=== PATIENT | male | born 1980 | race African-American/Black ===

== ENCOUNTER 2023-04-17 20:53 | Inpatient (IN) ==
[2023-04-17 22:04] LABS: Appearance Urine Clear (Clear); Bacteria Urine Automated Negative (Negative); Bilirubin Urine Negative (Negative); Blood Urine 1+ (Negative); Color Urine Yellow; Glucose Urine UA 3+ (Negative); Ketones Urine Negative (Negative); Leukocyte Esterase Urine Negative (Negative); Nitrite Urine Negative (Negative); Protein Urine 4+ (Negative); RBC Urine Automated 0-4 /hpf (0-4); Specific Gravity Urine 1.019 (1.000-1.030); Urobilinogen Urine Negative (Negative); pH Urine 6.5 (4.5-7.5)
[2023-04-17 22:35] LABS: Alanine Aminotransferase 10 U/L (7-52); Albumin Globulin Ratio 0.8 (0.9-2); Albumin Level 2.7 gm/dl (3.4-5.0); Alkaline Phosphatase 65 U/L (34-104); BUN Creatinine Ratio 10.8 (10-20); Bilirubin,Total 0.4 mg/dl (0.2-1.0); Blood Urea Nitrogen 23 mg/dl (6-23); Calcium 8.2 mg/dl (8.6-10.3); Carbon Dioxide 31 mmol/L (21-32); Chloride 107 mmol/L (98-107); Creatinine Clr Calc Pharmacy 59.5 ml/min; Est GFR (African American) 43.2 ml/min; Est GFR (Non-African American) 37.3 ml/min; Globulin 3.2 gm/dl (2.5-4.0); Glucose 151 mg/dl (70-99(Fasting)); Lipase 73 U/L (11-82); Total Protein 5.9 gm/dl (6.0-8.3)
[2023-04-17 22:51] LABS: Basophils % (auto) 1.1 %; Eosinophils # (auto) 0.16 K/uL (0.00-0.50); Eosinophils % (auto) 1.7 %; Hematocrit (blood only) 48.4 % (42.0-52.0); Hemoglobin 14.7 g/dl (14.0-18.0); Immature Granulocytes # (auto) 0.04 K/uL (0.01-0.20); Immature Granulocytes % (auto) 0.4 %; Lymphocytes # (auto) 2.44 K/uL (1.20-3.40); Mean Corpuscular Hemoglobin 27.5 pg (25.0-34.0); Mean Corpuscular Hgb Conc 30.4 g/dL (32.0-36.0); Mean Corpuscular Volume 90.5 fL (80.0-100.0); Mean Platelet Volume 11.5 fL (9.4-12.4); Monocytes # (auto) 0.72 K/uL (0.11-0.59); Monocytes % (auto) 7.7 %; Neutrophils # (auto) 5.91 K/uL (1.40-6.50); Neutrophils % (auto) 63.1 %; Nucleated RBC # (auto) 0.04 K/uL (0.00-0.12); Nucleated RBC % (auto) 0.4 %; Platelet Count 240 K/uL (130-400); RDW Coefficient of Variation 18.4 % (11.5-14.5); RDW Standard Deviation 58.1 fL (36.4-46.3); Red Blood Count 5.35 M/uL (4.70-6.10); White Blood Count 9.37 K/ul (4.8-10.8)
[2023-04-18 00:20] LABS: Potassium 3.5 mmol/L (3.5-5.1)
[2023-04-18 04:01] LABS: Troponin I High Sensitivity 35.2 pg/ml (0-20)
[2023-04-18 04:15] LABS: D Dimer 550 ug/L FEU (0-500)
--- NOTE | 2023-04-18 06:45 | CT Scan Report ---
Exam(s): CT CHEST Without Contrast EXAM: CT Chest Without Intravenous Contrast CLINICAL HISTORY: Reason for exam: eval for pneumonia. TECHNIQUE: Axial computed tomography images of the chest without intravenous contrast. Automated exposure control was utilized for the study. A dose lowering technique was utilized adhering to the principles of ALARA. COMPARISON: No relevant prior studies available. FINDINGS: Lungs: Mild scattered atelectasis. Minimal groundglass opacities in the right lung. 3 mm left upper lobe nodule. Pleural space: Unremarkable. No pneumothorax. No significant effusion. Heart: Query mild cardiomegaly. No significant pericardial effusion. No significant coronary artery calcifications. Bones/joints: Unremarkable. No acute fracture. No dislocation. Soft tissues: Unremarkable. Vasculature: Unremarkable. No thoracic aortic aneurysm. Lymph nodes: Unremarkable. No enlarged lymph nodes. IMPRESSION: 1. Mild scattered atelectasis. Minimal groundglass opacities in the right lung. May reflect infectious/inflammatory process and/or atelectasis. 2. 3 mm left upper lobe nodule. 3. Query mild cardiomegaly. Electronically signed by: Go Gerard M.D. 04/18/23 06:45 AM
[2023-04-18] MEDS ORDERED: FUROSEMIDE 40 MG/4 ML VIAL IV ONE (07:38)
[2023-04-18] MEDS ORDERED: ALBUT/IPRATROP 3MG/0.5MG NEB 3 ML VIAL NEB STA (07:49)
[2023-04-18] MEDS ORDERED: methylPREDNISolone 125 MG/2 ML VIAL IV STA (07:49)
--- NOTE | 2023-04-18 08:06 | XRay Report ---
XR chest 1V portable CLINICAL HISTORY: hypoxia TECHNIQUE: Single frontal radiograph of the chest was obtained. Comparison: None available at the time of this dictation. FINDINGS: No lines and tubes are seen. Cardiomegaly is noted. The lungs are clear. No evidence of pleural effus ion or pneumothorax. IMPRESSION: No acute chest disease. Cardiomegaly is noted. ACT 112: Negative or not required by law. Electronically signed by: Hugo Higuera M.D. 04/18/2023 8:04 AM
[2023-04-18] MEDS ORDERED: PHARMACY GLYCEMIC MGMT CONSULT PRN (10:14)
--- NOTE | 2023-04-18 10:31 | History & Physical Report ---
Date of Service April 18, 2023 Assessment & Plan (1) Acute and chronic respiratory failure: Plan: -Was requiring 8L oxymask on admission. States that he was told he needs oxygen at home before, but cannot afford it. Does wear cpap when he has all the parts. Denies feeling short of breath. -Likely secondary to volume overload - Received 40mg IV lasix in ED -04/18 CXR: cardionmegaly -04/18 CT: mild atelectasis -Biofire negative -Troponin 35.2--> 27.3 -Echo: mild LVH, EF 55-60% -Bilateral LE Dopplers--> No DVT -ABG: pH 7.32, pCO2: 66 -Wean O2 as able, goal 90-92% -Incentive Spirometer -Bipap HS and naps (2) Congestive heart failure: Plan: -Does not follow with cardiology or know his dry weight. Up about 15# since February. -States he has been taking his lasix at home (3) Scrotal edema: Plan: -Likely related to volume overload status -Continue IV lasix 40mg daily (4) Chronic renal disease, stage 3, moderately decreased glomerular filtration rate (GFR) between 30-59 mL/min/1.73 square meter: Plan: -4+ protienuria on admission -24 hr urine protein ordered -Creatinine 2.13 which seems to be baseline (5) Hypertension: Plan: -Continue amlodipine, metoprolol, and losartan - Will need to monitor creatinine - may need to hold ARB (6) Poorly controlled type 2 diabetes mellitus: Plan: -Hold Trulicity and Jardiance - HgbA1c: 10.1 -Pharmacy Glycemic consult for poor control. (7) Dyslipidemia: Plan: -Continue atorvastatin and fenofibrate (8) Cigar smoker: Plan: -1ppd -declined nicotine replacement Plan Diet: HH/DMT2, fluid restriction 1800ml VTE proh: heparin SQ Q12 Dispo: Admit to PCU/tele History of Present Illness Chief Complaint: Scrotal Swelling Primary Care Provider: Efren Young PA-C Mr. Manzo is a 42 male with a PMH of Type 2 Diabetes, CKD3, CHF, HTN, and Dyslipidemia. Patient complaining of worsening scrotal swelling over the last 4 days. No pain, redness or fevers. States that his noticed it was getting worse and told him to come to the ER. States that he has also noticed that his legs have been more swollen over the last month. Reports cough, chills, decreased appetite and decreased urine output in the last few days. Feels like he is only urinating about twice per day. Denies sick contacts or recent travels. Follows with [facility], but has not seen them since December. Does not have a scrap cutter. Has been taking medications at home but unsure of which ones, states he takes 7 pills. Smokes 1 pack per day. Does not drink. Lives at home with . His three children live with his [id number] during the school year, so he has been getting less food stamps because of this. Discussed code status and patient desires to be a full code. Allergies Allergy/AdvReac Type Severity Reaction Status Date / Time No Known Allergies Allergy Verified 04/18/23 11:48 Home Medications Medication Instructions Recorded Confirmed Type albuterol sulfate 90 mcg/actuation 2 puff inhalation Q6H PRN 01/03/23 04/18/23 History aerosol inhaler Shortness Of Breath Or Wheezing empagliflozin 25 mg tablet 25 mg PO DAILY 01/03/23 04/18/23 History (Jardiance) fenofibrate 160 mg tablet 160 mg PO QAM 01/03/23 04/18/23 History insulin lispro 100 unit/mL 15 unit subcut BID 01/03/23 04/18/23 History subcutaneous pen (Humalog KwikPen (U-100) Insulin) blood sugar diagnostic (StarNet InteractiveTouch #300 ea 01/05/23 04/18/23 Rx Verio test strips) insulin glargine 100 unit/mL (3 28 unit subcut DAILY 01/05/23 04/18/23 History mL) subcutaneous pen (Lantus Solostar U-100 Insulin) lancets 30 gauge (OneTouch Delica #300 ea 01/05/23 04/18/23 Rx Plus Lancet) metoprolol succinate 100 mg 100 mg PO QAM 01/05/23 04/18/23 History capsule sprinkle, ext. release 24 hr flash glucose sensor (FreeStyle #6 ea 02/28/23 04/18/23 Rx Tootie 2 Sensor kit) atorvastatin 80 mg tablet 80 mg PO DAILY #30 tabs 03/05/23 04/18/23 Rx calcitriol 0.25 mcg capsule 0.25 mcg PO DAILY #30 caps 03/05/23 04/18/23 Rx losartan 100 mg tablet 100 mg PO DAILY #30 tabs 03/05/23 04/18/23 Rx dulaglutide 0.75 mg/0.5 mL 0.75 mg subcut WK 04/18/23 04/18/23 History subcutaneous pen injector (Trulicity) amlodipine 5 mg tablet (Norvasc) 10 mg (2 x 5 mg) PO QAM 30 days 04/23/23 Rx #60 tabs bumetanide 1 mg tablet 2 mg (2 x 1 mg) PO QAM 30 days #60 04/23/23 Rx tabs metoprolol succinate 50 mg 50 mg PO HS #30 tabs 04/23/23 Rx tablet,extended release 24 hr prazosin 1 mg capsule 1 mg PO BID 30 days #60 caps 04/23/23 Rx Past Med/Surg History Medical History (Updated 04/24/23 @ 17:16 by Andres Bethea MD) Diabetic nephropathy associated with type 2 diabetes mellitus Hypertension Obesity Dyslipidemia Poorly controlled type 2 diabetes mellitus Nephrotic syndrome Stage 3b chronic kidney disease Family History Mother Diabetes Heart disease Dyslipidemia Social History Smoking Status: Current every day smoker Tobacco Type: Cigarettes Cigarettes Per Day: 1 pack; Second Hand Exposure: No; Do You Dip or Chew Tobacco: No; Hx Alcohol Use: No Hx Substance Use: Yes Prescribed Medications: Marijuana Last Used Substance: Hours (ago) Last Used Substance Other:: 04/17/23 Preferred Language: Sinhala Communication Ability: Effective Machine Stamper Required: No Beliefs That Will Affect Care: None marital status: Current Living Situation: Spouse current occupational status: employed How many Children do You have: 5 Feels Safe at Home: Yes Assistive Devices: CPAP Review of Systems Review of Systems: All systems reviewed & are unremarkable except as noted in Subjective Physical Exam Physical Exam: General: WN/WD, NAD, VS as above Resp: normal respiratory effort, no acessory muscle use, able to speak in full sentence. Decreased lung sounds bilateral bases. CV: RRR, no murmur Abd: normal bowel sounds, non tender, no hepatosplenomegaly. Lower abdomen is firm Extremities: Moves all extremities, bilateral leg edema, nonpitting. no erythema : Moderate scrotal swelling, no signs of infection or eryethema Neuro: A&O x3, Skin: intact, no lesions noted Results & Data Results & Data Vital Signs (Past 12 Hours) Vital Signs Pulse Pulse Resp BP BP Pulse Ox O2 Del Method 04/18/23 09:01 90 19 97 04/18/23 09:01 201/141 H 04/18/23 09:00 89 16 96 04/18/23 08:53 91 H 04/18/23 08:51 88 6 L 100 04/18/23 08:47 83 20 227/157 H 97 Oxymask 04/18/23 08:40 80 25 H 44 L Oxymask 04/18/23 06:35 90 12 168/110 H 98 Nasal Cannula 04/18/23 05:00 90 14 205/135 H 98 Nasal Cannula 04/18/23 02:01 75 L Room Air, Nasal Cannula 04/18/23 01:55 96 H 14 189/114 H 75 L Room Air 04/18/23 01:50 82 14 189/114 H 99 Nasal Cannula 04/18/23 00:33 99 H 18 192/113 H 93 Room Air O2 Flow Rate 04/18/23 08:47 8 04/18/23 08:40 5 04/18/23 06:35 4 04/18/23 05:00 4 04/18/23 02:01 0 04/18/23 01:55 04/18/23 01:50 4 04/18/23 00:33 Laboratory Results Laboratory Results - last 24 hr 04/17/23 04/17/23 04/17/23 21:15 21:22 22:50 WBC 9.37 RBC 5.35 Hgb 14.7 Hct 48.4 MCV 90.5 MCH 27.5 MCHC 30.4 L RDW Std Deviation 58.1 H RDW Coeff of Domi 18.4 H Plt Count 240 MPV 11.5 Immature Gran % (Auto) 0.4 Neut % (Auto) 63.1 Lymph % (Auto) 26.0 [place] % (Auto) 7.7 Eos % (Auto) 1.7 Baso % (Auto) 1.1 Neut # (Auto) 5.91 Lymph # (Auto) 2.44 [place] # (Auto) 0.72 H Eos # (Auto) 0.16 Baso # (Auto) 0.10 Immature Gran # (Auto) 0.04 Absolute Nucleated RBC 0.04 Nucleated RBC % (auto) 0.4 D-Dimer Sodium TNP Cancelled Potassium TNP Cancelled Chloride 107 Carbon Dioxide 31 Anion Gap TNP BUN 23 Creatinine 2.13 H Est Cr Clr Drug Dosing 59.5 Est GFR ( Amer) 43.2 Est GFR (Non-Af Amer) 37.3 BUN/Creatinine Ratio 10.8 Glucose 151 H Calcium 8.2 L Total Bilirubin 0.4 AST TNP Cancelled ALT 10 Alkaline Phosphatase 65 Troponin I High Sens B-Natriuretic Peptide 155 H Total Protein 5.9 L Albumin 2.7 L Globulin 3.2 Albumin/Globulin Ratio 0.8 L Lipase 73 Urine Color Yellow Urine Appearance Clear Urine pH 6.5 Ur Specific [place] 1.019 Urine Protein 4+ H Urine Glucose (UA) 3+ H Urine Ketones Negative Urine Blood 1+ H Urine Nitrite Negative Urine Bilirubin Negative Urine Urobilinogen Negative Ur Leukocyte Esterase Negative Urine WBC (Auto) 1-5 Urine RBC (Auto) 0-4 U Hyaline Cast (Auto) 1-5 U Epithel Cells (Auto) 5-10 H Urine Bacteria (Auto) Negative 04/17/23 04/18/23 23:51 Unknown WBC D-Dimer 550 H* Sodium 143 Potassium 3.5 ALT Alkaline Phosphatase Troponin I High Sens 35.2 H B-Natriuretic Peptide Diagnostic Findings Chest X-Ray 04/18/23 03:21 XR chest 1V portable CLINICAL HISTORY: hypoxia TECHNIQUE: Single frontal radiograph of the chest was obtained. Comparison: None available at the time of this dictation. FINDINGS: No lines and tubes are seen. Cardiomegaly is noted. The lungs are clear. No evidence of pleural effusion or pneumothorax. IMPRESSION: No acute chest disease. Cardiomegaly is noted. ACT 112: Negative or not required by law. Electronically signed by: Hugo Higuera M.D. 04/18/2023 8:[address] 04/18/23 03:53 Exam(s): CT CHEST Without Contrast EXAM: CT Chest Without Intravenous Contrast CLINICAL HISTORY: Reason for exam: eval for pneumonia. TECHNIQUE: Axial computed tomography images of the chest without intravenous contrast. Automated exposure control was utilized for the study. A dose lowering technique was utilized adhering to the principles of ALARA. COMPARISON: No relevant prior studies available. FINDINGS: Lungs: Mild scattered atelectasis. Minimal groundglass opacities in the right lung. 3 mm left upper lobe nodule. Pleural space: Unremarkable. No pneumothorax. No significant effusion. Heart: Query mild cardiomegaly. No significant pericardial effusion. No significant coronary artery calcifications. Bones/joints: Unremarkable. No acute fracture. No dislocation. Soft tissues: Unremarkable. Vasculature: Unremarkable. No thoracic aortic aneurysm. Lymph nodes: Unremarkable. No enlarged lymph nodes. IMPRESSION: 1. Mild scattered atelectasis. Minimal groundglass opacities in the right lung. May reflect infectious/inflammatory process and/or atelectasis. 2. 3 mm left upper lobe nodule. 3. Query mild cardiomegaly. Electronically signed by: Go Gerard M.D. 04/18/23 06:45 AM Code Status & VTE Plan VTE Prophylaxis Plan VTE Prophylaxis will be ordered: Yes Supervising Physician Co-Signing Physician Notes Attending Attestation & Admission Note: Pt seen/examined, chart reviewed, care plan d/w [facility]. I agree with the roa components of her documentation. 42yo male with CKD, obesity, poorly controlled HTN, and T2DM presents with worsening scrotal edema, LE edema, and hypoxia. Upon ER presentation he was hypoxic to the 70s. Despite the hypoxia he was not dyspneic. He was a rather poor historian during my assessment. PMH/PSH/allergies/meds/sochx/famhx/ros - reviewed vitals - hypoxic, BP markedly elevated with systolics as high as 220-230 range, afebrile gen - obese, NAD neck - no obvious JVD heart - RRR, s1 s2, no murmur lungs - decreased BS bases, mild rales bases, no wheeze abd - soft NT ND BS+ ext - 2-3+ edema b/l, pulses 2+ b/l labs reviewed imaging reviewed A/P: 1. acute hypoxic respiratory failure 2nd to #2 - uncertain if volume overload is CHF related vs CKD related vs other 2. volume overload 3. severe proteinuria (4+ protein on u/a) / concern for nephrotic syndrome 4. CKD stage 3a 5. uncontrolled T2DM 6. malignant HTN 7. MINAL 8. morbid obesity * diurese with lasix IV * consider 24-hour urine for protein * echocardiogram * b/l LE dopplers - r/o DVT * needs improved BP control - adjust BP meds * keep O2 sats 90-92% * consider nephro and/or pulmonary consultations Andres Bethea MD PG Care Time/CCT Total # of Minutes Spent Total Time Spent with Patient: Total time spent is greater than 50% in coordination of care (as documented) at patient's floor/unit and/or counseling patient: Coding Level of Care Code 43232 INT INP/OBS CARE 3/75MIN Diagnoses Acute and chronic respiratory failure J96.20 Congestive heart failure I50.9 Scrotal edema N50.89 Chronic renal disease, stage 3, moderately decreased glomerular filtration rate (GFR) between 30-59 mL/min/1.73 square meter N18.30 Hypertension I10 Poorly controlled type 2 diabetes mellitus E11.65 Dyslipidemia E78.5 Cigar smoker F17.290
[2023-04-18 11:16] LABS: Base Excess ABG 5.6 mEq/L (-9-1.8); HCO3 ABG 34 mmol/L (19-24); Oxygen Saturation ABG 96.6 % (90-95); PCO2 ABG 66 mmHg (35-46); PO2 ABG 85 mmHg (80-95); pH ABG 7.32 (7.35-7.45)
[2023-04-18 11:18] LABS: Allen Test Pos (Pos)
[2023-04-18 11:22] LABS: Estimated Average Glucose 243 mg/dl; Hemoglobin A1C 10.1 % (4.5-5.6)
[2023-04-18 11:35] LABS: Magnesium 1.7 mg/dl (1.7-2.4)
[2023-04-18 11:42] LABS: Troponin I High Sensitivity 27.3 pg/ml (0-20)
[2023-04-18] MEDS ORDERED: ACETAMINOPHEN 325 MG TAB PO PRN (11:42)
[2023-04-18] MEDS ORDERED: ALBUTEROL HFA 8 GM INHALER INH PRN (11:42)
[2023-04-18] MEDS ORDERED: POLYETHYLENE (MIRALAX) 17 GM PACK PO PRN (11:42)
[2023-04-18] MEDS ORDERED: NON-FORMULARY MEDICATION (Insulin Glargine [Lantus Solostar U-100 Insulin] 100 unit/mL (3 SQ SCH (11:42)
[2023-04-18] MEDS ORDERED: amLODIPine BESYLATE 5 MG TAB PO ONE (11:50)
[2023-04-18 11:52] LABS: Thyroid Stimulating Hormone 2.649 uIu/ml (0.300-4.500)
[2023-04-18] MEDS ORDERED: LOSARTAN POTASSIUM 50 MG TAB PO SCH (12:00)
[2023-04-18] MEDS ORDERED: GLUCAGON FOR INJ 1 MG VIAL IM PRN (12:00)
[2023-04-18] MEDS ORDERED: METOPROLOL SUCC 50MG EXT REL TAB PO SCH (12:00)
[2023-04-18] MEDS ORDERED: CARBOHYDRATES FOR HYPOGLYCEMIA PO PRN (12:00)
[2023-04-18] MEDS ORDERED: DEXTROSE 50% 50 ML SYRINGE IV PRN (12:00)
[2023-04-18] MEDS ORDERED: GLUCOSE 40% GEL 15 GM TUBE PO PRN (12:00)
[2023-04-18] MEDS ORDERED: GLUCOSE 10 TAB/TUBE PO PRN (12:00)
--- NOTE | 2023-04-18 12:28 | Ultrasound Report ---
ULTRASOUND BILATERAL LOWER EXTREMITY VENOUS CLINICAL HISTORY: Lower extremity edema. COMPARISON STUDY: No priors. TECHNIQUE: Real-time, grayscale, and color Doppler sonography of the deep veins of the right and left lower extremity was performed from the inguinal crease to the calf. Compression and augmentation wer e utilized. FINDINGS: There is no sonographic evidence of deep venous thrombosis identified in the right or left lower extremity. The common femoral, superficial femoral, and popliteal veins are patent and normally compressible bilaterally. The greater saphenous vein and the profunda femoris vein at the junction w ith the common femoral vein are clear in both legs. The visualized calf veins are patent bilaterally. Soft tissue edema is present in both legs. Prominent inguinal lymph nodes are likely reactive. IMPRESSION: There is no sonographic evidence of deep venous thrombosis identified in the right or lef t lower extremity. ACT 112: Negative or not required by law. Electronically signed by: Lizandro Santacruz M.D. 04/18/2023 12:27 PM
[2023-04-18] MEDS: amLODIPine BESYLATE 5 MG TAB PO SCH (12:31)
[2023-04-18] MEDS: ATORVASTATIN 40 MG TAB PO SCH (12:32)
[2023-04-18] MEDS: METOPROLOL SUCC 50MG EXT REL TAB PO SCH ×2 (12:32→22:02)
[2023-04-18] MEDS: LOSARTAN POTASSIUM 50 MG TAB PO SCH (12:32)
[2023-04-18] MEDS: FENOFIBRATE NANOCRYSTALLIZED 145 MG TABLET PO SCH (12:32)
[2023-04-18] MEDS: CALCITRIOL 0.25 MCG CAPSULE PO SCH (12:32)
[2023-04-18 12:58] LABS: Adenovirus PCR Not Detected (NotDetected); Bordetella parapertussis PCR Not Detected (NotDetected); Bordetella pertussis PCR Not Detected (NotDetected); Chlamydia pneumoniae PCR Not Detected (NotDetected); Coronavirus 229E PCR Not Detected (NotDetected); Coronavirus CoV-2 (COVID19)PCR Not Detected (NotDetected); Coronavirus HKU1 PCR Not Detected (NotDetected); Coronavirus NL63 PCR Not Detected (NotDetected); Coronavirus OC43PCR Not Detected (NotDetected); Human Metapneumovirus PCR Not Detected (NotDetected); Influenza A PCR Not Detected (NotDetected); Influenza B PCR Not Detected (NotDetected); Mycoplasma pneumoniae PCR Not Detected (NotDetected); Parainfluenza Virus 1 PCR Not Detected (NotDetected); Parainfluenza Virus 2 PCR Not Detected (NotDetected); Parainfluenza Virus 3 PCR Not Detected (NotDetected); Parainfluenza Virus 4 PCR Not Detected (NotDetected); Respiratory Syncytial VirusPCR Not Detected (NotDetected); Rhinovirus/Enterovirus PCR Not Detected (NotDetected)
--- NOTE | 2023-04-18 13:28 | Pharmacy Report ---
Pharmacy Glycemic Short Note 2 - Date of Service April 18, 2023 - Glycemic Short BSG Results (Last 24 hours): 04/17/23 04/18/23 21:22 12:03 Glucose 151 H POC Glucose 87 OUTPATIENT ANTIDIABETIC REGIMEN: * dulaglutide 0.75mg SQ weekly * empagliflozin 25mg PO daily * Lantus 28 units SQ daily * Novolog 15 units SQ BID HbA1C: 10.1% ASSESSMENT: * Pt is a 42 year old male with a history of DM2 and CKD admitted with acute on chronic respiratory failure. Pharmacy consulted to assist with inpatient glycemic management. * BSGs 151, 87mg/dL since admission. Received methylprednisolone 125mg IV X 1 this AM- no ongoing steroids. Diet ordered. * Initiate basal/bolus insulin. Will hold Lantus for now given 1st POC today is 87mg/dL. HS scale based upon BSG ordered for tonight (scaled based upon home dose). Novolog moderate stress scale ACHS. PLAN FOR INPATIENT GLYCEMIC CONTROL: * Hold outpatient oral diabetes medications * Basal insulin * Lantus 5/10/15 units SQ HS depending on BSG- reassess basal in AM * Bolus insulin * NovoLog per scale ACHS or Q6hrs while NPO * Goal Range: Low 110 mg/dL - High 140 mg/dL * Correction Factor: 25 mg/dL/unit * Nutritional / Prandial insulin per carb ratio of 1 unit per 8 grams CHO consumed
[2023-04-18] MEDS: INSULIN ASPART PER UNIT CHARGE SC SCH ×3 (13:36→20:51)
[2023-04-18] MEDS ORDERED: METOPROLOL TARTRATE 1 MG/ML VIAL IV STA (14:34)
--- NOTE | 2023-04-18 14:39 | XCELERA ---
[id number]
--- NOTE | 2023-04-18 15:47 | Electrocardiogram Report ---
Test Reason : Blood Pressure : / mmHG Vent. Rate : 101 BPM Atrial Rate : 101 BPM P-R Int : 178 ms QRS Dur : 090 ms QT Int : 368 ms P-R-T Axes : 044 -29 078 degrees QTc Int : 477 ms Sinus tachycardia Possible Inferior infarct , age undetermined Anterolateral infarct , age undetermined Abnormal ECG No previous ECGs available Confirmed by Randall Fermin ([id number]) on 04/18/2023 3:47:04 PM Referred By: REFERRED SELF Confirmed By:Randall Fermin
--- NOTE | 2023-04-18 18:28 | Emergency Department Note ---
Impression & Plan Hypoxia, Genital edema, male, Acute exacerbation of chronic obstructive pulmonary disease, Elevated troponin Admit to the [facility] ED Provider Note NAME: YAZMIN RAMOS AGE: 42 SEX: Male INFORMANT: Patient ED PROVIDER(S): Janell North DO CHIEF COMPLAINT: Swelling to the genitals PLAN: Disposition: Admit to the [facility] MEDICAL DECISION MAKING: This is a 42-year-old obese male patient who presents to the emergency department with swelling to his genitals. Upon triage evaluation by the nursing staff, they noted his oxygen saturation was in the 60s. He was immediately placed on supplemental O2 to maintain O2 saturations above 90. He does describe occasional shortness of breath. Patient was moderately hypertensive. Laboratory studies showed no leukocytosis and a stable H&H. Creatinine was 2.13 which is baseline for the patient. Patient did have an elevated troponin at 35.2. Urinalysis revealed 1+ blood 4+ protein and 3+ glucose. D-dimer was elevated at 550. Because of the elevated creatinine, I was not comfortable doing a CTA of the chest. We did obtain a noncontrasted CT scan of the chest to rule out significant fluid overload or pneumonia. Patient is retaining significant fluid in his legs, genitals and lower abdomen. He was given a dose of IV Lasix. On physical exam, the patient does have significant inspiratory next-door wheezing and has a history of COPD as he describes it. He was given a DuoNeb treatment and IV Solu-Medrol which did seem to help with his breathing. Patient does have an elevated troponin with no obvious ischemic changes on his EKG. I discussed the case with the [facility] and they will evaluate for further inpatient care. There is still some possible concern for PE as the patient has significant edema to the lower extremities and profound hypoxia at times. He will require additional workup for this. Care/management discussed with: marketing project manager and the [facility]. Triage Nursing notes: Reviewed and agree with them. Vital Signs: reviewed and remarkable for profound hypoxia and hypertension Chronic Medical/Social Conditions affecting care: Morbid obesity, tobacco abuse, COPD Differential Diagnosis: CHF, COPD exacerbation, PE, pneumonia Diagnostics, independently interpreted by me: ECG: Sinus tachycardia at [address] segment elevation or obvious signs of ischemia. There was no significant ectopy. Cardiac Monitoring: Sinus tachycardia at a rate of 104. Imaging studies: Portable chest x-ray: Significant cardiomegaly difficult to interpret any other pulmonary pathology. CT scan of the chest: See radiology report HPI: 42 year old Male arrives for evaluation of swelling to the genitals. Patient explains that he has been retaining fluid in his legs and testicle for the past couple of days. His and [id number] urged him to come to the emergency department for evaluation.. PAST MEDICAL HISTORY: COPD, CHF, type 2 diabetes, end-stage renal disease, depression, obesity, dyslipidemia SOCIAL HISTORY: Patient lives with his and [id number] and children, he does smoke HOME MEDICATIONS: See list ALLERGIES: None VITALS: See Below PHYSICAL EXAMINATION: HEENT: Head - normocephalic and atraumatic. Pupils are equal, round, and reactive to light. Extraocular eye muscles are intact, and sclera are anicteric. Nose - moist nasal mucosa without discharge. Mouth - moist buccal mucosa. Oropharynx is nonerythematous and there is no tonsillar exudate or edema noted. Neck: Supple; no JVD, nuchal rigidity, cervical lymphadenopathy, or auscultated bruits. Heart: Regular rate and rhythm. There is a normal S1 and S2 with no murmurs, clicks, or gallops appreciated. Lungs: Diffuse inspiratory and expiratory wheezing Abdomen: Soft, completely nontender, nondistended, with good bowel sounds. There are no palpable pulsatile masses or hepatosplenomegaly. There is no guarding, rigidity, or rebound noted. Genitalia: The patient does have moderate edema noted to the scrotum Extremities: Pitting edema noted up to the mid thigh Skin: warm and dry with good turgor and no rashes. ED treatment: Supplemental oxygen, vehicle monitor technician, IV Lasix, DuoNeb treatment, IV Lasix. ED course: The patient was evaluated in room B3 B. Patient was immediately placed on supplemental oxygen to maintain O2 saturations greater than 90%. A complete history and physical was performed. An IV lock was initiated and labs were drawn as above. An order was placed for continuous cardiac monitoring. The patient was in a sinus tachycardia at a rate of 104. A twelve-lead EKG was obtained as described above. A portable chest x-ray was obtained. This was difficult to interpret due to the patient's heart size. He went for CT scan of the chest. A DuoNeb was administered because of the significant wheezing the patient was having. He was given a dose of IV Solu-Medrol. Patient's respiratory status seems to decline somewhat and he was switched from nasal cannula to an oxi- mask. O2 saturations are stable. I discussed the case with the [facility] hospitalist and they will evaluate for further inpatient care. CRITICAL CARE: I have personally spent greater than 50 minutes of critical care time in the direct management of this patient. This includes bedside care, interpretation of diagnostic studies, and testing, discussion with consultants, patient, and family members, and other required patient management activities. This 50 minutes is in excess of all separately billable procedures. Past Med/Surg History Family History Mother Diabetes Heart disease Dyslipidemia Social History Smoking Status: Current every day smoker Tobacco Type: Cigarettes Cigarettes Per Day: 1 pack; Second Hand Exposure: No; Do You Dip or Chew Tobacco: No; Tobacco Cessation Education Requested by Patient: No Hx Alcohol Use: No Hx Substance Use: Yes Prescribed Medications: Marijuana Last Used Substance: Hours (ago) Last Used Substance Other:: 04/17/23 Preferred Language: Filipino Communication Ability: Effective Supervisor [employer] Required: No Beliefs That Will Affect Care: None marital status: Current Living Situation: Spouse current occupational status: employed How many Children do You have: 5 Other Information That Helps Us Care for You: No Feels Safe at Home: Yes Safety Concerns: Feels Safe At This Time Assistive Devices: CPAP and Glasses Allergies Allergies Allergy/AdvReac Type Severity Reaction Status Date / Time No Known Allergies Allergy Verified 04/18/23 11:48 Home Meds Home Medications Medication Instructions Recorded Confirmed amlodipine 5 mg tablet 5 mg PO QAM 04/28/21 04/18/23 furosemide 40 mg tablet 40 mg PO DAILY 04/28/21 04/18/23 albuterol sulfate 90 mcg/actuation 2 puff inhalation Q6H PRN 01/03/23 04/18/23 aerosol inhaler Shortness Of Breath Or Wheezing empagliflozin 25 mg tablet 25 mg PO DAILY 01/03/23 04/18/23 (Jardiance) fenofibrate 160 mg tablet 160 mg PO QAM 01/03/23 04/18/23 insulin lispro 100 unit/mL 15 unit subcut BID 01/03/23 04/18/23 subcutaneous pen (Humalog KwikPen (U-100) Insulin) insulin glargine 100 unit/mL (3 28 unit subcut DAILY 01/05/23 04/18/23 mL) subcutaneous pen (Lantus Solostar U-100 Insulin) metoprolol succinate 100 mg 100 mg PO QAM 01/05/23 04/18/23 capsule sprinkle, ext. release 24 hr dulaglutide 0.75 mg/0.5 mL 0.75 mg subcut WK 04/18/23 04/18/23 subcutaneous pen injector (Trulicity) Previous Rx's Medication Instructions Recorded blood sugar diagnostic (RenrenmoneyTouch #300 ea 01/05/23 Verio test strips) lancets 30 gauge (OneTouch Delica #300 ea 01/05/23 Plus Lancet) flash glucose sensor (SegmentStyle #6 ea 02/28/23 Tootie 2 Sensor kit) atorvastatin 80 mg tablet 80 mg PO DAILY #30 tabs 03/05/23 calcitriol 0.25 mcg capsule 0.25 mcg PO DAILY #30 caps 03/05/23 losartan 100 mg tablet 100 mg PO DAILY #30 tabs 03/05/23 Results & Data (ED) Vital Signs Vital Signs - 24 hr 04/17/23 21:03 04/18/23 00:33 04/18/23 01:50 Temperature 36.5 C Temperature Source Temporal Artery Scan Pulse Rate 103 H Pulse Rate [Finger] 99 H 82 Pulse Rate from SpO2 Sensor Respiratory Rate 18 18 14 Respiratory Effort / Characteristics Non-Labored Spontaneous Non-Labored Spontaneous Respiratory Depth Normal Normal Normal Blood Pressure 211/119 H Blood Pressure [Right Arm] 192/113 H 189/114 H Blood Pressure Mean 149 Blood Pressure Mean [Right Arm] 139 139 Pulse Oximetry 92 93 99 Oxygen Delivery Method Room Air Room Air Nasal Cannula Oxygen Flow Rate 4 Sepsis Recent Fever Within 48 Hours No Sepsis New/Unexplained Change in Mental Status No Sepsis Action Taken by Nursing No Action Required Oxygen Flow Rate - Titration Pulse Oximetry Post Tiitration 04/18/23 01:55 04/18/23 02:01 04/18/23 05:00 Temperature Temperature Source Pulse Rate Pulse Rate [Finger] 96 H 90 Pulse Rate from SpO2 Sensor Respiratory Rate 14 14 Respiratory Effort / Characteristics Non-Labored Spontaneous Non-Labored Spontaneous Respiratory Depth Normal Normal Blood Pressure Blood Pressure [Right Arm] 189/114 H 205/135 H Blood Pressure Mean Blood Pressure Mean [Right Arm] 139 158 Pulse Oximetry 75 L 75 L 98 Oxygen Delivery Method Room Air Room Air Nasal Cannula Nasal Cannula Oxygen Flow Rate 0 4 Sepsis Recent Fever Within 48 Hours Sepsis New/Unexplained Change in Mental Status Sepsis Action Taken by Nursing Oxygen Flow Rate - Titration 4 Pulse Oximetry Post Tiitration 94 04/18/23 06:35 04/18/23 08:40 04/18/23 08:47 Temperature Temperature Source Pulse Rate Pulse Rate [Finger] 90 80 83 Pulse Rate from SpO2 Sensor Respiratory Rate 12 25 H 20 Respiratory Effort / Characteristics Non-Labored Spontaneous Respiratory Depth Normal Blood Pressure Blood Pressure [Right Arm] 168/110 H 227/157 H Blood Pressure Mean Blood Pressure Mean [Right Arm] 129 180 Pulse Oximetry 98 44 L 97 Oxygen Delivery Method Nasal Cannula Oxymask Oxymask Oxygen Flow Rate 4 5 8 Sepsis Recent Fever Within 48 Hours Sepsis New/Unexplained Change in Mental Status Sepsis Action Taken by Nursing Oxygen Flow Rate - Titration Pulse Oximetry Post Tiitration 04/18/23 08:51 04/18/23 08:53 04/18/23 09:00 Temperature Temperature Source Pulse Rate 88 91 H 89 Pulse Rate [Finger] Pulse Rate from SpO2 Sensor 87 89 Respiratory Rate 6 L 16 Respiratory Effort / Characteristics Respiratory Depth Blood Pressure Blood Pressure [Right Arm] Blood Pressure Mean Blood Pressure Mean [Right Arm] Pulse Oximetry 100 96 Oxygen Delivery Method Oxygen Flow Rate Sepsis Recent Fever Within 48 Hours Sepsis New/Unexplained Change in Mental Status Sepsis Action Taken by Nursing Oxygen Flow Rate - Titration Pulse Oximetry Post Tiitration 04/18/23 09:01 04/18/23 09:01 04/18/23 09:10 Temperature Temperature Source Pulse Rate 90 90 Pulse Rate [Finger] Pulse Rate from SpO2 Sensor 91 H 90 Respiratory Rate 19 17 Respiratory Effort / Characteristics Respiratory Depth Blood Pressure 201/141 H Blood Pressure [Right Arm] Blood Pressure Mean 153 Blood Pressure Mean [Right Arm] Pulse Oximetry 97 100 Oxygen Delivery Method Oxygen Flow Rate Sepsis Recent Fever Within 48 Hours Sepsis New/Unexplained Change in Mental Status Sepsis Action Taken by Nursing Oxygen Flow Rate - Titration Pulse Oximetry Post Tiitration 04/18/23 09:20 04/18/23 09:34 04/18/23 09:40 Temperature Temperature Source Pulse Rate 91 H 108 H 89 Pulse Rate [Finger] Pulse Rate from SpO2 Sensor 91 H 89 Respiratory Rate 7 L 18 8 L Respiratory Effort / Characteristics Respiratory Depth Blood Pressure Blood Pressure [Right Arm] Blood Pressure Mean Blood Pressure Mean [Right Arm] Pulse Oximetry 100 100 Oxygen Delivery Method Oxygen Flow Rate Sepsis Recent Fever Within 48 Hours Sepsis New/Unexplained Change in Mental Status Sepsis Action Taken by Nursing Oxygen Flow Rate - Titration Pulse Oximetry Post Tiitration 04/18/23 09:50 04/18/23 10:00 04/18/23 10:02 Temperature Temperature Source Pulse Rate 95 H 88 85 Pulse Rate [Finger] Pulse Rate from SpO2 Sensor 95 H 88 88 Respiratory Rate 21 21 18 Respiratory Effort / Characteristics Respiratory Depth Blood Pressure Blood Pressure [Right Arm] Blood Pressure Mean Blood Pressure Mean [Right Arm] Pulse Oximetry 98 96 97 Oxygen Delivery Method Oxygen Flow Rate Sepsis Recent Fever Within 48 Hours Sepsis New/Unexplained Change in Mental Status Sepsis Action Taken by Nursing Oxygen Flow Rate - Titration Pulse Oximetry Post Tiitration 04/18/23 10:02 04/18/23 10:10 Temperature Temperature Source Pulse Rate 87 Pulse Rate [Finger] Pulse Rate from SpO2 Sensor 88 Respiratory Rate 16 Respiratory Effort / Characteristics Respiratory Depth Blood Pressure 208/127 H Blood Pressure [Right Arm] Blood Pressure Mean 149 Blood Pressure Mean [Right Arm] Pulse Oximetry 98 Oxygen Delivery Method Oxygen Flow Rate Sepsis Recent Fever Within 48 Hours Sepsis New/Unexplained Change in Mental Status Sepsis Action Taken by Nursing Oxygen Flow Rate - Titration Pulse Oximetry Post Tiitration Laboratory Data 04/17/23 21:22 04/17/23 23:51 Lab Results 04/17/23 04/17/23 04/17/23 Range/Units 21:15 21:22 22:50 WBC 9.37 (4.8-10.8) K/ul RBC 5.35 (4.70-6.10) M/uL Hgb 14.7 (14.0-18.0) g/dl Hct 48.4 (42.0-52.0) % MCV 90.5 (80.0-100.0) fL MCH 27.5 (25.0-34.0) pg MCHC 30.4 L (32.0-36.0) g/dL RDW Std Deviation 58.1 H (36.4-46.3) fL RDW Coeff of Domi 18.4 H (11.5-14.5) % Plt Count 240 (130-400) K/uL MPV 11.5 (9.4-12.4) fL Immature Gran % (Auto) 0.4 % Neut % (Auto) 63.1 % Lymph % (Auto) 26.0 % Moca % (Auto) 7.7 % Eos % (Auto) 1.7 % Baso % (Auto) 1.1 % Neut # (Auto) 5.91 (1.40-6.50) K/uL Lymph # (Auto) 2.44 (1.20-3.40) K/uL Moca # (Auto) 0.72 H (0.11-0.59) K/uL Eos # (Auto) 0.16 (0.00-0.50) K/uL Baso # (Auto) 0.10 (0.00-0.20) K/uL Immature Gran # (Auto) 0.04 (0.01-0.20) K/uL Absolute Nucleated RBC 0.04 (0.00-0.12) K/uL Nucleated RBC % (auto) 0.4 % Sodium TNP Cancelled Potassium TNP Cancelled Chloride 107 (98-107) mmol/L Carbon Dioxide 31 (21-32) mmol/L Anion Gap TNP BUN 23 (6-23) mg/dl Creatinine 2.13 H (0.6-1.4) mg/dl Est Cr Clr Drug Dosing 59.5 ml/min Est GFR ( Amer) 43.2 ml/min Est GFR (Non-Af Amer) 37.3 ml/min BUN/Creatinine Ratio 10.8 (10-20) Glucose 151 H (70-99(Fasting)) mg/dl Calcium 8.2 L (8.6-10.3) mg/dl Total Bilirubin 0.4 (0.2-1.0) mg/dl AST TNP Cancelled ALT 10 (7-52) U/L Alkaline Phosphatase 65 (34-104) U/L Troponin I High Sens (0-20) pg/ml B-Natriuretic Peptide 155 H (0-100) pg/ml Total Protein 5.9 L (6.0-8.3) gm/dl Albumin 2.7 L (3.4-5.0) gm/dl Globulin 3.2 (2.5-4.0) gm/dl Albumin/Globulin Ratio 0.8 L (0.9-2) Lipase 73 (11-82) U/L Urine Color Yellow Urine Appearance Clear (Clear) Urine pH 6.5 (4.5-7.5) Ur Specific [place] 1.019 (1.000-1.030) Urine Protein 4+ H (Negative) Urine Glucose (UA) 3+ H (Negative) Urine Ketones Negative (Negative) Urine Blood 1+ H (Negative) Urine Nitrite Negative (Negative) Urine Bilirubin Negative (Negative) Urine Urobilinogen Negative (Negative) Ur Leukocyte Esterase Negative (Negative) Urine WBC (Auto) 1-5 (0-5) /hpf Urine RBC (Auto) 0-4 (0-4) /hpf U Hyaline Cast (Auto) 1-5 (0-5) /lpf U Epithel Cells (Auto) 5-10 H (0-5) /lpf Urine Bacteria (Auto) Negative (Negative) 04/17/23 Range/Units 23:51 WBC (4.8-10.8) K/ul RBC (4.70-6.10) M/uL Hgb (14.0-18.0) g/dl Hct (42.0-52.0) % MCV (80.0-100.0) fL MCH (25.0-34.0) pg MCHC (32.0-36.0) g/dL RDW Std Deviation (36.4-46.3) fL RDW Coeff of Domi (11.5-14.5) % Plt Count (130-400) K/uL MPV (9.4-12.4) fL Immature Gran % (Auto) % Neut % (Auto) % Lymph % (Auto) % Moca % (Auto) % Eos % (Auto) % Baso % (Auto) % Neut # (Auto) (1.40-6.50) K/uL Lymph # (Auto) (1.20-3.40) K/uL Moca # (Auto) (0.11-0.59) K/uL Eos # (Auto) (0.00-0.50) K/uL Baso # (Auto) (0.00-0.20) K/uL Immature Gran # (Auto) (0.01-0.20) K/uL Absolute Nucleated RBC (0.00-0.12) K/uL Nucleated RBC % (auto) % Sodium 143 Potassium 3.5 Chloride (98-107) mmol/L Carbon Dioxide (21-32) mmol/L Anion Gap BUN (6-23) mg/dl Creatinine (0.6-1.4) mg/dl Est Cr Clr Drug Dosing ml/min Est GFR ( Amer) ml/min Est GFR (Non-Af Amer) ml/min BUN/Creatinine Ratio (10-20) Glucose (70-99(Fasting)) mg/dl Calcium (8.6-10.3) mg/dl Total Bilirubin (0.2-1.0) mg/dl AST 12 L ALT (7-52) U/L Alkaline Phosphatase (34-104) U/L Troponin I High Sens 35.2 H (0-20) pg/ml B-Natriuretic Peptide (0-100) pg/ml Total Protein (6.0-8.3) gm/dl Albumin (3.4-5.0) gm/dl Globulin (2.5-4.0) gm/dl Albumin/Globulin Ratio (0.9-2) Lipase (11-82) U/L Urine Color Urine Appearance (Clear) Urine pH (4.5-7.5) Ur Specific [place] (1.000-1.030) Urine Protein (Negative) Urine Glucose (UA) (Negative) Urine Ketones (Negative) Urine Blood (Negative) Urine Nitrite (Negative) Urine Bilirubin (Negative) Urine Urobilinogen (Negative) Ur Leukocyte Esterase (Negative) Urine WBC (Auto) (0-5) /hpf Urine RBC (Auto) (0-4) /hpf U Hyaline Cast (Auto) (0-5) /lpf U Epithel Cells (Auto) (0-5) /lpf Urine Bacteria (Auto) (Negative) Administered Medications Amlodipine Besylate (Amlodipine Besylate 5 Mg Tab) 5 mg PO QAM [facility] Stop: 05/18/23 11:41 Last Admin: 04/18/23 12:31 Dose: 5 mg Documented By: MALIA Atorvastatin Calcium (Atorvastatin 40 Mg Tab) 80 mg PO DAILY [facility] Stop: 05/18/23 11:41 Last Admin: 04/18/23 12:32 Dose: 80 mg Documented By: MALIA Calcitriol (Calcitriol 0.25 Mcg Capsule) 0.25 mcg PO DAILY [facility] Stop: 05/18/23 11:41 Last Admin: 04/18/23 12:32 Dose: 0.25 mcg Documented By: MALIA Fenofibrate (Fenofibrate Nanocrystallized 145 Mg Tablet) 145 mg PO [facility] Stop: 05/18/23 11:41 Last Admin: 04/18/23 12:32 Dose: 145 mg Documented By: MALIA Insulin Aspart (Insulin Aspart Per Unit Charge) 0 units SC [facility] Stop: 05/18/23 11:29 Last Admin: 04/18/23 16:42 Dose: Not Given Documented By: BERNARDA Co-signed By: ROSSV Admin: 04/18/23 13:36 Dose: Not Given Documented By: MALIA Losartan Potassium (Losartan Potassium 50 Mg Tab) 100 mg PO DAILY [facility] Stop: 05/18/23 11:41 Last Admin: 04/18/23 12:32 Dose: 100 mg Documented By: MALIA Metoprolol Succinate (Metoprolol Succ 50mg Ext Rel Tab) 100 mg PO [facility] Stop: 05/18/23 11:41 Last Admin: 04/18/23 12:32 Dose: 100 mg Documented By: MALIA Discontinued Medications Albuterol (Albut/Ipratrop 3mg/0.5mg Neb 3 Ml Vial) 3 ml NEB NOW STA; Protocol Stop: 04/18/23 07:50 Last Admin: 04/18/23 07:55 Dose: 3 ml Documented By: MALIA Furosemide (Furosemide 40 Mg/4 Ml Vial) 40 mg IV ONE ONE Stop: 04/18/23 07:39 Last Admin: 04/18/23 07:55 Dose: 40 mg Documented By: MALIA Methylprednisolone (Methylprednisolone 125 Mg/2 Ml Vial) 125 mg IV NOW STA Stop: 04/18/23 07:50 Last Admin: 04/18/23 07:55 Dose: 125 mg Documented By: MALIA Metoprolol Tartrate (Metoprolol Tartrate 1 Mg/Ml Vial) 5 mg IV NOW STA Stop: 04/18/23 14:35 Last Admin: 04/18/23 15:18 Dose: 5 mg Documented By: BERNARDA Imaging Data Radiologist's Impression: Chest X-Ray 04/18/23 03:21 XR chest 1V portable CLINICAL HISTORY: hypoxia TECHNIQUE: Single frontal radiograph of the chest was obtained. Comparison: None available at the time of this dictation. FINDINGS: No lines and tubes are seen. Cardiomegaly is noted. The lungs are clear. No evidence of pleural effusion or pneumothorax. IMPRESSION: No acute chest disease. Cardiomegaly is noted. ACT 112: Negative or not required by law. Electronically signed by: Hugo Higuera M.D. 04/18/2023 8:[address] 04/18/23 03:53 Exam(s): CT CHEST Without Contrast EXAM: CT Chest Without Intravenous Contrast CLINICAL HISTORY: Reason for exam: eval for pneumonia. TECHNIQUE: Axial computed tomography images of the chest without intravenous contrast. Automated exposure control was utilized for the study. A dose lowering technique was utilized adhering to the principles of ALARA. COMPARISON: No relevant prior studies available. FINDINGS: Lungs: Mild scattered atelectasis. Minimal groundglass opacities in the right lung. 3 mm left upper lobe nodule. Pleural space: Unremarkable. No pneumothorax. No significant effusion. Heart: Query mild cardiomegaly. No significant pericardial effusion. No significant coronary artery calcifications. Bones/joints: Unremarkable. No acute fracture. No dislocation. Soft tissues: Unremarkable. Vasculature: Unremarkable. No thoracic aortic aneurysm. Lymph nodes: Unremarkable. No enlarged lymph nodes. IMPRESSION: 1. Mild scattered atelectasis. Minimal groundglass opacities in the right lung. May reflect infectious/inflammatory process and/or atelectasis. 2. 3 mm left upper lobe nodule. 3. Query mild cardiomegaly. Electronically signed by: Go Gerard M.D. 04/18/23 06:45 AM Discharge Plan Visit Data Chief Complaint: Testicular Pain Stated Complaint: SWOLLEN TESTICLE ED Provider: Janell North Discharge Problem: Hypoxia, Genital edema, male, Acute exacerbation of chronic obstructive pulmonary disease, Elevated troponin Patient Disposition: Admitted As Inpatient Discharge Instructions Interventions: ED Discharge Assessment Last Done: 04/18/23 11:41
[2023-04-18] MEDS: LANTUS PER UNIT CHARGE SC SCH (20:50)
[2023-04-18] MEDS: HEPARIN SOD 5,000 UNIT/0.5 ML VIAL SQ SCH (22:02)
[2023-04-19] MEDS: INSULIN ASPART PER UNIT CHARGE SC SCH ×6 (00:51→20:58)
[2023-04-19 04:49] LABS: Base Excess VBG 3.3 mEq/L; HCO3 VBG 34 mmol/L; Oxygen Saturation VBG 65.4 %; PCO2 VBG 80 mmHg (38-50); PO2 VBG 41 mmHg; pH VBG 7.23 (7.36-7.41)
[2023-04-19 04:57] LABS: Hematocrit (blood only) 45.8 % (42.0-52.0); Hemoglobin 13.2 g/dl (14.0-18.0); Mean Corpuscular Hemoglobin 26.3 pg (25.0-34.0); Mean Corpuscular Hgb Conc 28.8 g/dL (32.0-36.0); Mean Corpuscular Volume 91.2 fL (80.0-100.0); Mean Platelet Volume 10.3 fL (9.4-12.4); Nucleated RBC # (auto) 0.02 K/uL (0.00-0.12); Nucleated RBC % (auto) 0.2 %; Platelet Count 361 K/uL (130-400); RDW Coefficient of Variation 17.2 % (11.5-14.5); RDW Standard Deviation 57.2 fL (36.4-46.3); Red Blood Count 5.02 M/uL (4.70-6.10); White Blood Count 9.79 K/ul (4.8-10.8)
[2023-04-19 05:10] LABS: Albumin Level 2.6 gm/dl (3.4-5.0); Bilirubin,Total 0.3 mg/dl (0.2-1.0); Calcium 7.9 mg/dl (8.6-10.3); Creatinine Clr Calc Pharmacy 53.2 ml/min; Est GFR (African American) 37.8 ml/min; Est GFR (Non-African American) 32.6 ml/min; Globulin 2.7 gm/dl (2.5-4.0); Total Protein 5.3 gm/dl (6.0-8.3)
[2023-04-19] MEDS ORDERED: FUROSEMIDE 40 MG/4 ML VIAL IV SCH (09:00)
[2023-04-19] MEDS: METOPROLOL SUCC 50MG EXT REL TAB PO SCH ×2 (09:41→20:55)
[2023-04-19] MEDS: LOSARTAN POTASSIUM 50 MG TAB PO SCH (09:42)
[2023-04-19] MEDS: CALCITRIOL 0.25 MCG CAPSULE PO SCH (09:42)
[2023-04-19] MEDS: FENOFIBRATE NANOCRYSTALLIZED 145 MG TABLET PO SCH (09:42)
[2023-04-19] MEDS: amLODIPine BESYLATE 5 MG TAB PO SCH (09:42)
[2023-04-19] MEDS: ATORVASTATIN 40 MG TAB PO SCH (09:42)
[2023-04-19] MEDS: HEPARIN SOD 5,000 UNIT/0.5 ML VIAL SQ SCH ×2 (11:44→20:53)
--- NOTE | 2023-04-19 15:21 | Pharmacy Report ---
Pharmacy Glycemic Short Note 2 - Date of Service April 19, 2023 - Glycemic Short BSG Results (Last 24 hours): 04/18/23 04/19/23 04/19/23 16:24 00:32 04:38 Glucose POC Glucose 140 H 237 H 127 H 04/19/23 04/19/23 04/19/23 04:44 09:18 11:29 Glucose 154 H POC Glucose 125 H 118 H OUTPATIENT ANTIDIABETIC REGIMEN: * dulaglutide 0.75mg SQ weekly * empagliflozin 25mg PO daily * Lantus 28 units SQ daily * Novolog 15 units SQ BID HbA1C: 10.1% ASSESSMENT: 04/19 * Patient received total of 17 units of insulin yesterday, of which 10 units were basal insulin * Had received a one time dose of steroids, no further steroids ordered - plan to scale back on basal insulin scale slightly for avinash's dose 04/18 * Pt is a 42 year old male with a history of DM2 and CKD admitted with acute on chronic respiratory failure. Pharmacy consulted to assist with inpatient glycemic management. * BSGs 151, 87mg/dL since admission. Received methylprednisolone 125mg IV X 1 this AM- no ongoing steroids. Diet ordered. * Initiate basal/bolus insulin. Will hold Lantus for now given 1st POC today is 87mg/dL. HS scale based upon BSG ordered for avinash (scaled based upon home dose). Novolog moderate stress scale ACHS. PLAN FOR INPATIENT GLYCEMIC CONTROL: * Hold outpatient oral diabetes medications * Basal insulin * Lantus 5/8 units SQ HS depending on BSG- reassess basal in AM * Bolus insulin * NovoLog per scale ACHS or Q6hrs while NPO * Goal Range: Low 110 mg/dL - High 140 mg/dL * Correction Factor: 25 mg/dL/unit * Nutritional / Prandial insulin per carb ratio of 1 unit per 8 grams CHO consumed
[2023-04-19] MEDS ORDERED: BUMETANIDE 1 MG TAB PO ONE (17:24)
--- NOTE | 2023-04-19 17:32 | Hospitalist Progress Note ---
Date of Service April 19, 2023 Assessment & Plan (1) Acute and chronic respiratory failure: Plan: -Was requiring 8L oxymask on admission. States that he was told he needs oxygen at home before, but cannot afford it. Does wear cpap when he has all the parts. Denies feeling short of breath. -Likely secondary to volume overload - Received 40mg IV lasix in ED -04/18 CXR: cardionmegaly -04/18 CT: mild atelectasis -Biofire negative -Echo: mild LVH, EF 55-60% -Bilateral LE Dopplers--> No DVT -Wean O2 as able, goal 90-92% -04/19: VBG pH: 7.23, CO2: 80 --> Bipap for 4-6 hours this afternoon and recheck VBG -Incentive Spirometer -Bipap HS and naps (2) Congestive heart failure: Plan: -Does not follow with cardiology or know his dry weight. Up about 15# since February. -States he has been taking his lasix at home -Had been getting IV lasix 40mg -Ordered 1mg Bumex (3) Scrotal edema: Plan: -Likely related to volume overload status -Diuretic as above (4) Chronic renal disease, stage 3, moderately decreased glomerular filtration rate (GFR) between 30-59 mL/min/1.73 square meter: Plan: -4+ protienuria on admission -24 hr urine protein pending -Creatinine 2.13 which seems to be baseline (5) Hypertension: Plan: -Continue amlodipine, metoprolol, and losartan - Will need to monitor creatinine - may need to hold ARB (6) Poorly controlled type 2 diabetes mellitus: Plan: -Hold Trulicity and Jardiance - HgbA1c: 10.1 -Pharmacy Glycemic consult for poor control. (7) Dyslipidemia: Plan: -Continue atorvastatin and fenofibrate (8) Cigar smoker: Plan: -1ppd -declined nicotine replacement Plan Diet: HH/DMT2, fluid restriction 1800ml VTE proh: heparin SQ Q12 Dispo: cotntinued hospital stay Admission and Anticipated Discharge Date Admission Date: April 18, 2023 Supervising Physician Co-Signing Physician Notes Attending Attestation: Chart reviewed, care plan d/w [employer] [facility]. I agree with the roa components of her documentation. Cont diuresis for volume overload. 24-hour urine ordered to quantify total protein in light of 4+ protein on u/a. Nephrotic syndrome may be the cause of his volume overload. BP control. DM control. Andres Bethea MD Subjective Patient seen sitting at the side of bed, eating breakfast. Frustrated with the need for oxygen as he does not feel short of breath, and feels like "our machines are wrong". again complains about not be able to smoke a cigarette, declined nicotine replacement therapy once again. States that he has been trying to quit cigarettes and maybe this will be the time that he does it. Reports good appetite. been does not feel like his urine output has increased with IV Lasix. Denies chest pain or shortness of breath Tele: NSR 70s Review of Systems Review of Systems: All systems reviewed & are unremarkable except as noted in Subjective Physical Exam Physical Exam: General: WN/WD, NAD, VS as above Resp: normal respiratory effort, no accessory muscle use, able to speak in full sentence. Decreased lung sounds bilateral bases. CV: RRR, no murmur Abd: normal bowel sounds, non tender, no hepatosplenomegaly. Lower abdomen is firm Extremities: Moves all extremities, bilateral leg edema, nonpitting, slightly improved. no erythema : Moderate scrotal swelling, no signs of infection or erythema Neuro: A&O x3, Skin: intact, no lesions noted Results & Data Results & Data Vital Signs (Past 12 Hours) Vital Signs Pulse Pulse Resp BP BP Pulse Ox O2 Del Method 04/19/23 17:00 64 24 97 04/19/23 16:00 73 19 93 04/19/23 15:23 68 04/19/23 15:07 84 L CPAP 04/19/23 15:00 72 20 89 L 04/19/23 14:21 69 17 97 04/19/23 14:00 73 20 96 04/19/23 13:00 65 18 93 04/19/23 11:31 78 13 121/70 97 04/19/23 11:00 70 17 73 L 04/19/23 08:01 73 21 169/93 H 97 Nasal Cannula 04/19/23 07:11 71 17 93 04/19/23 06:44 69 04/19/23 06:03 Oxymask, CPAP 04/19/23 06:00 73 22 142/86 H 91 CPAP O2 Flow Rate 04/19/23 17:00 04/19/23 16:00 04/19/23 15:23 04/19/23 15:07 2 04/19/23 15:00 04/19/23 14:21 3 04/19/23 14:00 04/19/23 13:00 04/19/23 11:31 04/19/23 11:00 04/19/23 08:01 6 04/19/23 07:11 04/19/23 06:44 04/19/23 06:03 04/19/23 06:00 6 Laboratory Results CBC, VBG, chemistry reviewed PG Care Time/CCT Total # of Minutes Spent Total Time Spent with Patient: Total time spent is greater than 50% in coordination of care (as documented) at patient's floor/unit and/or counseling patient: Coding Level of Care Code 46224 SUB INP/OBS CARE 3/50MIN Diagnoses Acute and chronic respiratory failure J96.20 Congestive heart failure I50.9 Scrotal edema N50.89 Chronic renal disease, stage 3, moderately decreased glomerular filtration rate (GFR) between 30-59 mL/min/1.73 square meter N18.30 Hypertension I10 Poorly controlled type 2 diabetes mellitus E11.65 Dyslipidemia E78.5 Cigar smoker F17.290
[2023-04-19 18:43] LABS: Base Excess VBG 6.1 mEq/L; HCO3 VBG 35 mmol/L; Oxygen Saturation VBG 62.4 %; PCO2 VBG 71 mmHg (38-50); PO2 VBG 37 mmHg
[2023-04-19] MEDS: LANTUS PER UNIT CHARGE SC SCH (20:54)
[2023-04-20 06:06] LABS: Base Excess VBG 4.4 mEq/L; HCO3 VBG 33 mmol/L; PCO2 VBG 65 mmHg (38-50); PO2 VBG 55 mmHg; pH VBG 7.31 (7.36-7.41)
[2023-04-20 06:07] LABS: Hematocrit (blood only) 42.6 % (42.0-52.0); Hemoglobin 12.6 g/dl (14.0-18.0); Mean Corpuscular Hemoglobin 26.6 pg (25.0-34.0); Mean Corpuscular Hgb Conc 29.6 g/dL (32.0-36.0); Mean Corpuscular Volume 90.1 fL (80.0-100.0); Mean Platelet Volume 10.3 fL (9.4-12.4); Platelet Count 368 K/uL (130-400); RDW Coefficient of Variation 17.2 % (11.5-14.5); RDW Standard Deviation 56.3 fL (36.4-46.3); Red Blood Count 4.73 M/uL (4.70-6.10); White Blood Count 6.71 K/ul (4.8-10.8)
[2023-04-20 06:23] LABS: Albumin Level 2.4 gm/dl (3.4-5.0); BUN Creatinine Ratio 20.3 (10-20); Bilirubin,Total 0.2 mg/dl (0.2-1.0); Calcium 7.6 mg/dl (8.6-10.3); Creatinine Clr Calc Pharmacy 57.1 ml/min; Est GFR (African American) 41.1 ml/min; Est GFR (Non-African American) 35.5 ml/min; Globulin 2.4 gm/dl (2.5-4.0); Potassium 3.8 mmol/L (3.5-5.1); Total Protein 4.8 gm/dl (6.0-8.3)
--- NOTE | 2023-04-20 09:50 | Pharmacy Report ---
Pharmacy Glycemic Short Note 2 - Date of Service April 20, 2023 - Glycemic Short BSG Results (Last 24 hours): 04/19/23 04/19/23 04/19/23 11:29 17:56 20:42 Glucose POC Glucose 118 H 89 102 H 04/20/23 04/20/23 05:46 09:33 Glucose 98 POC Glucose 71 OUTPATIENT ANTIDIABETIC REGIMEN: * dulaglutide 0.75mg SQ weekly * empagliflozin 25mg PO daily * Lantus 28 units SQ daily * Novolog 15 units SQ BID HbA1C: 10.1% (04/18/23) ASSESSMENT: 04/20 * BSGs tightly controlled yesterday w/ 10 units of insulin (5 units of basal and 5 units of prandial/correctional bolus) * Fasting BSG of 71 mg/dL this morning * Will loosen Novolog parameters and decrease basal scale this evening 04/19 * Patient received total of 17 units of insulin yesterday, of which 10 units were basal insulin * Had received a one time dose of steroids, no further steroids ordered - plan to scale back on basal insulin scale slightly for tonight's dose 04/18 * Pt is a 42 year old male with a history of DM2 and CKD admitted with acute on chronic respiratory failure. Pharmacy consulted to assist with inpatient glycemic management. * BSGs 151, 87mg/dL since admission. Received methylprednisolone 125mg IV X 1 this AM- no ongoing steroids. Diet ordered. * Initiate basal/bolus insulin. Will hold Lantus for now given 1st POC today is 87mg/dL. HS scale based upon BSG ordered for tonight (scaled based upon home dose). Novolog moderate stress scale ACHS. PLAN FOR INPATIENT GLYCEMIC CONTROL: * Hold outpatient oral diabetes medications * Basal insulin * Lantus 0/5 units SQ HS depending on BSG (see EHR for details) * Bolus insulin * NovoLog per scale ACHS or Q6hrs while NPO * Goal Range: Low 110 mg/dL - High 140 mg/dL * Correction Factor: 30 mg/dL/unit * Nutritional / Prandial insulin per carb ratio of 1 unit per 10 grams CHO consumed
[2023-04-20] MEDS: amLODIPine BESYLATE 5 MG TAB PO SCH (09:59)
[2023-04-20] MEDS: FENOFIBRATE NANOCRYSTALLIZED 145 MG TABLET PO SCH (10:00)
[2023-04-20] MEDS: METOPROLOL SUCC 50MG EXT REL TAB PO SCH ×2 (10:00→20:06)
[2023-04-20] MEDS: CALCITRIOL 0.25 MCG CAPSULE PO SCH (10:00)
[2023-04-20] MEDS: ATORVASTATIN 40 MG TAB PO SCH (10:01)
[2023-04-20] MEDS: LOSARTAN POTASSIUM 50 MG TAB PO SCH (10:01)
[2023-04-20] MEDS: HEPARIN SOD 5,000 UNIT/0.5 ML VIAL SQ SCH ×2 (10:04→20:04)
[2023-04-20] MEDS: INSULIN ASPART PER UNIT CHARGE SC SCH ×4 (10:23→20:04)
[2023-04-20] MEDS ORDERED: BUMETANIDE 1 MG TAB PO ONE (12:04)
--- NOTE | 2023-04-20 14:54 | Hospitalist Progress Note ---
Date of Service April 20, 2023 Assessment & Plan (1) Acute and chronic respiratory failure: Plan: -Was requiring 8L oxymask on admission. States that he was told he needs oxygen at home before, but cannot afford it. Does wear cpap when he has all the parts. Denies feeling short of breath. -Likely secondary to volume overload - Received 40mg IV lasix in ED -04/18 CXR: cardionmegaly -04/18 CT: mild atelectasis -Biofire negative -Echo: mild LVH, EF 55-60% -Bilateral LE Dopplers--> No DVT -Wean O2 as able, goal 90-92% -04/20: pH 7.31, CO2: 65 -Incentive Spirometer -Bipap HS and naps (2) Congestive heart failure: Plan: -Reports has not seen cardiology in awhile, but appointment next month with ?Dr. Arias. Does not know his dry weight. Up about 15# since February. -States he has been taking his lasix at home -Bumex increased to 2mg (3) Scrotal edema: Plan: -Likely related to volume overload status, improved. -Diuretic as above (4) Chronic renal disease, stage 3, moderately decreased glomerular filtration rate (GFR) between 30-59 mL/min/1.73 square meter: Plan: -4+ protienuria on admission -24 hr urine protein pending --> was collected in the ED, but never made it to lab. Recollection started afternoon of 04/20 -Creatinine 2.13 which seems to be baseline -Nephrology consult, appreciate recs (5) Hypertension: Plan: -Continue amlodipine, metoprolol, and losartan - Will need to monitor creatinine - may need to hold ARB (6) Poorly controlled type 2 diabetes mellitus: Plan: -Hold Trulicity and Jardiance. Home insulin 20 units lantus, Humalog CF of 30. - HgbA1c: 10.1 -Pharmacy Glycemic consult for poor control. -Decreased insulin requirements while inpatient, but suspect patient is eating significantly less than he does at home (7) Dyslipidemia: Plan: -Continue atorvastatin and fenofibrate (8) Cigar smoker: Plan: -1ppd -declined nicotine replacement Plan Diet: HH/DMT2, fluid restriction 1800ml VTE proh: heparin SQ Q12 Dispo: continued hospital stay Admission and Anticipated Discharge Date Admission Date: April 18, 2023 Supervising Physician Co-Signing Physician Notes Attending Attestation: Chart reviewed, care plan d/w [employer] [facility]. I agree with the roa components of her documentation. Cont diuresis for volume overload. 24-hour urine pending. Andres Bethea MD Subjective Patient seen lying in bed. Reports that he does not feel like legs or scrotum or swollen at all, but also does not feel like her has been urinating more than normal. Main concern now that he is hungry. Denies pain anywhere. Seen by nephrology today and reports being told "if dont control my sugars, ill be on dialysis". I asked Deonte if they talked about his blood pressure and he says "I stopped listening after she told me things I didnt want to hear" Denies CP or SOB - patient is very reluctant to wear O2 and feels like our machienes are wrong. Review of Systems Review of Systems: All systems reviewed & are unremarkable except as noted in Subjective Physical Exam Physical Exam: General: WN/WD, NAD, VS as above Resp: normal respiratory effort, no accessory muscle use, able to speak in full sentence. Decreased lung sounds bilateral bases. CV: RRR, no murmur Abd: normal bowel sounds, non tender, no hepatosplenomegaly. Extremities: Moves all extremities, bilateral leg edema, nonpitting, improved. no erythema. Right foot with large callus under big toe - no erythema or signs of infection. : minimal scrotal swelling- patient state feels baseline, no signs of infection or erythema Neuro: A&O x3, Skin: intact, no lesions noted Results & Data Results & Data Vital Signs (Past 12 Hours) Vital Signs Temp Pulse Pulse Resp BP BP Pulse Ox 04/20/23 13:15 37.1 C 71 18 163/90 H 92 04/20/23 10:00 75 20 179/110 H 96 04/20/23 06:58 75 04/20/23 06:29 77 189/114 H 90 04/20/23 06:00 75 18 189/114 H 96 04/20/23 04:24 73 14 163/89 H 95 04/20/23 04:19 92 H 20 97 O2 Del Method O2 Flow Rate 04/20/23 13:15 Room Air 04/20/23 10:00 04/20/23 06:58 04/20/23 06:29 CPAP 04/20/23 06:00 CPAP 04/20/23 04:24 CPAP 04/20/23 04:19 5 PG Care Time/CCT Total # of Minutes Spent Total Time Spent with Patient: Total time spent is greater than 50% in coordination of care (as documented) at patient's floor/unit and/or counseling patient: Coding Level of Care Code 86982 SUB INP/OBS CARE 3/50MIN Diagnoses Acute and chronic respiratory failure J96.20 Congestive heart failure I50.9 Scrotal edema N50.89 Chronic renal disease, stage 3, moderately decreased glomerular filtration rate (GFR) between 30-59 mL/min/1.73 square meter N18.30 Hypertension I10 Poorly controlled type 2 diabetes mellitus E11.65 Dyslipidemia E78.5 Cigar smoker F17.290
--- NOTE | 2023-04-20 17:43 | Nephrology Consultation ---
Date of Consultation April 20, 2023 Assessment & Plan (1) Stage 3b chronic kidney disease: (2) Nephrotic syndrome: (3) Hypertension: (4) Poorly controlled type 2 diabetes mellitus: Plan 42-year-old gentleman history of poorly controlled hypertension, diabetes, morbid obesity and smoking and known to have stage IIIB CKD baseline creatinine around 2.2-2.5 at least since 2020. Admitted with volume overload and progressive scrotal edema for few days. Noted to have nephrotic syndrome with more than 5 g of proteinuria, hypoalbuminemia and lower extremity edema. Currently on Bumex 1 mg daily with improvement in volume status. Has been on losartan, Jardiance. Although membranous nephropathy, primary FSGS, paraproteinemia or other glomerular disease remains in differential, nephrotic syndrome could be because of diabetic nephropathy or secondary FSGS with poorly controlled hypertension as well as smoking. Renal function has been relatively stable for more than a year. Has been on losartan and Jardiance. -- We can consider checking PLA2R antibody and paraproteinemia workup as well as other serology. Since he was seen by nephrology group before, he may have had those done as an outpatient although patient could not provide much information. -- Main focus should be on blood pressure and diabetes control, avoid NSAIDs -- Resume Jardiance -- Continue on Bumex, losartan -- Has multiple risk factor for progressive worsening of renal function with poorly controlled hypertension, diabetes, smoking, obesity. Thank you for allowing me to participate in your patient's care. It was a pleasure to see Deonte. History of Present Illness Reason for Consultation: Stage 3B/4 CKD, nephrotic syndrome Attending Physician: Andres Bethea MD History of Present Illness Mr. Deonte Manzo is a 42 male with a PMH of stage 3B CKD, Type 2 Diabetes, HTN, and Dyslipidemia admitted to hospital with worsening scrotal swelling. Nephrology consult was requested for management of nephrotic syndrome. Electronic medical records are reviewed in detail in patient's visit. Suman presented with progressive scrotal swelling over 4 days prior to admission. He was treated with IV Bumex with improvement in swelling. Chest x-ray showed no significant pulmonary congestion but noted to have cardiomegaly. 2D echo showed EF 50 to 55%, moderate concentric LVH. BNP was 140, troponin was mildly elevated but serial troponin was normal. Labs showed creatinine of 2.2 which is close to his baseline. Urinalysis showed 4+ proteinuria, no hematuria, spot urine showed more than 5 g of proteinuria, 24-hour urine protein currently pending. Albumin was 2.5. Has been on Lasix 40 mg daily at home currently on Bumex 1 mg daily.. Blood pressure was running high which seems to have improved. Does not work. Smokes 1 pack per day. Does not drink. Lives at home with . Records review showed his creatinine has been around 2.2-2.5 since 2020. He was previously following with [facility] but he was not sure when he saw them last time. history of hypertension generally seems to be poorly controlled, on amlodipine 5 mg daily, losartan 100 mg, metoprolol 100 mg daily. Type 2 diabetes, poorly controlled, A1c generally around 9-11, has been on insulin, Jardiance, Trulicity. Was lying in bed, seems comfortable on room air. Denied any shortness of breath, chest pain. Reports improvement in scrotal swelling. Allergies Allergy/AdvReac Type Severity Reaction Status Date / Time No Known Allergies Allergy Verified 04/18/23 11:48 Home Medications Medication Instructions Recorded Confirmed Type amlodipine 5 mg tablet 5 mg PO QAM 04/28/21 04/18/23 History furosemide 40 mg tablet 40 mg PO DAILY 04/28/21 04/18/23 History albuterol sulfate 90 mcg/actuation 2 puff inhalation Q6H PRN 01/03/23 04/18/23 History aerosol inhaler Shortness Of Breath Or Wheezing empagliflozin 25 mg tablet 25 mg PO DAILY 01/03/23 04/18/23 History (Jardiance) fenofibrate 160 mg tablet 160 mg PO QAM 01/03/23 04/18/23 History insulin lispro 100 unit/mL 15 unit subcut BID 01/03/23 04/18/23 History subcutaneous pen (Humalog KwikPen (U-100) Insulin) blood sugar diagnostic (Piximuch #300 ea 01/05/23 04/18/23 Rx Verio test strips) insulin glargine 100 unit/mL (3 28 unit subcut DAILY 01/05/23 04/18/23 History mL) subcutaneous pen (Lantus Solostar U-100 Insulin) lancets 30 gauge ([employer]oon MedicalTouch Marcello #300 ea 01/05/23 04/18/23 Rx Plus Lancet) metoprolol succinate 100 mg 100 mg PO QAM 01/05/23 04/18/23 History capsule sprinkle, ext. release 24 hr flash glucose sensor (FreeStyle #6 ea 02/28/23 04/18/23 Rx Tootie 2 Sensor kit) atorvastatin 80 mg tablet 80 mg PO DAILY #30 tabs 03/05/23 04/18/23 Rx calcitriol 0.25 mcg capsule 0.25 mcg PO DAILY #30 caps 03/05/23 04/18/23 Rx losartan 100 mg tablet 100 mg PO DAILY #30 tabs 03/05/23 04/18/23 Rx dulaglutide 0.75 mg/0.5 mL 0.75 mg subcut WK 04/18/23 04/18/23 History subcutaneous pen injector (Trulicity) Patient History Medical History (Updated 04/20/23 @ 17:49 by Maria Teresa Andres MD) Nephrotic syndrome Stage 3b chronic kidney disease Family History Mother Diabetes Heart disease Dyslipidemia Social History Smoking Status: Current every day smoker Tobacco Type: Cigarettes Cigarettes Per Day: 1 pack; Second Hand Exposure: No; Do You Dip or Chew Tobacco: No; Hx Alcohol Use: No Hx Substance Use: Yes Prescribed Medications: Marijuana Last Used Substance: Hours (ago) Last Used Substance Other:: 04/17/23 Preferred Language: Indonesian Communication Ability: Effective Department Clerk Required: No Beliefs That Will Affect Care: None marital status: Current Living Situation: Spouse current occupational status: employed How many Children do You have: 5 Feels Safe at Home: Yes Assistive Devices: CPAP Review of Systems Review of Systems: All systems reviewed & are unremarkable except as noted in HPI & below Physical Exam Constitutional: WD/WN, vitals as above + morbidly obese; no acute distress Eyes: + anicteric sclerae Neck: normal visual inspection Respiratory: no respiratory distress Auscultation: lungs clear to auscultation bilaterally Cardiovascular: Rate/Rhythm: regular rate and regular rhythm Heart Sounds: normal S1 and normal S2 Extremities: + edema (trace b/l LE edema) Gastrointestinal (Abdomen): Inspection/Auscultation: abdomen normal to inspection Percussion/Palpation: abdomen soft; abdomen nontender Musculoskeletal: Extremities: extremities normal to inspection Skin: no rashes, warm and dry Neurologic: no focal motor deficits and not confused Psychiatric: Orientation: alert and oriented x 3 Affect: euthymic affect Results & Data Vital Signs (Past 12 Hours) Vital Signs Temp Pulse Pulse Resp BP BP Pulse Ox 04/20/23 15:57 36.9 C 70 18 134/81 92 04/20/23 13:15 37.1 C 71 18 163/90 H 92 04/20/23 10:00 75 20 179/110 H 96 04/20/23 06:58 75 04/20/23 06:29 77 189/114 H 90 04/20/23 06:00 75 18 189/114 H 96 O2 Del Method 04/20/23 15:57 Room Air 04/20/23 13:15 Room Air 04/20/23 10:00 04/20/23 06:58 04/20/23 06:29 CPAP 04/20/23 06:00 CPAP PG Care Time/CCT Total # of Minutes Spent Total Time Spent with Patient: Total time spent is greater than 50% in coordination of care (as documented) at patient's floor/unit and/or counseling patient: Coding Level of Care Code 90051 INT INP/OBS CARE 3/75MIN Diagnoses Stage 3b chronic kidney disease N18.32 Nephrotic syndrome N04.9 Hypertension I10 Poorly controlled type 2 diabetes mellitus E11.65
[2023-04-20] MEDS ORDERED: EMPAGLIFLOZIN 25 MG TAB PO SCH (18:15)
[2023-04-20] MEDS: LANTUS PER UNIT CHARGE SC SCH (20:04)
[2023-04-21] MEDS ORDERED: hydrALAZINE HCL 20 MG/ML VIAL IV ONE (00:46)
[2023-04-21 08:50] LABS: Base Excess VBG 9.1 mEq/L; HCO3 VBG 37 mmol/L; Oxygen Saturation VBG < 60.0 %; PCO2 VBG 62 mmHg (38-50); PO2 VBG 26 mmHg; pH VBG 7.38 (7.36-7.41)
[2023-04-21 08:54] LABS: Hematocrit (blood only) 44.6 % (42.0-52.0); Hemoglobin 13.4 g/dl (14.0-18.0); Mean Corpuscular Hemoglobin 26.9 pg (25.0-34.0); Mean Corpuscular Volume 89.4 fL (80.0-100.0); Mean Platelet Volume 10.6 fL (9.4-12.4); Platelet Count 375 K/uL (130-400); RDW Coefficient of Variation 17.3 % (11.5-14.5); RDW Standard Deviation 56.4 fL (36.4-46.3); Red Blood Count 4.99 M/uL (4.70-6.10)
[2023-04-21] MEDS ORDERED: BUMETANIDE 1 MG TAB PO SCH (09:00)
[2023-04-21 09:13] LABS: Albumin Level 2.7 gm/dl (3.4-5.0); BUN Creatinine Ratio 19.4 (10-20); Bilirubin,Total 0.5 mg/dl (0.2-1.0); Calcium 8.1 mg/dl (8.6-10.3); Creatinine Clr Calc Pharmacy 60.7 ml/min; Est GFR (African American) 43.7 ml/min; Est GFR (Non-African American) 37.7 ml/min; Globulin 2.7 gm/dl (2.5-4.0); Potassium 4.3 mmol/L (3.5-5.1); Total Protein 5.4 gm/dl (6.0-8.3)
[2023-04-21] MEDS: CALCITRIOL 0.25 MCG CAPSULE PO SCH (09:19)
[2023-04-21] MEDS: ATORVASTATIN 40 MG TAB PO SCH (09:19)
[2023-04-21] MEDS: amLODIPine BESYLATE 5 MG TAB PO SCH (09:19)
[2023-04-21] MEDS: HEPARIN SOD 5,000 UNIT/0.5 ML VIAL SQ SCH ×2 (09:20→20:25)
[2023-04-21] MEDS: LOSARTAN POTASSIUM 50 MG TAB PO SCH (09:20)
[2023-04-21] MEDS: FENOFIBRATE NANOCRYSTALLIZED 145 MG TABLET PO SCH (09:20)
[2023-04-21] MEDS: METOPROLOL SUCC 50MG EXT REL TAB PO SCH ×2 (09:21→20:22)
[2023-04-21] MEDS: INSULIN ASPART PER UNIT CHARGE SC SCH ×4 (09:25→20:25)
[2023-04-21] MEDS ORDERED: amLODIPine BESYLATE 5 MG TAB PO ONE (09:44)
--- NOTE | 2023-04-21 13:37 | Nephrology Progress Note ---
Date of Service April 21, 2023 Assessment & Plan (1) Stage 3b chronic kidney disease: Plan: CKD IIIb A3. Nephrotic range proteinuria. Clinical history suggestive of DKD or nodular GS. DDx includes membranous or FSGS. Creatinine stable overnight. Maintained on losartan and empagliflozin. Presenting with nephrotic syndrome. Bumex increased to 1 mg BID. Medications appropriate for kidney function. 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 Potential future indications have been discussed. Calcitriol 0.25 mcg daily. (2) Nephrotic syndrome: Plan: 24 hour urine protein pending. PLA2r pending. Paraprotein screening serologic evaluation pending. (3) Hypertension: Plan: Continue metoprolol as Rx. Amlodipine increased to 10 mg daily. Losartan 100 mg daily. Bumex to encourage negative urine output. Renal artery duplex pending. (4) Poorly controlled type 2 diabetes mellitus: Admission and Anticipated Discharge Date Admission Date: April 18, 2023 Subjective No acute events overnight. Edema persists. Denies dyspnea. No headaches or visual changes. Review of Systems Review of Systems: All systems reviewed & are unremarkable except as noted in HPI & below Physical Exam Constitutional: WD/WN, vitals as above + morbidly obese; no acute distress Eyes: + anicteric sclerae Neck: normal visual inspection Respiratory: no respiratory distress Auscultation: lungs clear to auscultation bilaterally Cardiovascular: Rate/Rhythm: regular rate and regular rhythm Heart Sounds: normal S1 and normal S2 Extremities: + edema (trace b/l LE edema) Gastrointestinal (Abdomen): Inspection/Auscultation: abdomen normal to inspection Percussion/Palpation: abdomen soft; abdomen nontender Musculoskeletal: Extremities: extremities normal to inspection Skin: no rashes, warm and dry Neurologic: no focal motor deficits and not confused Psychiatric: Orientation: alert and oriented x 3 Affect: euthymic affect Results & Data Vital Signs (Past 12 Hours) Vital Signs Temp Pulse Resp BP Pulse Ox O2 Del Method 04/21/23 11:48 36.9 C 85 18 187/102 H 90 Room Air 04/21/23 08:00 36.7 C 81 18 186/109 H 93 Room Air 04/21/23 02:23 36.8 C 82 16 183/112 H 92 Room Air Laboratory Results Laboratory Results - last 24 hr 04/20/23 04/20/23 04/21/23 16:25 19:52 07:25 WBC RBC Hgb Hct MCV MCH MCHC RDW Std Deviation RDW Coeff of Domi Plt Count MPV VBG pH VBG pCO2 VBG pO2 VBG HCO3 VBG O2 Saturation VBG Base Excess Sodium Potassium Chloride Carbon Dioxide Anion Gap BUN Creatinine Est Cr Clr Drug Dosing Est GFR ( Amer) Est GFR (Non-Af Amer) BUN/Creatinine Ratio Glucose POC Glucose 97 128 H 116 H Calcium Total Bilirubin AST ALT Alkaline Phosphatase Total Protein Albumin Globulin Albumin/Globulin Ratio Urine Total Volume Ur Total Protein 24 Hr Urine Total Protein 04/21/23 04/21/23 04/21/23 08:27 11:36 13:00 WBC 6.40 RBC 4.99 Hgb 13.4 L Hct 44.6 MCV 89.4 MCH 26.9 MCHC 30.0 L RDW Std Deviation 56.4 H RDW Coeff of Domi 17.3 H Plt Count 375 MPV 10.6 VBG pH 7.38 VBG pCO2 62 H VBG pO2 26 VBG HCO3 37 VBG O2 Saturation < 60.0 VBG Base Excess 9.1 Sodium 140 Potassium 4.3 Chloride 102 Carbon Dioxide 34 H Anion Gap 4 BUN 41 H Creatinine 2.11 H Est Cr Clr Drug Dosing 60.7 Est GFR ( Amer) 43.7 Est GFR (Non-Af Amer) 37.7 BUN/Creatinine Ratio 19.4 Glucose 171 H POC Glucose 168 H Calcium 8.1 L Total Bilirubin 0.5 AST 17 ALT 14 Alkaline Phosphatase 59 Total Protein 5.4 L Albumin 2.7 L Globulin 2.7 Albumin/Globulin Ratio 1.0 Urine Total Volume Pending Ur Total Protein 24 Hr Pending Urine Total Protein Pending PG Care Time/CCT Total # of Minutes Spent Total Time Spent with Patient: Total time spent is greater than 50% in coordination of care (as documented) at patient's floor/unit and/or counseling patient: Coding Level of Care Code 43051 SUB INP/OBS CARE 3/50MIN Diagnoses Stage 3b chronic kidney disease N18.32 Nephrotic syndrome N04.9 Hypertension I10 Poorly controlled type 2 diabetes mellitus E11.65
[2023-04-21 14:03] LABS: Urine Total Protein 366.3 mg/dl
--- NOTE | 2023-04-21 14:18 | Hospitalist Progress Note ---
Date of Service April 21, 2023 Assessment & Plan (1) Acute and chronic respiratory failure: Plan: -Was requiring 8L oxymask on admission. States that he was told he needs oxygen at home before, but cannot afford it. Does wear cpap when he has all the parts. Denies feeling short of breath. -Likely secondary to volume overload -04/18 CXR: cardionmegaly -04/18 CT: mild atelectasis -Biofire negative -Echo: mild LVH, EF 55-60% -Bilateral LE Dopplers--> No DVT Now on Room Air -Incentive Spirometer -Bipap HS and naps (2) Congestive heart failure: Plan: -Reports has not seen cardiology in [place], but appointment next month with ?Dr. Arias. Does not know his dry weight. Up about 15# since February. -States he has been taking his lasix at home -Bumex 1mg BID (3) Scrotal edema: Plan: -Likely related to volume overload status, improved. -Diuretic as above (4) Chronic renal disease, stage 3, moderately decreased glomerular filtration rate (GFR) between 30-59 mL/min/1.73 square meter: Plan: -4+ protienuria on admission -24 hr urine protein: 10.9g -consistent with nephrotic syndrome -Creatinine seems to be baseline -Renal artery ultrasound ordered -Nephrology consult, appreciate recs -Continue losartan, restart Jardiance -PLA2r and Paraprotein screening serologic evaluation pending. (5) Hypertension: Plan: -Continue metoprolol and losartan -Amlodipine increased to 10mg, if does not help would consider adding prazosin (6) Poorly controlled type 2 diabetes mellitus: Plan: [facility] Home insulin 20 units lantus, Humalog CF of 30. - HgbA1c: 10.1 -Jardiance restarted per Nephrology. -Pharmacy Glycemic consult for poor control. -Decreased insulin requirements while inpatient, but suspect patient is eating significantly less than he does at home (7) Dyslipidemia: Plan: -Continue atorvastatin and fenofibrate (8) Cigar smoker: Plan: -1ppd -declined nicotine replacement Plan Diet: HH/DMT2, fluid restriction 1800ml VTE proh: heparin SQ Q12 Dispo: continued hospital stay Admission and Anticipated Discharge Date Admission Date: April 18, 2023 Supervising Physician Co-Signing Physician Notes Attending Attestation: Chart reviewed, care plan d/w [employer]. I agree with the roa components of her documentation. Andres Bethea MD Subjective Patient sitting at the side of the bed. Reports no pain or shortness of breath. When discussing his care states that he has never been able to get his blood pressure under control. Explained role of renal artery ultrasound. Also notes episode of large diarrhea earlier, but does not think he has had a BM since arrival to hospital. Tele - NSR 70-80s Review of Systems Review of Systems: All systems reviewed & are unremarkable except as noted in Subjective Physical Exam Physical Exam: General: WN/WD, NAD, VS as above Resp: normal respiratory effort, CTA CV: RRR, no murmur Abd: normal bowel sounds, non tender, no hepatosplenomegaly. Extremities: Moves all extremities, tracebilateral leg edema, nonpitting, improved. no erythema. Right foot with large callus under big toe - no erythema or signs of infection. Neuro: A&O x3, Results & Data Results & Data Vital Signs (Past 12 Hours) Vital Signs Temp Pulse Resp BP Pulse Ox O2 Del Method 04/21/23 11:48 36.9 C 85 18 187/102 H 90 Room Air 04/21/23 08:00 36.7 C 81 18 186/109 H 93 Room Air 04/21/23 02:23 36.8 C 82 16 183/112 H 92 Room Air Laboratory Results CBC, chemsitry, VBG and 24 hour urine reviewed PG Care Time/CCT Total # of Minutes Spent Total Time Spent with Patient: Total time spent is greater than 50% in coordination of care (as documented) at patient's floor/unit and/or counseling patient: Coding Level of Care Code 03269 SUB INP/OBS CARE 3/50MIN Diagnoses Acute and chronic respiratory failure J96.20 Congestive heart failure I50.9 Scrotal edema N50.89 Chronic renal disease, stage 3, moderately decreased glomerular filtration rate (GFR) between 30-59 mL/min/1.73 square meter N18.30 Hypertension I10 Poorly controlled type 2 diabetes mellitus E11.65 Dyslipidemia E78.5 Cigar smoker F17.290
[2023-04-21] MEDS: EMPAGLIFLOZIN 25 MG TAB PO SCH (15:51)
[2023-04-21] MEDS: BUMETANIDE 1 MG TAB PO SCH (16:58)
[2023-04-21] MEDS: LANTUS PER UNIT CHARGE SC SCH (20:25)
--- NOTE | 2023-04-21 22:29 | Ultrasound Report ---
Exam(s): US RENAL EXAM: US Retroperitoneal Limited, Renal CLINICAL HISTORY: Reason for exam: uncontrolled HTN, nephrotic syndrome. TECHNIQUE: Real-time limited ultrasound of the retroperitoneum with image documentation. COMPARISON: None. FINDINGS: Limitations: Exam is limited due to body habitus and gas artifact in the bowel. Aorta: Peak systolic velocity throughout the aorta is 56 cm/s. Right kidney: The right kidney measures 12.2 cm. The vascular structures are suboptimally visualized. No stones. No hydronephrosis. Left kidney: The left kidney measures 12.2 cm. The vascular structures are suboptimally visualized. Suboptimal visualization of the left kidney due to gas artifact and body habitus. No stones. No hydronephrosis. Other findings: Diffuse fatty liver. IMPRESSION: 1. Very limited exam with no hydronephrosis seen. 2. Very limited visualization of the vascular structures. Electronically signed by: Kia Clark MD 04/21/23 22:28 PM
[2023-04-22] MEDS: INSULIN ASPART PER UNIT CHARGE SC SCH ×4 (07:59→20:45)
[2023-04-22] MEDS: FENOFIBRATE NANOCRYSTALLIZED 145 MG TABLET PO SCH (08:00)
[2023-04-22] MEDS: EMPAGLIFLOZIN 25 MG TAB PO SCH (08:00)
[2023-04-22] MEDS: LOSARTAN POTASSIUM 50 MG TAB PO SCH (08:00)
[2023-04-22] MEDS: ATORVASTATIN 40 MG TAB PO SCH (08:00)
[2023-04-22] MEDS: amLODIPine BESYLATE 5 MG TAB PO SCH (08:00)
[2023-04-22] MEDS: BUMETANIDE 1 MG TAB PO SCH ×2 (08:00→17:14)
[2023-04-22] MEDS: CALCITRIOL 0.25 MCG CAPSULE PO SCH (08:00)
[2023-04-22] MEDS: METOPROLOL SUCC 50MG EXT REL TAB PO SCH ×2 (08:01→20:47)
[2023-04-22 08:22] LABS: Hematocrit (blood only) 43.7 % (42.0-52.0); Hemoglobin 13.2 g/dl (14.0-18.0); Mean Corpuscular Hemoglobin 26.8 pg (25.0-34.0); Mean Corpuscular Hgb Conc 30.2 g/dL (32.0-36.0); Mean Corpuscular Volume 88.8 fL (80.0-100.0); Mean Platelet Volume 10.8 fL (9.4-12.4); Platelet Count 378 K/uL (130-400); RDW Coefficient of Variation 17.1 % (11.5-14.5); RDW Standard Deviation 54.9 fL (36.4-46.3); Red Blood Count 4.92 M/uL (4.70-6.10); White Blood Count 5.65 K/ul (4.8-10.8)
[2023-04-22 08:44] LABS: BUN Creatinine Ratio 18.3 (10-20); Creatinine Clr Calc Pharmacy 63.4 ml/min; Est GFR (African American) 46.1 ml/min; Est GFR (Non-African American) 39.8 ml/min; Magnesium 1.8 mg/dl (1.7-2.4)
[2023-04-22] MEDS: HEPARIN SOD 5,000 UNIT/0.5 ML VIAL SQ SCH ×2 (09:38→20:46)
[2023-04-22] MEDS: PRAZOSIN HCL 1 MG CAP PO SCH ×2 (10:37→20:47)
--- NOTE | 2023-04-22 13:28 | Nephrology Progress Note ---
Date of Service April 22, 2023 Assessment & Plan (1) Stage 3b chronic kidney disease: Plan: CKD IIIb A3. Nephrotic range proteinuria. Clinical history suggestive of DKD or nodular GS. DDx includes membranous or FSGS. Creatinine stable. Maintained on losartan and empagliflozin. Presenting with nephrotic syndrome. BP improving. Volume status improving with Bumex. Medications appropriate for kidney function. Calcitriol 0.25 mcg daily. Close outpatient nephrology follow up strongly advised. 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 I have requested follow up with [place]. [place] [facility] [place] in the next couple of weeks. (2) Nephrotic syndrome: Plan: 11 grams on 24 hour collection. PLA2r pending. Paraprotein screening serologic evaluation pending. Close outpatient follow up will be required post discharge. No emergent indication for renal biopsy but Deonte was advised that this may be reasonable consideration in the future. (3) Hypertension: Plan: Continue metoprolol as Rx. Amlodipine 10 mg daily. Losartan 100 mg daily. Prazosin 1 mg BID added yesterday. Bumex 1 mg BID to encourage urine output. BP reasonably improving. Discharge home with close outpatient follow up would be reasonable from a nephrology perspective. Renal artery duplex non-diagnostic due to habitus. Thankfully, BP improving and kidney function stable. (4) Poorly controlled type 2 diabetes mellitus: Plan: High risk for progressive DKD. Continue SGLT2i and ARB. Close outpatient follow up encouraged. Admission and Anticipated Discharge Date Admission Date: April 18, 2023 Subjective No acute events overnight. No complaints this AM. Ambulating in hallway and off salas. Activity tolerance is good. Deonte would like to return home today. BP improving. Denies symptoms of accelerated blood pressure. Edema improving. UOP not accurately documented. Review of Systems Review of Systems: All systems reviewed & are unremarkable except as noted in HPI & below Physical Exam Constitutional: WD/WN, vitals as above + morbidly obese; no acute distress Eyes: + anicteric sclerae Neck: normal visual inspection Respiratory: no respiratory distress Auscultation: lungs clear to auscultation bilaterally Cardiovascular: Rate/Rhythm: regular rate and regular rhythm Heart Sounds: normal S1 and normal S2 Extremities: + edema (trace b/l LE edema) Gastrointestinal (Abdomen): Inspection/Auscultation: abdomen normal to inspection Percussion/Palpation: abdomen soft; abdomen nontender Musculoskeletal: Extremities: extremities normal to inspection Skin: no rashes, warm and dry Neurologic: no focal motor deficits and not confused Psychiatric: Orientation: alert and oriented x 3 Affect: euthymic affect Results & Data Vital Signs (Past 12 Hours) Vital Signs Temp Pulse Pulse Resp BP Pulse Ox O2 Del Method 04/22/23 12:15 36.9 C 79 18 153/84 H 92 Room Air 04/22/23 08:00 Room Air 04/22/23 08:00 76 04/22/23 07:44 37 C 78 18 178/82 H 90 Room Air 04/22/23 03:23 36.5 C 75 16 177/99 H 95 CPAP 04/22/23 02:38 74 23 96 O2 Flow Rate 04/22/23 12:15 04/22/23 08:00 04/22/23 08:00 04/22/23 07:44 04/22/23 03:23 4 04/22/23 02:38 4 Laboratory Results Laboratory Results - last 24 hr 04/21/23 04/21/23 04/21/23 13:00 16:39 20:10 WBC RBC Hgb Hct MCV MCH MCHC RDW Std Deviation RDW Coeff of Domi Plt Count MPV Sodium Potassium Chloride Carbon Dioxide Anion Gap BUN Creatinine Est Cr Clr Drug Dosing Est GFR ( Amer) Est GFR (Non-Af Amer) BUN/Creatinine Ratio Glucose POC Glucose 119 H 101 H Calcium Magnesium Total Protein (PEP) Albumin (PEP) Yjmla-8-Myxwgbfit Hqncf-5-Xypnpjztx Ytai-7-Vnjzmooq Keax-0-Khbigluj Gamma Globulins Monoclonal Peak 3 Ser Monoclonl Protein Ser Monoclonal Prot 2 PEP Interpretation Urine Total Volume 3000 Ur Total Protein 24 Hr 29077.0 H Urine Total Protein 366.3 Phospholip A2 Rec IFA Phospholip A2 Rec USAMA 04/22/23 04/22/23 04/22/23 07:07 07:11 11:09 WBC 5.65 RBC 4.92 Hgb 13.2 L Hct 43.7 MCV 88.8 MCH 26.8 MCHC 30.2 L RDW Std Deviation 54.9 H RDW Coeff of Domi 17.1 H Plt Count 378 MPV 10.8 Sodium 142 Potassium 4.0 Chloride 104 Carbon Dioxide 34 H Anion Gap 4 BUN 37 H Creatinine 2.02 H Est Cr Clr Drug Dosing 63.4 Est GFR ( Amer) 46.1 Est GFR (Non-Af Amer) 39.8 BUN/Creatinine Ratio 18.3 Glucose 124 H POC Glucose 143 H 170 H Calcium 8.0 L Magnesium 1.8 Total Protein (PEP) Pending Albumin (PEP) Pending Btpva-1-Hjlxefpma Pending Xkjqu-7-Edlgpevfu Pending Qoig-0-Shksegkt Pending Sizq-8-Psvlezqq Pending Gamma Globulins Pending Monoclonal Peak 3 Pending Ser Monoclonl Protein Pending Ser Monoclonal Prot 2 Pending PEP Interpretation Pending Urine Total Volume Ur Total Protein 24 Hr Urine Total Protein Phospholip A2 Rec IFA Pending Phospholip A2 Rec USAMA Pending PG Care Time/CCT Total # of Minutes Spent Total Time Spent with Patient: Total time spent is greater than 50% in coordination of care (as documented) at patient's floor/unit and/or counseling patient: Coding Level of Care Code 36615 SUB INP/OBS CARE 3/50MIN Diagnoses Stage 3b chronic kidney disease N18.32 Nephrotic syndrome N04.9 Hypertension I10 Poorly controlled type 2 diabetes mellitus E11.65
--- NOTE | 2023-04-22 15:19 | Hospitalist Progress Note ---
Date of Service April 22, 2023 Assessment & Plan (1) Acute and chronic respiratory failure: Plan: -Was requiring 8L oxymask on admission. States that he was told he needs oxygen at home before, but cannot afford it. Does wear cpap when he has all the parts. Denies feeling short of breath. -Likely secondary to volume overload -04/18 CXR: cardionmegaly -04/18 CT: mild atelectasis -Biofire negative -Echo: mild LVH, EF 55-60% -Bilateral LE Dopplers--> No DVT Now on Room Air -Incentive Spirometer -Bipap HS and naps (2) Congestive heart failure: Plan: -Reports [facility] not [facility], but appointment next month with ?Dr. Arias. Does not know his dry weight. Up about 15# since February. -States he has been taking his lasix at home -Bumex 1mg BID (3) Scrotal edema: Plan: -Likely related to volume overload status, improved. -Diuretic as above (4) Chronic renal disease, stage 3, moderately decreased glomerular filtration rate (GFR) between 30-59 mL/min/1.73 square meter: Plan: -4+ protienuria on admission -24 hr urine protein: 10.9g -consistent with nephrotic syndrome -Creatinine seems to be baseline -Renal artery ultrasound - poor study due to body habitus, no vascular abnormalities seen -Nephrology consult, appreciate recs -Continue losartan, restart Jardiance -PLA2r and Paraprotein screening serologic evaluation pending. -Recommend close outpatient follow up with Dr. Andres in [place] (5) Hypertension: Plan: -Continue metoprolol and losartan -Amlodipine increased to 10mg, -Prazosin BID added this morning (6) Poorly controlled type 2 diabetes mellitus: Plan: -Hold Trulicity.. Home insulin 20 units lantus, Humalog CF of 30. - HgbA1c: 10.1 -Jardiance restarted per Nephrology. -Pharmacy Glycemic consult for poor control. -Decreased insulin requirements while inpatient, but suspect patient is eating significantly less than he does at home (7) Dyslipidemia: Plan: -Continue atorvastatin and fenofibrate (8) Cigar smoker: Plan: -1ppd -declined nicotine replacement (9) Nephrotic syndrome: Plan Diet: HH/DMT2, fluid restriction 1800ml VTE proh: heparin SQ Q12 Dispo: continued hospital stay, hopeful for discharge tomorrow pending blood pressures Admission and Anticipated Discharge Date Admission Date: April 18, 2023 Supervising Physician Co-Signing Physician Notes Attending Attestation: Chart reviewed, care plan d/w [employer]. I agree with the roa components of her documentation with the following addition - 24-hour urine showed 11 grams of protein! c/w nephrotic syndrome. Likely diabetic nephropathy +/- hypertensive kidney disease in light of poorly controlled HTN/DM. Cont BP med adjustments. Andres Bethea MD Subjective Patient seen lying in bed, continues to feel the same. Does report to me that he has had multiple episodes of diarrhea. Feels like his swelling has continued to improve. Only concern that he has is when he can have a cigarette, again declined nicotine replacement therapy. denies chest pain or shortness of breath. Review of Systems Review of Systems: All systems reviewed & are unremarkable except as noted in Subjective Physical Exam Physical Exam: General: WN/WD, NAD, VS as above Resp: normal respiratory effort, CTA CV: RRR, no murmur Abd: normal bowel sounds, non tender, no hepatosplenomegaly. Extremities: Moves all extremities, tracebilateral leg edema, nonpitting, improved. no erythema. Neuro: A&O x3, Results & Data Results & Data Vital Signs (Past 12 Hours) Vital Signs Temp Pulse Pulse Resp BP Pulse Ox O2 Del Method 04/22/23 12:15 36.9 C 79 18 153/84 H 92 Room Air 04/22/23 08:00 Room Air 04/22/23 08:00 76 04/22/23 07:44 37 C 78 18 178/82 H 90 Room Air 04/22/23 03:23 36.5 C 75 16 177/99 H 95 CPAP O2 Flow Rate 04/22/23 12:15 04/22/23 08:00 04/22/23 08:00 04/22/23 07:44 04/22/23 03:23 4 Laboratory Results CBC, chemistry, mag reviewed. Diagnostic Findings Renal Artery Duplex 04/21/23 11:25 Exam(s): US RENAL EXAM: US Retroperitoneal Limited, Renal CLINICAL HISTORY: Reason for exam: uncontrolled HTN, nephrotic syndrome. TECHNIQUE: Real-time limited ultrasound of the retroperitoneum with image documentation. COMPARISON: None. FINDINGS: Limitations: Exam is limited due to body habitus and gas artifact in the bowel. Aorta: Peak systolic velocity throughout the aorta is 56 cm/s. Right kidney: The right kidney measures 12.2 cm. The vascular structures are suboptimally visualized. No stones. No hydronephrosis. Left kidney: The left kidney measures 12.2 cm. The vascular structures are suboptimally visualized. Suboptimal visualization of the left kidney due to gas artifact and body habitus. No stones. No hydronephrosis. Other findings: Diffuse fatty liver. IMPRESSION: 1. Very limited exam with no hydronephrosis seen. 2. Very limited visualization of the vascular structures. Electronically signed by: Kia Clark MD 04/21/23 22:28 PM PG Care Time/CCT Total # of Minutes Spent Total Time Spent with Patient: Total time spent is greater than 50% in coordination of care (as documented) at patient's floor/unit and/or counseling patient: Coding Level of Care Code 88112 SUB INP/OBS CARE 2/35MIN Diagnoses Acute and chronic respiratory failure J96.20 Congestive heart failure I50.9 Scrotal edema N50.89 Chronic renal disease, stage 3, moderately decreased glomerular filtration rate (GFR) between 30-59 mL/min/1.73 square meter N18.30 Hypertension I10 Poorly controlled type 2 diabetes mellitus E11.65 Dyslipidemia E78.5 Cigar smoker F17.290 Nephrotic syndrome N04.9
[2023-04-22] MEDS: LANTUS PER UNIT CHARGE SC SCH (20:45)
[2023-04-23 07:56] LABS: Hematocrit (blood only) 42.3 % (42.0-52.0); Hemoglobin 12.6 g/dl (14.0-18.0); Mean Corpuscular Hemoglobin 26.5 pg (25.0-34.0); Mean Corpuscular Hgb Conc 29.8 g/dL (32.0-36.0); Mean Corpuscular Volume 89.1 fL (80.0-100.0); Mean Platelet Volume 10.1 fL (9.4-12.4); Platelet Count 338 K/uL (130-400); RDW Standard Deviation 55.3 fL (36.4-46.3); Red Blood Count 4.75 M/uL (4.70-6.10)
[2023-04-23 07:59] LABS: BUN Creatinine Ratio 16.7 (10-20); Creatinine Clr Calc Pharmacy 54.8 ml/min; Est GFR (African American) 38.6 ml/min; Est GFR (Non-African American) 33.3 ml/min; Magnesium 1.8 mg/dl (1.7-2.4); Potassium 3.9 mmol/L (3.5-5.1)
[2023-04-23] MEDS: LOSARTAN POTASSIUM 50 MG TAB PO SCH (08:52)
[2023-04-23] MEDS: BUMETANIDE 1 MG TAB PO SCH (08:52)
[2023-04-23] MEDS: amLODIPine BESYLATE 5 MG TAB PO SCH (08:52)
[2023-04-23] MEDS: ATORVASTATIN 40 MG TAB PO SCH (08:52)
[2023-04-23] MEDS: PRAZOSIN HCL 1 MG CAP PO SCH (08:52)
[2023-04-23] MEDS: METOPROLOL SUCC 50MG EXT REL TAB PO SCH (08:52)
[2023-04-23] MEDS: INSULIN ASPART PER UNIT CHARGE SC SCH ×2 (08:53→12:27)
[2023-04-23] MEDS: FENOFIBRATE NANOCRYSTALLIZED 145 MG TABLET PO SCH (08:53)
[2023-04-23] MEDS: EMPAGLIFLOZIN 25 MG TAB PO SCH (08:53)
[2023-04-23] MEDS: CALCITRIOL 0.25 MCG CAPSULE PO SCH (08:53)
[2023-04-23] MEDS ORDERED: LANTUS PER UNIT CHARGE SC ONE (09:00)
[2023-04-23] MEDS: HEPARIN SOD 5,000 UNIT/0.5 ML VIAL SQ SCH (09:44)
--- NOTE | 2023-04-23 10:33 | Nephrology Progress Note ---
Date of Service April 23, 2023 Assessment & Plan (1) Stage 3b chronic kidney disease: Plan: CKD IIIb A3. Nephrotic range proteinuria. Clinical history suggestive of DKD or nodular GS. DDx includes membranous or FSGS. Creatinine stable. Maintained on losartan and empagliflozin. Presenting with nephrotic syndrome. Volume status improving with Bumex. BP remains elevated but with notable improvement. Medications appropriate for kidney function. Calcitriol 0.25 mcg daily. Close outpatient nephrology follow up strongly advised. 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 I have requested follow up with Dr. Andres in the [facility] nephrology clinic in [place] in the next couple of weeks. (2) Nephrotic syndrome: Plan: 11 grams on 24 hour collection. PLA2r pending. Paraprotein screening serologic evaluation pending. Close outpatient follow up will be required post discharge. No emergent indication for renal biopsy but Deonte was advised that this may be reasonable consideration in the future. (3) Hypertension: Plan: Continue metoprolol succinate as Rx (100 mg QAM and 50 mg QHS). Amlodipine 10 mg daily. Losartan 100 mg daily. Prazosin 1 mg BID. Bumex 1 mg BID to encourage urine output. Anticipate BP will continue to improve with diuresis. BP reasonably improving. Discharge home with close outpatient follow up would be reasonable from a nephrology perspective. Renal artery duplex non-diagnostic due to habitus. Thankfully, BP improving and kidney function stable. (4) Poorly controlled type 2 diabetes mellitus: Plan: High risk for progressive DKD. Continue SGLT2i and ARB. Close outpatient follow up encouraged. Admission and Anticipated Discharge Date Admission Date: April 18, 2023 Subjective No acute events overnight. Deonte is starting to become very restless. He would really like a cigarette and reports some anxiety with being in the hospital. He continues walking the halls. Edema is improving. He denies any lightheadedness, dizziness, syncope, or presyncope. Review of Systems Review of Systems: All systems reviewed & are unremarkable except as noted in HPI & below Physical Exam Constitutional: WD/WN, vitals as above + morbidly obese; no acute distress Eyes: + anicteric sclerae Neck: normal visual inspection Respiratory: no respiratory distress Auscultation: lungs clear to auscultation bilaterally Cardiovascular: Rate/Rhythm: regular rate and regular rhythm Heart Sounds: normal S1 and normal S2 Extremities: + edema (trace b/l LE edema) Gastrointestinal (Abdomen): Inspection/Auscultation: abdomen normal to inspection Percussion/Palpation: abdomen soft; abdomen nontender Musculoskeletal: Extremities: extremities normal to inspection Skin: no rashes, warm and dry Neurologic: no focal motor deficits and not confused Psychiatric: Orientation: alert and oriented x 3 Affect: euthymic affect Results & Data Vital Signs (Past 12 Hours) Vital Signs Temp Pulse Pulse Resp BP BP Pulse Ox 04/23/23 08:00 04/23/23 07:38 66 04/23/23 07:15 36.6 C 69 19 166/99 H 91 04/23/23 02:52 36.7 C 69 20 169/81 H 96 04/23/23 02:38 75 18 94 04/22/23 23:21 85 27 H 93 04/22/23 23:08 82 04/22/23 22:49 37.2 C 85 20 163/89 H 94 O2 Del Method O2 Flow Rate 04/23/23 08:00 Room Air 04/23/23 07:38 04/23/23 07:15 Room Air 04/23/23 02:52 CPAP 04/23/23 02:38 3 04/22/23 23:21 3 04/22/23 23:08 04/22/23 22:49 Room Air Laboratory Results Laboratory Results - last 24 hr 04/22/23 04/22/23 04/22/23 11:09 15:56 20:06 WBC RBC Hgb Hct MCV MCH MCHC RDW Std Deviation RDW Coeff of Domi Plt Count MPV Sodium Potassium Chloride Carbon Dioxide Anion Gap BUN Creatinine Est Cr Clr Drug Dosing Est GFR ( Amer) Est GFR (Non-Af Amer) BUN/Creatinine Ratio Glucose POC Glucose 170 H 166 H 208 H Calcium Magnesium 04/23/23 04/23/23 06:37 07:16 WBC 7.80 RBC 4.75 Hgb 12.6 L Hct 42.3 MCV 89.1 MCH 26.5 MCHC 29.8 L RDW Std Deviation 55.3 H RDW Coeff of Domi 17.0 H Plt Count 338 MPV 10.1 Sodium 141 Potassium 3.9 Chloride 103 Carbon Dioxide 34 H Anion Gap 4 BUN 39 H Creatinine 2.34 H D Est Cr Clr Drug Dosing 54.8 Est GFR ( Amer) 38.6 Est GFR (Non-Af Amer) 33.3 BUN/Creatinine Ratio 16.7 Glucose 172 H POC Glucose 176 H Calcium 8.0 L Magnesium 1.8 PG Care Time/CCT Total # of Minutes Spent Total Time Spent with Patient: Total time spent is greater than 50% in coordination of care (as documented) at patient's floor/unit and/or counseling patient: Coding Level of Care Code 37281 SUB INP/OBS CARE 3/50MIN Diagnoses Stage 3b chronic kidney disease N18.32 Nephrotic syndrome N04.9 Hypertension I10 Poorly controlled type 2 diabetes mellitus E11.65
--- NOTE | 2023-04-23 11:03 | Discharge Summary ---
Discharge Summary Date of Service April 23, 2023 Notes For Next Care Provider * I have asked Mr. Manzo to start weighing himself daily * Nephrology labs are pending * Consider pulmonology referral for sleep study and PFTs, likely benefit from Bipap at home * Medication changes as below Medication Changes From Visit * Amlodipine increased from 5 mg to 10 mg daily * Additional dose of metoprolol 50 mg at bedtime * Discontinued Lasix * Started budesonide 2 mg every morning (this will be her new water pill) * Started prazosin twice a day (this is a new blood pressure medication) Admission HPI Per Admitting Provider Mr. Manzo is a 42 male with a PMH of Type 2 Diabetes, CKD3, CHF, HTN, and Dyslipidemia. Patient complaining of worsening scrotal swelling over the last 4 days. No pain, redness or fevers. States that his noticed it was getting worse and told him to come to the ER. States that he has also noticed that his legs have been more swollen over the last month. Reports cough, chills, decreased appetite and decreased urine output in the last few days. Feels like he is only urinating about twice per day. Denies sick contacts or recent travel s. Follows with [facility], but has not seen them since December. Does not have a risk control product liability director. Has been taking medications at home but unsure of which ones, states he takes 7 pills. Smokes 1 pack per day. Does not drink. Lives at home with . His three children live with his [id number] during the school year, so he has been getting less food stamps because of this. Discussed code status and patient desires to be a full code. Principal Dx & Hospital Course #1 = Principal Diagnosis (1) Acute and chronic respiratory failure: Severe persistent asthma with exacerbation COPD exacerbation -Was requiring 8L oxymask on admission. States that he was told he needs oxygen at home before, but cannot afford it. Does wear cpap when he has all the parts. Denies feeling short of breath. -Likely secondary to volume overload, home diuretic increased -04/18 CXR: cardionmegaly -04/18 CT: mild atelectasis -Biofire negative -Echo: mild LVH, EF 55-60% -Bilateral LE Dopplers--> No DVT Now on Room Air--> 2 step with respiratory, no oxygen needs -Bipap HS and naps (2) Congestive heart failure: Acute on chronic HFpEF -Reports has not seen cardiology in [place], but appointment next month with ?Dr. Arias. Does not know his dry weight. Up about 15# since February. -States he has been taking his lasix at home -Will transition home on 2mg Bumex daily Asked to begin daily weights to be on report this to his risk control product liability director Improved at discharge (3) Scrotal edema: -Likely related to volume overload status, improved. -Diuretic as above (4) Chronic renal disease, stage 3, moderately decreased glomerular filtration rate (GFR) between 30-59 mL/min/1.73 square meter: -4+ protienuria on admission -24 hr urine protein: 10.9g -consistent with nephrotic syndrome -Creatinine seems to be baseline -Renal artery ultrasound - poor study due to body habitus, no vascular abnormalities seen -Nephrology consult, appreciate recs --> will follow-up with patient outpatient -Continue losartan, restarted Jardiance -PLA2r and Paraprotein screening serologic evaluation pending. -Recommend close outpatient follow up with Dr. Andres in [place] (5) Hypertension: -Continue metoprolol and losartan -Amlodipine increased to 10mg, Continue Prazosin BID Additional 50 mg of metoprolol at bedtime (6) Poorly controlled type 2 diabetes mellitus: Home insulin 20 units lantus, Humalog CF of 30. - HgbA1c: 10.1 -Decreased insulin requirements while inpatient, but suspect patient is eating significantly less than he does at home Restart home insulin regiment, continue Trulicity and Jardiance (7) Dyslipidemia: -Continue atorvastatin and fenofibrate (8) Cigar smoker: -1ppd -declined nicotine replacement -Recommend cessation (9) Nephrotic syndrome: 24-hour urine with 11 grams of protein close [facility] nephrology follow-up needed Plan Discharge to home with nephro and cardiology follow up Discharge Exam General: WN/WD, NAD, VS as above Resp: normal respiratory effort, CTA CV: RRR, no murmur Abd: normal bowel sounds, non tender, no hepatosplenomegaly. Extremities: Moves all extremities, tracebilateral leg edema, nonpitting, improved. no erythema. Neuro: A&O x3, Updated Medication List Medication Instructions Recorded Confirmed Type albuterol sulfate 90 mcg/actuation 2 puff inhalation Q6H PRN 01/03/23 04/18/23 History aerosol inhaler Shortness Of Breath Or Wheezing empagliflozin 25 mg tablet 25 mg PO DAILY 01/03/23 04/18/23 History (Jardiance) fenofibrate 160 mg tablet 160 mg PO QAM 01/03/23 04/18/23 History insulin lispro 100 unit/mL 15 unit subcut BID 01/03/23 04/18/23 History subcutaneous pen (Humalog KwikPen (U-100) Insulin) blood sugar diagnostic (Screenburnuch #300 ea 01/05/23 04/18/23 Rx Verio test strips) insulin glargine 100 unit/mL (3 28 unit subcut DAILY 01/05/23 04/18/23 History mL) subcutaneous pen (Lantus Solostar U-100 Insulin) lancets 30 gauge ([facility] #300 ea 01/05/23 04/18/23 Rx Plus Lancet) metoprolol succinate 100 mg 100 mg PO QAM 01/05/23 04/18/23 History capsule sprinkle, ext. release 24 hr flash glucose sensor (FreeStyle #6 ea 02/28/23 04/18/23 Rx Tootie 2 Sensor kit) atorvastatin 80 mg tablet 80 mg PO DAILY #30 tabs 03/05/23 04/18/23 Rx calcitriol 0.25 mcg capsule 0.25 mcg PO DAILY #30 caps 03/05/23 04/18/23 Rx losartan 100 mg tablet 100 mg PO DAILY #30 tabs 03/05/23 04/18/23 Rx dulaglutide 0.75 mg/0.5 mL 0.75 mg subcut WK 04/18/23 04/18/23 History subcutaneous pen injector (Trulicity) amlodipine 5 mg tablet (Norvasc) 10 mg (2 x 5 mg) PO QAM 30 days 04/23/23 Rx #60 tabs bumetanide 1 mg tablet 2 mg (2 x 1 mg) PO QAM 30 days #60 04/23/23 Rx tabs metoprolol succinate 50 mg 50 mg PO HS #30 tabs 04/23/23 Rx tablet,extended release 24 hr prazosin 1 mg capsule 1 mg PO BID 30 days #60 caps 04/23/23 Rx Hospital Stay Data Consultations 04/18/23 08:10 ED Decision to Admit Stat 04/20/23 09:23 Consult Nephrology Routine Diagnostic Imagining Performed 04/18/23 03:53 CT chest diagnostic wo con Stat 04/18/23 10:14 US venous doppler LE BI Urgent 04/21/23 11:25 US duplex renal artery Urgent Discharge Instructions Given to Patient (Per Discharging Provider) Mr. Manzo You are hospitalized due to volume overload, causing excessive leg and scrotal swelling and increased oxygen needs. You are also diagnosed with nephrotic syndrome, which is excessive protein, yellow in the urine which is likely from kidney damage due to your diabetes. You were treated with increased BiPAP time, increased blood pressure medications and aggressive diuretics. During your stay, we did a chest x-ray and chest CT scan that did show a small nodule in the upper lobe of your lung that can be follow up with your PCP. We also did ultrasounds of your legs and kidney arteries which were normal. We did an ultrasound of your heart as well that showed a normal ejection fraction with mild left ventricular hypertrophy. We have changed the following medications; * Amlodipine increased from 5 mg to 10 mg daily * Additional dose of metoprolol 50 mg at bedtime * Discontinued Lasix * Started budesonide 2 mg every morning (this will be her new water pill) * Started prazosin twice a day (this is a new blood pressure medication) To ensure this does not happen again there are things that you can do to improve your health including: * Stop smoking * Maintain good control of your diabetes, continue following up with the [facility]. Important to limit your carbohydrates * Decrease your salt intake, this is commonly found in processed foods including frozen dinners canned soups, deli meats and fast foods * Weigh yourself each morning with the same amount of clothes on, if you notice a weight gain of 3 to 5 pounds in a matter of 1 to 2 days please contact your risk control product liability director * Continue to wear your CPAP at night * Follow up with a bung driver to make sure your CPAP has the best settings for you We did lab work for your kidney function that has not yet resulted. You will be able to discuss this with the registered pharmacist (kidney doctor) at your follow-up appointment as you discussed with them you may need a kidney biopsy in the future. If you develop any new or worsening symptoms including extensive leg swelling, scrotal swelling or shortness of breath please contact your risk control product liability director or PCP or return to the ER. It was our pleasure taking care of you, Saira Hodges PA-C Total Time Total Time Spent Total Time Spent (In Minutes): 36 Supervising Physician Co-Signing Physician Notes Attending Attestation and Discharge Note: Pt seen/examined, chart reviewed, care plan d/w [facility] Hodges. I agree with the roa components of her discharge documentation with the following addition - 42yo male with poorly controlled HTN and DM, CKD stage 3, obesity, ?underlying lung disease, MINAL, and noncompliance who presented with scrotal edema and volume overload. He was hypoxic and hypercarbic at time of admission. Required diuresis the entire stay with improved volume status. Multiple dose adjustments and/or additional meds needed for BP control. Insulin regimen adjusted. Underwent 24-hour urine collection due to 4+ proteinuria seen on u/a. 11 grams of protein detected in this collection. Seen by [facility] nephrology - will need close f/u as he is at high risk of CKD progression - especially if HTN & DM remains poorly controlled. Tobacco cessation needed. Needs pulmonary f/u for PFTs, etc as no PFTs are available to diagnose any underlying lung disease. 2-step O2 test at discharge did not show any need for ambulatory O2. Discharge exam: gen - obese, NAD neck - no JVD heart - RRR, s1 s2, no obvious murmur lungs - CTA b/l, decreased BS bases abd - soft NT BS+ ext - <1+ edema b/l, pulses 2+ b/l Andres Bethea MD Coding Level of Care Code 91525 INP/OBS DISCH >30 MIN Diagnoses Acute and chronic respiratory failure J96.20 Congestive heart failure I50.9 Scrotal edema N50.89 Chronic renal disease, stage 3, moderately decreased glomerular filtration rate (GFR) between 30-59 mL/min/1.73 square meter N18.30 Hypertension I10 Poorly controlled type 2 diabetes mellitus E11.65 Dyslipidemia E78.5 Cigar smoker F17.290 Nephrotic syndrome N04.9
== END 2023-04-23 15:05 | disposition home or self-care (01) | DRG 291 ==
LOC: SUATTDRO → ED 20:53 → SUATTDRO 04-18 10:14 → EDINP 04-18 10:14 → 2S 04-20 11:41

== ENCOUNTER 2023-05-05 02:02 | Inpatient (IN) ==
[2023-05-05] MEDS ORDERED: ACETAMINOPHEN 1,000 MG/100 ML VIAL IV STA (02:12)
--- NOTE | 2023-05-05 02:12 | Emergency Department Note ---
Impression & Plan Influenza A, Hypoxia, Acute respiratory distress, Closed head injury, Elevated troponin, Acute on chronic renal insufficiency ED Provider Note Name: YAZMIN RAMOS Age: 42 Sex: Male Arrives Via: Ambulance Informant: Patient, EMS ED Provider: Devendra Trotter MD Chief Complaint: Difficulty breathing Impression: As per impressions above Medical Decision Makin-year-old gentleman with extensive past medical history and recent hospitalization for fluid overload. He has a history of diabetes hypertension, dyslipidemia, COPD, CHF, depression. Patient notes worsening illness over the last few days in the setting of his being sick as well. Patient notes increasing weakness and has fallen multiple times including this evening striking his head. His abrasion to the right forehead and lateral to right eye. EMS brings him in and he was hypoxic for them placed on oxygen. His O2 sats are in the 70s on room air even here. Diffusely junky lung sounds and rhinorrhea noted. He is placed on nasal cannula O2 and is breathing much more comfortably. CT of the head and cervical spine are negative. Chest x-ray shows viral congestive pattern without significant effusions appreciated. Laboratory workup remarkable for modest elevation in his creatinine from baseline, elevated troponin, and a positive influenza A testing. His EKG does not show any acute ischemia at this time. I suspect his troponin elevation is more secondary to hypoxia and demand rather than ACS. He is not having any chest pain or shortness of breath. He was given some Tylenol. Will hold off on any fluids at this time as he is not hypotensive and his lactic acid is within normal range. Is at high risk of respiratory failure from fluid overload as well. May need some gentle hydration given his kidney findings but will defer to hospitalist team. Given normal white count normal lactic acid and chest x-ray without clear infiltrate will hold off on empiric antibiotics and defer to hospitalist team as well. Patient is stable feeling much better on nasal cannula O2 and comfortable with plan for hospitalization. Triage/Nursing Notes reviewed by Me Differential:Reactive airway disease, pneumonia, pneumothorax, COPD, CHF, infections, cardiac ischemia, pulmonary embolism, musculoskeletal, gastrointestinal, as well as other pathologies. Vital Signs: reviewed and remarkable for febrile, hypoxic Interventions: tylenol iv, nc O2 Labs:ED labs Reviewed by me and remarkable for elevated creatinine, elevated troponin, positive influenza A. Modestly elevated BNP from baseline as well. Imagin view chest x-ray as per my interpretation bilateral congestion without overt congestive heart failure findings. Does have an enlarged heart. This is improved from previous chest x-ray. No lobar infiltrate nor effusion appreciated. CT of the head as per my informal interpretation no evidence of intracranial hemorrhage or mass effect. Confirmed by radiologist. CT of the cervical spine as per my informal interpretation no fracture or desiccation appreciated. Confirmed by radiologist. EKG:As per my interpretation. Indication weakness. Normal sinus rhythm at 95 bpm QTc of 447. There is no ectopy nor overt ischemia. When compared to EKG from April 17, 2023 morphology is relatively similar. Cardiac/Tele Monitoring: Cardiac Monitoring: An Order was placed for continuous cardiac monitoring. The monitor shows a rate of 80 with a normal sinus rhythm. Consults:Dr Deja SANCHEZ Hospitalist Plan: Disposition:Hospitalization. Condition: Fair History of Present Illness: 42-year-old male arrives for evaluation of difficulty breathing. Patient had several days of worsening cough, congestion, fatigue. States has been feeling lightheaded and he fell twice in the last 2 days. Both times he struck his head. This evening when he fell he actually believes he passed out when he struck his head. EMS had arrived and patient was noted to be confused and a bit altered. O2 sats were in the 60s. He is placed on nasal cannula O2 with some improvement. Brought to the ER for further evaluation. Patient with a history of diabetes and blood sugar prior to arrival was 190s. Patient notes mild frontal headache denies any neck pain. He notes primarily his issues have been shortness of breath and cough. is also currently sick. Patient was recently hospitalized for fluid overload and COPD. Patient does not believe he is gained any weight in the last few days Past Medical History: Diabetes, hypertension, dyslipidemia, COPD, CHF, depression Home Medications:See Below Allergies: No known drug allergy Vitals:Blood Pressure: 174/103, Pulse 97, RR 22, T 38.3C, O2 70% on RA Physical Exam: GENERAL: Patient is unwell, tired appearing and in mild distress. HEAD: Abrasion with hematoma right forehead FACE: 1 cm abrasion no longer bleeding right lateral eyebrow with underlying swelling. RESPIRATORY: Diffusely junky lung sounds with crackles moderate tachypnea CARDIOVASCULAR: Mild systolic murmur tachycardic GASTROINTESTINAL: Abdomen soft, non-tender, no peritonitis. BACK: No midline tenderness, no CVA tenderness EXTREMITIES: Normal motion all extremities, no cyanosis, no edema. NEUROLOGIC: Alert and oriented. No focal neurologic deficits appreciated SKIN: abrasions on abdomen/chest without bruising nor TTP. No rash, no jaundice, no diaphoresis. PSYCH: Appropriate GCS: 15 ED Course: Times/Reassessments: Patient breathing much more comfortably on nasal cannula O2. Agreeable to hospitalization Devendra Trotter MD Past Med/Surg History Medical History (Updated 05/05/23 @ 05:40 by Damion Armijo MD) Diabetic nephropathy associated with type 2 diabetes mellitus Hypertension Obesity Dyslipidemia Poorly controlled type 2 diabetes mellitus Nephrotic syndrome Stage 3b chronic kidney disease Family History Mother Diabetes Heart disease Dyslipidemia Social History Smoking Status: Current every day smoker Tobacco Type: Cigarettes Cigarettes Per Day: 1 pack; Second Hand Exposure: No; Do You Dip or Chew Tobacco: No; Hx Alcohol Use: No Hx Substance Use: Yes Prescribed Medications: Marijuana Last Used Substance: Hours (ago) Last Used Substance Other:: 04/17/23 Preferred Language: [place] Communication Ability: Effective Vessel Builder Required: No Beliefs That Will Affect Care: None marital status: Current Living Situation: Spouse current occupational status: employed How many Children do You have: 5 Feels Safe at Home: Yes Assistive Devices: CPAP Allergies Allergies Allergy/AdvReac Type Severity Reaction Status Date / Time No Known Allergies Allergy Verified 05/05/23 02:29 Home Meds Home Medications Medication Instructions Recorded Confirmed albuterol sulfate 90 mcg/actuation 2 puff inhalation Q6H PRN 01/03/23 05/05/23 aerosol inhaler Shortness Of Breath Or Wheezing fenofibrate 160 mg tablet 160 mg PO QAM 01/03/23 05/05/23 insulin lispro 100 unit/mL 15 unit subcut BID 01/03/23 05/05/23 subcutaneous pen (Humalog KwikPen (U-100) Insulin) insulin glargine 100 unit/mL (3 28 unit subcut DAILY 01/05/23 05/05/23 mL) subcutaneous pen (Lantus Solostar U-100 Insulin) metoprolol succinate 100 mg 100 mg PO QAM 01/05/23 05/05/23 capsule sprinkle, ext. release 24 hr dulaglutide 0.75 mg/0.5 mL 0.75 mg subcut WK 04/18/23 05/05/23 subcutaneous pen injector (Trulicity) empagliflozin 25 mg tablet 25 mg PO DAILY 05/05/23 05/05/23 (Jardiance) Previous Rx's Medication Instructions Recorded blood sugar diagnostic (GOQiiTouch #300 ea 01/05/23 Verio test strips) lancets 30 gauge (OneTouch Delica #300 ea 01/05/23 Plus Lancet) flash glucose sensor (Z[employer] About Us #6 ea 02/28/23 Tootie 2 Sensor kit) atorvastatin 80 mg tablet 80 mg PO DAILY #30 tabs 03/05/23 calcitriol 0.25 mcg capsule 0.25 mcg PO DAILY #30 caps 03/05/23 losartan 100 mg tablet 100 mg PO DAILY #30 tabs 03/05/23 bumetanide 1 mg tablet 2 mg (2 x 1 mg) PO QAM 30 days #60 04/23/23 tabs metoprolol succinate 50 mg 50 mg PO HS #30 tabs 04/23/23 tablet,extended release 24 hr prazosin 1 mg capsule 1 mg PO BID 30 days #60 caps 04/23/23 Results & Data (ED) Vital Signs Vital Signs - 24 hr 05/05/23 02:09 05/05/23 02:11 05/05/23 02:36 Temperature 38.3 C H Temperature Source Oral Pulse Rate 87 91 H Respiratory Rate 16 Respiratory Effort / Characteristics Non-Labored Spontaneous Respiratory Depth Normal Respiratory Pattern Regular Blood Pressure 174/103 H Blood Pressure Mean 126 Pulse Oximetry 100 99 Oxygen Delivery Method Nasal Cannula Nasal Cannula Oxygen Flow Rate 6 6 Sepsis Recent Fever Within 48 Hours Yes Sepsis New/Unexplained Change in Mental Status No Sepsis Action Taken by Nursing No Action Required 05/05/23 03:35 Temperature Temperature Source Pulse Rate 93 H Respiratory Rate 22 Respiratory Effort / Characteristics Respiratory Depth Respiratory Pattern Blood Pressure 125/81 Blood Pressure Mean 95 Pulse Oximetry 100 Oxygen Delivery Method Nasal Cannula Oxygen Flow Rate 6 Sepsis Recent Fever Within 48 Hours Sepsis New/Unexplained Change in Mental Status Sepsis Action Taken by Nursing Laboratory Data 05/05/23 04:53 05/05/23 02:31 Lab Results 05/05/23 05/05/2323 Range/Units 02:15 02:31 04:53 WBC 8.72 7.72 (4.8-10.8) K/ul RBC 4.71 4.36 L (4.70-6.10) M/uL Hgb 12.4 L 11.5 L (14.0-18.0) g/dl Hct 42.9 39.6 L (42.0-52.0) % MCV 91.1 90.8 (80.0-100.0) fL MCH 26.3 26.4 (25.0-34.0) pg MCHC 28.9 L 29.0 L (32.0-36.0) g/dL RDW Std Deviation 57.6 H 57.1 H (36.4-46.3) fL RDW Coeff of Domi 17.0 H 17.1 H (11.5-14.5) % Plt Count 346 311 (130-400) K/uL MPV 10.4 9.8 (9.4-12.4) fL Immature Gran % (Auto) 0.5 % Neut % (Auto) 83.4 % Lymph % (Auto) 6.1 % [place] % (Auto) 9.4 % Eos % (Auto) 0.0 % Baso % (Auto) 0.6 % Neut # (Auto) 7.28 H (1.40-6.50) K/uL Lymph # (Auto) 0.53 L (1.20-3.40) K/uL [place] # (Auto) 0.82 H (0.11-0.59) K/uL Eos # (Auto) 0.00 (0.00-0.50) K/uL Baso # (Auto) 0.05 (0.00-0.20) K/uL Immature Gran # (Auto) 0.04 (0.01-0.20) K/uL Hypochromasia Present Sodium 142 (136-145) mmol/L Potassium 4.8 (3.5-5.1) mmol/L Chloride 106 (98-107) mmol/L Carbon Dioxide 30 (21-32) mmol/L Anion Gap 6 (3-11) BUN 34 H (6-23) mg/dl Creatinine 3.19 H (0.6-1.4) mg/dl Est Cr Clr Drug Dosing 38.9 ml/min Est GFR ( Amer) 26.5 ml/min Est GFR (Non-Af Amer) 22.9 ml/min BUN/Creatinine Ratio 10.7 (10-20) Glucose 142 H (70-99(Fasting)) mg/dl Lactate 1.2 (0.4-2.0) mmol/L Calcium 8.1 L (8.6-10.3) mg/dl Magnesium 2.0 (1.7-2.4) mg/dl Total Bilirubin 0.3 (0.2-1.0) mg/dl Direct Bilirubin 0.1 (0-0.2) mg/dl AST 45 H (13-39) U/L ALT 24 (7-52) U/L Alkaline Phosphatase 46 (34-104) U/L Troponin I High Sens 59.1 H* (0-20) pg/ml B-Natriuretic Peptide 477 H (0-100) pg/ml Total Protein 6.4 (6.0-8.3) gm/dl Albumin 3.1 L (3.4-5.0) gm/dl Procalcitonin 1.18 H (0-0.5) ng/ml Adenovirus (PCR) Not Detected (NotDetected) B. pertussis DNA (PCR) Not Detected (NotDetected) B.parapertussis DNA PCR Not Detected (NotDetected) C. pneumoniae DNA (PCR) Not Detected (NotDetected) Coronavirus OC43 (PCR) Not Detected (NotDetected) Coronavirus HKU1 (PCR) Not Detected (NotDetected) Coronavirus 229E (PCR) Not Detected (NotDetected) SARS-CoV-2 (PCR) Not Detected (NotDetected) Coronavirus NL63 (PCR) Not Detected (NotDetected) Human Metapneumovir PCR Not Detected (NotDetected) Influenza A (H3) PCR DETECTED A* (NotDetected) Influenza Type B (PCR) Not Detected (NotDetected) M. pneumoniae (PCR) Not Detected (NotDetected) Parainfluenza 1 (PCR) Not Detected (NotDetected) Parainfluenza 2 (PCR) Not Detected (NotDetected) Parainfluenza 3 (PCR) Not Detected (NotDetected) Parainfluenza 4 (PCR) Not Detected (NotDetected) RSV (PCR) Not Detected (NotDetected) Entero/Rhino (PCR) Not Detected (NotDetected) Administered Medications Discontinued Medications Acetaminophen (Ofirmev) 1,000 mg in 100 mls @ 400 mls/hr IV NOW STA Stop: 05/05/23 02:26 Last Infusion: 05/05/23 05:16 Dose: Infused Documented By: Admin: 05/05/23 02:34 Dose: 400 mls/hr Documented By: GUANAKITO Oseltamivir Phosphate (Oseltamivir Phosphate 75 Mg Cap) 75 mg PO NOW STA; Protocol Stop: 05/05/23 04:07 Last Admin: 05/05/23 05:08 Dose: 75 mg Documented By: GUANAKITO Imaging Data Radiologist's Impression: Cervical Spine CT 05/05/23 02:08 Exam(s): CT C SPINE EXAM: CT Cervical Spine Without Intravenous Contrast CLINICAL HISTORY: Reason for exam: Head trauma. TECHNIQUE: Axial computed tomography images of the cervical spine without intravenous contrast. Automated exposure control was utilized for the study. A dose lowering technique was utilized adhering to the principles of ALARA. COMPARISON: No relevant prior studies available. FINDINGS: The vertebral body heights are maintained. The craniocervical junction is intact. The atlanto-dens interval is maintained. The dens is intact. There is no spondylolisthesis. 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 Multilevel cervical spondylosis and degenerative disc disease. Straightening of the cervical lordosis. The unenhanced neck soft tissues are grossly unremarkable. The visualized lung apices are grossly clear. IMPRESSION: No acute fracture or subluxation of the cervical spine. Electronically signed by: Cruz Zuniga MD 05/05/23 03:[address] 05/05/23 02:08 Exam(s): CT HEAD Without Contrast EXAM: CT Head Without Intravenous Contrast CLINICAL HISTORY: Reason for exam: right head trauma. TECHNIQUE: Axial computed tomography images of the head/brain without intravenous contrast. CTDI is 36.9 mGy and DLP is 1233.47 mGy-cm. Automated exposure control was utilized for the study. A dose lowering technique was utilized adhering to the principles of ALARA. COMPARISON: No relevant prior studies available. FINDINGS: No acute intracranial hemorrhage. No midline shift or mass effect. The territorial william-white matter differentiation is maintained throughout. The ventricles and sulci are commensurate with age. The visualized orbits appear grossly unremarkable. The calvarium is intact. The visualized paranasal sinuses and mastoid air cells are grossly clear. IMPRESSION: No acute intracranial hemorrhage, midline shift, or mass effect. Electronically signed by: Cruz Zuniga MD 05/05/23 03:31 AM Discharge Plan Visit Data Chief Complaint: Illness Stated Complaint: ILLNESS, FALLS, LOW o2 SATS ED Provider: Devendra Trotter Discharge Problem: Influenza A, Hypoxia, Acute respiratory distress, Closed head injury, Elevated troponin, Acute on chronic renal insufficiency Patient Disposition: Admitted As Inpatient Discharge Instructions Interventions: ED Discharge Assessment Last Done: 05/05/23 05:26 Prescriptions Prescriptions: No Action losartan 100 mg tablet 100 mg PO DAILY Qty: 30 2RF atorvastatin 80 mg tablet 80 mg PO DAILY Qty: 30 2RF calcitriol 0.25 mcg capsule 0.25 mcg PO DAILY Qty: 30 2RF (DME) FreeStyle Tootie 2 Sensor Kit See Rx Instructions .Route Qty: 6 3RF Rx Instructions: change sensor every 14 days fenofibrate 160 mg tablet 160 mg PO QAM albuterol sulfate 90 mcg/actuation HFA aerosol inhaler 2 puff inhalation Q6H PRN (Reason: Shortness Of Breath Or Wheezing) insulin lispro [Humalog KwikPen Insulin] 100 unit/mL insulin pen 15 unit subcut BID metoprolol succinate 100 mg capsule,sprinkle,ER 24hr 100 mg PO QAM (DME) OneTouch Verio test strips Strip See Rx Instructions .Route Qty: 300 3RF Rx Instructions: test blood sugar 3 x daily (DME) lancets [OneTouch Delica Plus Lancet] 30 gauge misc See Rx Instructions .Route Qty: 300 3RF Rx Instructions: test blood sugar 3 x daily Trulicity 0.75 mg/0.5 mL pen injector 0.75 mg subcut WK Rx Instructions: fridays metoprolol succinate 50 mg Tablet Extended Release 24 Hr 50 mg PO HS Qty: 30 0RF prazosin 1 mg Capsule 1 mg PO BID 30 Days Qty: 60 0RF bumetanide 1 mg Tablet 2 mg PO QAM 30 Days Qty: 60 0RF Jardiance 25 mg tablet 25 mg PO DAILY Lantus Solostar U-100 Insulin 100 unit/mL (3 mL) insulin pen 28 unit SUBCUT DAILY Discharge Problem: Closed head injury Qualifiers: Encounter type: initial encounter Qualified Code(s): S09.90XA - Unspecified injury of head, initial encounter
[2023-05-05 03:02] LABS: Albumin Level 3.1 gm/dl (3.4-5.0); BUN Creatinine Ratio 10.7 (10-20); Bilirubin Direct 0.1 mg/dl (0-0.2); Bilirubin,Total 0.3 mg/dl (0.2-1.0); Calcium 8.1 mg/dl (8.6-10.3); Creatinine Clr Calc Pharmacy 38.9 ml/min; Est GFR (African American) 26.5 ml/min; Est GFR (Non-African American) 22.9 ml/min; Potassium 4.8 mmol/L (3.5-5.1); Total Protein 6.4 gm/dl (6.0-8.3)
[2023-05-05 03:11] LABS: Basophils # (auto) 0.05 K/uL (0.00-0.20); Basophils % (auto) 0.6 %; Hematocrit (blood only) 42.9 % (42.0-52.0); Hemoglobin 12.4 g/dl (14.0-18.0); Hypochromasia Present; Immature Granulocytes # (auto) 0.04 K/uL (0.01-0.20); Immature Granulocytes % (auto) 0.5 %; Lymphocytes # (auto) 0.53 K/uL (1.20-3.40); Lymphocytes % (auto) 6.1 %; Mean Corpuscular Hemoglobin 26.3 pg (25.0-34.0); Mean Corpuscular Hgb Conc 28.9 g/dL (32.0-36.0); Mean Corpuscular Volume 91.1 fL (80.0-100.0); Mean Platelet Volume 10.4 fL (9.4-12.4); Monocytes # (auto) 0.82 K/uL (0.11-0.59); Monocytes % (auto) 9.4 %; Neutrophils # (auto) 7.28 K/uL (1.40-6.50); Neutrophils % (auto) 83.4 %; Platelet Count 346 K/uL (130-400); RDW Standard Deviation 57.6 fL (36.4-46.3); Red Blood Count 4.71 M/uL (4.70-6.10); White Blood Count 8.72 K/ul (4.8-10.8)
[2023-05-05 03:16] LABS: Troponin I High Sensitivity 59.1 pg/ml (0-20)
[2023-05-05 03:16] LABS: Adenovirus PCR Not Detected (NotDetected); Bordetella parapertussis PCR Not Detected (NotDetected); Bordetella pertussis PCR Not Detected (NotDetected); Chlamydia pneumoniae PCR Not Detected (NotDetected); Coronavirus 229E PCR Not Detected (NotDetected); Coronavirus CoV-2 (COVID19)PCR Not Detected (NotDetected); Coronavirus HKU1 PCR Not Detected (NotDetected); Coronavirus NL63 PCR Not Detected (NotDetected); Coronavirus OC43PCR Not Detected (NotDetected); Human Metapneumovirus PCR Not Detected (NotDetected); Influenza B PCR Not Detected (NotDetected); Mycoplasma pneumoniae PCR Not Detected (NotDetected); Parainfluenza Virus 1 PCR Not Detected (NotDetected); Parainfluenza Virus 2 PCR Not Detected (NotDetected); Parainfluenza Virus 3 PCR Not Detected (NotDetected); Parainfluenza Virus 4 PCR Not Detected (NotDetected); Respiratory Syncytial VirusPCR Not Detected (NotDetected); Rhinovirus/Enterovirus PCR Not Detected (NotDetected)
--- NOTE | 2023-05-05 03:31 | CT Scan Report ---
Exam(s): CT HEAD Without Contrast EXAM: CT Head Without Intravenous Contrast CLINICAL HISTORY: Reason for exam: right head trauma. TECHNIQUE: Axial computed tomography images of the head/brain without intravenous contrast. CTDI is 36.9 mGy and DLP is 1233.47 mGy-cm. Automated exposure control was utilized for the study. A dose lowering technique was utilized adhering to the principles of ALARA. COMPARISON: No relevant prior studies available. FINDINGS: No acute intracranial hemorrhage. No midline shift or mass effect. The territorial william-white matter differentiation is maintained throughout. The ventricles and sulci are commensurate with age. The visualized orbits appear grossly unremarkable. The calvarium is intact. The visualized paranasal sinuses and mastoid air cells are grossly clear. IMPRESSION: No acute intracranial hemorrhage, midline shift, or mass effect. Electronically signed by: Cruz Zuniga MD 05/05/23 03:31 AM
--- NOTE | 2023-05-05 03:39 | CT Scan Report ---
Exam(s): CT C SPINE EXAM: CT Cervical Spine Without Intravenous Contrast CLINICAL HISTORY: Reason for exam: Head trauma. TECHNIQUE: Axial computed tomography images of the cervical spine without intravenous contrast. Automated exposure control was utilized for the study. A dose lowering technique was utilized adhering to the principles of ALARA. COMPARISON: No relevant prior studies available. FINDINGS: The vertebral body heights are maintained. The craniocervical junction is intact. The atlanto-dens interval is maintained. The dens is intact. There is no spondylolisthesis. 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 Multilevel cervical spondylosis and degenerative disc disease. Straightening of the cervical lordosis. The unenhanced neck soft tissues are grossly unremarkable. The visualized lung apices are grossly clear. IMPRESSION: No acute fracture or subluxation of the cervical spine. Electronically signed by: Cruz Zuniga MD 05/05/23 03:38 AM
[2023-05-05 04:05] LABS: Influenza A (H3) PCR DETECTED (NotDetected)
[2023-05-05] MEDS ORDERED: OSELTAMIVIR PHOSPHATE 75 MG CAP PO STA (04:06)
--- NOTE | 2023-05-05 05:02 | History & Physical Report ---
Date of Service May 05, 2023 Assessment & Plan (1) Influenza A: Plan: 42 M with PMH poorly controlled DM2, HTN, dyslipidemia presenting with weakness, cough, fatigue x 3 days. Now admitted for management of influenza A, acute hypoxic respiratory failure. Acute hypoxic respiratory failure/influenza A -S/p IV Tylenol on arrival, p.o. oseltamivir on admission. -Fever, HR >90, tachypnea (meets SIRS criteria). Likely pulmonary source, given positive influenza A PCR (meets sepsis criteria). -Lactate normal (1.2). * Admit to MedSurg telemetry * Isolation (airborne) precautions ordered * Oseltamivir 75 mg twice daily x 5 days * Empiric broad-spectrum antibiotics initiated: Cefepime 2 g every 8 hours, azithromycin 500 mg daily * Blood cultures pending * Symptomatic management as needed * Continue O2 supplementation via NC. Goal of >94%. * IV lactated Ringers @maintenance rate Elevated troponin -Does not appear to be cardiac in nature. Likely due to TRINH in the setting of chronic kidney disease (stage IIIb). * Repeat hs troponin pending Poorly controlled type 2 diabetes -HgbA1c = 10.1% 2 weeks ago. -On atorvastatin, Jardiance, Trulicity, and basal (Lantus 28 units daily) and bolus (lispro 15 units twice daily) insulin. -Suspect medication nonadherence based on review of previous hospital visit notes. * Continue adjusted home basal insulin regimen: Lantus 21 units daily, mealtime SSI per protocol * Holding home p.o. antihyperglycemic meds * Continue atorvastatin Dyslipidemia * Continue home atorvastatin, fenofibrate Hypertension * Continue losartan, metoprolol, prazosin * Holding bumetanide since patient likely hypovolemic due to hyperglycemia, sepsis CKD3B * Continue calcitriol Code: Full code Dispo: Med-Surg telemetry FEN/GI: LR @maintenance rate. Heart healthy/Carb consistent DVT Prophylaxis: Lovenox 40 mg q24h PT/OT: No Consults: None Case Management: No (2) Sepsis with acute hypoxic respiratory failure without septic shock: (3) Elevated troponin: (4) Poorly controlled type 2 diabetes mellitus: (5) Diabetic nephropathy associated with type 2 diabetes mellitus: (6) Hypertension: (7) Dyslipidemia: (8) Stage 3b chronic kidney disease: History of Present Illness Primary Care Provider: Efren Young PA-C Deonte is a 42-year-old man with a history of poorly controlled type 2 diabetes (Hgb A1c-10.1%), DM2-associated peripheral neuropathy, dyslipidemia, hypertension, and CKD3 who presented to the emergency room this morning for evaluation of difficulty breathing. He reported 2 to 3 days of fatigue, cough, chest congestion, and headache. He also reported lightheadedness, and multiple episodes of falling at home, during which he struck his head. Patient was brought to the hospital by EMS, who noted that he appeared confused and altered, per ED note. On arrival, patient was notably hypoxic to the 60s requiring up to 6 L of oxygen via NC. He was also febrile (38.3 C). Notable labs include: Cr-3.19, glucose- 142, high-sensitivity troponin-59.1, BNP-477, procalcitonin-1.18. Respiratory viral panel returned positive for influenza A. Rest of viral panel was negative. He received a dose of IV Tylenol. Hospitalist service was then consulted for admission. Allergies Allergy/AdvReac Type Severity Reaction Status Date / Time No Known Allergies Allergy Verified 05/05/23 02:29 Home Medications Medication Instructions Recorded Confirmed Type albuterol sulfate 90 mcg/actuation 2 puff inhalation Q6H PRN 01/03/23 05/05/23 History aerosol inhaler Shortness Of Breath Or Wheezing fenofibrate 160 mg tablet 160 mg PO QAM 01/03/23 05/05/23 History insulin lispro 100 unit/mL 15 unit subcut BID 01/03/23 05/05/23 History subcutaneous pen (Humalog KwikPen (U-100) Insulin) blood sugar diagnostic (OneTouch #300 ea 01/05/23 05/05/23 Rx Verio test strips) insulin glargine 100 unit/mL (3 28 unit subcut DAILY 01/05/23 05/05/23 History mL) subcutaneous pen (Lantus Solostar U-100 Insulin) lancets 30 gauge (OneTouch Delica #300 ea 01/05/23 05/05/23 Rx Plus Lancet) metoprolol succinate 100 mg 100 mg PO QAM 01/05/23 05/05/23 History capsule sprinkle, ext. release 24 hr flash glucose sensor (FreeStyle #6 ea 02/28/23 05/05/23 Rx Tootie 2 Sensor kit) atorvastatin 80 mg tablet 80 mg PO DAILY #30 tabs 03/05/23 05/05/23 Rx calcitriol 0.25 mcg capsule 0.25 mcg PO DAILY #30 caps 03/05/23 05/05/23 Rx losartan 100 mg tablet 100 mg PO DAILY #30 tabs 03/05/23 05/05/23 Rx dulaglutide 0.75 mg/0.5 mL 0.75 mg subcut WK 04/18/23 05/05/23 History subcutaneous pen injector (Trulicity) bumetanide 1 mg tablet 2 mg (2 x 1 mg) PO QAM 30 days #60 04/23/23 05/05/23 Rx tabs metoprolol succinate 50 mg 50 mg PO HS #30 tabs 04/23/23 05/05/23 Rx tablet,extended release 24 hr prazosin 1 mg capsule 1 mg PO BID 30 days #60 caps 04/23/23 05/05/23 Rx empagliflozin 25 mg tablet 25 mg PO DAILY 05/05/23 05/05/23 History (Jardiance) Past Med/Surg History Medical History (Updated 05/05/23 @ 05:40 by Damion Armijo MD) Diabetic nephropathy associated with type 2 diabetes mellitus Hypertension Obesity Dyslipidemia Poorly controlled type 2 diabetes mellitus Nephrotic syndrome Stage 3b chronic kidney disease Family History Mother Diabetes Heart disease Dyslipidemia Social History Smoking Status: Current every day smoker Tobacco Type: Cigarettes Cigarettes Per Day: 1 pack; Second Hand Exposure: No; Do You Dip or Chew Tobacco: No; Hx Alcohol Use: No Hx Substance Use: Yes Prescribed Medications: Marijuana Preferred Language: Tunisian Communication Ability: Effective Discovery Manager Required: No Beliefs That Will Affect Care: None marital status: Current Living Situation: Spouse current occupational status: employed How many Children do You have: 5 Feels Safe at Home: Yes Assistive Devices: CPAP and Glasses Review of Systems Review of Systems: All systems reviewed & are unremarkable except as noted in HPI & below Physical Exam Physical Exam: General: No acute distress. HEENT: PERRLA. Normal conjunctiva, anicteric sclera. Oropharynx normal. Respiratory: Slightly labored breathing. Unable to speak in complete sentences. Diffuse end-expiratory wheeze, bibasilar crackles, coarse breath sounds on auscultation. Cardiovascular: Tachycardic rate. Regular rhythm. No murmurs, gallops, or rubs. 1+ bilateral pedal edema. GI: Soft abdomen with normal bowel sounds heard on auscultation. Nontender x4 quadrants Neuro: Alert and oriented x3. Psych: Flat affect Results & Data Results & Data Vital Signs (Past 12 Hours) Vital Signs Temp Pulse Resp BP Pulse Ox O2 Del Method O2 Flow Rate 05/05/23 02:36 99 Nasal Cannula 6 05/05/23 02:11 38.3 C H 91 H 16 174/103 H 100 Nasal Cannula 6 05/05/23 02:09 87 Supervising Physician Co-Signing Physician Notes Attending addendum: I have physically seen this patient, have supervised the medical residents activities, and agree with the H&P unless as otherwise noted. Assessment and Plan: Influenza A/acute respiratory failure with hypoxia- Tamiflu 75 mg p.o. twice daily x 5 days Duonebs every 4 hours while awake and every 2 hours when necessary. Methylprednisolone 40 mg IV every 12 hours Cefepime 2 g IV every 12 hours, and azithromycin 500 mg IV daily Droplet precautions Nasal cannula oxygen, titrate to keep pulse ox 92-94% LR at 80 mL/h Elevated troponin- Troponin 59.1 with follow-up pending BNP 477 Likely secondary to supply demand mismatch The patient will be admitted to telemetry for serial cardiac enzymes, serial EKG's, cardiac rhythm monitoringf Diabetes mellitus- Hemoglobin A1c 10.1 about 2 weeks ago Hold Jardiance and Trulicity while in hospital Lantus insulin as noted Placed on Accu-Cheks with SSI Remaining orders and notations as noted Resident Activity Tracking Resident Involvement: Resident Care Provided Care Provided: Adult Hospital Medicine (2) Sepsis with acute hypoxic respiratory failure without septic shock Sepsis type: sepsis due to unspecified organism Qualified Code(s): A41.9 - Sepsis, unspecified organism; R65.20 - Severe sepsis without septic shock; J96.01 - Acute respiratory failure with hypoxia (6) Hypertension Hypertension type: unspecified Qualified Code(s): I10 - Essential (primary) hypertension
[2023-05-05] MEDS ORDERED: LACTATED RINGER'S 1,000 ML IV SCH (05:15)
[2023-05-05 05:26] LABS: Hematocrit (blood only) 39.6 % (42.0-52.0); Hemoglobin 11.5 g/dl (14.0-18.0); Mean Corpuscular Hemoglobin 26.4 pg (25.0-34.0); Mean Corpuscular Volume 90.8 fL (80.0-100.0); Mean Platelet Volume 9.8 fL (9.4-12.4); Platelet Count 311 K/uL (130-400); RDW Coefficient of Variation 17.1 % (11.5-14.5); RDW Standard Deviation 57.1 fL (36.4-46.3); Red Blood Count 4.36 M/uL (4.70-6.10); White Blood Count 7.72 K/ul (4.8-10.8)
[2023-05-05 05:44] LABS: BUN Creatinine Ratio 11.1 (10-20); Calcium 7.7 mg/dl (8.6-10.3); Creatinine Clr Calc Pharmacy 38.4 ml/min; Est GFR (African American) 26.1 ml/min; Est GFR (Non-African American) 22.6 ml/min; Potassium 4.7 mmol/L (3.5-5.1)
[2023-05-05 05:55] LABS: Troponin I High Sensitivity 58.3 pg/ml (0-20)
[2023-05-05] MEDS: ALBUMIN 25% 25 GM/100 ML VIAL IV SCH ×2 (06:28→08:41)
[2023-05-05] MEDS ORDERED: ENOXAPARIN INJ 40 MG/0.4 ML SYR SQ ONE (06:34)
[2023-05-05] MEDS ORDERED: guaiFENesin SUGAR FREE 100 MG/5 ML UDC PO PRN (06:43)
[2023-05-05] MEDS ORDERED: ALBUTEROL HFA 8 GM INHALER INH PRN (06:43)
[2023-05-05] MEDS ORDERED: BENZONATATE 100 MG CAPSULE PO PRN (06:43)
--- NOTE | 2023-05-05 07:15 | XRay Report ---
XR chest 1V portable CLINICAL HISTORY: Sepsis. COMPARISON STUDY: Chest radiograph and chest CT April 18, 2023. FINDINGS: There is no pneumothorax or pleural effusion. Cardiomegaly is unchanged. There is also pulm onary vascular congestion, similar to prior CT. There is no consolidation to suggest pneumonia. IMPRESSION: Stable cardiomegaly with pulmonary vascular congestion. ACT 112: Negative or not required by law. Electronically signed by: Louis Donaldson M.D. 05/05/2023 7:14 AM
--- NOTE | 2023-05-05 08:43 | Hospitalist Progress Note ---
Date of Service May 05, 2023 Assessment & Plan (1) Influenza A: Plan: 42 M with PMH poorly controlled DM2, HTN, dyslipidemia presenting with weakness, cough, fatigue x 3 days. Now admitted for management of influenza A, acute hypoxic respiratory failure. Acute hypoxic respiratory failure/influenza A -Fever, HR >90, tachypnea (met SIRS criteria at time of admission). Likely pulmonary source, given positive influenza A PCR (meets sepsis criteria). -Lactate normal (1.2). * Isolation (airborne) precautions ordered * Oseltamivir 30 mg twice daily x 5 days * Discontinue empiric antibiotics, clinical picture more consistent with viral etiology * Blood cultures pending * Symptomatic management as needed * Continue O2 supplementation via NC. Goal of >94%. * IV lactated Ringers @maintenance rate Elevated troponin -Does not appear to be cardiac in nature. Likely due to TRINH in the setting of chronic kidney disease (stage IIIb). * Repeat hs troponin 63 Poorly controlled type 2 diabetes -HgbA1c = 10.1% 2 weeks ago. -On atorvastatin, Jardiance, Trulicity, and basal (Lantus 28 units daily) and bolus (lispro 15 units twice daily) insulin. -Suspect medication nonadherence based on review of previous hospital visit notes. * Continue adjusted home basal insulin regimen: Lantus 21 units daily, mealtime SSI per protocol * Hold home p.o. antihyperglycemic meds * Continue atorvastatin Dyslipidemia * Continue home atorvastatin, hold fenofibrate Hypertension * Continue losartan, metoprolol, prazosin * Holding bumetanide since patient likely hypovolemic due to hyperglycemia, sepsis CKD3B * Continue calcitriol Code: Full code Dispo: Med-Surg telemetry FEN/GI: LR @maintenance rate. Heart healthy/Carb consistent DVT Prophylaxis: Lovenox 40 mg q24h (2) Sepsis with acute hypoxic respiratory failure without septic shock: (3) Elevated troponin: (4) Poorly controlled type 2 diabetes mellitus: (5) Diabetic nephropathy associated with type 2 diabetes mellitus: (6) Hypertension: (7) Dyslipidemia: (8) Stage 3b chronic kidney disease: Admission and Anticipated Discharge Date Admission Date: May 05, 2023 Supervising Physician Co-Signing Physician Notes I personally examined the patient and verified all roa points of history and exam, discussed case, and agree with decision making with Dr Sherman maybe feels a little better than this morning, definitely not worse. vitals noted fatigued but nad lungs quiet but surprisingly clear, CXR wtihout infiltrate influenza/viral pneumonia/hypoxia from flu/viral pneumonia - no clear evidence of bacterial - no need for cefepime. zithromax for pulmonary anti-inflammatory effect, tamiflu, supportive care, time lovenox for DVT proph otherwise as above Subjective 42-year-old man with a history of poorly controlled type 2 diabetes (Hgb A1c-10.1%), DM2-associated peripheral neuropathy, dyslipidemia, hypertension, and CKD3 who presented to the emergency room this morning for evaluation of difficulty breathing. Patient evaluated at bedside this morning, appears fatigued but with pleasant demeanor. Patient states that he has had cough, congestion fatigue for past 2-3 days but what led him to seek care was a syncopal episode, denies prodromal sx. Notes that he is no longer SOB with supplemental O2. Also denies CP, fever/chills, myalgias. Review of Systems Review of Systems: as per HPI. Physical Exam Physical Exam: General: Alert and oriented. In mild distress but resting comfortably Cardiac: Regular rate and rhythm, no murmurs appreciated Respiratory: Lungs with diffuse rhonchi on auscultation, mildly labored respirations with frequent coughing spells Results & Data Results & Data Vital Signs (Past 12 Hours) Vital Signs Temp Pulse Resp BP Pulse Ox O2 Del Method O2 Flow Rate 05/05/23 06:58 83 05/05/23 06:21 86 05/05/23 05:07 16 125/81 95 05/05/23 03:35 93 H 22 125/81 100 Nasal Cannula 6 05/05/23 02:36 99 Nasal Cannula 6 05/05/23 02:11 38.3 C H 91 H 16 174/103 H 100 Nasal Cannula 6 05/05/23 02:09 87 Resident Activity Tracking Resident Involvement: Resident Care Provided Care Provided: Adult Hospital Medicine (2) Sepsis with acute hypoxic respiratory failure without septic shock Sepsis type: sepsis due to unspecified organism Qualified Code(s): A41.9 - Sepsis, unspecified organism; R65.20 - Severe sepsis without septic shock; J96.01 - Acute respiratory failure with hypoxia (6) Hypertension Hypertension type: unspecified Qualified Code(s): I10 - Essential (primary) hypertension
[2023-05-05] MEDS ORDERED: AZITHROMYCIN 500 MG in DEXTROSE 5% 250 ML IV ONE (09:00)
[2023-05-05] MEDS ORDERED: CEFEPIME 2,000 MG in SYRINGE 0 ML IV SCH (09:00)
[2023-05-05] MEDS ORDERED: ATORVASTATIN 40 MG TAB PO SCH (09:00)
[2023-05-05] MEDS ORDERED: FENOFIBRATE NANOCRYSTALLIZED 145 MG TABLET PO SCH (09:00)
[2023-05-05] MEDS: LANTUS PER UNIT CHARGE SC SCH (09:42)
[2023-05-05] MEDS: CALCITRIOL 0.25 MCG CAPSULE PO SCH (09:42)
[2023-05-05] MEDS: ENOXAPARIN INJ 40 MG/0.4 ML SYR SQ SCH (09:42)
[2023-05-05] MEDS: METOPROLOL SUCC 50MG EXT REL TAB PO SCH ×2 (09:43→20:25)
[2023-05-05] MEDS: LOSARTAN POTASSIUM 50 MG TAB PO SCH (09:43)
[2023-05-05] MEDS: PRAZOSIN HCL 1 MG CAP PO SCH ×2 (09:44→20:26)
[2023-05-05] MEDS: OSELTAMIVIR PHOSPHATE SUSP 30 MG/5 ML UDP PO SCH ×2 (09:44→20:48)
[2023-05-05] MEDS ORDERED: GLUCOSE 10 TAB/TUBE PO PRN (16:00)
[2023-05-05] MEDS ORDERED: GLUCAGON FOR INJ 1 MG VIAL IM PRN (16:00)
[2023-05-05] MEDS ORDERED: DEXTROSE 50% 50 ML SYRINGE IV PRN (16:00)
[2023-05-05] MEDS ORDERED: CARBOHYDRATES FOR HYPOGLYCEMIA PO PRN ×2 (16:00→16:44)
[2023-05-05] MEDS ORDERED: GLUCOSE 40% GEL 15 GM TUBE PO PRN (16:00)
[2023-05-05] MEDS: LACTATED RINGER'S 1,000 ML IV SCH (16:43)
--- NOTE | 2023-05-05 18:06 | Billing Data ---
Date of Service May 05, 2023 Coding Level of Care Code 40502 SUB INP/OBS CARE
[2023-05-05] MEDS: INSULIN ASPART PER UNIT CHARGE SC SCH (20:30)
[2023-05-06] MEDS: LACTATED RINGER'S 1,000 ML IV SCH (03:19)
--- NOTE | 2023-05-06 05:24 | Billing Data ---
Date of Service May 06, 2023 Coding Level of Care Code 72065 INT INP/OBS CARE
--- NOTE | 2023-05-06 07:24 | Hospitalist Progress Note ---
Date of Service May 06, 2023 Assessment & Plan (1) Influenza A: Plan: 42 M with PMH poorly controlled DM2, HTN, dyslipidemia presenting with weakness, cough, fatigue x 3 days. Now admitted for management of influenza A, acute hypoxic respiratory failure. Acute hypoxic respiratory failure/influenza A -Fever, HR >90, tachypnea (met SIRS criteria at time of admission). Likely pulmonary source, given positive influenza A PCR (met sepsis criteria at time of admission). * Oseltamivir 30 mg twice daily x 5 days, currently day 2 of 5 * Blood cultures negative at 24 hours * Symptomatic management as needed * Patient weaned off of supplemental oxygen, tolerating room air at this time TRINH: - Fluids discontinued overnight due to concern of potential volume overload. - Clinical presentation not suggestive of fluid overload - AM creatinine still elevated at 3.13, will resume IV LR, recheck AM labs - Hold losartan, bumetanide Elevated troponin -Does not appear to be cardiac in nature. Likely due to TRINH in the setting of chronic kidney disease (stage IIIb). * Repeat hs troponin 63 Poorly controlled type 2 diabetes -HgbA1c = 10.1% 2 weeks ago. -On atorvastatin, Jardiance, Trulicity, and basal (Lantus 28 units daily) and bolus (lispro 15 units twice daily) insulin. -Suspect medication nonadherence based on review of previous hospital visit notes. * Continue adjusted home basal insulin regimen: Lantus 21 units daily, mealtime SSI per protocol * Hold home p.o. antihyperglycemic meds * Continue atorvastatin Dyslipidemia * Continue home atorvastatin, hold fenofibrate Hypertension * Continue metoprolol, prazosin * Hold losartan due to TRINH * Holding bumetanide since patient likely hypovolemic due to hyperglycemia, sepsis CKD3B * Continue calcitriol Code: Full code Dispo: Med-Surg telemetry FEN/GI: LR @125mL/hr x 1 bag. Heart healthy/Carb consistent DVT Prophylaxis: Lovenox 40 mg q24h (2) Sepsis with acute hypoxic respiratory failure without septic shock: (3) Elevated troponin: (4) Poorly controlled type 2 diabetes mellitus: (5) Diabetic nephropathy associated with type 2 diabetes mellitus: (6) Hypertension: (7) Dyslipidemia: (8) Stage 3b chronic kidney disease: Admission and Anticipated Discharge Date Admission Date: May 05, 2023 Supervising Physician Co-Signing Physician Notes Attending addendum: I have physically seen this patient, have supervised the medical residents activities, and agree with the progress note by Dr. Sherman unless as otherwise noted. Assessment and Plan: Influenza A/acute respiratory failure with hypoxia- Tamiflu 75 mg p.o. twice daily x 5 days will stop corticosteroids given increase mortality in Influenza. Droplet precautions Elevated troponin- Troponin 59.1 with follow-up pending BNP 477 Likely secondary to supply demand mismatch Diabetes mellitus- Hemoglobin A1c 10.1 about 2 weeks ago Hold Jardiance and Trulicity while in hospital Lantus insulin as noted Placed on Accu-Cheks with SSI Remaining orders and notations as noted Subjective 42-year-old man with a history of poorly controlled type 2 diabetes (Hgb A1c- 10.1%), DM2-associated peripheral neuropathy, dyslipidemia, hypertension, and CKD3 who presented to the emergency room this morning for evaluation of difficulty breathing. Patient evaluated at bedside this morning, comfortably seated in bed eating breakfast. Patient denies SOB, notes that he feels persistent chest congestion but cough has largely subsided. Also denies orthopnea, fever/chills, myalgias. Review of Systems Review of Systems: as per HPI. Physical Exam Physical Exam: General: Alert and oriented. Resting comfortably, in NAD Cardiac: Regular rate and rhythm, no murmurs appreciated Respiratory: Lungs with diffuse rhonchi on auscultation Results & Data Results & Data Vital Signs (Past 12 Hours) Vital Signs Temp Pulse Pulse Resp BP Pulse Ox O2 Del Method 05/06/23 02:34 36.8 C 82 18 97 CPAP 05/06/23 02:34 82 05/05/23 23:31 73 23 94 05/05/23 22:44 Nasal Cannula 05/05/23 22:44 36.9 C 77 16 121/74 95 Nasal Cannula O2 Flow Rate 05/06/23 02:34 2 05/06/23 02:34 05/05/23 23:31 3 05/05/23 22:44 6 05/05/23 22:44 6 (2) Sepsis with acute hypoxic respiratory failure without septic shock Sepsis type: sepsis due to unspecified organism Qualified Code(s): A41.9 - Sepsis, unspecified organism; R65.20 - Severe sepsis without septic shock; J96.01 - Acute respiratory failure with hypoxia (6) Hypertension Hypertension type: unspecified Qualified Code(s): I10 - Essential (primary) hypertension
[2023-05-06] MEDS: METOPROLOL SUCC 50MG EXT REL TAB PO SCH ×2 (09:26→21:48)
[2023-05-06] MEDS: LOSARTAN POTASSIUM 50 MG TAB PO SCH (09:26)
[2023-05-06] MEDS: CALCITRIOL 0.25 MCG CAPSULE PO SCH (09:26)
[2023-05-06] MEDS: PRAZOSIN HCL 1 MG CAP PO SCH ×2 (09:26→21:47)
[2023-05-06] MEDS: LANTUS PER UNIT CHARGE SC SCH (09:27)
[2023-05-06] MEDS: INSULIN ASPART PER UNIT CHARGE SC SCH ×4 (09:27→20:50)
[2023-05-06] MEDS: OSELTAMIVIR PHOSPHATE SUSP 30 MG/5 ML UDP PO SCH ×2 (09:34→21:48)
[2023-05-06] MEDS: AZITHROMYCIN 250 MG in DEXTROSE 5% 250 ML IV SCH (09:34)
--- NOTE | 2023-05-06 09:36 | Electrocardiogram Report ---
Test Reason : Blood Pressure : / mmHG Vent. Rate : 095 BPM Atrial Rate : 095 BPM P-R Int : 180 ms QRS Dur : 092 ms QT Int : 356 ms P-R-T Axes : 046 -26 089 degrees QTc Int : 447 ms Poor data quality, interpretation may be adversely affected Normal sinus rhythm Septal infarct (cited on or before 17-APR-2023) Abnormal ECG When compared with ECG of 17-APR-2023 21:28, Borderline criteria for Inferior infarct are no longer Present Questionable change in initial forces of Anterolateral leads Confirmed by Kehinde Wyatt ([id number]) on 05/06/2023 9:35:30 AM Referred By: Efren Young Confirmed By:Kehinde Wyatt
[2023-05-06 09:52] LABS: Hematocrit (blood only) 37.7 % (42.0-52.0); Hemoglobin 10.9 g/dl (14.0-18.0); Mean Corpuscular Hemoglobin 26.5 pg (25.0-34.0); Mean Corpuscular Hgb Conc 28.9 g/dL (32.0-36.0); Mean Corpuscular Volume 91.7 fL (80.0-100.0); Mean Platelet Volume 10.6 fL (9.4-12.4); Platelet Count 293 K/uL (130-400); RDW Coefficient of Variation 16.7 % (11.5-14.5); RDW Standard Deviation 56.1 fL (36.4-46.3); Red Blood Count 4.11 M/uL (4.70-6.10); White Blood Count 5.13 K/ul (4.8-10.8)
[2023-05-06] MEDS: ENOXAPARIN INJ 40 MG/0.4 ML SYR SQ SCH (10:03)
[2023-05-06 10:09] LABS: BUN Creatinine Ratio 14.1 (10-20); Calcium 7.8 mg/dl (8.6-10.3); Creatinine Clr Calc Pharmacy 39.6 ml/min; Est GFR (African American) 27.2 ml/min; Est GFR (Non-African American) 23.4 ml/min; Potassium 4.4 mmol/L (3.5-5.1)
[2023-05-06] MEDS ORDERED: LACTATED RINGER'S 1,000 ML IV SCH (13:45)
[2023-05-06] MEDS ORDERED: PROCHLORPERAZINE 5 MG in SYRINGE 4 ML IV PRN (20:51)
--- NOTE | 2023-05-07 06:48 | Hospitalist Progress Note ---
Date of Service May 07, 2023 Assessment & Plan (1) Influenza A: (2) Sepsis with acute hypoxic respiratory failure without septic shock: (3) Elevated troponin: (4) Poorly controlled type 2 diabetes mellitus: (5) Diabetic nephropathy associated with type 2 diabetes mellitus: (6) Hypertension: (7) Dyslipidemia: (8) Stage 3b chronic kidney disease: Plan Pt is a 42-year-old man with a history of poorly controlled type 2 diabetes (Hgb A1c 10.1%), DM2-associated peripheral neuropathy, dyslipidemia, hypertension, and CKD Stage 3 who presented to the hospital on 05/05/23 for acute respiratory failure and influenza A infection. With worsening kidney function, will get further labs and nephro consulted. In terms of the influ A infection, improving and maintaining >90% on RA. Awaiting nephrology at this time. Acute hypoxic respiratory failure/influenza A - on admission had fever, HR >90, tachypnea, so met SIRS criteria, likely pulmonary source, given positive influenza A PCR (met sepsis criteria at time of admission) - symptomatically improving, >90% on room air - blood cultures negative at 48 hours - continue oseltamivir 30 mg BID for 5 days total, on day 3 today TRINH, worsening, - Cr baseline appears to be around 2.0-2.2, has been 3 or more during this admission - Fluids initially discontinued due to concern of potential volume overload, but with clinical presentation not convincing of volume overload and Cr rising will continue fluids today - Hold losartan, bumetanide - Cr 3.13 yest -> 3.53 today - ordered bladder scan, urine sodium and cr, and nephrology consult as pt previously had nephrotic syndrome Elevated troponin -Does not appear to be cardiac in nature, likely due to TRINH in the setting of chronic kidney disease (stage IIIb). * Repeat hs troponin 58 -> 63 - last echo 04/18/23 EF 55-60% without wall abnormalities Poorly controlled type 2 diabetes -HgbA1c = 10.1% 2 weeks ago. -On atorvastatin, Jardiance, Trulicity, and basal (Lantus 28 units daily) and bolus (lispro 15 units twice daily) insulin. -Suspect medication nonadherence based on review of previous hospital visit notes. * Continue adjusted home basal insulin regimen: Lantus 21 units daily, mealtime SSI per protocol * Hold home p.o. antihyperglycemic meds * Continue atorvastatin Dyslipidemia * Continue home atorvastatin, hold fenofibrate Hypertension * Continue metoprolol, prazosin * Hold losartan due to TRINH * Holding bumetanide since patient likely hypovolemic due to hyperglycemia, sepsis CKD Stage 3b * Continue calcitriol DVT Prophylaxis: Lovenox 40 mg q24h IVF: none No riana. Admission and Anticipated Discharge Date Admission Date: May 05, 2023 Supervising Physician Co-Signing Physician Notes Attending Physician Supervision Note: I independently interviewed and examined the patient and verified the roa history and physical, reviewed labs and image studies and agree with findings and care plan noted above. feels his breathing and leg swelling are better. wondering when he will get discharged. vitals noted, laying on his stomach. +JVD, upper airway sounds +, lungs with ?li mited air entry. TRINH CKD 3b with nephrotic syndrome Worsening creatinine- consulted nephro today. Per nephro - TRINH could be hemodynamically mediated with poor p.o. intake, diuretics, Jardiance as well as nephrotic syndrome with high-grade proteinuria and hypoalbuminemia. --Monitor BMP off of IV fluid. --Continue losartan for now. --Considering abnormal SPEP during last hospitalization - checking repeat SPEP, UPEP and check free light chain ratio Chronic HFpEF - Echo 04/18/2023 Suspect fluid overload but with worsening creatinine - will follow renal input. Bumex on hold. +4L; no output recorded. On losartan Influenza A/acute respiratory failure with hypoxia- Hypoxia resolved. Tamiflu 75 mg p.o. twice daily x 5 days d/c azithromycin Elevated troponin- Likely secondary to supply demand mismatch DM A1c 10.1 about 2 weeks ago Hold Jardiance and Trulicity while in hospital Lantus insulin 21u and SSI Chronic h/o smoking On albuterol MDI in home meds. MINAL Per primary care note. HTN concentric LVH on echo losartan, metoprolol, prazosin Remaining orders and notations as noted Subjective Pt is a 42-year-old man with a history of poorly controlled type 2 diabetes (Hgb A1c-10.1%), DM2-associated peripheral neuropathy, dyslipidemia, hypertension, and CKD Stage 3 who presented to the hospital on 05/05/23 for acute respiratory failure and influenza A infection. Today, pt states that he is feeling fine. He still notes some cold symptoms but states that overall he is feeling much much better than when he came in. No chest pain or SOB today. Tolerating meals without issue. No acute concerns or complaints at this time. He states he is nervous to go home since all his family is sick with the flu and he is a bit afraid of getting sick again. Review of Systems Review of Systems: As per HPI. Physical Exam Physical Exam: General:Alert and oriented, no acute distress, HEENT: Normocephalic, moist oral mucosa, Cardio: Regular rate and rhythm, Resp:Lungs clear to auscultation b/l, no wheezes or rhonchi, Ext: Trace edema b/l lower extremities Skin: Warm, pink, dry, Results & Data Results & Data Vital Signs (Past 12 Hours) Vital Signs Temp Pulse Pulse Resp BP BP Pulse Ox 05/07/23 03:53 36.6 C 69 18 153/88 H 90 05/07/23 03:06 31 H 05/07/23 00:33 36.9 C 71 20 157/85 H 92 05/06/23 22:16 67 28 H 97 05/06/23 21:19 65 05/06/23 20:30 05/06/23 20:12 36.5 C 66 20 145/93 H 96 O2 Del Method O2 Flow Rate 05/07/23 03:53 Room Air 05/07/23 03:06 2 05/07/23 00:33 CPAP 05/06/23 22:16 2 05/06/23 21:19 05/06/23 20:30 Nasal Cannula 2 05/06/23 20:12 Nasal Cannula 2 Resident Activity Tracking Resident Involvement: Resident Care Provided Care Provided: Adult Hospital Medicine (2) Sepsis with acute hypoxic respiratory failure without septic shock Sepsis type: sepsis due to unspecified organism Qualified Code(s): A41.9 - Sepsis, unspecified organism; R65.20 - Severe sepsis without septic shock; J96.01 - Acute respiratory failure with hypoxia (6) Hypertension Hypertension type: unspecified Qualified Code(s): I10 - Essential (primary) hypertension
[2023-05-07 07:56] LABS: BUN Creatinine Ratio 13.7 (10-20); Calcium 7.7 mg/dl (8.6-10.3); Creatinine Clr Calc Pharmacy 36.2 ml/min; Est GFR (African American) 23.6 ml/min; Est GFR (Non-African American) 20.4 ml/min; Potassium 4.5 mmol/L (3.5-5.1)
[2023-05-07 08:47] LABS: Hematocrit (blood only) 38.1 % (42.0-52.0); Hemoglobin 11.2 g/dl (14.0-18.0); Mean Corpuscular Hemoglobin 26.4 pg (25.0-34.0); Mean Corpuscular Hgb Conc 29.4 g/dL (32.0-36.0); Mean Corpuscular Volume 89.9 fL (80.0-100.0); Mean Platelet Volume 10.4 fL (9.4-12.4); Platelet Count 305 K/uL (130-400); RDW Coefficient of Variation 16.8 % (11.5-14.5); RDW Standard Deviation 55.5 fL (36.4-46.3); Red Blood Count 4.24 M/uL (4.70-6.10); White Blood Count 4.51 K/ul (4.8-10.8)
[2023-05-07] MEDS: AZITHROMYCIN 250 MG in DEXTROSE 5% 250 ML IV SCH (09:36)
[2023-05-07] MEDS: OSELTAMIVIR PHOSPHATE SUSP 30 MG/5 ML UDP PO SCH ×2 (09:36→21:50)
[2023-05-07] MEDS: PRAZOSIN HCL 1 MG CAP PO SCH ×2 (09:36→21:51)
[2023-05-07] MEDS: LOSARTAN POTASSIUM 50 MG TAB PO SCH (09:37)
[2023-05-07] MEDS: CALCITRIOL 0.25 MCG CAPSULE PO SCH (09:37)
[2023-05-07] MEDS: METOPROLOL SUCC 50MG EXT REL TAB PO SCH ×2 (09:37→21:51)
[2023-05-07] MEDS: ENOXAPARIN INJ 40 MG/0.4 ML SYR SQ SCH (09:38)
[2023-05-07] MEDS: LANTUS PER UNIT CHARGE SC SCH (09:48)
[2023-05-07] MEDS: INSULIN ASPART PER UNIT CHARGE SC SCH ×4 (09:48→21:43)
--- NOTE | 2023-05-07 12:28 | Nephrology Consultation ---
Date of Consultation May 07, 2023 Assessment & Plan (1) Acute kidney injury: (2) Nephrotic syndrome: (3) Stage 3b chronic kidney disease: (4) Influenza A: (5) Hypertension: (6) Dyslipidemia: Plan 42-year-old gentleman history of poorly controlled hypertension, diabetes, morbid obesity and smoking and known to have stage IIIB CKD b/l cr 2.2-2.5 at least since 2020. Admitted with hypoxic respiratory failure, poor p.o. intake, confusion, AMS and found to have influenza A. Has nephrotic syndrome with more than 11 g of proteinuria, hypoalbuminemia and chronic lower extremity edema. Nephrotic syndrome most likely secondary to diabetic nephropathy or secondary FS GS with history of poorly controlled hypertension and diabetes. PLA2R was negative. 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 TRINH could be hemodynamically mediated with poor p.o. intake, diuretics, Jardiance as well as nephrotic syndrome with high-grade proteinuria and hypoalbuminemia. --Monitor renal function and electrolyte off of IV fluid. --Continue on losartan for now. --Considering abnormal SPEP during last hospitalization, we will repeat SPEP, UPEP and check free light chain ratio -- Has multiple risk factor for progressive worsening of renal function with poorly controlled hypertension, diabetes, smoking, obesity. Thank you for allowing me to participate in your patient's care. It was a pleasure to see Deonte. History of Present Illness Reason for Consultation: TRINH Attending Physician: Shannan Alonso MD History of Present Illness Mr. Deonte Manzo is a 42 male with a PMH of stage 3B CKD, Type 2 Diabetes, HTN, and Dyslipidemia admitted to hospital with respiratory distress. Nephrology consult was requested for management of TRINH and nephrotic syndrome. Electronic medical records were reviewed in detail in patient's visit. Suman presented to ER with with 3 days h/o cough, SOB, confusion and AMS. In ER he was febrile and hypoxic on room air, found to be positive for influenza A. He reported decreased p.o. intake for 2 days prior to arrival. Denied NSAID use. Was taking Bumex and Jardiance. He was started on oseltamivir and LR. Chest x- ray showed some pulmonary congestion and cardiomegaly. Labs showed creatinine 3.2 which slightly worsened to 3.5 over last 2 days. Hemoglobin was 11.2, albumin 2.7. He was continued on losartan 100 mg daily. Blood pressure was initially elevated which improved. Has stage IIIb CKD, b/l cr has been around 2.2-2.5 since 2020 most likely secondary to diabetic nephropathy with nephrotic syndrome and more than 11 g of proteinuria. During last admission for volume overload from 04/17/2023 to 04/23/2023 renal function is staying relatively stable. Volume status improved on Bumex during last admission. He had 7 g of proteinuria on 24-hour urine, PLA2R was negative. SPEP showed IgG monoclonal band. He was previously following with [facility] but he was not sure when he saw them last time. Does not work. Smokes 1 pack per day. Does not drink. Has history of hypertension and diabetes both seems to be poorly controlled in general, was on amlodipine 5 mg daily, losartan 100 mg, metoprolol 100 mg daily. Type 2 diabetes, poorly controlled, A1c generally around 9-11, has been on insulin, Jardiance, Trulicity. 2D echo showed EF 50 to 55%, moderate concentric LVH. Was sitting in bed, seems comfortable. Denied any shortness of breath, chest pain. LE edema reported to be better. Allergies Allergy/AdvReac Type Severity Reaction Status Date / Time No Known Allergies Allergy Verified 05/05/23 02:29 Home Medications Medication Instructions Recorded Confirmed Type albuterol sulfate 90 mcg/actuation 2 puff inhalation Q6H PRN 01/03/23 05/05/23 History aerosol inhaler Shortness Of Breath Or Wheezing fenofibrate 160 mg tablet 160 mg PO QAM 01/03/23 05/05/23 History insulin lispro 100 unit/mL 15 unit subcut BID 01/03/23 05/05/23 History subcutaneous pen (Humalog KwikPen (U-100) Insulin) blood sugar diagnostic (AlorumTouch #300 ea 01/05/23 05/05/23 Rx Verio test strips) insulin glargine 100 unit/mL (3 28 unit subcut DAILY 01/05/23 05/05/23 History mL) subcutaneous pen (Lantus Solostar U-100 Insulin) lancets 30 gauge ([employer] Delwes #300 ea 01/05/23 05/05/23 Rx Plus Lancet) metoprolol succinate 100 mg 100 mg PO QAM 01/05/23 05/05/23 History capsule sprinkle, ext. release 24 hr flash glucose sensor (FreeStyle #6 ea 02/28/23 05/05/23 Rx Tootie 2 Sensor kit) atorvastatin 80 mg tablet 80 mg PO DAILY #30 tabs 03/05/23 05/05/23 Rx calcitriol 0.25 mcg capsule 0.25 mcg PO DAILY #30 caps 03/05/23 05/05/23 Rx losartan 100 mg tablet 100 mg PO DAILY #30 tabs 03/05/23 05/05/23 Rx dulaglutide 0.75 mg/0.5 mL 0.75 mg subcut WK 04/18/23 05/05/23 History subcutaneous pen injector (Trulicity) bumetanide 1 mg tablet 2 mg (2 x 1 mg) PO QAM 30 days #60 04/23/23 05/05/23 Rx tabs metoprolol succinate 50 mg 50 mg PO HS #30 tabs 04/23/23 05/05/23 Rx tablet,extended release 24 hr prazosin 1 mg capsule 1 mg PO BID 30 days #60 caps 04/23/23 05/05/23 Rx empagliflozin 25 mg tablet 25 mg PO DAILY 05/05/23 05/05/23 History (Jardiance) Patient History Medical History (Updated 05/07/23 @ 12:29 by Maria Teresa Andres MD) Acute kidney injury Diabetic nephropathy associated with type 2 diabetes mellitus Hypertension Obesity Dyslipidemia Poorly controlled type 2 diabetes mellitus Nephrotic syndrome Stage 3b chronic kidney disease Family History Mother Diabetes Heart disease Dyslipidemia Social History Smoking Status: Current every day smoker Tobacco Type: Cigarettes Cigarettes Per Day: 1 pack; Second Hand Exposure: No; Do You Dip or Chew Tobacco: No; Hx Alcohol Use: No Hx Substance Use: Yes Prescribed Medications: Marijuana Preferred Language: Arabic Communication Ability: Effective Records Management Associate Required: No Beliefs That Will Affect Care: None marital status: Current Living Situation: Spouse current occupational status: employed How many Children do You have: 5 Feels Safe at Home: Yes Assistive Devices: CPAP and Glasses Review of Systems Review of Systems: All systems reviewed & are unremarkable except as noted in HPI & below Physical Exam Constitutional: WD/WN, vitals as above + morbidly obese; no acute distress Eyes: + anicteric sclerae Neck: normal visual inspection Respiratory: no respiratory distress Auscultation: lungs clear to auscultation bilaterally Cardiovascular: Rate/Rhythm: regular rate and regular rhythm Heart Sounds: normal S1 and normal S2 Extremities: + edema (trace b/l LE edema) Gastrointestinal (Abdomen): Inspection/Auscultation: abdomen normal to inspection Percussion/Palpation: abdomen soft; abdomen nontender Musculoskeletal: Extremities: extremities normal to inspection Skin: no rashes, warm and dry Neurologic: no focal motor deficits and not confused Psychiatric: Orientation: alert and oriented x 3 Affect: euthymic affect Results & Data Vital Signs (Past 12 Hours) Vital Signs Temp Pulse Pulse Resp BP BP Pulse Ox 05/07/23 11:44 36.9 C 74 16 132/84 94 05/07/23 08:00 05/07/23 07:56 37.1 C 72 16 161/84 H 91 05/07/23 07:40 70 05/07/23 03:53 36.6 C 69 18 153/88 H 90 05/07/23 03:06 31 H 05/07/23 00:33 36.9 C 71 20 157/85 H 92 O2 Del Method O2 Flow Rate 05/07/23 11:44 Room Air 05/07/23 08:00 Room Air 05/07/23 07:56 Room Air 05/07/23 07:40 05/07/23 03:53 Room Air 05/07/23 03:06 2 05/07/23 00:33 CPAP PG Care Time/CCT Total # of Minutes Spent Total Time Spent with Patient: Total time spent is greater than 50% in coordination of care (as documented) at patient's floor/unit and/or counseling patient: Coding Level of Care Code 93876 IN/OBS CONSULT LVL 5,80M Diagnoses Acute kidney injury N17.9 Nephrotic syndrome N04.9 Stage 3b chronic kidney disease N18.32 Influenza A J10.1 Hypertension, unspecified type I10 Hypertension type: unspecified Dyslipidemia E78.5 (5) Hypertension Hypertension type: unspecified Qualified Code(s): I10 - Essential (primary) hypertension
--- NOTE | 2023-05-07 12:36 | Billing Data ---
Date of Service May 06, 2023 Coding Level of Care Code 57017 SUB INP/OBS CARE
[2023-05-07] MEDS ORDERED: ALBUT/IPRATROP 3MG/0.5MG NEB 3 ML VIAL NEB PRN (22:15)
[2023-05-07 22:17] LABS: Appearance Urine Cloudy (Clear); Bilirubin Urine Negative (Negative); Blood Urine 1+ (Negative); Color Urine Yellow; Epithelial Cell Urine Auto >30 /lpf (0-5); Glucose Urine UA 2+ (Negative); Ketones Urine Trace (Negative); Leukocyte Esterase Urine Negative (Negative); Nitrite Urine Negative (Negative); Protein Urine 4+ (Negative); RBC Urine Automated 0-4 /hpf (0-4); Specific Gravity Urine 1.024 (1.000-1.030); Urobilinogen Urine Negative (Negative); pH Urine 5.5 (4.5-7.5)
[2023-05-07 22:26] LABS: Amorphous Sediment Urine Present (None Prsent); Bacteria Urine Automated 1+ (Negative)
[2023-05-07 22:34] LABS: Creatinine Urine Random 155.5 mg/dl
[2023-05-07] MEDS: ALBUTEROL 0.083% NEBU SOLN 3 ML VIAL NEB PRN (23:01)
--- NOTE | 2023-05-08 06:53 | Hospitalist Progress Note ---
Date of Service May 08, 2023 Assessment & Plan (1) Influenza A: (2) Sepsis with acute hypoxic respiratory failure without septic shock: (3) Elevated troponin: (4) Poorly controlled type 2 diabetes mellitus: (5) Diabetic nephropathy associated with type 2 diabetes mellitus: (6) Hypertension: (7) Dyslipidemia: (8) Stage 3b chronic kidney disease: Plan Pt is a 42-year-old man with a history of poorly controlled type 2 diabetes (Hgb A1c 10.1%), DM2-associated peripheral neuropathy, dyslipidemia, hypertension, and CKD Stage 3 who presented to the hospital on 05/05/23 for acute respiratory failure and influenza A infection. Acute hypoxic respiratory failure/influenza A - on admission had fever, HR >90, tachypnea, so met SIRS criteria, likely pulmonary source, given positive influenza A PCR (met sepsis criteria at time of admission) - symptomatically improving, >90% on room air - blood cultures negative at 48 hours - continue oseltamivir 30 mg BID for 5 days total, on day 4 today TRINH, - Cr baseline appears to be around 2.0-2.2, has been 3 or more during this admission - Fluids initially discontinued due to concern of potential volume overload, but with clinical presentation not convincing of volume overload and Cr rising will continue fluids today - Hold bumetanide - Cr 3.13 -> 3.53 -> 3.46 - FeNa <1% prerenal, has recent hx of nephrotic syndrome, suspect prerenal TRINH due to poor oral fluid intake initially when presenting for illness. - nephrology consulted; monitor kidney function off of IVF, continue home losartan Elevated troponin -Does not appear to be cardiac in nature, likely due to TRINH in the setting of chronic kidney disease (stage IIIb). * Repeat hs troponin 58 -> 63 - last echo 04/18/23 EF 55-60% without wall abnormalities Poorly controlled type 2 diabetes -HgbA1c = 10.1% 2 weeks ago. -On atorvastatin, Jardiance, Trulicity, and basal (Lantus 28 units daily) and bolus (lispro 15 units twice daily) insulin. -Suspect medication nonadherence based on review of previous hospital visit notes. * Continue adjusted home basal insulin regimen: Lantus 21 units daily, mealtime SSI per protocol * Hold home p.o. antihyperglycemic meds * Continue atorvastatin Dyslipidemia * Continue home atorvastatin, hold fenofibrate Hypertension * Continue metoprolol, prazosin * continue home losartan * Holding bumetanide since patient likely hypovolemic due to hyperglycemia, sepsis CKD Stage 3b * Continue calcitriol DVT Prophylaxis: Lovenox 40 mg q24h IVF: none No mayers. Admission and Anticipated Discharge Date Admission Date: May 05, 2023 Supervising Physician Co-Signing Physician Notes Attending Physician Supervision Note: I independently interviewed and examined the patient and verified the roa history and physical, reviewed labs and image studies and agree with findings and care plan noted above. breathing better with sitting but worse with laying down on his back. vitals noted, sitting in the chair. lungs with ?limited air entry. TRINH CKD 3b with nephrotic syndrome Creatinine stable. Per nephro - TRINH could be hemodynamically mediated with poor p.o. intake, diuretics, Jardiance as well as nephrotic syndrome with high-grade proteinuria and hypoalbuminemia. --Monitor BMP off of IV fluid. --Continue losartan for now. --Considering abnormal SPEP during last hospitalization - checking repeat SPEP, UPEP and check free light chain ratio Chronic HFpEF - Echo 04/18/2023 Discussed with nephro - will resume Bumex today On losartan Influenza A/acute respiratory failure with hypoxia- Hypoxia resolved. Tamiflu 75 mg p.o. twice daily x 5 days d/c azithromycin Elevated troponin- Likely secondary to supply demand mismatch DM A1c 10.1 about 2 weeks ago Hold Trulicity while in hospital. To discuss with nephro before resuming Jardiance. Lantus insulin 21u and SSI Chronic h/o smoking On albuterol MDI in home meds. MINAL Per primary care note. HTN concentric LVH on echo losartan, metoprolol, prazosin Enoxaparin Remaining orders and notations as noted Subjective Pt is a 42-year-old man with a history of poorly controlled type 2 diabetes (Hgb A1c-10.1%), DM2-associated peripheral neuropathy, dyslipidemia, hypertension, and CKD Stage 3 who presented to the hospital on 05/05/23 for acute respiratory failure and influenza A infection. Today, pt is sitting up comfortable in bed. He states his cold symptoms like congestion and cough have gotten much better, although not entirely resolved yet. He otherwise states he feels fine and has no questions or complaints at this point in time. Tolerating diet well still. Review of Systems Review of Systems: As per HPI. Physical Exam Physical Exam: General:Alert and oriented, no acute distress, HEENT: Normocephalic, moist oral mucosa, Cardio: Regular rate and rhythm, Resp:Lungs clear to auscultation b/l, no wheezes or rhonchi, Ext: Minor edema b/l lower extremities Skin: Warm, pink, dry, Results & Data Results & Data Vital Signs (Past 12 Hours) Vital Signs Temp Pulse Pulse Resp BP BP Pulse Ox 05/08/23 03:01 71 26 H 90 05/07/23 23:27 37 C 71 18 159/83 H 90 05/07/23 23:24 68 05/07/23 23:10 66 24 99 05/07/23 23:01 75 19 89 L 05/07/23 22:54 05/07/23 19:43 37 C 75 18 144/74 H 91 O2 Del Method O2 Flow Rate 05/08/23 03:01 3 05/07/23 23:27 Room Air 05/07/23 23:24 05/07/23 23:10 3 05/07/23 23:01 Room Air 05/07/23 22:54 Room Air, CPAP 05/07/23 19:43 Room Air Resident Activity Tracking Resident Involvement: Resident Care Provided Care Provided: Adult Hospital Medicine (2) Sepsis with acute hypoxic respiratory failure without septic shock Sepsis type: sepsis due to unspecified organism Qualified Code(s): A41.9 - Sepsis, unspecified organism; R65.20 - Severe sepsis without septic shock; J96.01 - Acute respiratory failure with hypoxia (6) Hypertension Hypertension type: unspecified Qualified Code(s): I10 - Essential (primary) hypertension
[2023-05-08 07:17] LABS: Hematocrit (blood only) 39.3 % (42.0-52.0); Mean Corpuscular Hemoglobin 26.3 pg (25.0-34.0); Mean Corpuscular Hgb Conc 30.5 g/dL (32.0-36.0); Mean Corpuscular Volume 86.2 fL (80.0-100.0); Mean Platelet Volume 11.2 fL (9.4-12.4); Platelet Count 335 K/uL (130-400); RDW Coefficient of Variation 16.4 % (11.5-14.5); RDW Standard Deviation 51.4 fL (36.4-46.3); Red Blood Count 4.56 M/uL (4.70-6.10); White Blood Count 4.54 K/ul (4.8-10.8)
[2023-05-08 07:34] LABS: BUN Creatinine Ratio 16.5 (10-20); Calcium 7.6 mg/dl (8.6-10.3); Creatinine Clr Calc Pharmacy 36.7 ml/min; Est GFR (African American) 24.1 ml/min; Est GFR (Non-African American) 20.8 ml/min; Phosphorus 3.9 mg/dl (2.5-4.9); Potassium 4.3 mmol/L (3.5-5.1)
[2023-05-08 07:53] LABS: Ferritin 96.6 ng/ml (8-388)
[2023-05-08] MEDS: METOPROLOL SUCC 50MG EXT REL TAB PO SCH ×2 (08:23→20:53)
[2023-05-08] MEDS: CALCITRIOL 0.25 MCG CAPSULE PO SCH (08:23)
[2023-05-08] MEDS: LOSARTAN POTASSIUM 50 MG TAB PO SCH ×2 (08:23→22:03)
[2023-05-08] MEDS: PRAZOSIN HCL 1 MG CAP PO SCH ×2 (08:23→20:52)
[2023-05-08] MEDS: ENOXAPARIN INJ 40 MG/0.4 ML SYR SQ SCH ×2 (08:24→08:26)
[2023-05-08] MEDS: INSULIN ASPART PER UNIT CHARGE SC SCH ×4 (08:59→20:49)
[2023-05-08] MEDS: LANTUS PER UNIT CHARGE SC SCH (08:59)
[2023-05-08] MEDS: OSELTAMIVIR PHOSPHATE SUSP 30 MG/5 ML UDP PO SCH ×2 (09:00→20:52)
--- NOTE | 2023-05-08 10:51 | Nephrology Progress Note ---
Date of Service May 08, 2023 Assessment & Plan (1) Acute kidney injury: (2) Nephrotic syndrome: (3) Stage 3b chronic kidney disease: (4) Influenza A: (5) Hypertension: (6) Dyslipidemia: Plan 42-year-old gentleman history of poorly controlled hypertension, diabetes, mor bid obesity and smoking and known to have stage IIIB CKD b/l cr 2.2-2.5 at least since 2020. Admitted with hypoxic respiratory failure, poor p.o. intake, confusion, AMS and found to have influenza A. Has nephrotic syndrome with more than 11 g of proteinuria, hypoalbuminemia and chronic lower extremity edema. Nephrotic syndrome most likely secondary to diabetic nephropathy or secondary FSGS with history of poorly controlled hypertension and diabetes. PLA2R was negative. 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 TRINH could be hemodynamically mediated with poor p.o. intake, diuretics, Jardiance as well as nephrotic syndrome with high-grade proteinuria and hypoalbuminemia.BP running high. -- Resume Bumex 1 mg daily, check renal function and electrolyte in a.m. --Continue on losartan for now. --SPEP, UPEP and check free light chain ratio pending. -- Has multiple risk factor for progressive worsening of renal function with poorly controlled hypertension, diabetes, smoking, obesity. Admission and Anticipated Discharge Date Admission Date: May 05, 2023 Kwame Will was seen and evaluated this morning. He reports overall feeling better. Denies shortness of breath. Blood pressure has been running high. Reports voiding normally. Renal function staying relatively stable without further improvement. Review of Systems Review of Systems: Detailed review of system was done and pertinent positives and negatives are mentioned above. Physical Exam Constitutional: WD/WN, vitals as above no acute distress Eyes: + anicteric sclerae Neck: normal visual inspection Respiratory: no respiratory distress Auscultation: lungs clear to auscultation bilaterally Cardiovascular: Rate/Rhythm: regular rate and regular rhythm Heart Sounds: normal S1 and normal S2 Extremities: + edema (trace b/l LE edema) Skin: no rashes, warm and dry Neurologic: no focal motor deficits Psychiatric: Orientation: alert and oriented x 3 Affect: euthymic affect Results & Data Vital Signs (Past 12 Hours) Vital Signs Temp Pulse Pulse Resp BP BP Pulse Ox 05/08/23 08:00 05/08/23 07:40 78 05/08/23 07:37 36.8 C 69 18 161/95 H 95 05/08/23 03:01 71 26 H 90 05/07/23 23:27 37 C 71 18 159/83 H 90 05/07/23 23:24 68 05/07/23 23:10 66 24 99 05/07/23 23:01 75 19 89 L 05/07/23 22:54 O2 Del Method O2 Flow Rate 05/08/23 08:00 Room Air, CPAP 05/08/23 07:40 05/08/23 07:37 Room Air 05/08/23 03:01 3 05/07/23 23:27 Room Air 05/07/23 23:24 05/07/23 23:10 3 05/07/23 23:01 Room Air 05/07/23 22:54 Room Air, CPAP PG Care Time/CCT Total # of Minutes Spent Total Time Spent with Patient: Total time spent is greater than 50% in coordination of care (as documented) at patient's floor/unit and/or counseling patient: Coding Level of Care Code 37333 SUB INP/OBS CARE 2MIN Diagnoses Acute kidney injury N17.9 Nephrotic syndrome N04.9 Stage 3b chronic kidney disease N18.32 Influenza A J10.1 Hypertension, unspecified type I10 Hypertension type: unspecified Dyslipidemia E78.5 (5) Hypertension Hypertension type: unspecified Qualified Code(s): I10 - Essential (primary) hypertension
[2023-05-08] MEDS: ALBUTEROL 0.083% NEBU SOLN 3 ML VIAL NEB PRN (22:12)
[2023-05-09] MEDS ORDERED: OSELTAMIVIR PHOSPHATE SUSP 30 MG/5 ML UDP PO SCH
--- NOTE | 2023-05-09 06:55 | Hospitalist Progress Note ---
Date of Service May 09, 2023 Assessment & Plan (1) Influenza A: (2) Sepsis with acute hypoxic respiratory failure without septic shock: (3) Elevated troponin: (4) Poorly controlled type 2 diabetes mellitus: (5) Diabetic nephropathy associated with type 2 diabetes mellitus: (6) Hypertension: (7) Dyslipidemia: (8) Stage 3b chronic kidney disease: Plan Pt is a 42-year-old man with a history of poorly controlled type 2 diabetes (Hgb A1c 10.1%), DM2-associated peripheral neuropathy, dyslipidemia, hypertension, and CKD Stage 3 who presented to the hospital on 05/05/23 for acute respiratory failure and influenza A infection. Acute hypoxic respiratory failure/influenza A - on admission had fever, HR >90, tachypnea, so met SIRS criteria, likely pulmonary source, given positive influenza A PCR (met sepsis criteria at time of admission) - symptomatically improving, >90% on room air - blood cultures negative at 48 hours - continue oseltamivir 30 mg BID for 5 days total, on day 4 today TRINH, - Cr baseline appears to be around 2.0-2.2, has been 3 or more during this admission - Fluids initially discontinued due to concern of potential volume overload, but with clinical presentation not convincing of volume overload and Cr rising will continue fluids today - Hold bumetanide - Cr 3.13 -> 3.53 -> 3.46 - FeNa <1% prerenal, has recent hx of nephrotic syndrome, suspect prerenal TRINH due to poor oral fluid intake initially when presenting for illness. - nephrology consulted; monitor kidney function off of IVF, continue home losartan Elevated troponin -Does not appear to be cardiac in nature, likely due to TRINH in the setting of chronic kidney disease (stage IIIb). * Repeat hs troponin 58 -> 63 - last echo 04/18/23 EF 55-60% without wall abnormalities Poorly controlled type 2 diabetes -HgbA1c = 10.1% 2 weeks ago. -On atorvastatin, Jardiance, Trulicity, and basal (Lantus 28 units daily) and bolus (lispro 15 units twice daily) insulin. -Suspect medication nonadherence based on review of previous hospital visit notes. * Continue adjusted home basal insulin regimen: Lantus 21 units daily, mealtime SSI per protocol * Hold home p.o. antihyperglycemic meds * Continue atorvastatin Dyslipidemia * Continue home atorvastatin, hold fenofibrate Hypertension * Continue metoprolol, prazosin * continue home losartan * Holding bumetanide since patient likely hypovolemic due to hyperglycemia, sepsis CKD Stage 3b * Continue calcitriol DVT Prophylaxis: Lovenox 40 mg q24h IVF: none No mayers. Admission and Anticipated Discharge Date Admission Date: May 05, 2023 Subjective Pt is a 42-year-old man with a history of poorly controlled type 2 diabetes (Hgb A1c-10.1%), DM2-associated peripheral neuropathy, dyslipidemia, hypertension, and CKD Stage 3 who presented to the hospital on 05/05/23 for acute respiratory failure and influenza A infection. Today, Review of Systems Review of Systems: As per HPI. Physical Exam Physical Exam: General:Alert and oriented, no acute distress, HEENT: Normocephalic, moist oral mucosa, Cardio: Regular rate and rhythm, Resp:Lungs clear to auscultation b/l, no wheezes or rhonchi, Ext: Minor edema b/l lower extremities Skin: Warm, pink, dry, Results & Data Results & Data Vital Signs (Past 12 Hours) Vital Signs Temp Pulse Pulse Resp BP Pulse Ox O2 Del Method 05/09/23 02:10 20 97 05/09/23 01:13 72 05/09/23 00:36 Room Air, CPAP 05/09/23 00:18 72 16 167/101 H 93 Room Air 05/08/23 22:23 65 25 H 99 05/08/23 22:12 73 18 91 Room Air 05/08/23 20:02 36.5 C 73 22 173/102 H 92 Room Air O2 Flow Rate 05/09/23 02:10 3 05/09/23 01:13 05/09/23 00:36 05/09/23 00:18 05/08/23 22:23 3 05/08/23 22:12 05/08/23 20:02 (2) Sepsis with acute hypoxic respiratory failure without septic shock Sepsis type: sepsis due to unspecified organism Qualified Code(s): A41.9 - Sepsis, unspecified organism; R65.20 - Severe sepsis without septic shock; J96.01 - Acute respiratory failure with hypoxia (6) Hypertension Hypertension type: unspecified Qualified Code(s): I10 - Essential (primary) hypertension
[2023-05-09 07:45] LABS: Hematocrit (blood only) 36.4 % (42.0-52.0); Hemoglobin 11.4 g/dl (14.0-18.0); Mean Corpuscular Hemoglobin 26.7 pg (25.0-34.0); Mean Corpuscular Hgb Conc 31.3 g/dL (32.0-36.0); Mean Corpuscular Volume 85.2 fL (80.0-100.0); Mean Platelet Volume 11.2 fL (9.4-12.4); Nucleated RBC # (auto) 0.02 K/uL (0.00-0.12); Nucleated RBC % (auto) 0.4 %; Platelet Count 332 K/uL (130-400); RDW Coefficient of Variation 16.2 % (11.5-14.5); RDW Standard Deviation 50.2 fL (36.4-46.3); Red Blood Count 4.27 M/uL (4.70-6.10); White Blood Count 5.28 K/ul (4.8-10.8)
[2023-05-09 07:59] LABS: Albumin Level 2.7 gm/dl (3.4-5.0); BUN Creatinine Ratio 18.6 (10-20); Calcium 7.2 mg/dl (8.6-10.3); Creatinine Clr Calc Pharmacy 41.1 ml/min; Est GFR (African American) 27.8 ml/min; Phosphorus 3.6 mg/dl (2.5-4.9); Potassium 4.5 mmol/L (3.5-5.1)
[2023-05-09] MEDS ORDERED: LANTUS PER UNIT CHARGE SC SCH (09:00)
[2023-05-09] MEDS ORDERED: BUMETANIDE 1 MG TAB PO SCH (09:00)
[2023-05-09] MEDS: METOPROLOL SUCC 50MG EXT REL TAB PO SCH (09:27)
[2023-05-09] MEDS: INSULIN ASPART PER UNIT CHARGE SC SCH ×2 (09:27→13:01)
[2023-05-09] MEDS: PRAZOSIN HCL 1 MG CAP PO SCH (09:27)
[2023-05-09] MEDS: ENOXAPARIN INJ 40 MG/0.4 ML SYR SQ SCH (09:28)
[2023-05-09] MEDS: CALCITRIOL 0.25 MCG CAPSULE PO SCH (09:28)
[2023-05-09] MEDS: OSELTAMIVIR PHOSPHATE SUSP 30 MG/5 ML UDP PO SCH (10:08)
[2023-05-09] MEDS: LOSARTAN POTASSIUM 50 MG TAB PO SCH (10:08)
--- NOTE | 2023-05-09 10:19 | Nephrology Progress Note ---
Date of Service May 09, 2023 Assessment & Plan (1) Acute kidney injury: (2) Nephrotic syndrome: (3) Stage 3b chronic kidney disease: (4) Influenza A: (5) Hypertension: (6) Dyslipidemia: Plan 42-year-old gentleman with history of poorly controlled hypertension, diabetes, morbid obesity and smoking and known to have stage IIIB CKD b/l cr 2.2-2.5 at least since 2020. Admitted with hypoxic respiratory failure, poor p.o. intake, confusion, AMS and found to have influenza A. Has nephrotic syndrome with more than 11 g of proteinuria, hypoalbuminemia and chronic lower extremity edema. Nephrotic syndrome most likely secondary to diabetic nephropathy or secondary FS GS with history of poorly controlled hypertension and diabetes. PLA2R was negative. 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 TRINH could be hemodynamically mediated with poor p.o. intake, diuretics, Jardiance as well as nephrotic syndrome with high-grade proteinuria and hypoalbuminemia. BP running high. --start on Amlodipine 5 mg daily --continue Bumex 1 mg daily, check renal function and electrolyte in a.m. --Continue on losartan for now. -- Has multiple risk factor for progressive worsening of renal function with poorly controlled hypertension, diabetes, smoking, obesity. Admission and Anticipated Discharge Date Admission Date: May 05, 2023 Kwame Will was seen and evaluated this morning. He reports overall feeling well, no shortness of breath. Blood pressure has been running high. Reports voiding normally. Renal function started to improve. Net negative. Review of Systems Review of Systems: Detailed review of system was done and pertinent positives and negatives are mentioned above. Physical Exam Constitutional: WD/WN, vitals as above no acute distress Eyes: + anicteric sclerae Neck: normal visual inspection Respiratory: no respiratory distress Auscultation: lungs clear to auscultation bilaterally Cardiovascular: Rate/Rhythm: regular rate and regular rhythm Heart Sounds: normal S1 and normal S2 Extremities: + edema (trace b/l LE edema) Skin: no rashes, warm and dry Neurologic: no focal motor deficits Psychiatric: Orientation: alert and oriented x 3 Affect: euthymic affect Results & Data Vital Signs (Past 12 Hours) Vital Signs Temp Pulse Pulse Resp BP Pulse Ox O2 Del Method 05/09/23 09:04 36.7 C 70 16 181/104 H 94 Room Air 05/09/23 07:24 66 05/09/23 02:10 20 97 05/09/23 01:13 72 05/09/23 00:36 Room Air, CPAP 05/09/23 00:18 72 16 167/101 H 93 Room Air 05/08/23 22:23 65 25 H 99 O2 Flow Rate 05/09/23 09:04 05/09/23 07:24 05/09/23 02:10 3 05/09/23 01:13 05/09/23 00:36 05/09/23 00:18 05/08/23 22:23 3 PG Care Time/CCT Total # of Minutes Spent Total Time Spent with Patient: Total time spent is greater than 50% in coordination of care (as documented) at patient's floor/unit and/or counseling patient: Coding Level of Care Code 08566 SUB INP/OBS CARE 2/35MIN Diagnoses Acute kidney injury N17.9 Nephrotic syndrome N04.9 Stage 3b chronic kidney disease N18.32 Influenza A J10.1 Hypertension, unspecified type I10 Hypertension type: unspecified Dyslipidemia E78.5 (5) Hypertension Hypertension type: unspecified Qualified Code(s): I10 - Essential (primary) hypertension
[2023-05-09] MEDS ORDERED: amLODIPine BESYLATE 5 MG TAB PO SCH (10:30)
[2023-05-09 12:28] LABS: Free Kappa 162.1 mg/L (3.3-19.4); Free Kappa/Lambda Ratio 2.08 (0.26-1.65); Free Lambda 78.1 mg/L (5.7-26.3)
--- NOTE | 2023-05-09 13:00 | Discharge Summary ---
Date of Service May 09, 2023 Admission HPI Per Admitting Provider Deonte is a 42-year-old man with a history of poorly controlled type 2 diabetes (Hgb A1c-10.1%), DM2-associated peripheral neuropathy, dyslipidemia, hypertension, and CKD3 who presented to the emergency room this morning for evaluation of difficulty breathing. He reported 2 to 3 days of fatigue, cough, chest congestion, and headache. He also reported lightheadedness, and multiple episodes of falling at home, during which he struck his head. Patient was brought to the hospital by EMS, who noted that he appeared confused and altered, per ED note. On arrival, patient was notably hypoxic to the 60s requiring up to 6 L of oxygen via NC. He was also febrile (38.3 C). Notable labs include: Cr-3.19, glucose- 142, high-sensitivity troponin-59.1, BNP-477, procalcitonin-1.18. Respiratory viral panel returned positive for influenza A. Rest of viral panel was negative. He received a dose of IV Tylenol. Hospitalist service was then consulted for admission. Admission Exam Per Admitting Provider General: No acute distress. HEENT: PERRLA. Normal conjunctiva, anicteric sclera. Oropharynx normal. Respiratory: Slightly labored breathing. Unable to speak in complete sentences. Diffuse end-expiratory wheeze, bibasilar crackles, coarse breath sounds on auscultation. Cardiovascular: Tachycardic rate. Regular rhythm. No murmurs, gallops, or rubs. 1+ bilateral pedal edema. GI: Soft abdomen with normal bowel sounds heard on auscultation. Nontender x4 quadrants Neuro: Alert and oriented x3. Psych: Flat affect Principal Diagnosis Acute respiratory distress with influenza A, TRINH on CKD Stage 3 Discharge Exam General:Alert and oriented, no acute distress, HEENT: Normocephalic, moist oral mucosa, Cardio: Regular rate and rhythm, Resp:Lungs clear to auscultation b/l, no wheezes or rhonchi, Ext: Minor edema b/l lower extremities Skin: Warm, pink, dry, Discharge Data Allergies Allergy/AdvReac Type Severity Reaction Status Date / Time No Known Allergies Allergy Verified 05/05/23 02:29 Consultations 05/05/23 04:04 ED Decision to Admit Stat 05/07/23 09:55 Consult Nephrology Routine Ordered Studies 05/05/23 02:08 CT cervical spine wo con Stat CT head/brain wo con Stat Hospital Course (1) Influenza A: (2) Sepsis with acute hypoxic respiratory failure without septic shock: (3) Elevated troponin: (4) Poorly controlled type 2 diabetes mellitus: (5) Diabetic nephropathy associated with type 2 diabetes mellitus: (6) Hypertension: (7) Dyslipidemia: (8) Stage 3b chronic kidney disease: Plan Pt is a 42-year-old man with a history of poorly controlled type 2 diabetes (Hgb A1c 10.1%), DM2-associated peripheral neuropathy, dyslipidemia, hypertension, and CKD Stage 3 who presented to the hospital on 05/05/23 for acute respiratory failure and influenza A infection. From a respiratory standpoint, improved. Cold symptoms lingering but much better according to pt and sat around 95% on room air. Pt informed influenza as a virus may have lingering symptoms but should continue to get better. Last dose of tamiflu to be done today for full 5 day treatment, will send home with script for last dose for him to take tonight. Kidney function did improve today 3.46 -> 3.07. Touched base with nephrology and no further plans for further workup or treatments at this time and he is stable for discharge. Restarted on home bumex yesterday. Started on amlodipine 5mg daily per nephro recommendations. Acute hypoxic respiratory failure/influenza A - on admission had fever, HR >90, tachypnea, so met SIRS criteria, likely pulmonary source, given positive influenza A PCR (met sepsis criteria at time of admission) - symptomatically improving, >90% on room air - blood cultures negative at 48 hours - continue oseltamivir 30 mg BID for 5 days total, finishing today with last dose tonight TRINH, - Cr baseline appears to be around 2.0-2.2, has been 3 or more during this admission - Fluids initially discontinued due to concern of potential volume overload, but with clinical presentation not convincing of volume overload and Cr rising will continue fluids today - Hold bumetanide - Cr 3.13 -> 3.53 -> 3.46 - FeNa <1% prerenal, has recent hx of nephrotic syndrome, suspect prerenal TRINH due to poor oral fluid intake initially when presenting for illness. - nephrology consulted; monitor kidney function off of IVF, continue home losartan Elevated troponin -Does not appear to be cardiac in nature, likely due to TRINH in the setting of chronic kidney disease (stage IIIb). * Repeat hs troponin 58 -> 63 - last echo 04/18/23 EF 55-60% without wall abnormalities Poorly controlled type 2 diabetes -HgbA1c = 10.1% 2 weeks ago. -On atorvastatin, Jardiance, Trulicity, and basal (Lantus 28 units daily) and bolus (lispro 15 units twice daily) insulin. -Suspect medication nonadherence based on review of previous hospital visit notes. * Continue adjusted home basal insulin regimen: Lantus 21 units daily, mealtime SSI per protocol * Hold home p.o. antihyperglycemic meds * Continue atorvastatin Dyslipidemia * Continue home atorvastatin, hold fenofibrate Hypertension * Continue metoprolol, prazosin * continue home losartan * Holding bumetanide since patient likely hypovolemic due to hyperglycemia, sepsis CKD Stage 3b * Continue calcitriol DVT Prophylaxis: Lovenox 40 mg q24h IVF: none No mayers. Total Time Total Time Spent Total Time Spent (In Minutes): 20 minutes Discharge Plan Discharge Items Patient Disposition: Home - Self-Care Reason For Visit: INFLUENZA A Discharge Diagnosis: Acute respiratory distress with influenza A, TRINH on CKD Stage 3 Activity: Resume your previous activity Non-emergency contact: Primary Care Provider Call non-emergency contact if: you have any medication questions and your symptoms worsen Follow-up/Referrals: Maria Teresa Andres MD [Physician] - Efren Young PA-C [Primary Care Provider] - Diet: Carb Consistent or DM2 Addtl Attending Provider Instructions: You were admitted for respiratory distress secondary to influenza A infection. You were also found to have an acute kidney injury during your stay here. You were treated with tamiflu and fluids. Your symptoms have improved, and we feel it is safe for you to return home. On discharge, you may notice some of your flu symptoms remain, such as cough, congestion, or fatigue. Flu symptoms can take a few weeks to completely resolve, but should get better each day. If you develop fever again or your symptoms worsen, please contact your PCP to be evaluated again. On discharge, please follow up with your primary care provider and nephrology within 1 week. Medications: Your medication list has been reviewed and reconciled upon discharge to ensure accuracy and continuity of care. An updated list of all your medications is included with your hospital discharge paperwork. Please review this list closely, and make note of any changes. Please take your last dose of Tamiflu tonight at 8 pm. After this, you may continue to use over the counter cough and cold medicines as needed for symptom relief. Take your medications as instructed; do not skip a dose of your medicines. Make sure all of your doctors know every medicine you are taking (including kpgy-tdy-rwlzsdk medicines, vitamins, and supplements). Tell your primary care provider if you cannot afford your medications. Activity: You can do normal everyday activities as your body allows. Take rest breaks if you feel tired. Do not overexert. Stop activity if you have pain, shortness of breath or feel dizzy. Follow-up appointments: Make an appointment with your primary care physician within one week of discharge. A copy of this summary will be sent to them. Every time you see your primary care physician, or any other doctor, bring your medication list, and a list of questions. CONTACT YOUR PRIMARY CARE PROVIDER if you experience any of the following: Shortness of breath or difficulty breathing Swelling of your feet, ankles, hands or abdomen Feeling tired with normal activity or experiencing dizziness or fainting Difficulty following your treatment plan, or difficulty taking medications CALL 911 OR GO TO THE EMERGENCY DEPARTMENT if you experience any of the following: Severe abdominal pain or nausea/vomiting Severe chest pain, or chest pain that radiates (moves) to your jaw or arm Sudden, severe shortness of breath or difficulty breathing Thank you for allowing us to participate in your care. Pending Studies at Discharge: No Stand-Alone Forms: [facility] Medications and DC Order Prescriptions: New amlodipine 5 mg tablet 5 mg PO DAILY Qty: 30 1RF Continued losartan 100 mg tablet 100 mg PO DAILY Qty: 30 2RF atorvastatin 80 mg tablet 80 mg PO DAILY Qty: 30 2RF calcitriol 0.25 mcg capsule 0.25 mcg PO DAILY Qty: 30 2RF (DME) FreeStyle Tootie 2 Sensor Kit See Rx Instructions .Route Qty: 6 3RF Rx Instructions: change sensor every 14 days fenofibrate 160 mg tablet 160 mg PO QAM albuterol sulfate 90 mcg/actuation HFA aerosol inhaler 2 puff inhalation Q6H PRN (Reason: Shortness Of Breath Or Wheezing) insulin lispro [Humalog KwikPen Insulin] 100 unit/mL insulin pen 15 unit subcut BID metoprolol succinate 100 mg capsule,sprinkle,ER 24hr 100 mg PO QAM (DME) OneTouch Verio test strips Strip See Rx Instructions .Route Qty: 300 3RF Rx Instructions: test blood sugar 3 x daily (DME) lancets [OneTouch Delica Plus Lancet] 30 gauge misc See Rx Instructions .Route Qty: 300 3RF Rx Instructions: test blood sugar 3 x daily Trulicity 0.75 mg/0.5 mL pen injector 0.75 mg subcut WK Rx Instructions: fridays metoprolol succinate 50 mg Tablet Extended Release 24 Hr 50 mg PO HS Qty: 30 0RF prazosin 1 mg Capsule 1 mg PO BID 30 Days Qty: 60 0RF bumetanide 1 mg Tablet 2 mg PO QAM 30 Days Qty: 60 0RF Jardiance 25 mg tablet 25 mg PO DAILY Lantus Solostar U-100 Insulin 100 unit/mL (3 mL) insulin pen 28 unit SUBCUT DAILY Discharge Orders: Discharge Order (Routine); Ordered 05/09/23 Ordered By: Marie Rutherford Admission Data Admit Date/Time: 05/05/23 04:07 Attending Provider: Pepe Blackwell Admit Provider: Damion Armijo Primary Care Provider: Efren Young. Other Providers: Renzo Short; Ruddy Hernandez; Maria Teresa Andres Other Interventions: Discharge Summary Assessment (RN) Last Done: 05/09/23 15:40 Supervising Physician Co-Signing Physician Notes I also saw the patient confirmed roa portions of the clinical history and physical examination. I agree with the impression and plan as noted in the resident discharge summary as above. Patient is without complaints; generally improving from influenza A infection. Nephrology consultation appreciated; recommendations added; will need outpatient nephrology follow-up and lab work to monitor renal function and serum electrolytes. Resident Activity Tracking Resident Involvement: Resident Care Provided Care Provided: Adult Hospital Medicine
[2023-05-09 15:41] VITALS: BP 172/91
[2023-05-09 15:48] VITALS: PULSE 79; RESP 16; TEMP 98.1
[2023-05-09 16:00] VITALS: O2SAT 90
[2023-05-10 08:56] LABS: Creatinine Ur 163 mg/dL (20-320); Protein, Urine Random 1959 mg/dL (5-25); Ur Protein/Creat Ratio mg/g 12018 mg/g creat (25-148); Urine Abnormal Protein Band 1 DNR mg/dL (NONE DETECTED); Urine Abnormal Protein Band 2 DNR mg/dL (NONE DETECTED); Urine Abnormal Protein Band 3 DNR mg/dL (NONE DETECTED); Urine Protein/Creatinine Ratio 12.018 (0.025-0.148)
[2023-05-10 09:16] LABS: Albumin 2.7 g/dL (3.8-4.8); Alpha 1 Globulin 0.4 g/dL (0.2-0.3); Alpha 2 Globulin 1.3 g/dL (0.5-0.9); Beta-1-Globulin 0.3 g/dL (0.4-0.6); Beta-2-Globulin 0.4 g/dL (0.2-0.5); Gamma Globulin 0.6 g/dL (0.8-1.7); Monoclonal Protein Band 1 DNR g/dL (NONE DETECTED); Monoclonal Protein Band 2 DNR g/dL (NONE DETECTED); Monoclonal Protein Band 3 DNR g/dL (NONE DETECTED); Total Protein 5.6 g/dL (6.1-8.1)
== END 2023-05-09 16:39 | disposition home or self-care (01) | DRG 871 ==
LOC: ED 02:02 → SUATTDRO 04:07 → EDINP 04:07 → 2N 05:26
DX: F17.210 Nicotine dependence, cigarettes, uncomplicated; Z68.41 Body mass index [BMI] 40.0-44.9, adult; I13.0 Hypertensive heart and chronic kidney disease with heart failure and stage 1 through stage 4 chronic kidney disease, or unspecified chronic kidney disease; Z79.4 Long term (current) use of insulin; E78.5 Hyperlipidemia, unspecified; A41.89 Other specified sepsis; J96.01 Acute respiratory failure with hypoxia; R79.89 Other specified abnormal findings of blood chemistry; J44.9 Chronic obstructive pulmonary disease, unspecified; J10.1 Influenza due to other identified influenza virus with other respiratory manifestations; I50.32 Chronic diastolic (congestive) heart failure; N17.9 Acute kidney failure, unspecified; N18.32 Chronic kidney disease, stage 3b; S09.90XA Unspecified injury of head, initial encounter; Z79.85 Long-term (current) use of injectable non-insulin antidiabetic drugs; E11.42 Type 2 diabetes mellitus with diabetic polyneuropathy; E66.9 Obesity, unspecified; E11.22 Type 2 diabetes mellitus with diabetic chronic kidney disease

== ENCOUNTER 2023-12-20 16:48 | Inpatient (IN) ==
--- NOTE | 2023-12-20 17:17 | Emergency Department Note ---
Impression & Plan Dyspnea, Hypoxia, Edema, Nephrotic syndrome, Noncompliance ED Provider Note ED Provider Note NAME: YAZMIN RAMOS AGE:43 SEX: Male : 1980 ARRIVES VIA: Private vehicle INFORMANT: Patient ED PROVIDER(s): Krystal Wharton DO CHIEF COMPLAINT: Shortness of breath, retaining fluid HPI: This is a 43-year-old male presents emergency room due to concern for worsening shortness of breath, increasing fluid retention, and chest pain. Patient brought in with family member at bedside. Patient states that he feels symptoms ultimately began 4 to 6 weeks ago when he and his family first moved. He states he got "off track" with his medications and knows he missed several doses of several meds including his Bumex. Patient states he does have a history of kidney problems and sees Dr. Shultz. He states typically he takes Bumex 3-4 times a day. He states he also has a history of congestive heart failure. Patient states in the move he was unable to find his Accu-Chek device additionally and ran out of his Dexcom's. He is otherwise not been checking his blood sugar recently. He states he has been more tired and sleeping more often. He also notes that he began having chest pressure today. Patient noted to be hypoxic in triage by nursing staff upon entering the room, 87%. PAST MEDICAL HISTORY:See Below PAST SURGICAL HISTORY:See Below FAMILY HISTORY:See Below SOCIAL HISTORY:See Below HOME MEDICATIONS:See Below ALLERGIES:See Below VITALS:See Below PHYSICAL EXAMINATION: GENERAL: alert, unwell appearing, well nourished, no distress, non-toxic EYE EXAM: normal conjunctiva, PERRL and EOM's grossly intact OROPHARYNX: no exudate, no erythema, lips, buccal mucosa, and tongue normal and mucous membranes are moist NECK: supple, no nuchal rigidity, no adenopathy, non-tender LUNGS: Decreased bilaterally to auscultation. Normal chest wall mechanics, no w/r, bibasilar rales HEART: no murmurs, S1 normal and S2 normal ABDOMEN: abdomen distended, non-tender, normo-active bowel sounds, no masses, no rebound or guarding. BACK: Back is symmetrical on inspection and there is no deformity, no midline tenderness, no CVA tenderness. SKIN: no rashes, petechiae, orbruising UPPER EXTREMITIES: upper extremities are grossly normal. FROM, nml pulses b/l. LOWER EXTREMITIES: Acute on chronic bilateral 3+ pitting edema. FROM, nml pulses b/l. NEURO EXAM: Normal sensorium, cranial nerves II-XII grossly intact, normal speech, no facial droop,nogross weakness of arms, no gross weakness of legs. Gross sensation intact. No ataxia. Vital Signs: reviewed and remarkable Differential Diagnosis: pneumonia, bronchitis, COPD/Asthma exacerbation, pneumothorax, pulmonary embolism, congestive heart failure, acute coronary syndrome, as well as others were considered MEDICAL DECISION MAKING: This is a 43-year-old male presents emergency department due to concern for worsening shortness of breath particular with exertion, fluid retention, and chest pain. Patient with history of similar episodes previously. He was afebrile with significant hypertension noted as well as hypoxia particular with any movement or prolonged conversation. Patient does not wear oxygen at home. Labs drawn and sent, IV established, EKG and chest x-ray performed at bedside interpreted by me and patient monitored on telemetry. I did review patient's prior echo and prior hospitalization in April 2023. Patient denied any recent illness and does admit to noncompliance with his medications for the last 4 to 6 weeks while he has been moving into a new residence. After significant bedside discussion, patient given a dose of IV Lasix additionally. With any prolonged conversation or ambulation he continues to be immediately hypoxic. He appears comfortable at rest while on oxygen via nasal cannula. Blood pressure did slowly begin to improve on its own and continued to improve after being given IV Lasix. Due to oxygen requirements and concern for need for cautious diuresis and the patient with a history of chronic kidney disease from nephrotic syndrome significant hypertension, case was discussed with the hospitalist team for additional evaluation and management. Consultation(s): 2044: Discussed with Keegan Friedman PA-C with [place] hospitalist. ER Treatment Provided: See below Diagnostics Interpreted By Me: -ECG: Normal sinus at 90, normal axis, normal intervals, no acute ST/T wave changes -Cardiac Monitoring: An order was placed for continuous cardiac monitoring. The monitor shows a rate of 90 with normal sinus rhythm. -Laboratory studies: As stated above and show below. -Imaging studies: X-ray Chest: A single view study of the chest was reviewed and was negative for focal infiltrate, effusion, pulmonary edema, or wide mediastinum. Cardiomegaly noted. Triage Nursing Note Reviewed Prior/Outside Records Reviewed -prior echo reviewed Past Med/Surg History Problem List (Updated 12/20/23 @ 23:59 by Krystal Wharton DO) Noncompliance (Acute) Tobacco abuse Edema (Acute) Hypoxia (Acute) Dyspnea (Acute) Uncontrolled type 2 diabetes mellitus with hyperglycemia, with long-term current use of insulin Callus under metatarsal head Loss of protective sensation of skin of foot Diabetic peripheral neuropathy associated with type 2 diabetes mellitus Background diabetic retinopathy associated with type 2 diabetes mellitus Diabetes type 2, controlled Hypothyroidism Diabetic nephropathy associated with type 2 diabetes mellitus Obesity Dyslipidemia Hypertension Nephrotic syndrome (Acute) Stage 3b chronic kidney disease Albuminuria Depression Medical History Influenza A Family History Mother Diabetes Heart disease Dyslipidemia Social History Smoking Status: Current every day smoker Tobacco Type: Cigarettes Cigarettes Per Day: 1 pack; Second Hand Exposure: Yes; Do You Dip or Chew Tobacco: No; Tobacco Cessation Education Requested by Patient: No Hx Alcohol Use: Yes Alcohol type: hard liquor Alcohol Intake Frequency: Monthly or Less Hx Substance Use: Yes Prescribed Medications: Marijuana Last Used Substance: Unknown Substance Use Type Other:: medical prescribed Preferred Language: Telugu Communication Ability: Effective Professor Of Theatre Required: No Beliefs That Will Affect Care: None marital status: Current Living Situation: Spouse current occupational status: employed How many Children do You have: 5 Feels Safe at Home: Yes Safety Concerns: Feels Safe At This Time Assistive Devices: CPAP, Glasses and Oxygen - Continuous Allergies Allergies Allergy/AdvReac Type Severity Reaction Status Date / Time No Known Allergies Allergy Verified 08/02/23 08:34 Home Meds Home Medications Medication Instructions Recorded Confirmed albuterol sulfate 90 mcg/actuation 2 puff inhalation Q6H PRN 01/03/23 12/20/23 aerosol inhaler Shortness Of Breath Or Wheezing insulin lispro 100 unit/mL 30 unit subcut DAILY 06/15/23 12/20/23 subcutaneous pen (Humalog KwikPen (U-100) Insulin) amlodipine 10 mg tablet 10 mg PO QAM 12/20/23 12/20/23 fenofibrate 160 mg tablet 160 mg PO QAM 12/20/23 12/20/23 fluticasone propionate 115 2 puff inhalation BID 12/20/23 12/20/23 mcg-salmeterol 21 mcg/actuation HFA inhaler metoprolol succinate 100 mg 100 mg PO QAM 12/20/23 12/20/23 tablet,extended release 24 hr metoprolol succinate 50 mg 50 mg PO HS 12/20/23 12/20/23 tablet,extended release 24 hr Previous Rx's Medication Instructions Recorded empagliflozin 25 mg tablet 25 mg PO DAILY #30 tabs 05/17/23 (Jardiance) prazosin 1 mg capsule 1 mg PO BID 30 days #60 caps 06/05/23 dulaglutide 0.75 mg/0.5 mL 0.75 mg (0.5 mL) subcut Q7D #2 mL 06/18/23 subcutaneous pen injector ([employer]) blood-glucose meter (Accu-Chek #1 ea 07/13/23 Guide Glucose Meter) flash glucose sensor (FreeStyle #6 ea 07/13/23 Tootie 2 Sensor kit) insulin glargine 100 unit/mL (3 25 unit (0.25 mL) subcut DAILY #15 07/13/23 mL) subcutaneous pen (Lantus mL Solostar U-100 Insulin) lancets (Accu-Chek Softclix #100 ea 07/13/23 Lancets) bumetanide 2 mg tablet 2 mg PO BID 30 days #60 tabs 10/17/23 calcitriol 0.25 mcg capsule 0.25 mcg PO DAILY #30 caps 10/17/23 atorvastatin 80 mg tablet 40 mg (1/2 x 80 mg) PO BID #30 tabs 10/18/23 levothyroxine 150 mcg tablet 150 mcg PO .COMPLEX #30 tabs 10/18/23 blood sugar diagnostic (Accu-Chek #100 ea 11/01/23 Guide test strips) Results & Data (ED) Vital Signs Vital Signs - 24 hr 12/20/23 16:52 12/20/23 17:25 12/20/23 17:29 Temperature 36.7 C Temperature Source Temporal Artery Scan Pulse Rate 91 H 90 Pulse Rate [Apical] Pulse Rate from SpO2 Sensor Pulse Rhythm Regular Pulse Rhythm [Apical] Pulse Strength Normal Respiratory Rate 20 Respiratory Effort / Characteristics Non-Labored Spontaneous Respiratory Depth Normal Respiratory Pattern Regular Blood Pressure 220/134 H 191/121 H Blood Pressure [Right Arm] Blood Pressure Mean 162 141 Blood Pressure Mean [Right Arm] Blood Pressure Position Sitting Pulse Oximetry 92 Oxygen Delivery Method Room Air Oxygen Flow Rate Sepsis Recent Fever Within 48 Hours No Sepsis New/Unexplained Change in Mental Status No Sepsis Action Taken by Nursing No Action Required 12/20/23 17:30 12/20/23 18:03 12/20/23 18:26 Temperature Temperature Source Pulse Rate 87 89 Pulse Rate [Apical] Pulse Rate from SpO2 Sensor 87 89 Pulse Rhythm Pulse Rhythm [Apical] Pulse Strength Respiratory Rate 18 16 Respiratory Effort / Characteristics Respiratory Depth Respiratory Pattern Blood Pressure Blood Pressure [Right Arm] 185/128 H Blood Pressure Mean Blood Pressure Mean [Right Arm] 147 Blood Pressure Position Pulse Oximetry 95 97 Oxygen Delivery Method Oxygen Flow Rate 2 2 Sepsis Recent Fever Within 48 Hours Sepsis New/Unexplained Change in Mental Status Sepsis Action Taken by Nursing 12/20/23 19:25 12/20/23 19:30 12/20/23 20:00 Temperature Temperature Source Pulse Rate Pulse Rate [Apical] 88 88 Pulse Rate from SpO2 Sensor Pulse Rhythm Pulse Rhythm [Apical] Pulse Strength Respiratory Rate 20 18 Respiratory Effort / Characteristics Non-Labored Spontaneous Non-Labored Spontaneous Respiratory Depth Normal Normal Respiratory Pattern Regular Regular Blood Pressure Blood Pressure [Right Arm] 203/134 H 178/116 H Blood Pressure Mean Blood Pressure Mean [Right Arm] 157 136 Blood Pressure Position Pulse Oximetry 87 L 95 95 Oxygen Delivery Method Room Air Nasal Cannula Nasal Cannula Oxygen Flow Rate 2 2 Sepsis Recent Fever Within 48 Hours Sepsis New/Unexplained Change in Mental Status Sepsis Action Taken by Nursing 12/20/23 20:34 Temperature Temperature Source Pulse Rate Pulse Rate [Apical] 91 H Pulse Rate from SpO2 Sensor Pulse Rhythm Pulse Rhythm [Apical] Regular Pulse Strength Respiratory Rate 22 Respiratory Effort / Characteristics Non-Labored Spontaneous Respiratory Depth Normal Respiratory Pattern Regular Blood Pressure Blood Pressure [Right Arm] 190/121 H Blood Pressure Mean Blood Pressure Mean [Right Arm] 144 Blood Pressure Position Pulse Oximetry 95 Oxygen Delivery Method Nasal Cannula Oxygen Flow Rate 3 Sepsis Recent Fever Within 48 Hours Sepsis New/Unexplained Change in Mental Status Sepsis Action Taken by Nursing Laboratory Data 12/20/23 17:25 12/20/23 17:25 Lab Results 12/20/23 12/20/23 12/20/23 Range/Units 17:25 20:15 20:45 WBC 9.15 (4.8-10.8) K/ul RBC 5.25 (4.70-6.10) M/uL Hgb 13.6 L (14.0-18.0) g/dl Hct 47.4 (42.0-52.0) % MCV 90.3 (80.0-100.0) fL MCH 25.9 (25.0-34.0) pg MCHC 28.7 L (32.0-36.0) g/dL RDW Std Deviation 63.8 H (36.4-46.3) fL RDW Coeff of Domi 20.0 H (11.5-14.5) % Plt Count 369 (130-400) K/uL MPV 10.2 (9.4-12.4) fL Immature Gran % (Auto) 0.4 % Neut % (Auto) 67.3 % Lymph % (Auto) 20.8 % Hand % (Auto) 7.9 % Eos % (Auto) 2.7 % Baso % (Auto) 0.9 % Neut # (Auto) 6.16 (1.40-6.50) K/uL Lymph # (Auto) 1.90 (1.20-3.40) K/uL Hand # (Auto) 0.72 H (0.11-0.59) K/uL Eos # (Auto) 0.25 (0.00-0.50) K/uL Baso # (Auto) 0.08 (0.00-0.20) K/uL Immature Gran # (Auto) 0.04 (0.01-0.20) K/uL Absolute Nucleated RBC 0.04 (0.00-0.12) K/uL Nucleated RBC % (auto) 0.4 % PT 10.8 (9.0-12.0) Seconds INR 1.0 (0.9-1.1) Sodium 144 (136-145) mmol/L Potassium 4.1 (3.5-5.1) mmol/L Chloride 106 (98-107) mmol/L Carbon Dioxide 32 (21-32) mmol/L Anion Gap 6 (3-11) BUN 28 H (6-23) mg/dl Creatinine 3.02 H (0.6-1.4) mg/dl Est Cr Clr Drug Dosing 42.0 ml/min Est GFR ( Amer) 28.2 ml/min Est GFR (Non-Af Amer) 24.3 ml/min BUN/Creatinine Ratio 9.3 L (10-20) Glucose 102 H (70-99(Fasting)) mg/dl POC Glucose 74 (70-99) mg/dl Calcium 8.0 L (8.6-10.3) mg/dl Phosphorus 4.1 (2.5-4.9) mg/dl Magnesium 2.1 (1.7-2.4) mg/dl Total Bilirubin 0.4 (0.2-1.0) mg/dl AST 17 (13-39) U/L ALT 14 (7-52) U/L Alkaline Phosphatase 43 (34-104) U/L Troponin I High Sens 19.0 (0-20) pg/ml B-Natriuretic Peptide 562 H (0-100) pg/ml Total Protein 7.1 (6.0-8.3) gm/dl Albumin 3.6 (3.4-5.0) gm/dl Globulin 3.5 (2.5-4.0) gm/dl Albumin/Globulin Ratio 1.0 (0.9-2) TSH 1.984 (0.300-4.500) uIu/ml Urine Color Yellow Urine Appearance Clear (Clear) Urine pH 6.0 (4.5-7.5) Ur Specific [place] 1.018 (1.000-1.030) Urine Protein 4+ H (Negative) Urine Glucose (UA) 3+ H (Negative) Urine Ketones Negative (Negative) Urine Blood 1+ H (Negative) Urine Nitrite Negative (Negative) Urine Bilirubin Negative (Negative) Urine Urobilinogen Negative (Negative) Ur Leukocyte Esterase Negative (Negative) Urine WBC (Auto) 0-5 (0-5) /hpf Urine RBC (Auto) 0-2 (0-2) /hpf U Hyaline Cast (Auto) 3-5 H (0-2) /lpf U Epithel Cells (Auto) 0-2 (0-2) /hpf Urine Bacteria (Auto) None Seen (None Seen) Ur Random Creatinine 65.9 mg/dl U Random Total Protein 816.1 H (0-11.9) mg/dl Protein/Creatinin Ratio 12.4 H (0-0.2) Administered Medications Atorvastatin Calcium (Atorvastatin 40 Mg Tab) 40 mg PO BID JOHN Stop: 01/19/24 22:44 Last Admin: 12/21/23 00:19 Dose: 40 mg Documented By: URMILA Fluticasone/Vilanterol (Fluticasone/Vilanterol 200/25mcg 14 Puffs/Inhaler) 1 puffs INH HS JOHN Stop: 01/19/24 23:14 Last Admin: 12/21/23 00:19 Dose: 1 puffs Documented By: URMILA Heparin Sodium (Porcine) (Heparin Sod 5,000 Unit/0.5 Ml Vial) 5,000 units SQ Q8H JOHN Stop: 01/20/24 00:00 Last Admin: 12/21/23 00:19 Dose: 5,000 units Documented By: RUMILA Insulin Glargine (Lantus Per Unit Charge) 8 units SQ BID JOHN Stop: 01/19/24 21:44 Last Admin: 12/20/23 23:06 Dose: Not Given Documented By: URMILA Prazosin HCl (Prazosin Hcl 1 Mg Cap) 1 mg PO BID JOHN Stop: 01/19/24 22:44 Last Admin: 12/20/23 23:45 Dose: 1 mg Documented By: URMILA Discontinued Medications Amlodipine Besylate (Amlodipine Besylate 5 Mg Tab) 10 mg PO NOW ONE Stop: 12/20/23 21:08 Last Admin: 12/20/23 23:45 Dose: 10 mg Documented By: URMILA Furosemide (Furosemide 40 Mg/4 Ml Vial) 40 mg IV ONE ONE Stop: 12/20/23 18:22 Last Admin: 12/20/23 18:34 Dose: 40 mg Documented By: KELLY Bumetanide 2 mg/ Syringe 8 mls @ 4 mls/min IV NOW STA Stop: 12/20/23 21:09 Last Admin: 12/20/23 22:10 Dose: 4 mls/min Documented By: UJNO Insulin Glargine (Lantus Per Unit Charge) 12 units SQ BID JOHN Stop: 01/19/24 21:14 Last Admin: 12/20/23 22:24 Dose: Not Given Documented By: JUNO Metoprolol Succinate (Metoprolol Succ 50mg Ext Rel Tab) 50 mg PO NOW STA Stop: 12/20/23 21:08 Last Admin: 12/20/23 22:25 Dose: 50 mg Documented By: KLS Imaging Data Radiologist's Impression: Chest X-Ray 12/20/23 17:18 XR chest 1V portable CLINICAL HISTORY: Shortness of breath. Chest pain. COMPARISON STUDY: Chest CT April 18, 2023. Chest radiograph May 05, 2023. FINDINGS: Lung volumes are normal. Lungs are clear. There is no pneumothorax or pleural effusion. Cardiomegaly is unchanged. Mediastinal contours are stable. There is no evidence for pulmonary edema. IMPRESSION: No acute cardiopulmonary findings. No change in appearance of the chest. Stable cardiomegaly. ACT 112: Negative or not required by law. Electronically signed by: Louis Donaldson M.D. 12/20/2023 5:53 PM Discharge Plan Visit Data Chief Complaint: Swelling/Edema to Extremity Stated Complaint: CHEST RETAINING FLUID, SORE ON RT FOOT ED Provider: Krystal Wharton Discharge Problem: Dyspnea, Hypoxia, Edema, Nephrotic syndrome, Noncompliance Patient Disposition: Admitted As Inpatient Discharge Instructions Interventions: ED Discharge Assessment Last Done: 12/20/23 22:46
--- NOTE | 2023-12-20 17:54 | XRay Report ---
XR chest 1V portable CLINICAL HISTORY: Shortness of breath. Chest pain. COMPARISON STUDY: Chest CT April 18, 2023. Chest radiograph May 05, 2023. FINDINGS: Lung volumes are normal. Lungs are clear. There is no pneumothorax or pleural effusion. Car diomegaly is unchanged. Mediastinal contours are stable. There is no evidence for pulmonary edema. IMPRESSION: No acute cardiopulmonary findings. No change in appearance of the chest. Stable cardiome kayla. ACT 112: Negative or not required by law. Electronically signed by: Louis Donaldson M.D. 12/20/2023 5:53 PM
[2023-12-20 18:07] LABS: Hematocrit (blood only) 47.4 % (42.0-52.0); Hemoglobin 13.6 g/dl (14.0-18.0); Mean Corpuscular Hemoglobin 25.9 pg (25.0-34.0); Mean Corpuscular Hgb Conc 28.7 g/dL (32.0-36.0); Mean Corpuscular Volume 90.3 fL (80.0-100.0); Mean Platelet Volume 10.2 fL (9.4-12.4); Nucleated RBC # (auto) 0.04 K/uL (0.00-0.12); Nucleated RBC % (auto) 0.4 %; Platelet Count 369 K/uL (130-400); RDW Standard Deviation 63.8 fL (36.4-46.3); Red Blood Count 5.25 M/uL (4.70-6.10); White Blood Count 9.15 K/ul (4.8-10.8)
[2023-12-20 18:09] LABS: Albumin Level 3.6 gm/dl (3.4-5.0); BUN Creatinine Ratio 9.3 (10-20); Basophils # (auto) 0.08 K/uL (0.00-0.20); Basophils % (auto) 0.9 %; Bilirubin,Total 0.4 mg/dl (0.2-1.0); Eosinophils # (auto) 0.25 K/uL (0.00-0.50); Eosinophils % (auto) 2.7 %; Est GFR (African American) 28.2 ml/min; Est GFR (Non-African American) 24.3 ml/min; Globulin 3.5 gm/dl (2.5-4.0); Immature Granulocytes # (auto) 0.04 K/uL (0.01-0.20); Immature Granulocytes % (auto) 0.4 %; Lymphocytes % (auto) 20.8 %; Magnesium 2.1 mg/dl (1.7-2.4); Monocytes # (auto) 0.72 K/uL (0.11-0.59); Monocytes % (auto) 7.9 %; Neutrophils # (auto) 6.16 K/uL (1.40-6.50); Neutrophils % (auto) 67.3 %; Phosphorus 4.1 mg/dl (2.5-4.9); Potassium 4.1 mmol/L (3.5-5.1); Total Protein 7.1 gm/dl (6.0-8.3)
[2023-12-20 18:14] LABS: Prothrombin Time 10.8 Seconds (9.0-12.0)
[2023-12-20 18:25] LABS: Thyroid Stimulating Hormone 1.984 uIu/ml (0.300-4.500)
[2023-12-20] MEDS: FUROSEMIDE 40 MG/4 ML VIAL IV ONE (18:34)
--- NOTE | 2023-12-20 20:42 | History & Physical Report ---
Date of Service December 20, 2023 Assessment & Plan (1) Edema: Plan: Admit to [facility] telemetry on pulse oximetry Currently stable on 3 L nasal cannula with blood pressure at 190/121 Patient is approximately 10 kg up from July of this year with significant peripheral edema Appears consistent with his known chronic kidney disease/nephrotic syndrome exacerbated with very poor medication and lifestyle compliance Noncompliance of medications including antihypertensives and insulin are also contributing to his ongoing renal dysfunction Stressed to the patient that if he continues with his noncompliance he will likely end up on dialysis Patient was given 40 mg IV Lasix in the ED, will continue with 2 mg IV twice daily Bumex as he is supposed to be on 2 mg p.o. twice daily outpatient Do not think heart failure is contributing to his current volume status as he is without JVD or signs of cardiac failure on chest x-ray Monitor intake/output every shift, daily weights SQ Lovenox for DVT prophylaxis Heart healthy/DM type II diet with 2 g sodium and 1800 mL fluid restriction AM CBC, CMP, mag, PT/INR (2) Hypoxia: Plan: Patient was noted to desaturate significantly into the low 80s after he ambulated from his bed to the Currently stable on 3 L nasal cannula at rest Patient has been a longtime smoker at least 1 pack a day, suspect he has some underlying component of COPD He likely has a component of obesity hypoventilation syndrome as well No sign of volume overload on chest x-ray, patient does have expiratory wheezing throughout With his significant dyspnea will obtain D-dimer and venous Doppler of the bilateral lower extremities for further evaluation of possible PE Also obtain full respiratory BioFire, if positive will treat as COPD exacerbation If D-dimer is elevated we will at the base possible empiric anticoagulation on results of venous Dopplers and could also consider VQ scan during this admission as IV contrast with his current kidney status would be high risk to sentiment to further renal failure Incentive spirometry, flutter therapy, 4 times daily ER DuoNebs As needed O2 to keep SpO2 between 89-92% (3) Nephrotic syndrome: Plan: Patient has a known history of both stage IIIb CKD and nephrotic syndrome Renal function continues to decline due to his medical and lifestyle noncompliance His previous baseline creatinine was noted to be between 2.2-2.5 mg/dL as of 06/28/2023 when he last saw nephrology Creatinine is currently 3.02 UA shows 4+ protein, will obtain protein to creatinine ratio Continue IV diuresis Nephrology has been consulted (4) Uncontrolled type 2 diabetes mellitus with hyperglycemia, with long-term current use of insulin: Plan: Monitor BSG ACHS, goal is [id number] Will start 8 units Lantus twice daily as glucose is currently 102 and want to avoid hypoglycemia for now CF 35 and CR 12 ACHS Adjust regimen as needed (5) Hypothyroidism: Plan: Continue levothyroxine (6) Tobacco abuse: Plan: Patient smokes at least 1 to 1.5 packs of cigarettes daily Stressed the importance of cessation to avoid ongoing complications including pulmonary, cardiovascular Patient denied need for nicotine patch during this admission at this time Plan Patient was discussed with Dr. Short at the time of the admission History of Present Illness Chief Complaint: Swelling, SOB, right foot callous Primary Care Provider: Efren Young PA-C Deonte is a 43-year-old man with a history of poorly controlled type 2 diabetes (Hgb A1c-10.1%), stage IIIb CKD and nephrotic syndrome, DM2-associated peripheral neuropathy, dyslipidemia, hypertension, and bipolar disorder who [facility] with complaints of progressive shortness of breath, dizziness, and callus on the right foot. On arrival to the ED is noted be significantly hypertensive at 220/134, hypoxic at 87% on room air, but otherwise stable. Labs are significant for creatinine of 3.02, BNP of 562. Chest x-ray was read as negative for acute findings and stable cardiomegaly. Prior to admission the patient was given 40 mg IV Lasix. Patient was lying in bed in no acute distress at time of exam. History is obtained from the patient and his who is currently on speaker phone but not physically in the room. The patient has been having progressive shortness of breath for at least the past week. His states that he cannot walk more than a few feet from the couch to the bathroom without getting significantly dyspneic. Patient denies recent fever or chills, chest pain, hemoptysis, productive cough, abdominal pain, nausea/vomiting, dysuria, hematuria, melena, diarrhea, and recent trauma. His explains that the patient has been very noncompliant with his medications recently. He often forgets to take them. 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 When asked, patient states that he has been smoking from 1 pack of cigarettes or more daily for "more than I should have". Patient confirms that he has not taken any of his medications today. His explains that he eats what he wants. His only other complaint at this time is right foot pain from a large bunion/possible wound on the inferior aspect of the proximal great right toe. I explained to the patient that if he continues to be this poorly compliant with his medications he will likely end up on dialysis and is incredibly high risk for both heart attack and stroke moving forward, he acknowledged this. He is a full code and was safe to make medical decisions for him if he cannot make himself. Please refer to Dr. Short's attestation for any changes to the treatment plan Allergies Allergy/AdvReac Type Severity Reaction Status Date / Time No Known Allergies Allergy Verified 08/02/23 08:34 Home Medications Medication Instructions Recorded Confirmed Type albuterol sulfate 90 mcg/actuation 2 puff inhalation Q6H PRN 01/03/23 12/20/23 History aerosol inhaler Shortness Of Breath Or Wheezing empagliflozin 25 mg tablet 25 mg PO DAILY #30 tabs 05/17/23 12/20/23 Rx (Jardiance) prazosin 1 mg capsule 1 mg PO BID 30 days #60 caps 06/05/23 12/20/23 Rx insulin lispro 100 unit/mL 30 unit subcut DAILY 06/15/23 12/20/23 History subcutaneous pen (Humalog KwikPen (U-100) Insulin) dulaglutide 0.75 mg/0.5 mL 0.75 mg (0.5 mL) subcut Q7D #2 mL 06/18/23 12/20/23 Rx subcutaneous pen injector (Trulicity) blood-glucose meter (Accu-Chek #1 ea 07/13/23 Rx Guide Glucose Meter) flash glucose sensor (FreeStyle #6 ea 07/13/23 Rx Tootie 2 Sensor kit) insulin glargine 100 unit/mL (3 25 unit (0.25 mL) subcut DAILY #15 07/13/23 12/20/23 Rx mL) subcutaneous pen (Lantus mL Solostar U-100 Insulin) lancets (Accu-Chek Softclix #100 ea 07/13/23 Rx Lancets) bumetanide 2 mg tablet 2 mg PO BID 30 days #60 tabs 10/17/23 12/20/23 Rx calcitriol 0.25 mcg capsule 0.25 mcg PO DAILY #30 caps 10/17/23 12/20/23 Rx atorvastatin 80 mg tablet 40 mg (1/2 x 80 mg) PO BID #30 tabs 10/18/23 12/20/23 Rx levothyroxine 150 mcg tablet 150 mcg PO .COMPLEX #30 tabs 10/18/23 12/20/23 Rx blood sugar diagnostic (Accu-Chek #100 ea 11/01/23 11/01/23 Rx Guide test strips) amlodipine 10 mg tablet 10 mg PO QAM 12/20/23 12/20/23 History fenofibrate 160 mg tablet 160 mg PO QAM 12/20/23 12/20/23 History fluticasone propionate 115 2 puff inhalation BID 12/20/23 12/20/23 History mcg-salmeterol 21 mcg/actuation HFA inhaler metoprolol succinate 100 mg 100 mg PO QAM 12/20/23 12/20/23 History tablet,extended release 24 hr metoprolol succinate 50 mg 50 mg PO HS 12/20/23 12/20/23 History tablet,extended release 24 hr Past Med/Surg History Problem List (Updated 12/20/23 @ 23:59 by Krystal Wharton DO) Noncompliance (Acute) Tobacco abuse Edema (Acute) Hypoxia (Acute) Dyspnea (Acute) Uncontrolled type 2 diabetes mellitus with hyperglycemia, with long-term current use of insulin Callus under metatarsal head Loss of protective sensation of skin of foot Diabetic peripheral neuropathy associated with type 2 diabetes mellitus Background diabetic retinopathy associated with type 2 diabetes mellitus Diabetes type 2, controlled Hypothyroidism Diabetic nephropathy associated with type 2 diabetes mellitus Obesity Dyslipidemia Hypertension Nephrotic syndrome (Acute) Stage 3b chronic kidney disease Albuminuria Depression Medical History Influenza A Family History Mother Diabetes Heart disease Dyslipidemia Social History Smoking Status: Current every day smoker Tobacco Type: Cigarettes Cigarettes Per Day: 1 pack; Second Hand Exposure: Yes; Do You Dip or Chew Tobacco: No; Tobacco Cessation Education Requested by Patient: No Hx Alcohol Use: Yes Alcohol type: hard liquor Alcohol Intake Frequency: Monthly or Less Hx Substance Use: Yes Prescribed Medications: Marijuana Last Used Substance: Unknown Substance Use Type Other:: medical prescribed Preferred Language: Telugu Communication Ability: Effective 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: No Beliefs That Will Affect Care: None marital status: Current Living Situation: Spouse current occupational status: employed How many Children do You have: 5 Feels Safe at Home: Yes Safety Concerns: Feels Safe At This Time Assistive Devices: CPAP, Glasses and Oxygen - Continuous Physical Exam Physical Exam: Physical Exam: General: In no acute distress, stated age, morbidly obese, chronically ill- appearing, very poor hygiene HEENT: Normocephalic, atraumatic, no scleral icterus, pupils around round, symmetrical, and reactive to light, moist mucus membranes, no JVD, trachea midline, no thyromegaly Chest/Pulm: No respiratory distress, symmetrical chest expansion, scattered expiratory wheezing Cardiac: RRR, no murmurs noted Abdomen: Negative for ascites and bruising, normoactive bowel sounds, soft, non-tender to palpation throughout Musculoskeletal: Symmetrical and without signs of acute trauma, upper and lower extremities with full ROM, no atrophy, spasticity, or flaccidity Extremities: Radial, dorsalis pedis, and posterior tibial pulses are intact and symmetrical, 3+ edema noted in the BL LE's Skin: Patient with a large callus/bunion on the proximal aspect of the dorsum of the right great toe. Does not appear infected at this time Neuro: Alert and oriented to person, place, month, year, and president, no focal defects, no tremors noted Psych: No acute distress, calm and cooperative during the exam Results & Data Results & Data Vital Signs (Past 12 Hours) Vital Signs Temp Pulse Pulse Resp BP BP Pulse Ox 12/20/23 20:34 91 H 22 190/121 H 95 12/20/23 20:00 88 18 178/116 H 95 12/20/23 19:30 88 20 203/134 H 95 12/20/23 19:25 87 L 12/20/23 18:26 185/128 H 12/20/23 18:03 89 16 97 12/20/23 17:30 87 18 95 12/20/23 17:29 90 12/20/23 17:25 191/121 H 12/20/23 16:52 36.7 C 91 H 20 220/134 H 92 O2 Del Method O2 Flow Rate 12/20/23 20:34 Nasal Cannula 3 12/20/23 20:00 Nasal Cannula 2 12/20/23 19:30 Nasal Cannula 2 12/20/23 19:25 Room Air 12/20/23 18:26 12/20/23 18:03 2 12/20/23 17:30 2 12/20/23 17:29 12/20/23 17:25 12/20/23 16:52 Room Air Laboratory Results Abnormal lab results 12/20/23 12/20/23 Range/Units 17:25 20:45 Hgb 13.6 L (14.0-18.0) g/dl MCHC 28.7 L (32.0-36.0) g/dL RDW Std Deviation 63.8 H (36.4-46.3) fL RDW Coeff of Domi 20.0 H (11.5-14.5) % Loving # (Auto) 0.72 H (0.11-0.59) K/uL BUN 28 H (6-23) mg/dl Creatinine 3.02 H (0.6-1.4) mg/dl BUN/Creatinine Ratio 9.3 L (10-20) Glucose 102 H (70-99(Fasting)) mg/dl Calcium 8.0 L (8.6-10.3) mg/dl B-Natriuretic Peptide 562 H (0-100) pg/ml Urine Protein 4+ H (Negative) Urine Glucose (UA) 3+ H (Negative) Urine Blood 1+ H (Negative) U Hyaline Cast (Auto) 3-5 H (0-2) /lpf Diagnostic Findings Chest X-Ray 12/20/23 17:18 XR chest 1V portable CLINICAL HISTORY: Shortness of breath. Chest pain. COMPARISON STUDY: Chest CT April 18, 2023. Chest radiograph May 05, 2023. FINDINGS: Lung volumes are normal. Lungs are clear. There is no pneumothorax or pleural effusion. Cardiomegaly is unchanged. Mediastinal contours are stable. There is no evidence for pulmonary edema. IMPRESSION: No acute cardiopulmonary findings. No change in appearance of the c hest. Stable cardiomegaly. ACT 112: Negative or not required by law. Electronically signed by: Louis Donaldson M.D. 12/20/2023 5:53 PM Code Status & VTE Plan Code Status Full code VTE Prophylaxis Plan VTE Prophylaxis will be ordered: Yes Supervising Physician Co-Signing Physician Notes Attending addendum: I have physically seen this patient, have supervised the ANTONIO's activities, and agree with the H&P unless as otherwise noted. Assessment and Plan: Peripheral edema/10 kg weight gain- The patient will be admitted to medical telemetry for serial cardiac enzymes, serial EKG's, cardiac rhythm monitoring and a 2-D echocardiogram with Dopplers. Patient noted to have noncompliance with treatment as a contributing factor Given furosemide 40 mg IV in ED Will change his baseline bumetanide 2 mg p.o. twice daily to 2 mg IV twice daily Follow serial CBC with differential, chemistry profile, mag and PT/INR COPD exacerbation/obesity hypoventilation syndrome- Continue compliance to hypoxia Nasal cannula oxygen, titrate to keep pulse ox 90-92% Nephrotic syndrome/stage IIIb CKD- Creatinine 3.02 admission, with base 2.88-3.46 Follow laboratory serially Consult to nephrology Diabetes mellitus- Glargine as noted Accu-Cheks with NovoLog SSI PG Care Time/CCT Total # of Minutes Spent Total Time Spent with Patient: Total time spent is greater than 50% in coordination of care (as documented) at patient's floor/unit and/or counseling patient: [place] [address] INT INP/OBS CARE 3/75MIN Patient Type Established Medical Decision Making High Complexity Diagnoses Edema R60.9 Hypoxia R09.02 Nephrotic syndrome N04.9 Uncontrolled type 2 diabetes mellitus with hyperglycemia, with long-term current use of insulin E11.65; Z79.4 Hypothyroidism E03.9 Tobacco abuse Z72.0
[2023-12-20] MEDS ORDERED: DEXTROSE 50% 50 ML SYRINGE IV PRN (21:03)
[2023-12-20] MEDS ORDERED: GLUCOSE 40% GEL 15 GM TUBE PO PRN (21:03)
[2023-12-20] MEDS ORDERED: GLUCOSE 10 TAB/TUBE PO PRN (21:03)
[2023-12-20] MEDS ORDERED: GLUCAGON FOR INJ 1 MG VIAL SQ PRN (21:03)
[2023-12-20 21:09] LABS: Appearance Urine Clear (Clear); Bacteria Urine Automated None Seen (None Seen); Bilirubin Urine Negative (Negative); Blood Urine 1+ (Negative); Color Urine Yellow; Epithelial Cell Urine Auto 0-2 /hpf (0-2); Glucose Urine UA 3+ (Negative); Ketones Urine Negative (Negative); Leukocyte Esterase Urine Negative (Negative); Nitrite Urine Negative (Negative); Protein Urine 4+ (Negative); RBC Urine Automated 0-2 /hpf (0-2); Specific Gravity Urine 1.018 (1.000-1.030); Urobilinogen Urine Negative (Negative); WBC Urine Automated 0-5 /hpf (0-5)
[2023-12-20] MEDS ORDERED: ALBUT/IPRATROP 3MG/0.5MG NEB 3 ML VIAL NEB PRN (21:10)
[2023-12-20] MEDS: BUMETANIDE 2 MG in SYRINGE 0 ML IV STA (22:10)
[2023-12-20] MEDS: LANTUS PER UNIT CHARGE SQ SCH ×2 (22:24→23:06)
[2023-12-20] MEDS: METOPROLOL SUCC 50MG EXT REL TAB PO STA (22:25)
[2023-12-20] MEDS ORDERED: ALBUTEROL HFA 8 GM INHALER INH PRN (22:45)
[2023-12-20 22:56] LABS: Creatinine Urine Random 65.9 mg/dl; Protein Creatinine Ratio Urine 12.4 (0-0.2); Total Protein Urine Random 816.1 mg/dl (0-11.9)
[2023-12-20] MEDS: amLODIPine BESYLATE 5 MG TAB PO ONE (23:45)
[2023-12-20] MEDS: PRAZOSIN HCL 1 MG CAP PO SCH (23:45)
[2023-12-21] MEDS: ATORVASTATIN 40 MG TAB PO SCH (00:19)
[2023-12-21] MEDS: FLUTICASONE/VILANTEROL 200/25MCG 14 PUFFS/INHALER INH SCH (00:19)
[2023-12-21] MEDS: HEPARIN SOD 5,000 UNIT/0.5 ML VIAL SQ SCH (00:19)
[2023-12-21 01:03] LABS: D Dimer 520 ug/L FEU (0-500)
--- NOTE | 2023-12-21 03:12 | Ultrasound Report ---
Exam(s): US VENOUS BILATERAL LOWER EXTREMITIES EXAM: US Duplex Bilateral Lower Extremities Veins CLINICAL HISTORY: Reason for exam: hypoxia. TECHNIQUE: Real-time duplex ultrasound scan of the bilateral lower extremity veins integrating B-mode two-dimensional vascular structure, Doppler spectral analysis, color flow Doppler imaging and compression. COMPARISON: No relevant prior studies available. FINDINGS: Right deep veins: Unremarkable. No DVT in the right common femoral, femoral, proximal deep femoral or popliteal veins. The veins demonstrate normal color flow, are normally compressible, with normal phasic flow and/or augmentation response. Right superficial veins: Unremarkable. No thrombus in the visualized right great saphenous vein. Left deep veins: Unremarkable. No DVT in the left common femoral, femoral, proximal deep femoral or popliteal veins. The veins demonstrate normal color flow, are normally compressible, with normal phasic flow and/or augmentation response. Left superficial veins: Unremarkable. No thrombus in the visualized left great saphenous vein. Soft tissues: No acute findings. No popliteal cyst. IMPRESSION: Normal bilateral lower extremity duplex venous ultrasound. Electronically signed by: Benny Joel MD 12/21/23 03:11 AM
[2023-12-21] MEDS: LEVOTHYROXINE SODIUM 150 MCG TABLET PO SCH (05:52)
[2023-12-21 06:57] LABS: Basophils # (auto) 0.08 K/uL (0.00-0.20); Eosinophils # (auto) 0.21 K/uL (0.00-0.50); Eosinophils % (auto) 2.8 %; Hematocrit (blood only) 43.8 % (42.0-52.0); Hemoglobin 12.5 g/dl (14.0-18.0); Immature Granulocytes # (auto) 0.03 K/uL (0.01-0.20); Immature Granulocytes % (auto) 0.4 %; Lymphocytes # (auto) 1.57 K/uL (1.20-3.40); Lymphocytes % (auto) 20.6 %; Mean Corpuscular Hemoglobin 26.3 pg (25.0-34.0); Mean Corpuscular Hgb Conc 28.5 g/dL (32.0-36.0); Mean Platelet Volume 9.2 fL (9.4-12.4); Monocytes % (auto) 9.2 %; Neutrophils # (auto) 5.04 K/uL (1.40-6.50); Nucleated RBC # (auto) 0.03 K/uL (0.00-0.12); Nucleated RBC % (auto) 0.4 %; Platelet Count 312 K/uL (130-400); RDW Coefficient of Variation 19.7 % (11.5-14.5); RDW Standard Deviation 64.9 fL (36.4-46.3); Red Blood Count 4.76 M/uL (4.70-6.10); White Blood Count 7.63 K/ul (4.8-10.8)
[2023-12-21 07:06] LABS: Albumin Globulin Ratio 1.1 (0.9-2); Albumin Level 3.1 gm/dl (3.4-5.0); BUN Creatinine Ratio 9.5 (10-20); Bilirubin,Total 0.3 mg/dl (0.2-1.0); Calcium 7.7 mg/dl (8.6-10.3); Creatinine Clr Calc Pharmacy 41.2 ml/min; Est GFR (African American) 27.7 ml/min; Est GFR (Non-African American) 23.9 ml/min; Globulin 2.8 gm/dl (2.5-4.0); Potassium 4.1 mmol/L (3.5-5.1); Total Protein 5.9 gm/dl (6.0-8.3)
[2023-12-21 07:17] LABS: Prothrombin Time 10.8 Seconds (9.0-12.0)
--- NOTE | 2023-12-21 07:18 | XRay Report ---
XR foot RT 2V CLINICAL HISTORY: Right foot wound. COMPARISON: None FINDINGS: Alignment of the right foot is anatomic. There is no acute fracture. No bony erosion is id entified. There are no osseous lesions. Dorsal foot soft tissue swelling is present. There are no rad iopaque foreign bodies. IMPRESSION: 1. No fractures or evidence for acute osteomyelitis within the right foot. 2. Right foot soft tissue swelling. ACT 112: Negative or not required by law. Electronically signed by: Louis Donaldson M.D. 12/21/2023 7:16 AM
[2023-12-21 07:36] LABS: Adenovirus PCR Not Detected (NotDetected); Bordetella parapertussis PCR Not Detected (NotDetected); Bordetella pertussis PCR Not Detected (NotDetected); Chlamydia pneumoniae PCR Not Detected (NotDetected); Coronavirus 229E PCR Not Detected (NotDetected); Coronavirus CoV-2 (COVID19)PCR Not Detected (NotDetected); Coronavirus HKU1 PCR Not Detected (NotDetected); Coronavirus NL63 PCR Not Detected (NotDetected); Coronavirus OC43PCR Not Detected (NotDetected); Human Metapneumovirus PCR Not Detected (NotDetected); Influenza A PCR Not Detected (NotDetected); Influenza B PCR Not Detected (NotDetected); Mycoplasma pneumoniae PCR Not Detected (NotDetected); Parainfluenza Virus 1 PCR Not Detected (NotDetected); Parainfluenza Virus 2 PCR Not Detected (NotDetected); Parainfluenza Virus 3 PCR Not Detected (NotDetected); Parainfluenza Virus 4 PCR Not Detected (NotDetected); Respiratory Syncytial VirusPCR Not Detected (NotDetected); Rhinovirus/Enterovirus PCR Not Detected (NotDetected)
[2023-12-21] MEDS: INSULIN ASPART PER UNIT CHARGE SC SCH (09:46)
[2023-12-21] MEDS: CARBOHYDRATES FOR HYPOGLYCEMIA PO PRN (09:49)
[2023-12-21] MEDS: METOPROLOL SUCC 50MG EXT REL TAB PO SCH ×2 (09:54→20:24)
[2023-12-21] MEDS: amLODIPine BESYLATE 5 MG TAB PO SCH (09:54)
[2023-12-21] MEDS: EMPAGLIFLOZIN 25 MG TAB PO SCH (09:55)
[2023-12-21] MEDS: CALCITRIOL 0.25 MCG CAPSULE PO SCH (09:55)
[2023-12-21] MEDS: BUMETANIDE 2 MG in SYRINGE 0 ML IV SCH (09:56)
--- NOTE | 2023-12-21 09:57 | Electrocardiogram Report ---
Test Reason : Blood Pressure : */* mmHG Vent. Rate : 90 BPM Atrial Rate : 90 BPM P-R Int : 170 ms QRS Dur : 88 ms QT Int : 366 ms P-R-T Axes : 30 -14 86 degrees QTcB Int : 447 ms Normal sinus rhythm Cannot rule out Inferior infarct , age undetermined Anteroseptal infarct (cited on or before 17-Apr-2023) Abnormal ECG When compared with ECG of 05-May-2023 02:11, Minimal criteria for Inferior infarct are now Present Confirmed by Naga Bradford ([id number]) on 12/21/2023 9:56:50 AM Referred By: REFERRED SELF Confirmed By: Naga Bradford
[2023-12-21 10:46] LABS: Estimated Average Glucose 197 mg/dl; Hemoglobin A1C 8.5 % (4.5-5.6)
--- NOTE | 2023-12-21 11:01 | Hospitalist Progress Note ---
Date of Service December 21, 2023 Assessment & Plan (1) Edema: Plan: History of nephrotic syndrome. Noncompliance with home medications. He is now on intravenous Bumex. Admission chest x-ray negative for CHF. Monitor intake and output (2) Hypoxia: Plan: Acute respiratory failure with hypoxia present on admission. Ventilation/perfusion scan pending to rule out underlying pulmonary embolism. D-dimer is elevated. Venous Doppler evaluation of both legs negative for DVT on admission. (3) Hypoglycemia associated with type 2 diabetes mellitus: Plan: Intravenous dextrose administered this morning, December 20. Will follow (4) Hypothyroidism: Plan: Stable. Continue current levothyroxine replacement therapy (5) Tobacco abuse: Plan: Smoking cessation recommended Plan Hopefully home within the next day or 2 Admission and Anticipated Discharge Date Admission Date: December 20, 2023 Subjective Alert and oriented. No distress. Case discussed with nephrology, Dr. Toro. Intravenous glucose administered for hypoglycemia this morning, December 20. He is noncompliant with his home medications. Recent cardiac echo within the past year revealed normal ejection fraction with moderate LVH. D-dimer is elevated and venous Doppler scans are negative for DVT. However, he is requiring low- flow oxygen and ventilation/perfusion scan is ordered and pending. Right foot x-ray is negative for fracture or underlying osteomyelitis. Chest x-ray on admission negative for CHF. Review of Systems 2 Review of Systems: Constitutional-no fever or chills ENT-no blurred vision, no double vision, no epistaxis, no sore throat Respiratory-no cough, no wheezing. Dyspnea on exertion Cardiac-no palpitations, no chest pain, no syncope GI-no nausea, vomiting, diarrhea, melena, hematochezia -no urinary retention, no urinary incontinence, no dysuria, no hematuria Musculoskeletal-no joint pain, no muscle tenderness Skin-no bruising, no rashes, no pruritus Neuro-no isolated weakness, no paresthesia, no weakness Psych-no depression, no anxiety Physical Exam 2 Physical Exam: General-alert and oriented x3, no fever, no chills HEENT-head atraumatic and normocephalic, pupils equal and reactive to light, extraocular muscles intact Neck-no lymphadenopathy or thyromegaly, trachea midline Chest-diminished breath sounds bilaterally. No inspiratory rales, wheezing, rhonchi Cardiacregular rate and rhythm, normal S1 and S2 Abdomen-normal bowel sounds, no hepatosplenomegaly [place]-3-3+ pitting edema bilateral lower extremities below the knees Neuro-cranial nerves II through XII intact, motor and sensory function within normal limits, strength symmetrical, no focal deficits Psych-flat affect Results & Data Results & Data Vital Signs (Past 12 Hours) Vital Signs Temp Pulse Resp BP Pulse Ox O2 Del Method O2 Flow Rate 12/21/23 08:53 36.4 C L 83 20 138/74 94 Nasal Cannula 3 12/21/23 08:00 Nasal Cannula 3 12/21/23 03:48 36.9 C 86 20 153/88 H 95 Nasal Cannula 3 12/21/23 00:56 88 147/75 H 12/20/23 23:22 Nasal Cannula 3 12/20/23 23:08 36.8 C 86 22 171/102 H 97 Nasal Cannula 3 Laboratory Results 12/21/23 06:18 12/21/23 06:18 PG Care Time/CCT Total # of Minutes Spent Total Time Spent with Patient: Total time spent is greater than 50% in coordination of care (as documented) at patient's floor/unit and/or counseling patient: Coding Level of Care Code 85711 SUB INP/OBS CARE 3/50MIN Diagnoses Edema R60.9 Hypoxia R09.02 Hypoglycemia associated with type 2 diabetes mellitus E11.649 Hypothyroidism E03.9 Tobacco abuse Z72.0
--- NOTE | 2023-12-21 13:08 | Nuclear Medicine Report ---
NUCLEAR PULMONARY PERFUSION SCAN CLINICAL HISTORY: Elevated d-dimer. Hypoxia. COMPARISON STUDY: Chest x-ray dated 12/20/2023. TECHNIQUE: Nuclear pulmonary perfusion scan is performed following the IV administration of 5.0 mCi o f technetium 99m MAA. Perfusion images were acquired in the anterior, posterior, and oblique projecti ons. FINDINGS: A chest x-ray performed 12/20/2023 shows cardiomegaly with pulmonary vascular congestion. No airspace c onsolidation or large pleural effusion is identified The nuclear perfusion imaging shows no perfusion defects typical for pulmonary embolus. IMPRESSION: Perfusion imaging shows no perfusion defects typical for pulmonary embolus. If there is s [place] clinical concern for pulmonary embolus a CT angiogram of the chest should be obtained. ACT 112: Negative or not required by law. Electronically signed by: Lizandro Santacruz M.D. 12/21/2023 1:07 PM
--- NOTE | 2023-12-21 14:29 | Nephrology Consultation ---
Date of Consultation December 21, 2023 Assessment & Plan (1) Acute kidney injury superimposed on CKD: * Slow progressive rise in serum creatinine from 2.5 in 2022 to 3.0 currently. Patient is a poorly controlled diabetic who has been nonadherent with his prescribed medical therapy. He suffers from severe nephrotic syndrome. Suspect that the increase in serum creatinine likely represents progression of his underlying diabetic nephropathy. * Urine sediment was acellular upon admission * Will order renal ultrasound * Electrolyte balance at this time is acceptable. No acute indication for renal replacement therapy. * Agree with gentle diuresis. Patient presented 10 kg above his EDW * Monitor BMP, I&O on daily basis (2) Hypertension: * Hypertensive urgency due to medication nonadherence * Resume amlodipine, bumetanide, metoprolol (3) Uncontrolled type 2 diabetes mellitus with hyperglycemia, with long-term current use of insulin: * Continue insulin, empagliflozin (4) Nephrotic syndrome: * Likely diabetic nephropathy. 05/05 UPEP negative for monoclonal band (5) Noncompliance: * Discussed importance of regular medical follow-up and adherence with prescribed medication/laboratory testing with patient today. Briefly touched on progressive rise in serum creatinine and need for vascular access, possibly hemodialysis within the near future. Patient voiced understanding. History of Present Illness Reason for Consultation: TRINH/CKD, volume overload Attending Physician: Orion Eng MD History of Present Illness Mr. Manzo is a 43-year-old -[place] male who was seen at the request of the [facility] hospitalist service for evaluation of TRINH/CKD, volume overload. Information for the HPI is obtained from direct patient interview and review of the EMR. HPI is summarized as follows: Mr. Manzo hasCKD stage G3b (moderate impairment). Baseline creatinine has been approximately 2.5 with EGFR 38 cc/minute. CKD has been attributed to diabetic nephropathy and hypertensive nephrosclerosis. Patient's primary mainspring former is Dr. Briggs. Mr. Manzo reports worsening dyspnea over the last 1 week. He acknowledges that he has not been adherent to his prescribed medical/diuretic regimen. In addition he is maintained a liberal sodium intake and continues to actively smoke cigarettes. He presented to the emergency department 10 kg above his normal weight. Chest x-ray revealed stable cardiomegaly. No overt CHF. Systolic blood pressure was 220 mmHg. He was admitted to the hospital for oxygen support and IV diuretic therapy. Prior outpatient evaluation by Dr. Andres reveals that the patient has severe nephrotic syndrome. Lower extremity duplex was negative for DVT. VQ scan was negative for PE Allergies Allergy/AdvReac Type Severity Reaction Status Date / Time No Known Allergies Allergy Verified 08/02/23 08:34 Home Medications Medication Instructions Recorded Confirmed Type albuterol sulfate 90 mcg/actuation 2 puff inhalation Q6H PRN 01/03/23 12/20/23 History aerosol inhaler Shortness Of Breath Or Wheezing empagliflozin 25 mg tablet 25 mg PO DAILY #30 tabs 05/17/23 12/20/23 Rx (Jardiance) prazosin 1 mg capsule 1 mg PO BID 30 days #60 caps 06/05/23 12/20/23 Rx insulin lispro 100 unit/mL 30 unit subcut DAILY 06/15/23 12/20/23 History subcutaneous pen (Humalog KwikPen (U-100) Insulin) dulaglutide 0.75 mg/0.5 mL 0.75 mg (0.5 mL) subcut Q7D #2 mL 06/18/23 12/20/23 Rx subcutaneous pen injector (Trulicity) blood-glucose meter (Accu-Chek #1 ea 07/13/23 Rx Guide Glucose Meter) flash glucose sensor (FreeStyle #6 ea 07/13/23 Rx Tootie 2 Sensor kit) insulin glargine 100 unit/mL (3 25 unit (0.25 mL) subcut DAILY #15 07/13/23 12/20/23 Rx mL) subcutaneous pen (Lantus mL Solostar U-100 Insulin) lancets (Accu-Chek Softclix #100 ea 07/13/23 Rx Lancets) bumetanide 2 mg tablet 2 mg PO BID 30 days #60 tabs 10/17/23 12/20/23 Rx calcitriol 0.25 mcg capsule 0.25 mcg PO DAILY #30 caps 10/17/23 12/20/23 Rx atorvastatin 80 mg tablet 40 mg (1/2 x 80 mg) PO BID #30 tabs 10/18/23 12/20/23 Rx levothyroxine 150 mcg tablet 150 mcg PO .COMPLEX #30 tabs 10/18/23 12/20/23 Rx blood sugar diagnostic (Accu-Chek #100 ea 11/01/23 11/01/23 Rx Guide test strips) amlodipine 10 mg tablet 10 mg PO QAM 12/20/23 12/20/23 History fenofibrate 160 mg tablet 160 mg PO QAM 12/20/23 12/20/23 History fluticasone propionate 115 2 puff inhalation BID 12/20/23 12/20/23 History mcg-salmeterol 21 mcg/actuation HFA inhaler metoprolol succinate 100 mg 100 mg PO QAM 12/20/23 12/20/23 History tablet,extended release 24 hr metoprolol succinate 50 mg 50 mg PO HS 12/20/23 12/20/23 History tablet,extended release 24 hr Patient History Medical History Influenza A Family History Mother Diabetes Heart disease Dyslipidemia Social History Smoking Status: Current every day smoker Tobacco Type: Cigarettes Cigarettes Per Day: 1 pack; Second Hand Exposure: Yes; Do You Dip or Chew Tobacco: No; Tobacco Cessation Education Requested by Patient: No Hx Alcohol Use: Yes Alcohol type: hard liquor Alcohol Intake Frequency: Monthly or Less Hx Substance Use: Yes Prescribed Medications: Marijuana Last Used Substance: Unknown Substance Use Type Other:: medical prescribed Preferred Language: Kazakh Communication Ability: Effective Swatch Cutter Required: No Beliefs That Will Affect Care: None marital status: Current Living Situation: Spouse current occupational status: employed How many Children do You have: 5 Feels Safe at Home: Yes Safety Concerns: Feels Safe At This Time Assistive Devices: None Review of Systems Constitutional: no fever Eyes: no problem reported Ear, Nose, Mouth, Throat: no problem reported Respiratory: + dyspnea; no cough and no hemoptysis Cardiovascular: no chest pain Gastrointestinal: no abdominal pain, no nausea, no vomiting and no diarrhea/loose stools Physical Exam Constitutional: + obese and + disheveled; not in distres s Eyes: PERRL, conjunctivae normal, anicteric sclerae ENMT: external ear and nose normal, oropharynx normal Neck: trachea midline, no thyromegaly Respiratory: Auscultation: + rales Cardiovascular: Rate/Rhythm: regular rate and regular rhythm Extremities: + edema (3+ pretibial pitting edema) Gastrointestinal (Abdomen): Inspection/Auscultation: + abdomen distended and + hypoactive bowel sounds Neurologic: Speech / Cognition: normal speech and normal cognition Psychiatric: Affect: euthymic affect Results & Data Vital Signs (Past 12 Hours) Vital Signs Temp Pulse Resp BP Pulse Ox O2 Del Method O2 Flow Rate 12/21/23 11:31 36.7 C 84 20 158/76 H 95 Nasal Cannula 3 12/21/23 08:53 36.4 C L 83 20 138/74 94 Nasal Cannula 3 12/21/23 08:00 Nasal Cannula 3 12/21/23 03:48 36.9 C 86 20 153/88 H 95 Nasal Cannula 3 Laboratory Results Laboratory Results WBC 7.63 K/ul (4.8-10.8) 12/21/23 06:18 RBC 4.76 M/uL (4.70-6.10) 12/21/23 06:18 Hgb 12.5 g/dl (14.0-18.0) L 12/21/23 06:18 Hct 43.8 % (42.0-52.0) 12/21/23 06:18 MCV 92.0 fL (80.0-100.0) 12/21/23 06:18 MCH 26.3 pg (25.0-34.0) 12/21/23 06:18 MCHC 28.5 g/dL (32.0-36.0) L 12/21/23 06:18 RDW Std Deviation 64.9 fL (36.4-46.3) H 12/21/23 06:18 RDW Coeff of Domi 19.7 % (11.5-14.5) H 12/21/23 06:18 Plt Count 312 K/uL (130-400) 12/21/23 06:18 MPV 9.2 fL (9.4-12.4) L 12/21/23 06:18 Immature Gran % (Auto) 0.4 % 12/21/23 06:18 Neut % (Auto) 66.0 % 12/21/23 06:18 Lymph % (Auto) 20.6 % 12/21/23 06:18 Lewis % (Auto) 9.2 % 12/21/23 06:18 Eos % (Auto) 2.8 % 12/21/23 06:18 Baso % (Auto) 1.0 % 12/21/23 06:18 Neut # (Auto) 5.04 K/uL (1.40-6.50) 12/21/23 06:18 Lymph # (Auto) 1.57 K/uL (1.20-3.40) 12/21/23 06:18 Lewis # (Auto) 0.70 K/uL (0.11-0.59) H 12/21/23 06:18 Eos # (Auto) 0.21 K/uL (0.00-0.50) 12/21/23 06:18 Baso # (Auto) 0.08 K/uL (0.00-0.20) 12/21/23 06:18 Immature Gran # (Auto) 0.03 K/uL (0.01-0.20) 12/21/23 06:18 Absolute Nucleated RBC 0.03 K/uL (0.00-0.12) 12/21/23 06:18 Nucleated RBC % (auto) 0.4 % 12/21/23 06:18 PT 10.8 Seconds (9.0-12.0) 12/21/23 06:18 INR 1.0 (0.9-1.1) 12/21/23 06:18 D-Dimer 520 ug/L FEU (0-500) H* 12/20/23 22:58 Sodium 144 mmol/L (136-145) 12/21/23 06:18 Potassium 4.1 mmol/L (3.5-5.1) 12/21/23 06:18 Chloride 109 mmol/L (98-107) H 12/21/23 06:18 Carbon Dioxide 31 mmol/L (21-32) 12/21/23 06:18 Anion Gap 4 (3-11) 12/21/23 06:18 BUN 29 mg/dl (6-23) H 12/21/23 06:18 Creatinine 3.06 mg/dl (0.6-1.4) H 12/21/23 06:18 Est Cr Clr Drug Dosing 41.2 ml/min 12/21/23 06:18 Est GFR ( Amer) 27.7 ml/min 12/21/23 06:18 Est GFR (Non-Af Amer) 23.9 ml/min 12/21/23 06:18 BUN/Creatinine Ratio 9.5 (10-20) L 12/21/23 06:18 Glucose 64 mg/dl (70-99(Fasting)) L 12/21/23 06:18 POC Glucose 163 mg/dl (70-99) H 12/21/23 12:28 Estimat Average Glucose 197 mg/dl 12/21/23 06:18 Hemoglobin A1c 8.5 % (4.5-5.6) H 12/21/23 06:18 Calcium 7.7 mg/dl (8.6-10.3) L 12/21/23 06:18 Phosphorus 4.1 mg/dl (2.5-4.9) 12/20/23 17:25 Magnesium 2.0 mg/dl (1.7-2.4) 12/21/23 06:18 Total Bilirubin 0.3 mg/dl (0.2-1.0) 12/21/23 06:18 AST 13 U/L (13-39) 12/21/23 06:18 ALT 10 U/L (7-52) 12/21/23 06:18 Alkaline Phosphatase 35 U/L (34-104) 12/21/23 06:18 Troponin I High Sens 19.0 pg/ml (0-20) 12/20/23 17:25 B-Natriuretic Peptide 562 pg/ml (0-100) H 12/20/23 17:25 Total Protein 5.9 gm/dl (6.0-8.3) L 12/21/23 06:18 Albumin 3.1 gm/dl (3.4-5.0) L 12/21/23 06:18 Globulin 2.8 gm/dl (2.5-4.0) 12/21/23 06:18 Albumin/Globulin Ratio 1.1 (0.9-2) 12/21/23 06:18 TSH 1.984 uIu/ml (0.300-4.500) 12/20/23 17:25 Urine Color Yellow 12/20/23 20:45 Urine Appearance Clear (Clear) 12/20/23 20:45 Urine pH 6.0 (4.5-7.5) 12/20/23 20:45 Ur Specific [place] 1.018 (1.000-1.030) 12/20/23 20:45 Urine Protein 4+ (Negative) H 12/20/23 20:45 Urine Glucose (UA) 3+ (Negative) H 12/20/23 20:45 Urine Ketones Negative (Negative) 12/20/23 20:45 Urine Blood 1+ (Negative) H 12/20/23 20:45 Urine Nitrite Negative (Negative) 12/20/23 20:45 Urine Bilirubin Negative (Negative) 12/20/23 20:45 Urine Urobilinogen Negative (Negative) 12/20/23 20:45 Ur Leukocyte Esterase Negative (Negative) 12/20/23 20:45 Urine WBC (Auto) 0-5 /hpf (0-5) 12/20/23 20:45 Urine RBC (Auto) 0-2 /hpf (0-2) 12/20/23 20:45 U Hyaline Cast (Auto) 3-5 /lpf (0-2) H 12/20/23 20:45 U Epithel Cells (Auto) 0-2 /hpf (0-2) 12/20/23 20:45 Urine Bacteria (Auto) None Seen (None Seen) 12/20/23 20:45 Ur Random Creatinine 65.9 mg/dl 12/20/23 20:45 U Random Total Protein 816.1 mg/dl (0-11.9) H 12/20/23 20:45 Protein/Creatinin Ratio 12.4 (0-0.2) H 12/20/23 20:45 Adenovirus (PCR) Not Detected (NotDetected) 12/21/23 Unknown B. pertussis DNA (PCR) Not Detected (NotDetected) 12/21/23 Unknown B.parapertussis DNA PCR Not Detected (NotDetected) 12/21/23 Unknown C. pneumoniae DNA (PCR) Not Detected (NotDetected) 12/21/23 Unknown Coronavirus OC43 (PCR) Not Detected (NotDetected) 12/21/23 Unknown Coronavirus HKU1 (PCR) Not Detected (NotDetected) 12/21/23 Unknown Coronavirus 229E (PCR) Not Detected (NotDetected) 12/21/23 Unknown SARS-CoV-2 (PCR) Not Detected (NotDetected) 12/21/23 Unknown Coronavirus NL63 (PCR) Not Detected (NotDetected) 12/21/23 Unknown Human Metapneumovir PCR Not Detected (NotDetected) 12/21/23 Unknown Influenza Type A (PCR) Not Detected (NotDetected) 12/21/23 Unknown Influenza Type B (PCR) Not Detected (NotDetected) 12/21/23 Unknown M. pneumoniae (PCR) Not Detected (NotDetected) 12/21/23 Unknown Parainfluenza 1 (PCR) Not Detected (NotDetected) 12/21/23 Unknown Parainfluenza 2 (PCR) Not Detected (NotDetected) 12/21/23 Unknown Parainfluenza 3 (PCR) Not Detected (NotDetected) 12/21/23 Unknown Parainfluenza 4 (PCR) Not Detected (NotDetected) 12/21/23 Unknown RSV (PCR) Not Detected (NotDetected) 12/21/23 Unknown Entero/Rhino (PCR) Not Detected (NotDetected) 12/21/23 Unknown Impressions Chest X-Ray 12/20/23 17:18 XR chest 1V portable CLINICAL HISTORY: Shortness of breath. Chest pain. COMPARISON STUDY: Chest CT April 18, 2023. Chest radiograph May 05, 2023. FINDINGS: Lung volumes are normal. Lungs are clear. There is no pneumothorax or pleural effusion. Cardiomegaly is unchanged. Mediastinal contours are stable. There is no evidence for pulmonary edema. IMPRESSION: No acute cardiopulmonary findings. No change in appearance of the chest. Stable cardiomegaly. ACT 112: Negative or not required by law. Electronically signed by: Louis Donaldson M.D. 12/20/2023 5:53 PM Foot X-Ray 12/20/23 21:04 XR foot RT 2V CLINICAL HISTORY: Right foot wound. COMPARISON: None FINDINGS: Alignment of the right foot is anatomic. There is no acute fracture. No bony erosion is identified. There are no osseous lesions. Dorsal foot soft tissue swelling is present. There are no radiopaque foreign bodies. IMPRESSION: 1. No fractures or evidence for acute osteomyelitis within the right foot. 2. Right foot soft tissue swelling. ACT 112: Negative or not required by law. Electronically signed by: Louis Donaldson M.D. 12/21/2023 7:16 AM Venous Doppler Study 12/20/23 21:08 Exam(s): US VENOUS BILATERAL LOWER EXTREMITIES EXAM: US Duplex Bilateral Lower Extremities Veins CLINICAL HISTORY: Reason for exam: hypoxia. TECHNIQUE: Real-time duplex ultrasound scan of the bilateral lower extremity veins integrating B-mode two-dimensional vascular structure, Doppler spectral analysis, color flow Doppler imaging and compression. COMPARISON: No relevant prior studies available. FINDINGS: Right deep veins: Unremarkable. No DVT in the right common femoral, femoral, proximal deep femoral or popliteal veins. The veins demonstrate normal color flow, are normally compressible, with normal phasic flow and/or augmentation response. Right superficial veins: Unremarkable. No thrombus in the visualized right great saphenous vein. Left deep veins: Unremarkable. No DVT in the left common femoral, femoral, proximal deep femoral or popliteal veins. The veins demonstrate normal color flow, are normally compressible, with normal phasic flow and/or augmentation response. Left superficial veins: Unremarkable. No thrombus in the visualized left great saphenous vein. Soft tissues: No acute findings. No popliteal cyst. IMPRESSION: Normal bilateral lower extremity duplex venous ultrasound. Electronically signed by: Benny Joel MD 12/21/23 03:11 AM Pulmonary Perfusion Imaging 12/21/23 12:00 NUCLEAR PULMONARY PERFUSION SCAN CLINICAL HISTORY: Elevated d-dimer. Hypoxia. COMPARISON STUDY: Chest x-ray dated 12/20/2023. TECHNIQUE: Nuclear pulmonary perfusion scan is performed following the IV administration of 5.0 mCi of technetium 99m MAA. Perfusion images were acquired in the anterior, posterior, and oblique projections. FINDINGS: A chest x-ray performed 12/20/2023 shows cardiomegaly with pulmonary vascular congestion. No airspace consolidation or large pleural effusion is identified The nuclear perfusion imaging shows no perfusion defects typical for pulmonary embolus. IMPRESSION: Perfusion imaging shows no perfusion defects typical for pulmonary embolus. If there is strong clinical concern for pulmonary embolus a CT angiogram of the chest should be obtained. ACT 112: Negative or not required by law. Electronically signed by: Lizandro Santacruz M.D. 12/21/2023 1:07 PM PG Care Time/CCT Total # of Minutes Spent Total Time Spent with Patient: Total time spent is greater than 50% in coordination of care (as documented) at patient's floor/unit and/or counseling patient: Coding Level of Care Code 21801 IN/OBS CONSULT LVL 5,80M Diagnoses Acute kidney injury superimposed on CKD N17.9; N18.9 Hypertension, unspecified type I10 Hypertension type: unspecified Uncontrolled type 2 diabetes mellitus with hyperglycemia, with long-term current use of insulin E11.65; Z79.4 Nephrotic syndrome N04.9 Noncompliance Z91.199 (2) Hypertension Hypertension type: unspecified Qualified Code(s): I10 - Essential (primary) hypertension
--- NOTE | 2023-12-21 15:39 | Podiatry Consultation ---
Date of Consultation December 21, 2023 Assessment & Plan (1) Uncontrolled type 2 diabetes mellitus with hyperglycemia, with long-term current use of insulin: (2) Callus under metatarsal head: (3) Loss of protective sensation of skin of foot: (4) Diabetic peripheral neuropathy associated with type 2 diabetes mellitus: (5) Chronic ulcer of right foot limited to breakdown of skin: Plan patient was examined and evaluated. This wound does appear clinically stable and he has been receiving care for it. He should continue to do so but would benefit from being more compliant with his wound care treatment. We would be happy to see him outpatient for continued treatment of this wound as well as his nails and calluses overall. We do have an office in [place] and he has been referred to us in the past but has never sought treatment despite our attempts at communicating with him. We will again attempt further treatment moving forward. From a foot and ankle standpoint, no surgical intervention is planned and he can likely be discharged when he is stable medically. Thank you for the consult, we are happy to help whenever we can. History of Present Illness Reason for Consultation: Right foot ulceration Attending Physician: Orion Eng MD History of Present Illness patient seen at bedside. He is a poor historian. He states that he has developed an ulceration underneath the great toe joint of the right foot though he states it is healing well and he denies any concerns to it. He was hospitalized this time for mismanagement of his medications and medical concerns overall. He states that he has been seeing the [facility] wound care center for treatment of this wound and has been meeting to see podiatry though denies seeing any specific foot and ankle physician. In fact, I asked him who he is seen in the past for his feet and he stated he saw our office in [place]. We have never seen him as a patient. He denies any signs or symptoms of infection. He also denies any worsening complaints to the feet. He is unsure of his current medications and unsure of his current wound care treatment regimen. Further, he is unsure of his blood sugar control. Allergies Allergy/AdvReac Type Severity Reaction Status Date / Time No Known Allergies Allergy Verified 08/02/23 08:34 Home Medications Medication Instructions Recorded Confirmed Type albuterol sulfate 90 mcg/actuation 2 puff inhalation Q6H PRN 01/03/23 12/20/23 History aerosol inhaler Shortness Of Breath Or Wheezing empagliflozin 25 mg tablet 25 mg PO DAILY #30 tabs 05/17/23 12/20/23 Rx (Jardiance) prazosin 1 mg capsule 1 mg PO BID 30 days #60 caps 06/05/23 12/20/23 Rx insulin lispro 100 unit/mL 30 unit subcut DAILY 06/15/23 12/20/23 History subcutaneous pen (Humalog KwikPen (U-100) Insulin) dulaglutide 0.75 mg/0.5 mL 0.75 mg (0.5 mL) subcut Q7D #2 mL 06/18/23 12/20/23 Rx subcutaneous pen injector (Trulicity) blood-glucose meter (Accu-Chek #1 ea 07/13/23 Rx Guide Glucose Meter) flash glucose sensor (FreeStyle #6 ea 07/13/23 Rx Tootie 2 Sensor kit) insulin glargine 100 unit/mL (3 25 unit (0.25 mL) subcut DAILY #15 07/13/23 12/20/23 Rx mL) subcutaneous pen (Lantus mL Solostar U-100 Insulin) lancets (Accu-Chek Softclix #100 ea 07/13/23 Rx Lancets) bumetanide 2 mg tablet 2 mg PO BID 30 days #60 tabs 10/17/23 12/20/23 Rx calcitriol 0.25 mcg capsule 0.25 mcg PO DAILY #30 caps 10/17/23 12/20/23 Rx atorvastatin 80 mg tablet 40 mg (1/2 x 80 mg) PO BID #30 tabs 10/18/23 12/20/23 Rx levothyroxine 150 mcg tablet 150 mcg PO .COMPLEX #30 tabs 10/18/23 12/20/23 Rx blood sugar diagnostic (Accu-Chek #100 ea 11/01/23 11/01/23 Rx Guide test strips) amlodipine 10 mg tablet 10 mg PO QAM 12/20/23 12/20/23 History fenofibrate 160 mg tablet 160 mg PO QAM 12/20/23 12/20/23 History fluticasone propionate 115 2 puff inhalation BID 12/20/23 12/20/23 History mcg-salmeterol 21 mcg/actuation HFA inhaler metoprolol succinate 100 mg 100 mg PO QAM 12/20/23 12/20/23 History tablet,extended release 24 hr metoprolol succinate 50 mg 50 mg PO HS 12/20/23 12/20/23 History tablet,extended release 24 hr Patient History Medical History Influenza A Family History Mother Diabetes Heart disease Dyslipidemia Social History Smoking Status: Current every day smoker Tobacco Type: Cigarettes Cigarettes Per Day: 1 pack; Second Hand Exposure: Yes; Do You Dip or Chew Tobacco: No; Tobacco Cessation Education Requested by Patient: No Hx Alcohol Use: Yes Alcohol type: hard liquor Alcohol Intake Frequency: Monthly or Less Hx Substance Use: Yes Prescribed Medications: Marijuana Last Used Substance: Unknown Substance Use Type Other:: medical prescribed Preferred Language: Turkmen Communication Ability: Effective 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 Beliefs That Will Affect Care: None marital status: Current Living Situation: Spouse current occupational status: employed How many Children do You have: 5 Feels Safe at Home: Yes Safety Concerns: Feels Safe At This Time Assistive Devices: None Review of Systems Review of Systems: All systems reviewed & are unremarkable except as noted in HPI & below Constitutional: no fever, no chills and no fatigue Eyes: no problem reported Ear, Nose, Mouth, Throat: no problem reported Respiratory: no problem reported Cardiovascular: + edema; no problem reported Gastrointestinal: no nausea, no vomiting and no problem reported Musculoskeletal: no problem reported Integumentary: + skin ulcer, + wounds and + erythema Neurologic: + loss of sensation, + numbness and + pa resthesia; no generalized weakness Psychiatric: no problem reported Physical Exam Physical Exam: lower extremity focused exam: DP/PT pulses 2/4 bilaterally. CFT is brisk to the digits. Small 0.8 cm well circumscribed ulceration is noted sub-first metatarsal head. The wound bed is 100% granular though there is some surrounding hyperkeratotic skin. No deep pprobing of the wound is noted. No evidence of local infection or abscess formation. No pain on palpation or exam of the foot. No light touch sensation is appreciated. Nails 1 through 5 bilaterally are extremely dystrophic, thickened, and elongated. No other ulcerations are noted. Hyperkeratotic skin lesion is noted sub-left first metatarsal phalangeal joint, though no underlying ulcer is present. Constitutional: WD/WN, vitals as above + ill appearing and + morbidly obese Eyes: PERRL, conjunctivae normal, anicteric sclerae ENMT: external ear and nose normal, oropharynx normal Neck: trachea midline, no thyromegaly normal visual inspection Respiratory: normal respiratory effort; no respiratory distress Cardiovascular: Rate/Rhythm: regular rate and regular rhythm Vessels: posterior tibial pulses present and dorsalis pedis pulses present Chest (Breasts): Chest: normal inspection of chest Gastrointestinal (Abdomen): Inspection/Auscultation: abdomen normal to inspe ction Percussion/Palpation: + abdomen tender and abdomen soft Musculoskeletal: no cyanosis or clubbing, extremities motor strength 5/5 Head/Neck/Chest: normocephalic and head atraumatic Extremities: extremities normal to inspection Neurologic: awake; no focal motor deficits Psychiatric: Orientation: alert, oriented to person and cooperative Affect: euthymic affect Cognition: language grossly intact Insight: + limited insight Judgment: + limited judgement Results & Data Vital Signs (Past 12 Hours) Vital Signs Temp Pulse Resp BP Pulse Ox O2 Del Method O2 Flow Rate 12/21/23 11:31 36.7 C 84 20 158/76 H 95 Nasal Cannula 3 12/21/23 08:53 36.4 C L 83 20 138/74 94 Nasal Cannula 3 12/21/23 08:00 Nasal Cannula 3 12/21/23 03:48 36.9 C 86 20 153/88 H 95 Nasal Cannula 3 Diagnostic Findings radiograph reviewed and suggest no underlying osseous changes. No arthritic changes noted. No evidence of infection appreciated.
--- NOTE | 2023-12-21 16:08 | Ultrasound Report ---
US renal/blad retro comp CLINICAL HISTORY: TRINH TECHNIQUE: Multiple sonographic real-time images of the kidneys and bladder were obtained. COMPARISON: None available at the time of this dictation. FINDINGS: Exam is highly limited by patient body habitus. The right kidney measures 10.7 cm. Left kidney is not well seen. The bladder wall appears trabeculated. Ureteral jets are not seen at this time. IMPRESSION: Highly limited exam due to patient body habitus. No hydronephrosis is seen in the right kidney. Bladd er wall is trabeculated possibly due to chronic outlet obstruction. ACT 112: Negative or not required by law. Electronically signed by: Hugo Higuera M.D. 12/21/2023 4:07 PM
[2023-12-22 07:51] LABS: Prothrombin Time 10.7 Seconds (9.0-12.0)
[2023-12-22 08:16] LABS: BUN Creatinine Ratio 9.9 (10-20); Creatinine Clr Calc Pharmacy 35.3 ml/min; Est GFR (African American) 23.2 ml/min; Magnesium 2.1 mg/dl (1.7-2.4); Potassium 4.8 mmol/L (3.5-5.1)
--- NOTE | 2023-12-22 11:23 | Hospitalist Progress Note ---
Date of Service December 22, 2023 Assessment & Plan (1) Edema: Plan: History of nephrotic syndrome. Noncompliance with home medications. He is now on intravenous Bumex. Admission chest x-ray negative for CHF. Monitor intake and output (2) Hypoxia: Plan: Acute respiratory failure with hypoxia present on admission. Ventilation/perfusion scan pending to rule out underlying pulmonary embolism. D-dimer is elevated. Venous Doppler evaluation of both legs negative for DVT on admission. Evaluate for home O2 prior to discharge Continue IV Bumex, check weight (3) Hypoglycemia associated with type 2 diabetes mellitus: Plan: resolved, monitor (4) Hypothyroidism: Plan: Stable. Continue current levothyroxine replacement therapy (5) Tobacco abuse: Plan: Smoking cessation recommended Plan Sleep apnea CPAP QHS Admission and Anticipated Discharge Date Admission Date: December 20, 2023 Subjective no SOB at rest, c/o diarrhea for few days, poor historian, no chest pain Physical Exam Constitutional: WD/WN, vitals as above + morbidly obese Eyes: PERRL, conjunctivae normal, anicteric sclerae ENMT: external ear and nose normal, oropharynx normal Neck: trachea midline, no thyromegaly normal visual inspection Respiratory: normal respiratory effort; no respiratory distress Cardiovascular: Rate/Rhythm: regular rate and regular rhythm Vessels: posterior tibial pulses present and dorsalis pedis pulses present Chest (Breasts): Chest: normal inspection of chest Gastrointestinal (Abdomen): Inspection/Auscultation: abdomen normal to inspection Percussion/Palpation: + abdomen tender and abdomen soft Musculoskeletal: no cyanosis or clubbing, extremities motor strength 5/5 Head/Neck/Chest: normocephalic and head atraumatic Extremities: extremities normal to inspection Neurologic: awake; no focal motor deficits Psychiatric: Orientation: alert, oriented to person and cooperative Affect: euthymic affect Cognition: language grossly intact Insight: + limited insight Judgment: + limited judgement Results & Data Results & Data Vital Signs (Past 12 Hours) Vital Signs Reviewed Temp Pulse Resp BP Pulse Ox O2 Del Method O2 Flow Rate 12/22/23 07:59 37.1 C 79 20 150/88 H 91 Nasal Cannula 3 12/22/23 03:58 36.8 C 78 20 149/88 H 91 Nasal Cannula 3 Coding Level of Care Code 79024 SUB INP/OBS CARE 2/35MIN Diagnoses Edema R60.9 Hypoxia R09.02 Hypoglycemia associated with type 2 diabetes mellitus E11.649 Hypothyroidism E03.9 Tobacco abuse Z72.0
--- NOTE | 2023-12-22 11:52 | Nephrology Progress Note ---
Date of Service December 22, 2023 Assessment & Plan (1) Acute kidney injury superimposed on CKD: (2) Edema: (3) Noncompliance: (4) Uncontrolled type 2 diabetes mellitus with hyperglycemia, with long-term current use of insulin: (5) Stage 3b chronic kidney disease: (6) Nephrotic syndrome: (7) Hypertension: Plan 43-year-old gentleman with stage IIIb/IV CKD, baseline creatinine lately around 3.0 with nephrotic syndrome in the setting of poorly controlled hypertension, diabetes and medical noncompliance. Presented to the hospital with more than 10 pounds weight gain and feeling bloated, blood pressure was significantly elevated with systolic above 200. Has been noncompliant with antihypertensive medications as according to him he recently moved and has been having difficulty managing his wellbeing because of depression. Blood pressure significantly improved with improvement in volume status. Lab was notable for slight worsening of kidney function which could be hemodynamically mediated with better blood pressure as well as getting back to the diuretics. -- Continue current antihypertensive medications including diuretics, continue to monitor kidney function and electrolyte. Has high risk for progressive worsening of kidney function and needing dialysis in future. -- Recommend psychiatry consultation so the patient can have establish care ongoing for depression which may lead to better compliance with his medical care. Admission and Anticipated Discharge Date Admission Date: December 20, 2023 Kwame Will was seen and evaluated this morning. He reports feeling slightly better, volume status slightly improved, weight down by 8 pounds. Blood pressure improved, this morning blood pressure is 124/78. Reports decent urine output. Kidney function slightly worsened, creatinine 3.5. Overall he reports feeling poorly mainly because of his depression and he feels like that is what making it difficult for him to take care of himself and he would like to get appointment with a therapist although as an outpatient that seem to be a challenge and there is long wait time. Review of Systems Review of Systems: All systems reviewed & are unremarkable except as noted in Subjective Physical Exam Constitutional: WD/WN, vitals as above + obese; no acute distress Respiratory: Auscultation: lungs clear to auscultation bilaterally; no crackles and no rales Cardiovascular: Rate/Rhythm: regular rate and regular rhythm Heart Sounds: normal S1 and normal S2 Extremities: + edema Skin: no rashes, warm and dry Neurologic: no focal motor deficits and not confused Psychiatric: Orientation: alert and oriented x 3 Results & Data Vital Signs (Past 12 Hours) Vital Signs Temp Pulse Resp BP Pulse Ox O2 Del Method O2 Flow Rate 12/22/23 11:25 36.9 C 75 20 124/78 94 Nasal Cannula 3 12/22/23 07:59 37.1 C 79 20 150/88 H 91 Nasal Cannula 3 12/22/23 07:00 Nasal Cannula 3 12/22/23 03:58 36.8 C 78 20 149/88 H 91 Nasal Cannula 3 PG Care Time/CCT Total # of Minutes Spent Total Time Spent with Patient: Total time spent is greater than 50% in coordination of care (as documented) at patient's floor/unit and/or counseling patient: Coding Level of Care Code 90142 SUB INP/OBS CARE 2/35MIN Diagnoses Acute kidney injury superimposed on CKD N17.9; N18.9 Edema R60.9 Noncompliance Z91.199 Uncontrolled type 2 diabetes mellitus with hyperglycemia, with long-term current use of insulin E11.65; Z79.4 Stage 3b chronic kidney disease N18.32 Nephrotic syndrome N04.9 Hypertension, unspecified type I10 Hypertension type: unspecified (7) Hypertension Hypertension type: unspecified Qualified Code(s): I10 - Essential (primary) hypertension
[2023-12-23 08:11] LABS: BUN Creatinine Ratio 11.8 (10-20); Calcium 7.9 mg/dl (8.6-10.3); Creatinine Clr Calc Pharmacy 36.8 ml/min; Est GFR (African American) 24.5 ml/min; Est GFR (Non-African American) 21.1 ml/min; Magnesium 2.1 mg/dl (1.7-2.4); Potassium 4.7 mmol/L (3.5-5.1)
[2023-12-23 08:16] LABS: Prothrombin Time 10.6 Seconds (9.0-12.0)
[2023-12-23] MEDS: hydrALAZINE TAB 50 MG TAB PO SCH (10:26)
--- NOTE | 2023-12-23 12:44 | Nephrology Progress Note ---
Date of Service December 23, 2023 Assessment & Plan (1) Acute kidney injury superimposed on CKD: (2) Edema: (3) Noncompliance: (4) Uncontrolled type 2 diabetes mellitus with hyperglycemia, with long-term current use of insulin: (5) Stage 3b chronic kidney disease: (6) Nephrotic syndrome: (7) Hypertension: Plan 43-year-old gentleman with stage IIIb/IV CKD, baseline creatinine lately around 3.0 with nephrotic syndrome in the setting of poorly controlled hypertension, diabetes and medical noncompliance. Presented to the hospital with more than 10 pounds weight gain and feeling bloated, blood pressure was significantly elevated with systolic above 200. Has been noncompliant with antihypertensive medications as according to him he recently moved and has been having difficulty managing his wellbeing because of depression. Kidney function staying somewhat stable, electrolyte acceptable. Blood pressure significantly improved with improvement in volume status although remained quite variable. -- Continue current antihypertensive medications including diuretics, continue to monitor kidney function and electrolyte. Has high risk for progressive worsening of kidney function and needing dialysis in future. -- Chest pain sounds pleuritic in nature, recommend a 2D echo Admission and Anticipated Discharge Date Admission Date: December 20, 2023 Kwame Will was seen and evaluated this morning. Volume status continues to improve and weight down. Kidney function staying relatively stable with creatinine around 3.4-3.5, reports decent urine output. Reports occasional chest pain only when he takes deep breath. Review of Systems Review of Systems: Review of system was done and pertinent positives and negatives are mentioned above. Physical Exam Constitutional: WD/WN, vitals as above + obese; no acute distress Respiratory: Auscultation: lungs clear to auscultation bilaterally; no crack les and no rales Cardiovascular: Rate/Rhythm: regular rate and regular rhythm Heart Sounds: normal S1 and normal S2 Extremities: + edema Skin: no rashes, warm and dry Neurologic: no focal motor deficits and not confused Psychiatric: Orientation: alert and oriented x 3 Results & Data Vital Signs (Past 12 Hours) Vital Signs Temp Pulse Pulse Resp BP Pulse Ox O2 Del Method 12/23/23 11:50 36.7 C 85 16 207/119 H 91 Nasal Cannula 12/23/23 08:04 37.0 C 75 16 163/81 H 94 Nasal Cannula 12/23/23 07:20 77 12/23/23 03:22 79 20 169/90 H 94 CPAP 12/23/23 03:22 70 21 90 12/23/23 01:22 79 O2 Flow Rate 12/23/23 11:50 2 12/23/23 08:04 2 12/23/23 07:20 12/23/23 03:22 12/23/23 03:22 3 12/23/23 01:22 PG Care Time/CCT Total # of Minutes Spent Total Time Spent with Patient: Total time spent is greater than 50% in coordination of care (as documented) at patient's floor/unit and/or counseling patient: Coding Level of Care Code 51655 SUB INP/OBS CARE 2/35MIN Diagnoses Acute kidney injury superimposed on CKD N17.9; N18.9 Edema R60.9 Noncompliance Z91.199 Uncontrolled type 2 diabetes mellitus with hyperglycemia, with long-term current use of insulin E11.65; Z79.4 Stage 3b chronic kidney disease N18.32 Nephrotic syndrome N04.9 Hypertension, unspecified type I10 Hypertension type: unspecified (7) Hypertension Hypertension type: unspecified Qualified Code(s): I10 - Essential (primary) hypertension
--- NOTE | 2023-12-23 12:58 | Hospitalist Progress Note ---
Date of Service December 23, 2023 Assessment & Plan (1) Edema: Plan: History of nephrotic syndrome. Noncompliance with home medications. He is now on intravenous Bumex. Admission chest x-ray negative for CHF. Monitor intake and output (2) Hypoxia: Plan: Acute respiratory failure with hypoxia present on admission. Ventilation/perfusion scan ruled out underlying pulmonary embolism. Venous Dopp ler evaluation of both legs negative for DVT on admission. Evaluate for home O2 prior to discharge Continue IV Bumex, check weight daily - 123Kg (3) Hypoglycemia associated with type 2 diabetes mellitus: Plan: recurrent, changed to NCS diet, monitor (4) Hypothyroidism: Plan: Stable. Continue current levothyroxine replacement therapy (5) Tobacco abuse: Plan: Smoking cessation recommended Plan Sleep apnea CPAP QHS TRINH / CKD / Volume overload Likely hypertensive and DM nephropathy Continue IV diuresis, monitor daily weight Monitor renal fxn and electrolytes Nephrology on board Hypertension Poorly controlled Added Hydralazine, monitor and adjust regimen Poor insight and judgement / depression Psych eval completed - refused meds Psychotherapy Admission and Anticipated Discharge Date Admission Date: December 20, 2023 Subjective says having diarrhea and also says he feels constipated, poor historian, poor insight and judgement, No SOB at rest, tolerating PO, no chest pain Physical Exam Physical Exam: Morbidly obese, AAO#3, non focal Lungs clear to auscultation bilaterally Heart RRR, b/l LE Edema PA Soft, NT, mobese, BS+ Skin no rash Results & Data Results & Data Vital Signs (Past 12 Hours) Vital Signs Temp Pulse Pulse Resp BP Pulse Ox O2 Del Method 12/23/23 11:50 36.7 C 85 16 207/119 H 91 Nasal Cannula 12/23/23 08:04 37.0 C 75 16 163/81 H 94 Nasal Cannula 12/23/23 08:00 Nasal Cannula 12/23/23 07:20 77 12/23/23 03:22 79 20 169/90 H 94 CPAP 12/23/23 03:22 70 21 90 12/23/23 01:22 79 O2 Flow Rate 12/23/23 11:50 2 12/23/23 08:04 2 12/23/23 08:00 3 12/23/23 07:20 12/23/23 03:22 12/23/23 03:22 3 12/23/23 01:22 Coding Level of Care Code 97782 SUB INP/OBS CARE 2/35MIN Diagnoses Edema R60.9 Hypoxia R09.02 Hypoglycemia associated with type 2 diabetes mellitus E11.649 Hypothyroidism E03.9 Tobacco abuse Z72.0
[2023-12-24 07:45] LABS: BUN Creatinine Ratio 13.8 (10-20); Creatinine Clr Calc Pharmacy 35.8 ml/min; Est GFR (African American) 23.8 ml/min; Est GFR (Non-African American) 20.5 ml/min
--- NOTE | 2023-12-24 07:49 | Hospitalist Progress Note ---
Date of Service December 24, 2023 Assessment & Plan (1) Edema: Plan: History of nephrotic syndrome. Noncompliance with home medications. He is now on intravenous Bumex. Admission chest x-ray negative for CHF. Echo 05/05 preserved EF, conc [facility] TRINH / CKD4 / Volume overload Likely hypertensive and DM nephropathy Continue IV diuresis, monitor daily weight, try to reach dry weight and resume home bumex dose of 2 mg bid pt speaks of a sliding scale for body weight will try to confirm U/S suggests chronic bladder outlet obstruction Nephrology following and cautious as at risk for progression to ESRD (2) Hypoxia: Plan: Acute respiratory failure with hypoxia present on admission. Ventilation/perfusion scan ruled out underlying pulmonary embolism. Venous Doppler evaluation of both legs negative for DVT on admission. Evaluate for home O2 prior to discharge Continue IV Bumex, check weight daily - dry wieght seems to be in the one teens Kg (3) Hypoglycemia associated with type 2 diabetes mellitus: Plan: recurrent, changed to NCS diet, is on empagliflozin, monitor (4) Hypothyroidism: Plan: Stable. Continue current levothyroxine replacement therapy (5) Tobacco abuse: Plan: Smoking cessation recommended Plan Sleep apnea CPAP QHS Hypertension Poorly controlled Added Hydralazine, monitor and adjust regimen Poor insight and judgement / depression Psych eval completed - refused meds, in the past had been on wellbutrin Psychotherapy Admission and Anticipated Discharge Date Admission Date: December 20, 2023 Subjective pt was seen while his was on speaker phone pt offers no new complaints, says he feels that his fluid is coming off Physical Exam Physical Exam: pt laying semi flat, has rales at the bases and 1-2+ edema to LE bilaterally with changes of chronic venous stasis starting Results & Data Results & Data Vital Signs (Past 12 Hours) Vital Signs Temp Pulse Pulse Resp BP Pulse Ox O2 Del Method 12/24/23 07:43 72 12/24/23 02:30 73 20 94 12/24/23 02:11 78 18 169/95 H 90 CPAP 12/23/23 22:42 98.1 F 78 18 150/70 H 90 CPAP 12/23/23 22:35 78 29 H 96 12/23/23 21:54 Nasal Cannula 12/23/23 21:45 O2 Del Method O2 Flow Rate 12/24/23 07:43 12/24/23 02:30 3 12/24/23 02:11 2 12/23/23 22:42 2 12/23/23 22:35 3 12/23/23 21:54 2 12/23/23 21:45 Room Air Laboratory Results review chemistry PG Care Time/CCT Total # of Minutes Spent Total Time Spent with Patient: Total time spent is greater than 50% in coordination of care (as documented) at patient's floor/unit and/or counseling patient: Coding Level of Care Code 43924 SUB INP/OBS CARE 2/35MIN Diagnoses Edema R60.9 Hypoxia R09.02 Hypoglycemia associated with type 2 diabetes mellitus E11.649 Hypothyroidism E03.9 Tobacco abuse Z72.0
--- NOTE | 2023-12-24 13:00 | Nephrology Progress Note ---
Date of Service December 24, 2023 Assessment & Plan (1) Acute kidney injury superimposed on CKD: (2) Edema: (3) Noncompliance: (4) Uncontrolled type 2 diabetes mellitus with hyperglycemia, with long-term current use of insulin: (5) Stage 3b chronic kidney disease: (6) Nephrotic syndrome: (7) Hypertension: Plan 43-year-old gentleman with stage IIIb/IV CKD, baseline creatinine lately around 3.0 with nephrotic syndrome in the setting of poorly controlled hypertension, diabetes and medical noncompliance. Presented to the hospital with more than 10 pounds weight gain and feeling bloated, blood pressure was significantly elevated with systolic above 200. Has been noncompliant with antihypertensive medications as according to him he recently moved and has been having difficulty managing his wellbeing because of depression. Kidney function staying somewhat stable, electrolyte acceptable. Blood pressure significantly improved with improvement in volume status although remained quite variable. --Discontinue IV Bumex and changed to Bumex 2 mg orally twice a day. -- Resume losartan at 25 mg daily, low potassium diet, continue to monitor kidney function and electrolyte. Has high risk for progressive worsening of kidney function and needing dialysis in future. Admission and Anticipated Discharge Date Admission Date: December 20, 2023 Kwame Will was seen and evaluated this morning. Volume status continues to improve and weight down. Kidney function staying relatively stable with creatinine around 3.4-3.5, reports decent urine output. Review of Systems Review of Systems: Review of system was done and pertinent positives and negatives are mentioned above. Physical Exam Constitutional: WD/WN, vitals as above + obese; no acute distress Respiratory: Auscultation: lungs clear to auscultation bilaterally; no crackles and no rales Cardiovascular: Rate/Rhythm: regular rate and regular rhythm Heart Sounds: normal S1 and normal S2 Extremities: + edema Skin: no rashes, warm and dry Neurologic: no focal motor deficits and not confused Psychiatric: Orientation: alert and oriented x 3 Results & Data Vital Signs (Past 12 Hours) Vital Signs Temp Pulse Pulse Resp BP Pulse Ox O2 Del Method 12/24/23 08:21 36.9 C 75 16 159/81 H 93 Nasal Cannula 12/24/23 07:43 72 12/24/23 02:30 73 20 94 12/24/23 02:11 78 18 169/95 H 90 CPAP O2 Flow Rate 12/24/23 08:21 3 12/24/23 07:43 12/24/23 02:30 3 12/24/23 02:11 2 PG Care Time/CCT Total # of Minutes Spent Total Time Spent with Patient: Total time spent is greater than 50% in coordination of care (as documented) at patient's floor/unit and/or counseling patient: Coding Level of Care Code 49589 SUB INP/OBS CARE 2/35MIN Diagnoses Acute kidney injury superimposed on CKD N17.9; N18.9 Edema R60.9 Noncompliance Z91.199 Uncontrolled type 2 diabetes mellitus with hyperglycemia, with long-term current use of insulin E11.65; Z79.4 Stage 3b chronic kidney disease N18.32 Nephrotic syndrome N04.9 Hypertension, unspecified type I10 Hypertension type: unspecified (7) Hypertension Hypertension type: unspecified Qualified Code(s): I10 - Essential (primary) hypertension
[2023-12-24] MEDS: LOSARTAN POTASSIUM 25 MG TAB PO SCH (13:37)
[2023-12-24] MEDS: BUMETANIDE 1 MG TAB PO SCH (20:20)
--- NOTE | 2023-12-24 22:24 | Podiatry Progress Note ---
Date of Service December 24, 2023 Assessment & Plan (1) Uncontrolled type 2 diabetes mellitus with hyperglycemia, with long-term current use of insulin: (2) Callus under metatarsal head: (3) Loss of protective sensation of skin of foot: (4) Diabetic peripheral neuropathy associated with type 2 diabetes mellitus: (5) Chronic ulcer of right foot limited to breakdown of skin: Plan patient was examined and evaluated. - No new concerns per patient. - Is willing to follow-up with us outpatient. Should continue to keep dressing clean/dry/covered. - While inpatient, would recommend simple dressing and topical antibiotic ointment. - Will sign off for now. Please reconsult if the foot worsens or if he develops new complaints. Admission and Anticipated Discharge Date Admission Date: December 20, 2023 Subjective Pt seen at bedside. Eating lunch. No new concerns. States he is feeling better, still has no foot concerns. Review of Systems Constitutional: no fever, no chills and no fatigue Eyes: no problem reported Ear, Nose, Mouth, Throat: no problem reported Respiratory: no problem reported Cardiovascular: + edema; no problem reported Gastrointestinal: no nausea, no vomiting and no problem reported Musculoskeletal: no problem reported Integumentary: + skin ulcer, + wounds and + erythema Neurologic: + loss of sensation, + numbness and + pa resthesia; no generalized weakness Psychiatric: no problem reported Physical Exam Physical Exam: lower extremity focused exam: DP/PT pulses 2/4 bilaterally. CFT is brisk to the digits. Small 0.8 cm well circumscribed ulceration is noted sub-first metatarsal head. The wound bed is 100% granular though there is some surrounding hyperkeratotic skin. No deep pprobing of the wound is noted. No evidence of local infection or abscess formation. No pain on palpation or exam of the foot. No light touch sensation is appreciated. Nails 1 through 5 bilaterally are extremely dystrophic, thickened, and elongated. No other ulcerations are noted. Hyperkeratotic skin lesion is noted sub-left first metatarsal phalangeal joint, though no underlying ulcer is present. Constitutional: WD/WN, vitals as above + ill appearing and + morbidly obese Eyes: PERRL, conjunctivae normal, anicteric sclerae ENMT: external ear and nose normal, oropharynx normal Neck: trachea midline, no thyromegaly normal visual inspection Respiratory: normal respiratory effort; no respiratory distress Cardiovascular: Rate/Rhythm: regular rate and regular rhythm Vessels: posterior tibial pulses present and dorsalis pedis pulses present Chest (Breasts): Chest: normal inspection of chest Gastrointestinal (Abdomen): Inspection/Auscultation: abdomen normal to inspection Percussion/Palpation: + abdomen tender and abdomen soft Musculoskeletal: no cyanosis or clubbing, extremities motor strength 5/5 Head/Neck/Chest: normocephalic and head atraumatic Extremities: extremities normal to inspection Neurologic: awake; no focal motor deficits Psychiatric: Orientation: alert, oriented to person and cooperative Affect: euthymic affect Cognition: language grossly intact Insight: + limited insight Judgment: + limited judgement Results & Data Results & Data Vital Signs (Past 12 Hours) Vital Signs Temp Pulse Pulse Resp BP BP Pulse Ox 12/24/23 20:10 152/76 H 12/24/23 19:36 36.3 C L 78 18 174/106 H 96 12/24/23 15:41 37.1 C 78 16 149/76 H 96 12/24/23 13:45 77 12/24/23 13:24 O2 Del Method O2 Flow Rate 12/24/23 20:10 12/24/23 19:36 Nasal Cannula 3 12/24/23 15:41 Room Air 12/24/23 13:45 12/24/23 13:24 2
[2023-12-25] MEDS: MUPIROCIN 2% OINT 22 GM TUBE EXT SCH (08:19)
[2023-12-25] MEDS: FENOFIBRATE NANOCRYSTALLIZED 145 MG TABLET PO SCH (08:21)
[2023-12-25 09:06] LABS: BUN Creatinine Ratio 15.6 (10-20); Creatinine Clr Calc Pharmacy 36.6 ml/min; Est GFR (African American) 24.5 ml/min; Est GFR (Non-African American) 21.1 ml/min; Phosphorus 4.4 mg/dl (2.5-4.9); Potassium 4.9 mmol/L (3.5-5.1)
--- NOTE | 2023-12-25 10:38 | Nephrology Progress Note ---
Date of Service December 25, 2023 Assessment & Plan (1) Acute kidney injury superimposed on CKD: (2) Edema: (3) Noncompliance: (4) Uncontrolled type 2 diabetes mellitus with hyperglycemia, with long-term current use of insulin: (5) Stage 3b chronic kidney disease: (6) Nephrotic syndrome: (7) Hypertension: Plan 43-year-old gentleman with stage IIIb/IV CKD, baseline creatinine lately around 3.0 with nephrotic syndrome in the setting of poorly controlled hypertension, diabetes and medical noncompliance. Presented to the hospital with more than 10 pounds weight gain and feeling bloated, blood pressure was significantly elevated with systolic above 200. Has been noncompliant with antihypertensive medications as according to him he recently moved and has been having difficulty managing his wellbeing because of depression. Kidney function staying somewhat stable, electrolyte acceptable. Blood pressure significantly improved with improvement in volume status although remained quite variable. -- Continue on Bumex 2 mg orally twice a day. -- Increase losartan to 50 mg daily, low potassium diet, continue to monitor kidney function and electrolyte. Has high risk for progressive worsening of kidney function and needing dialysis in future. Admission and Anticipated Discharge Date Admission Date: December 20, 2023 Subjective Rich was seen and evaluated this morning, denied any concerns or symptoms.. Volume status continues to improve and weight down. Kidney function staying relatively stable with creatinine around 3.4-3.5, reports decent urine output. Blood pressure remain elevated. Review of Systems Review of Systems: Review of system was done and pertinent positives and negatives are mentioned above. Physical Exam Constitutional: WD/WN, vitals as above + obese; no acute distress Respiratory: Auscultation: lungs clear to auscultation bilaterally; no crackles and no rales Cardiovascular: Rate/Rhythm: regular rate and regular rhythm Heart Sounds: normal S1 and normal S2 Extremities: + edema Skin: no rashes, warm and dry Neurologic: no focal motor deficits and not confused Psychiatric: Orientation: alert and oriented x 3 Results & Data Vital Signs (Past 12 Hours) Vital Signs Temp Pulse Pulse Resp BP Pulse Ox O2 Del Method 12/25/23 08:31 36.8 C 74 18 165/91 H 92 Room Air, Nasal Cannula 12/25/23 02:20 36.6 C 74 20 163/80 H 96 Nasal Cannula 12/24/23 22:45 74 25 H 96 O2 Flow Rate 12/25/23 08:31 3 12/25/23 02:20 3 12/24/23 22:45 3 PG Care Time/CCT Total # of Minutes Spent Total Time Spent with Patient: Total time spent is greater than 50% in coordination of care (as documented) at patient's floor/unit and/or counseling patient: Coding Level of Care Code 46055 SUB INP/OBS CARE 2/35MIN Diagnoses Acute kidney injury superimposed on CKD N17.9; N18.9 Edema R60.9 Noncompliance Z91.199 Uncontrolled type 2 diabetes mellitus with hyperglycemia, with long-term current use of insulin E11.65; Z79.4 Stage 3b chronic kidney disease N18.32 Nephrotic syndrome N04.9 Hypertension, unspecified type I10 Hypertension type: unspecified (7) Hypertension Hypertension type: unspecified Qualified Code(s): I10 - Essential (primary) hypertension
--- NOTE | 2023-12-25 18:05 | Hospitalist Progress Note ---
Date of Service December 25, 2023 Assessment & Plan (1) Edema: Plan: History of nephrotic syndrome. Improving on intravenous Bumex. Admission chest x-ray negative for CHF. Echo 05/05 preserved EF, conc LCH TRINH / CKD4 / Volume overload Likely hypertensive and DM nephropathy Continue IV diuresis, monitor daily weight, try to reach dry weight and resume home bumex dose of 2 mg bid pt speaks of a sliding scale for body weight will try to confirm U/S suggests chronic bladder outlet obstruction Nephrology following and cautious as at risk for progression to ESRD comfortable with bumex, increased losartan for bp and renal protective affects (2) Hypoxia: Plan: Acute respiratory failure with hypoxia present on admission. Ventilation/perfusion scan ruled out underlying pulmonary embolism. Venous Doppler evaluation of both legs negative for DVT on admission. Evaluate for home O2 prior to discharge Continue IV Bumex, check weight daily - dry wieght seems to be in the one teens Kg (3) Hypoglycemia associated with type 2 diabetes mellitus: Plan: recurrent, changed to NCS diet, is on empagliflozin, monitor (4) Hypothyroidism: Plan: Stable. Continue current levothyroxine replacement therapy (5) Tobacco abuse: Plan: Smoking cessation recommended Plan Sleep apnea CPAP QHS Hypertension Poorly controlled Added Hydralazine, monitor and adjust regimen Poor insight and judgement / depression Psych eval completed - refused meds, in the past had been on wellbutrin Psychotherapy Admission and Anticipated Discharge Date Admission Date: December 20, 2023 Subjective pt doing well, updated by phone, nephrology increased losartan still losing some weight Physical Exam Physical Exam: pt laying semi flat, scant rales at the bases and 1-2+ edema to LE bilaterally with changes of chronic venous stasis Results & Data Results & Data Vital Signs (Past 12 Hours) Vital Signs Temp Pulse Pulse Resp BP Pulse Ox O2 Del Method 12/25/23 15:18 97.9 F 78 20 144/74 H 93 Nasal Cannula 12/25/23 14:04 76 12/25/23 13:29 Room Air, Nasal Cannula 12/25/23 11:30 91 Nasal Cannula 12/25/23 11:18 98.8 F 79 20 159/85 H 76 L Room Air 12/25/23 11:13 78 12/25/23 08:31 98.2 F 74 18 165/91 H 92 Room Air, Nasal Cannula O2 Flow Rate 12/25/23 15:18 3 12/25/23 14:04 12/25/23 13:29 3 12/25/23 11:30 3 12/25/23 11:18 12/25/23 11:13 12/25/23 08:31 3 Laboratory Results review cbc review chemistry PG Care Time/CCT Total # of Minutes Spent Total Time Spent with Patient: Total time spent is greater than 50% in coordination of care (as documented) at patient's floor/unit and/or counseling patient: Coding Level of Care Code 35264 SUB INP/OBS CARE 2/35MIN Diagnoses Edema R60.9 Hypoxia R09.02 Hypoglycemia associated with type 2 diabetes mellitus E11.649 Hypothyroidism E03.9 Tobacco abuse Z72.0
[2023-12-26 06:53] LABS: Albumin Level 2.9 gm/dl (3.4-5.0); Anion Gap 4 (3-11); BUN Creatinine Ratio 16.3 (10-20); Blood Urea Nitrogen 55 mg/dl (6-23); Carbon Dioxide 35 mmol/L (21-32); Chloride 100 mmol/L (98-107); Creatinine Clr Calc Pharmacy 36.4 ml/min; Est GFR (African American) 24.7 ml/min; Est GFR (Non-African American) 21.3 ml/min; Glucose 128 mg/dl (70-99(Fasting)); Phosphorus 4.2 mg/dl (2.5-4.9); Sodium 139 mmol/L (136-145)
[2023-12-26 07:18] VITALS: RESP 18; TEMP 98.8
[2023-12-26] MEDS: LOSARTAN POTASSIUM 50 MG TAB PO SCH (09:38)
--- NOTE | 2023-12-26 10:39 | Nephrology Progress Note ---
Date of Service December 26, 2023 Assessment & Plan (1) Acute kidney injury superimposed on CKD: (2) Edema: (3) Noncompliance: (4) Uncontrolled type 2 diabetes mellitus with hyperglycemia, with long-term current use of insulin: (5) Stage 3b chronic kidney disease: (6) Nephrotic syndrome: (7) Hypertension: Plan 43-year-old gentleman with stage IIIb/IV CKD, baseline creatinine lately around 3.0 with nephrotic syndrome in the setting of poorly controlled hypertension, diabetes and medical noncompliance. Presented to the hospital with more than 10 pounds weight gain and feeling bloated, blood pressure was significantly elevated with systolic above 200. Has been noncompliant with antihypertensive medications as according to him he recently moved and has been having difficulty managing his wellbeing because of depression. Kidney function staying somewhat stable, electrolyte acceptable. Blood pressure significantly improved with improvement in volume status although remained quite variable. -- Continue on Bumex 2 mg orally twice a day. -- continue losartan to 50 mg daily, low potassium diet, continue to monitor kidney function and electrolyte. Has high risk for progressive worsening of kidney function and needing dialysis in future. --OK to discharge Admission and Anticipated Discharge Date Admission Date: December 20, 2023 Subjective Rich was seen and evaluated this morning, denied any concerns or symptoms.. Volume status continues to improve and weight down. Kidney function staying relatively stable with creatinine around 3.4-3.5, decent urine output. Blood pressure remain elevated. Review of Systems Review of Systems: Review of system was done and pertinent positives and negatives are mentioned above. Physical Exam Constitutional: WD/WN, vitals as above + obese; no acute distress Respiratory: Auscultation: lungs clear to auscultation bilaterally; no crackles and no rales Cardiovascular: Rate/Rhythm: regular rate and regular rhythm Heart Sounds: normal S1 and normal S2 Extremities: + edema Skin: no rashes, warm and dry Neurologic: no focal motor deficits and not confused Psychiatric: Orientation: alert and oriented x 3 Results & Data Vital Signs (Past 12 Hours) Vital Signs Temp Pulse Pulse Pulse Pulse Pulse Pulse 12/26/23 09:55 94 H 92 H 90 86 12/26/23 08:00 74 12/26/23 07:17 37.1 C 71 12/26/23 02:49 36.4 C L 79 12/26/23 02:29 12/25/23 22:53 36.6 C 79 Pulse Resp Resp Resp Resp Resp Resp 12/26/23 09:55 82 20 20 20 20 18 12/26/23 08:00 12/26/23 07:17 18 12/26/23 02:49 20 12/26/23 02:29 22 12/25/23 22:53 20 BP BP Pulse Ox Pulse Ox Pulse Ox Pulse Ox Pulse Ox 12/26/23 09:55 86 L 87 L 90 92 12/26/23 08:00 12/26/23 07:17 179/101 H 96 12/26/23 02:49 154/80 H 95 12/26/23 02:29 12/25/23 22:53 147/89 H 95 Pulse Ox O2 Del Method O2 Flow Rate O2 Flow Rate O2 Flow Rate O2 Flow Rate O2 Flow Rate 12/26/23 09:55 86 L 2 3 4 2 12/26/23 08:00 12/26/23 07:17 Nasal Cannula 3 12/26/23 02:49 BiPAP 12/26/23 02:29 3 12/25/23 22:53 Room Air PG Care Time/CCT Total # of Minutes Spent Total Time Spent with Patient: Total time spent is greater than 50% in coordination of care (as documented) at patient's floor/unit and/or counseling patient: Coding Level of Care Code 55741 SUB INP/OBS CARE 2/35MIN Diagnoses Acute kidney injury superimposed on CKD N17.9; N18.9 Edema R60.9 Noncompliance Z91.199 Uncontrolled type 2 diabetes mellitus with hyperglycemia, with long-term current use of insulin E11.65; Z79.4 Stage 3b chronic kidney disease N18.32 Nephrotic syndrome N04.9 Hypertension, unspecified type I10 Hypertension type: unspecified (7) Hypertension Hypertension type: unspecified Qualified Code(s): I10 - Essential (primary) hypertension
--- NOTE | 2023-12-26 12:45 | Discharge Summary ---
Discharge Summary Date of Service December 26, 2023 Principal Dx & Hospital Course #1 = Principal Diagnosis (1) Edema: acute on chronic respiratory failure with hypoxia from COPD and fluid overload History of nephrotic syndrome. leading to edema Echo 05/05 preserved EF, conc LCH-> HFpEF TRINH / CKD4 / Volume overload Likely hypertensive and DM nephropathy Continue IV diuresis, monitor daily weight, try to reach dry weight and resume home bumex dose of 2 mg bid will get home scale and use extra bumex if weight up, close follow up with pcp U/S suggests chronic bladder outlet obstruction Nephrology following and cautious as at risk for progression to ESRD comfortable with bumex, increased losartan for bp and renal protective affects (2) Hypoxia: Acute respiratory failure with hypoxia present on admission. Ventilation /perfusion scan ruled out underlying pulmonary embolism. Venous Doppler evaluation of both legs negative for DVT on admission. Evaluate for home O2 prior to discharge, 2L at rest 4L with exertion Continue bid Bumex, check weight daily - dry wieght at dc is 262 lbs/119 kg strongly councelled pt and to stop smoking (3) Hypoglycemia associated with type 2 diabetes mellitus: recurrent, changed to NCS diet, is on empagliflozin, monitor no other diabetic meds at discharge (4) Hypothyroidism: Stable. Continue current levothyroxine replacement therapy (5) Tobacco abuse: Smoking cessation recommended Plan Sleep apnea CPAP QHS Hypertension Poorly controlled Added Hydralazine, losartan Poor insight and judgement / depression Psych eval completed - refused meds, in the past had been on wellbutrin Psychotherapy Notes For Next Care Provider certainly keep eye on glucose as now only on empagliflozin work with weight and fluid retention, may benefit from tool repairer bench eval for healthy eating choices Admission HPI Per Admitting Provider Deonte is a 43-year-old man with a history of poorly controlled type 2 diabetes (Hgb A1c-10.1%), stage IIIb CKD and nephrotic syndrome, DM2-associated peripheral neuropathy, dyslipidemia, hypertension, and bipolar disorder who presented to the [facility] ED on 12/20/2023 with complaints of progressive shortness of breath, dizziness, and callus on the right foot. On arrival to the ED is noted be significantly hypertensive at 220/134, hypoxic at 87% on room air, but otherwise stable. Labs are significant for creatinine of 3.02, BNP of 562. Chest x-ray was read as negative for acute findings and stable cardiomegaly. Prior to admission the patient was given 40 mg IV Lasix. Patient was lying in bed in no acute distress at time of exam. History is obtained from the patient and his who is currently on speaker phone but not physically in the room. The patient has been having progressive shortness of breath for at least the past week. His states that he cannot walk more than a few feet from the couch to the bathroom without getting significantly dyspneic. Patient denies recent fever or chills, chest pain, hemoptysis, productive cough, abdominal pain, nausea/vomiting, dysuria, hematuria, melena, diarrhea, and recent trauma. His explains that the patient has been very noncompliant with his medications recently. He often forgets to take them. 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 When asked, patient states that he has been smoking from 1 pack of cigarettes or more daily for "more than I should have". Patient confirms that he has not taken any of his medications today. His explains that he eats what he wants. His only other complaint at this time is right foot pain from a large bunion/possible wound on the inferior aspect of the proximal great right toe. I explained to the patient that if he continues to be this poorly compliant with his medications he will likely end up on dialysis and is incredibly high risk for both heart attack and stroke moving forward, he ackn owledged this. He is a full code and was safe to make medical decisions for him if he cannot make himself. Please refer to Dr. Short's attestation for any changes to the treatment plan Discharge Exam pt has clear lungs, fair air movement so it seem his hypoxia maybe from copd, may benefit from pulmonary eval, certainly strong smoking education and cessation may help Updated Medication List Medication Instructions Recorded Confirmed Type albuterol sulfate 90 mcg/actuation 2 puff inhalation Q6H PRN 01/03/23 12/20/23 History aerosol inhaler Shortness Of Breath Or Wheezing empagliflozin 25 mg tablet 25 mg PO DAILY #30 tabs 05/17/23 12/20/23 Rx (Jardiance) prazosin 1 mg capsule 1 mg PO BID 30 days #60 caps 06/05/23 12/20/23 Rx insulin lispro 100 unit/mL 30 unit subcut DAILY 06/15/23 12/20/23 History subcutaneous pen (Humalog KwikPen (U-100) Insulin) dulaglutide 0.75 mg/0.5 mL 0.75 mg (0.5 mL) subcut Q7D #2 mL 06/18/23 12/20/23 Rx subcutaneous pen injector (Trulicity) blood-glucose meter (Accu-Chek #1 ea 07/13/23 Rx Guide Glucose Meter) flash glucose sensor (FreeStyle #6 ea 07/13/23 Rx Tootie 2 Sensor kit) insulin glargine 100 unit/mL (3 25 unit (0.25 mL) subcut DAILY #15 07/13/23 12/20/23 Rx mL) subcutaneous pen (Lantus mL Solostar U-100 Insulin) lancets (Accu-Chek Softclix #100 ea 07/13/23 Rx Lancets) bumetanide 2 mg tablet 2 mg PO BID 30 days #60 tabs 10/17/23 12/20/23 Rx calcitriol 0.25 mcg capsule 0.25 mcg PO DAILY #30 caps 10/17/23 12/20/23 Rx atorvastatin 80 mg tablet 40 mg (1/2 x 80 mg) PO BID #30 tabs 10/18/23 12/20/23 Rx levothyroxine 150 mcg tablet 150 mcg PO .COMPLEX #30 tabs 10/18/23 12/20/23 Rx blood sugar diagnostic (Accu-Chek #100 ea 11/01/23 11/01/23 Rx Guide test strips) amlodipine 10 mg tablet 10 mg PO QAM 12/20/23 12/20/23 History fenofibrate 160 mg tablet 160 mg PO QAM 12/20/23 12/20/23 History fluticasone propionate 115 2 puff inhalation BID 12/20/23 12/20/23 History mcg-salmeterol 21 mcg/actuation HFA inhaler metoprolol succinate 100 mg 100 mg PO QAM 12/20/23 12/20/23 History tablet,extended release 24 hr metoprolol succinate 50 mg 50 mg PO HS 12/20/23 12/20/23 History tablet,extended release 24 hr hydralazine 50 mg tablet 50 mg PO BID #60 tabs 12/26/23 Rx losartan 50 mg tablet 50 mg PO QAM #30 tabs 12/26/23 Rx Hospital Stay Data Consultations 12/20/23 20:55 ED Decision to Admit Stat 12/20/23 21:14 Consult Nephrology Routine 12/21/23 11:07 Consult Podiatry Routine 12/23/23 10:31 Consult Behavioral Health Liaison Routine Diagnostic Imagining Performed 12/20/23 21:08 US venous doppler LE BI Urgent 12/21/23 14:29 US renal/blad retro comp Routine Pending Results Patient Have Any Pending Studies at Discharge: No Discharge Instructions Given to Patient (Per Discharging Provider) Call 911 and go to the Emergency Room if: * You have tightness or pain in your chest that does not go away with rest or Nitroglycerin * You are very short of breath even with rest Call your doctor if any of the following symptoms or problems start or get worse: * Shortness of breath or difficulty breathing * Wake up at night short of breath * Chest pain * Cough * Swelling of your hands, fee, or legs * More fatigued or tired with your normal activity * Palpitations - sudden fast heart beats WEIGHT * Weigh yourself every morning after using the bathroom. * Use the same scale. * Wear the same amount of clothing. * Write your weight down on your chart. * Call your doctor if you gain more than 2-3 pounds in 1-2 days. MEDICATIONS * Use this discharge instruction sheet for instructions. * Take your medications at the time your doctor ordered. * Do not skip a dose of your medicines. * If you miss a dose of medicine, take as soon as possible, but DO NOT DOUBLE A DOSE. * Read your medicine information when you get home. * Know all of the side effects of your medicine. * Call your doctor's office if you have any side effects. * Be sure all of your doctors know what medicine and herbs you take (including cold, flu, and herbal medicine). * Pain Medicine: If you do not get relief from your pain, please call your doctor for help. Take the following with you to your follow-up doctor appointments: * Weight Chart * Medication List * List of questions Do not drink excessive alcohol, beer or wine. Total Time Total Time Spent Total Time Spent (In Minutes): greater than 30 minutes required to complete this discharge Coding Level of Care Code 27075 INP/OBS DISCH >30 MIN Diagnoses Edema R60.9 Hypoxia R09.02 Hypoglycemia associated with type 2 diabetes mellitus E11.649 Hypothyroidism E03.9 Tobacco abuse Z72.0
--- NOTE | 2023-12-26 12:48 | Discharge Summary ---
Discharge Summary Date of Service December 26, 2023 Principal Dx & Hospital Course #1 = Principal Diagnosis Admission HPI Per Admitting Provider Deonte is a 43-year-old man with a history of poorly controlled type 2 diabetes (Hgb A1c-10.1%), stage IIIb CKD and nephrotic syndrome, DM2-associated peripheral neuropathy, dyslipidemia, hypertension, and bipolar disorder who presented to the [facility] ED on 12/20/2023 with complaints of progressive shortness of breath, dizziness, and callus on the right foot. On arrival to the ED is noted be significantly hypertensive at 220/134, hypoxic at 87% on room air, but otherwise stable. Labs are significant for creatinine of 3.02, BNP of 562. Chest x-ray was read as negative for acute findings and stable cardiomegaly. Prior to admission the patient was given 40 mg IV Lasix. Patient was lying in bed in no acute distress at time of exam. History is obtained from the patient and his who is currently on speaker phone but not physically in the room. The patient has been having progressive shortness of breath for at least the past week. His states that he cannot walk more than a few feet from the couch to the bathroom without getting significantly dyspneic. Patient denies recent fever or chills, chest pain, hemoptysis, productive cough, abdominal pain, nausea/vomiting, dysuria, hematuria, melena, diarrhea, and recent trauma. His explains that the patient has been very noncompliant with his medications recently. He often forgets to take them. 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 When asked, patient states that he has been smoking from 1 pack of cigarettes or more daily for "more than I should have". Patient confirms that he has not taken any of his medications today. His explains that he eats what he wants. His only other complaint at this time is right foot pain from a large bunion/possible wound on the inferior aspect of the proximal great right toe. I explained to the patient that if he continues to be this poorly compliant with his medications he will likely end up on dialysis and is incredibly high risk for both heart attack and stroke moving forward, he acknowledged this. He is a full code and was safe to make medical decisions for him if he cannot make himself. Please refer to Dr. Short's attestation for any changes to the treatment plan Updated Medication List Medication Instructions Recorded Confirmed Type albuterol sulfate 90 mcg/actuation 2 puff inhalation Q6H PRN 01/03/23 12/20/23 History aerosol inhaler Shortness Of Breath Or Wheezing empagliflozin 25 mg tablet 25 mg PO DAILY #30 tabs 05/17/23 12/20/23 Rx (Jardiance) prazosin 1 mg capsule 1 mg PO BID 30 days #60 caps 06/05/23 12/20/23 Rx insulin lispro 100 unit/mL 30 unit subcut DAILY 06/15/23 12/20/23 History subcutaneous pen (Humalog KwikPen (U-100) Insulin) dulaglutide 0.75 mg/0.5 mL 0.75 mg (0.5 mL) subcut Q7D #2 mL 06/18/23 12/20/23 Rx subcutaneous pen injector ([employer]) blood-glucose meter (Accu-Chek #1 ea 07/13/23 Rx Guide Glucose Meter) flash glucose sensor (FreeStyle #6 ea 07/13/23 Rx Tootie 2 Sensor kit) insulin glargine 100 unit/mL (3 25 unit (0.25 mL) subcut DAILY #15 07/13/23 12/20/23 Rx mL) subcutaneous pen (Lantus mL Solostar U-100 Insulin) lancets (Accu-Chek Softclix #100 ea 07/13/23 Rx Lancets) bumetanide 2 mg tablet 2 mg PO BID 30 days #60 tabs 10/17/23 12/20/23 Rx calcitriol 0.25 mcg capsule 0.25 mcg PO DAILY #30 caps 10/17/23 12/20/23 Rx atorvastatin 80 mg tablet 40 mg (1/2 x 80 mg) PO BID #30 tabs 10/18/23 12/20/23 Rx levothyroxine 150 mcg tablet 150 mcg PO .COMPLEX #30 tabs 10/18/23 12/20/23 Rx blood sugar diagnostic (Accu-Chek #100 ea 11/01/23 11/01/23 Rx Guide test strips) amlodipine 10 mg tablet 10 mg PO QAM 12/20/23 12/20/23 History fenofibrate 160 mg tablet 160 mg PO QAM 12/20/23 12/20/23 History fluticasone propionate 115 2 puff inhalation BID 12/20/23 12/20/23 History mcg-salmeterol 21 mcg/actuation HFA inhaler metoprolol succinate 100 mg 100 mg PO QAM 12/20/23 12/20/23 History tablet,extended release 24 hr metoprolol succinate 50 mg 50 mg PO HS 12/20/23 12/20/23 History tablet,extended release 24 hr hydralazine 50 mg tablet 50 mg PO BID #60 tabs 12/26/23 Rx losartan 50 mg tablet 50 mg PO QAM #30 tabs 12/26/23 Rx Hospital Stay Data Consultations 12/20/23 20:55 ED Decision to Admit Stat 12/20/23 21:14 Consult Nephrology Routine 12/21/23 11:07 Consult Podiatry Routine 12/23/23 10:31 Consult Behavioral Health Liaison Routine Diagnostic Imagining Performed 12/20/23 21:08 US venous doppler LE BI Urgent 12/21/23 14:29 US renal/blad retro comp Routine Pending Results Patient Have Any Pending Studies at Discharge: No Discharge Instructions Given to Patient (Per Discharging Provider) Call 911 and go to the Emergency Room if: * You have tightness or pain in your chest that does not go away with rest or Nitroglycerin * You are very short of breath even with rest Call your doctor if any of the following symptoms or problems start or get worse: * Shortness of breath or difficulty breathing * Wake up at night short of breath * Chest pain * Cough * Swelling of your hands, fee, or legs * More fatigued or tired with your normal activity * Palpitations - sudden fast heart beats WEIGHT * Weigh yourself every morning after using the bathroom. * Use the same scale. * Wear the same amount of clothing. * Write your weight down on your chart. * Call your doctor if you gain more than 2-3 pounds in 1-2 days. MEDICATIONS * Use this discharge instruction sheet for instructions. * Take your medications at the time your doctor ordered. * Do not skip a dose of your medicines. * If you miss a dose of medicine, take as soon as possible, but DO NOT DOUBLE A DOSE. * Read your medicine information when you get home. * Know all of the side effects of your medicine. * Call your doctor's office if you have any side effects. * Be sure all of your doctors know what medicine and herbs you take (including cold, flu, and herbal medicine). * Pain Medicine: If you do not get relief from your pain, please call your doctor for help. Take the following with you to your follow-up doctor appointments: * Weight Chart * Medication List * List of questions Do not drink excessive alcohol, beer or wine. Coding
--- NOTE | 2023-12-26 12:50 | Discharge Summary ---
Date of Service December 26, 2023 Admission HPI Per Admitting Provider Deonte is a 43-year-old man with a history of poorly controlled type 2 diabetes (Hgb A1c-10.1%), stage IIIb CKD and nephrotic syndrome, DM2-associated peripheral neuropathy, dyslipidemia, hypertension, and bipolar disorder [facility] with complaints of progressive shortness of breath, dizziness, and callus on the right foot. On arrival to the ED is noted be significantly hypertensive at 220/134, hypoxic at 87% on room air, but otherwise stable. Labs are significant for creatinine of 3.02, BNP of 562. Chest x-ray was read as negative for acute findings and stab le cardiomegaly. Prior to admission the patient was given 40 mg IV Lasix. Patient was lying in bed in no acute distress at time of exam. History is obtained from the patient and his who is currently on speaker phone but not physically in the room. The patient has been having progressive shortness of breath for at least the past week. His states that he cannot walk more than a few feet from the couch to the bathroom without getting significantly dyspneic. Patient denies recent fever or chills, chest pain, hemoptysis, productive cough, abdominal pain, nausea/vomiting, dysuria, hematuria, melena, diarrhea, and recent trauma. His explains that the patient has been very noncompliant with his medications recently. He often forgets to take them. 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 When asked, patient states that he has been smoking from 1 pack of cigarettes or more daily for "more than I should have". Patient confirms that he has not taken any of his medications today. His explains that he eats what he wants. His only other complaint at this time is right foot pain from a large bunion/possible wound on the inferior aspect of the proximal great right toe. I explained to the patient that if he continues to be this poorly compliant with his medications he will likely end up on dialysis and is incredibly high risk for both heart attack and stroke moving forward, he acknowledged this. He is a full code and was safe to make medical decisions for him if he cannot make himself. Please refer to Dr. Short's attestation for any changes to the treatment plan Discharge Data Consultations 12/20/23 20:55 ED Decision to Admit Stat 12/20/23 21:14 Consult Nephrology Routine 12/21/23 11:07 Consult Podiatry Routine 12/23/23 10:31 Consult Behavioral Health Liaison Routine Hospital Course (1) Edema: acute on chronic respiratory failure with hypoxia from COPD and fluid overload History of nephrotic syndrome. leading to edema Echo 05/05 preserved EF, conc LCH-> HFpEF TRINH / CKD4 / Volume overload Likely hypertensive and DM nephropathy Continue IV diuresis, monitor daily weight, try to reach dry weight and resume home bumex dose of 2 mg bid will get home scale and use extra bumex if weight up, close follow up with pcp U/S suggests chronic bladder outlet obstruction Nephrology following and cautious as at risk for progression to ESRD comfortable with bumex, increased losartan for bp and renal protective affects (2) Hypoxia: Acute respiratory failure with hypoxia present on admission. Ventilation/perfusion scan ruled out underlying pulmonary embolism. Venous Doppler evaluation of both legs negative for DVT on admission. Evaluate for home O2 prior to discharge, 2L at rest 4L with exertion Continue bid Bumex, check weight daily - dry wieght at dc is 262 lbs/119 kg strongly councelled pt and to stop smoking (3) Hypoglycemia associated with type 2 diabetes mellitus: recurrent, changed to NCS diet, is on empagliflozin, monitor no other diabetic meds at discharge (4) Hypothyroidism: Stable. Continue current levothyroxine replacement therapy (5) Tobacco abuse: Smoking cessation recommended Plan Sleep apnea CPAP QHS Hypertension Poorly controlled Added Hydralazine, losartan Poor insight and judgement / depression Psych eval completed - refused meds, in the past had been on wellbutrin Psychotherapy Coding Diagnoses Edema R60.9 Hypoxia R09.02 Hypoglycemia associated with type 2 diabetes mellitus E11.649 Hypothyroidism E03.9 Tobacco abuse Z72.0
--- NOTE | 2023-12-26 12:50 | Discharge Summary ---
Discharge Summary Date of Service December 26, 2023 Principal Dx & Hospital Course #1 = Principal Diagnosis (1) Edema: acute on chronic respiratory failure with hypoxia from COPD and fluid overload History of nephrotic syndrome. leading to edema Echo 05/05 preserved EF, conc LCH-> HFpEF TRINH / CKD4 / Volume overload Likely hypertensive and DM nephropathy Continue IV diuresis, monitor daily weight, try to reach dry weight and resume home bumex dose of 2 mg bid will get home scale and use extra bumex if weight up, close follow up with pcp U/S suggests chronic bladder outlet obstruction Nephrology following and cautious as at risk for progression to ESRD comfortable with bumex, increased losartan for bp and renal protective affects (2) Hypoxia: Acute respiratory failure with hypoxia present on admission. Ventilation /perfusion scan ruled out underlying pulmonary embolism. Venous Doppler evaluation of both legs negative for DVT on admission. Evaluate for home O2 prior to discharge, 2L at rest 4L with exertion Continue bid Bumex, check weight daily - dry wieght at dc is 262 lbs/119 kg strongly councelled pt and to stop smoking (3) Hypoglycemia associated with type 2 diabetes mellitus: recurrent, changed to NCS diet, is on empagliflozin, monitor no other diabetic meds at discharge (4) Hypothyroidism: Stable. Continue current levothyroxine replacement therapy (5) Tobacco abuse: Smoking cessation recommended Plan Sleep apnea CPAP QHS Hypertension Poorly controlled Added Hydralazine, losartan Poor insight and judgement / depression Psych eval completed - refused meds, in the past had been on wellbutrin Psychotherapy Updated Medication List Medication Instructions Recorded Confirmed Type albuterol sulfate 90 mcg/actuation 2 puff inhalation Q6H PRN 01/03/23 12/20/23 History aerosol inhaler Shortness Of Breath Or Wheezing empagliflozin 25 mg tablet 25 mg PO DAILY #30 tabs 05/17/23 12/20/23 Rx (Jardiance) prazosin 1 mg capsule 1 mg PO BID 30 days #60 caps 06/05/23 12/20/23 Rx insulin lispro 100 unit/mL 30 unit subcut DAILY 06/15/23 12/20/23 History subcutaneous pen (Humalog KwikPen (U-100) Insulin) dulaglutide 0.75 mg/0.5 mL 0.75 mg (0.5 mL) subcut Q7D #2 mL 06/18/23 12/20/23 Rx subcutaneous pen injector ([employer]) blood-glucose meter (Accu-Chek #1 ea 07/13/23 Rx Guide Glucose Meter) flash glucose sensor (FreeStyle #6 ea 07/13/23 Rx Tootie 2 Sensor kit) insulin glargine 100 unit/mL (3 25 unit (0.25 mL) subcut DAILY #15 07/13/23 12/20/23 Rx mL) subcutaneous pen (Lantus mL Solostar U-100 Insulin) lancets (Accu-Chek Softclix #100 ea 07/13/23 Rx Lancets) bumetanide 2 mg tablet 2 mg PO BID 30 days #60 tabs 10/17/23 12/20/23 Rx calcitriol 0.25 mcg capsule 0.25 mcg PO DAILY #30 caps 10/17/23 12/20/23 Rx atorvastatin 80 mg tablet 40 mg (1/2 x 80 mg) PO BID #30 tabs 10/18/23 12/20/23 Rx levothyroxine 150 mcg tablet 150 mcg PO .COMPLEX #30 tabs 10/18/23 12/20/23 Rx blood sugar diagnostic (Accu-Chek #100 ea 11/01/23 11/01/23 Rx Guide test strips) amlodipine 10 mg tablet 10 mg PO QAM 12/20/23 12/20/23 History fenofibrate 160 mg tablet 160 mg PO QAM 12/20/23 12/20/23 History fluticasone propionate 115 2 puff inhalation BID 12/20/23 12/20/23 History mcg-salmeterol 21 mcg/actuation HFA inhaler metoprolol succinate 100 mg 100 mg PO QAM 12/20/23 12/20/23 History tablet,extended release 24 hr metoprolol succinate 50 mg 50 mg PO HS 12/20/23 12/20/23 History tablet,extended release 24 hr hydralazine 50 mg tablet 50 mg PO BID #60 tabs 12/26/23 Rx losartan 50 mg tablet 50 mg PO QAM #30 tabs 12/26/23 Rx Hospital Stay Data Consultations 12/20/23 20:55 ED Decision to Admit Stat 12/20/23 21:14 Consult Nephrology Routine 12/21/23 11:07 Consult Podiatry Routine 12/23/23 10:31 Consult Behavioral Health Liaison Routine Diagnostic Imagining Performed 12/20/23 21:08 US venous doppler LE BI Urgent 12/21/23 14:29 US renal/blad retro comp Routine Pending Results Patient Have Any Pending Studies at Discharge: No Discharge Instructions Given to Patient (Per Discharging Provider) Call 911 and go to the Emergency Room if: * You have tightness or pain in your chest that does not go away with rest or Nitroglycerin * You are very short of breath even with rest Call your doctor if any of the following symptoms or problems start or get worse: * Shortness of breath or difficulty breathing * Wake up at night short of breath * Chest pain * Cough * Swelling of your hands, fee, or legs * More fatigued or tired with your normal activity * Palpitations - sudden fast heart beats WEIGHT * Weigh yourself every morning after using the bathroom. * Use the same scale. * Wear the same amount of clothing. * Write your weight down on your chart. * Call your doctor if you gain more than 2-3 pounds in 1-2 days. MEDICATIONS * Use this discharge instruction sheet for instructions. * Take your medications at the time your doctor ordered. * Do not skip a dose of your medicines. * If you miss a dose of medicine, take as soon as possible, but DO NOT DOUBLE A DOSE. * Read your medicine information when you get home. * Know all of the side effects of your medicine. * Call your doctor's office if you have any side effects. * Be sure all of your doctors know what medicine and herbs you take (including cold, flu, and herbal medicine). * Pain Medicine: If you do not get relief from your pain, please call your doctor for help. Take the following with you to your follow-up doctor appointments: * Weight Chart * Medication List * List of questions Do not drink excessive alcohol, beer or wine. Coding Diagnoses Edema R60.9 Hypoxia R09.02 Hypoglycemia associated with type 2 diabetes mellitus E11.649 Hypothyroidism E03.9 Tobacco abuse Z72.0
--- NOTE | 2023-12-26 14:27 | Discharge Summary ---
Discharge Summary Date of Service December 26, 2023 Principal Dx & Hospital Course #1 = Principal Diagnosis (1) Edema: (2) Hypoxia: (3) Hypoglycemia associated with type 2 diabetes mellitus: (4) Hypothyroidism: (5) Tobacco abuse: Discharge Plan Discharge Items Patient Disposition: Home - Self-Care Reason For Visit: VOLUME OVERLOAD, HYPOXIA, HTN, Discharge Diagnosis: fluid overload from acute diastolic heart failure Activity: Resume your previous activity Non-emergency contact: Primary Care Provider Call non-emergency contact if: your symptoms worsen Follow-up/Referrals: Efren Young PA-C [Primary Care Provider] - (PLEASE CALL YOUR PRIMARY CARE PROVIDER TO SCHEDULE A HOSPITAL DISCHARGE FOLLOW-UP APPOINTMENT WITHIN 7-10 DAYS) Diet: Low Sodium (2gm) Addtl Attending Provider Instructions: Call 911 and go to the Emergency Room if: * You have tightness or pain in your chest that does not go away with rest or Nitroglycerin * You are very short of breath even with rest Call your doctor if any of the following symptoms or problems start or get worse: * Shortness of breath or difficulty breathing * Wake up at night short of breath * Chest pain * Cough * Swelling of your hands, fee, or legs * More fatigued or tired with your normal activity * Palpitations - sudden fast heart beats WEIGHT * Weigh yourself every morning after using the bathroom. * Use the same scale. * Wear the same amount of clothing. * Write your weight down on your chart. * Call your doctor if you gain more than 2-3 pounds in 1-2 days. MEDICATIONS * Use this discharge instruction sheet for instructions. * Take your medications at the time your doctor ordered. * Do not skip a dose of your medicines. * If you miss a dose of medicine, take as soon as possible, but DO NOT DOUBLE A DOSE. * Read your medicine information when you get home. * Know all of the side effects of your medicine. * Call your doctor's office if you have any side effects. * Be sure all of your doctors know what medicine and herbs you take (including cold, flu, and herbal medicine). * Pain Medicine: If you do not get relief from your pain, please call your doctor for help. Take the following with you to your follow-up doctor appointments: * Weight Chart * Medication List * List of questions Do not drink excessive alcohol, beer or wine. Addtl New Accounts Clerk Provider Instructions: if you gain 5 pound in a week or 3 pounds overnight take an additional bumex pill mid day and contact your primary care while you were here you did not require much in the way of insulin coverage, please continue to watch your diet and follow your blood glucoses, bring in your readings for your primary care to eval at your follow up you have been started on 2 new blood pressure medicines Pending Studies at Discharge: No Stand-Alone Forms: My [facility] [email or web address], Smoking Cessation Medications and DC Order Prescriptions: New losartan 50 mg Tablet 50 mg PO QAM Qty: 30 5RF hydralazine 50 mg Tablet 50 mg PO BID Qty: 60 5RF Continued Jardiance 25 mg tablet 25 mg PO DAILY Qty: 30 3RF prazosin 1 mg capsule 1 mg PO BID 30 Days Qty: 60 0RF (DME) blood-glucose meter [Accu-Chek Guide Glucose Meter] Misc See Rx Instructions .Route Qty: 1 0RF Rx Instructions: use to calibrate CGM or use when CGM is not working (DME) FreeStyle Tootie 2 Sensor Kit See Rx Instructions .Route Qty: 6 3RF Rx Instructions: change sensor every 14 days (DME) lancets [Accu-Chek Softclix Lancets] Misc See Rx Instructions .Route Qty: 100 3RF Rx Instructions: use to calibrate CGM QD; or TID if CGM is not working bumetanide 2 mg tablet 2 mg PO BID 30 Days Qty: 60 3RF Rx Instructions: may use 2 mg as needed too calcitriol 0.25 mcg capsule 0.25 mcg PO DAILY Qty: 30 2RF atorvastatin 80 mg tablet 40 mg PO BID Qty: 30 5RF levothyroxine 150 mcg tablet 150 mcg PO .COMPLEX Qty: 30 5RF Rx Instructions: 150 mcg orally Take 1 tablet every otehr day for 1 week. Then 1 tablet once a day.; albuterol sulfate 90 mcg/actuation HFA aerosol inhaler 2 puff inhalation Q6H PRN (Reason: Shortness Of Breath Or Wheezing) Rx Instructions: does not have one right now (DME) Accu-Chek Guide test strips Strip See Rx Instructions .Route Qty: 100 3RF Rx Instructions: use to calibrate CGM QD or TID if CGM is not working metoprolol succinate 50 mg tablet extended release 24 hr 50 mg PO HS Rx Instructions: has not started yet metoprolol succinate 100 mg tablet extended release 24 hr 100 mg PO QAM Rx Instructions: new script, pt states he hasnt started yet amlodipine 10 mg tablet 10 mg PO QAM fenofibrate 160 mg tablet 160 mg PO QAM fluticasone propion-salmeterol 115-21 mcg/actuation HFA aerosol inhaler 2 puff INHALATION BID Discontinued insulin glargine [Lantus Solostar U-100 Insulin] 100 unit/mL (3 mL) insulin pen 25 unit SUBCUT DAILY Qty: 15 1RF Trulicity 0.75 mg/0.5 mL pen injector 0.75 mg subcut Q7D Qty: 2 0RF Rx Instructions: sunday insulin lispro [Humalog KwikPen Insulin] 100 unit/mL insulin pen 30 unit subcut DAILY Rx Instructions: per sliding scale as needed up to TDD 30 units Discharge Orders: Discharge Order (Routine); Ordered 12/26/23 Ordered By: Rogelio Ledesma Admission Data Admit Date/Time: 12/20/23 21:00 Attending Provider: Rogelio Ledesma Admit Provider: Renzo Short Primary Care Provider: Efren Young Other Providers: Renzo Short; Mohan Toro; Kenrick Baker Hospital Stay Data Consultations 12/20/23 20:55 ED Decision to Admit Stat 12/20/23 21:14 Consult Nephrology Routine 12/21/23 11:07 Consult Podiatry Routine 12/23/23 10:31 Consult Behavioral Health Liaison Routine Diagnostic Imagining Performed 12/20/23 21:08 US venous doppler LE BI Urgent 12/21/23 14:29 US renal/blad retro comp Routine Pending Results Patient Have Any Pending Studies at Discharge: No Discharge Instructions Given to Patient (Per Discharging Provider) Call 911 and go to the Emergency Room if: * You have tightness or pain in your chest that does not go away with rest or Nitroglycerin * You are very short of breath even with rest Call your doctor if any of the following symptoms or problems start or get worse: * Shortness of breath or difficulty breathing * Wake up at night short of breath * Chest pain * Cough * Swelling of your hands, fee, or legs * More fatigued or tired with your normal activity * Palpitations - sudden fast heart beats WEIGHT * Weigh yourself every morning after using the bathroom. * Use the same scale. * Wear the same amount of clothing. * Write your weight down on your chart. * Call your doctor if you gain more than 2-3 pounds in 1-2 days. MEDICATIONS * Use this discharge instruction sheet for instructions. * Take your medications at the time your doctor ordered. * Do not skip a dose of your medicines. * If you miss a dose of medicine, take as soon as possible, but DO NOT DOUBLE A DOSE. * Read your medicine information when you get home. * Know all of the side effects of your medicine. * Call your doctor's office if you have any side effects. * Be sure all of your doctors know what medicine and herbs you take (including cold, flu, and herbal medicine). * Pain Medicine: If you do not get relief from your pain, please call your doctor for help. Take the following with you to your follow-up doctor appointments: * Weight Chart * Medication List * List of questions Do not drink excessive alcohol, beer or wine. Coding Diagnoses Edema R60.9 Hypoxia R09.02 Hypoglycemia associated with type 2 diabetes mellitus E11.649 Hypothyroidism E03.9 Tobacco abuse Z72.0
[2023-12-26 15:22] VITALS: BP 154/80; PULSE 71; O2SAT 96
== END 2023-12-26 15:45 | disposition home or self-care (01) | DRG 682 ==
LOC: ED 16:48 → 2N 21:00 → SUATTDRO 21:00 → 2N 22:46
DX: E03.9 Hypothyroidism, unspecified; E66.2 Morbid (severe) obesity with alveolar hypoventilation; J96.21 Acute and chronic respiratory failure with hypoxia; N17.9 Acute kidney failure, unspecified; L97.511 Non-pressure chronic ulcer of other part of right foot limited to breakdown of skin; I16.0 Hypertensive urgency; L84 Corns and callosities; I12.9 Hypertensive chronic kidney disease with stage 1 through stage 4 chronic kidney disease, or unspecified chronic kidney disease; R09.02 Hypoxemia; N04.9 Nephrotic syndrome with unspecified morphologic changes; Z83.3 Family history of diabetes mellitus; Z79.4 Long term (current) use of insulin; E11.22 Type 2 diabetes mellitus with diabetic chronic kidney disease; I50.33 Acute on chronic diastolic (congestive) heart failure; E11.42 Type 2 diabetes mellitus with diabetic polyneuropathy; E87.70 Fluid overload, unspecified; Z91.148 Patient's other noncompliance with medication regimen for other reason; E11.649 Type 2 diabetes mellitus with hypoglycemia without coma; F17.210 Nicotine dependence, cigarettes, uncomplicated; N18.4 Chronic kidney disease, stage 4 (severe)

== ENCOUNTER 2024-07-02 18:55 | Inpatient (IN) ==
--- NOTE | 2024-07-02 19:49 | XRay Report ---
EXAM: X-ray chest one-view portable CLINICAL HISTORY: Chest pain, shortness of breath PRIORS: 01/24/2024,12/20/2023 TECHNIQUE: Frontal view chest FINDINGS: The chest is well-expanded. Marked enlargement of the heart noted, unchanged. Eventration of the left hemidiaphragm. No pneumothorax. No airspace consolidation in the lungs. Trachea is patent. Osseous structures demonstrate no acute abnormality. No radiopaque foreign body. IMPRESSION: Enlarged cardiac silhouette, unchanged. Electronically signed by Hien Echeverria 07-02-2024 7:49 PM
[2024-07-02 20:12] LABS: Basophils # (auto) 0.05 K/uL (0.00-0.20); Basophils % (auto) 0.6 %; Eosinophils # (auto) 0.11 K/uL (0.00-0.50); Eosinophils % (auto) 1.3 %; Hematocrit (blood only) 34.1 % (42.0-52.0); Hemoglobin 10.1 g/dl (14.0-18.0); Immature Granulocytes # (auto) 0.06 K/uL (0.01-0.20); Immature Granulocytes % (auto) 0.7 %; Lymphocytes # (auto) 1.19 K/uL (1.20-3.40); Lymphocytes % (auto) 14.6 %; Mean Corpuscular Hemoglobin 27.4 pg (25.0-34.0); Mean Corpuscular Hgb Conc 29.6 g/dL (32.0-36.0); Mean Corpuscular Volume 92.7 fL (80.0-100.0); Mean Platelet Volume 9.8 fL (9.4-12.4); Monocytes # (auto) 0.57 K/uL (0.11-0.59); Neutrophils # (auto) 6.17 K/uL (1.40-6.50); Neutrophils % (auto) 75.8 %; Nucleated RBC # (auto) 0.04 K/uL (0.00-0.12); Nucleated RBC % (auto) 0.5 %; Platelet Count 338 K/uL (130-400); RDW Coefficient of Variation 19.6 % (11.5-14.5); RDW Standard Deviation 64.4 fL (36.4-46.3); Red Blood Count 3.68 M/uL (4.70-6.10); White Blood Count 8.15 K/ul (4.8-10.8)
--- NOTE | 2024-07-02 20:15 | Emergency Department Note ---
Impression & Plan SOB (shortness of breath), SOLOMON (dyspnea on exertion), Precordial chest pain, Fluid overload, CRF (chronic renal failure), Elevated brain natriuretic peptide (BNP) level ED Provider Note NAME: YAZMIN RAMOS AGE: 43 SEX: M : 1980 ARRIVES VIA: Walk-In INFORMANT: [Patient] ED PROVIDER(S): [Lizandro Judge MD] CHIEF COMPLAINT: Short of breath HISTORY OF PRESENT ILLNESS: The patient is a 43-year-old male who complains of at least a week of some exertional dyspnea, chest discomfort, palpitations and what he believes is fluid overload. The patient does not have a history of fluid overload, he is on diuretics. The patient does typically wear 2 L of O2 as needed. The patient has cardiomegaly. He denies previous DVT or PE. PMHx/PSHx/Social Hx: See Below PHYSICAL EXAM: GENERAL: Patient is in no acute distress. HEENT: No acute trauma, normocephalic atraumatic, mucous membranes moist, no nasal congestion. NECK: No stridor, no adenopathy, no meningismus, trachea is midline. LUNGS: Scattered crackles heard, no respiratory distress. HEART: Without murmurs gallops or rubs, regular rate and rhythm. ABDOMEN: Soft, nontender, no peritonitis. EXTREMITIES: No cyanosis, full range of motion of all the joints without pain or difficulty. Moderate bilateral pedal edema. Some chronic skin change seen. NEUROLOGIC: Oriented x 3, no acute motor or sensory deficits, no focal weakness. SKIN: No jaundice, no diaphoresis. DIFFERENTIAL DIAGNOSIS: CHF, fluid overload, anemia, NC, PE, renal failure, among others. EMERGENCY DEPARTMENT PROCEDURES: MEDICAL DECISION MAKING: There is no leukocytosis. The patient is anemic but this is a baseline finding. There is a normal platelet count. No coagulopathy. Creatinine is quite high at over 4 although, this appears to be a chronic issue. No electrolyte abnormality in need of emergent correction. No concerning liver enzyme elevation. Patient appears to be in a euthyroid state. ECG shows a sinus rhythm, no obvious acute ischemia. Cardiac enzyme testing x 1 is not suggestive of acute cardiac injury. Chest x-ray shows cardiomegaly and some potential mild fluid overload. BNP was elevated at over 1000, consistent with fluid overload and CHF. On exam, the patient was edematous. He was not febrile or toxic. The patient was given 2 mg of Bumex IV. The patient is fluid overloaded, this has caused his dyspnea. He has chronic renal failure and cardiomegaly. I believe he will require IV diuresis, he requires hospitalization. I spoke with the patient and case management, the on-call hospitalist was consulted. Prior/Outside records/notes reviewed: None ECG per my interpretation: Indication was shortness of breath. The ECG shows a normal sinus rhythm with a rate of 86. There are some inverted T waves seen laterally. No acute ST elevation, no PVCs. The QTc is 464. Compared to an ECG from 24 January 2024, I see no significant change. Continuous Cardiac Monitoring per my interpretation: An order was placed for continuous cardiac monitoring. The monitor shows a rate of 92 with normal sinus rhythm. Imaging/x-ray results per my interpretation: Chest x-ray shows cardiomegaly and some potential mild parenchymal congestion/fluid overload. No pneumonia. Chronic Medical/Social conditions affecting care: Cardiomegaly Care/Management discussed with: Case management, the on-call hospitalist. Level of care consideration(s): After review of the information above and other included data: --I believe the patient requires escalation of care to admission DISPOSITION: Admission Past Med/Surg History Problem List (Updated 07/02/24 @ 23:02 by Lizandro Judge MD) Elevated brain natriuretic peptide (BNP) level (Acute) CRF (chronic renal failure) (Acute) Fluid overload (Acute) Precordial chest pain (Acute) SOLOMON (dyspnea on exertion) (Acute) SOB (shortness of breath) (Acute) Vitamin D deficiency Anemia due to chronic kidney disease Abdominal pain Change in bowel habits Chronic kidney disease, stage 4 (severe) (Acute) Diarrhea Acute kidney injury Uncontrolled type 2 diabetes mellitus with hyperglycemia, with long-term current use of insulin Callus under metatarsal head Background diabetic retinopathy associated with type 2 diabetes mellitus Diabetes type 2, controlled Diabetic nephropathy associated with type 2 diabetes mellitus Albuminuria Depression Obesity Dyslipidemia Medical History Fistula Chronic ulcer of right foot limited to breakdown of skin Acute kidney injury superimposed on CKD Hypoglycemia associated with type 2 diabetes mellitus Tobacco abuse Loss of protective sensation of skin of foot Diabetic peripheral neuropathy associated with type 2 diabetes mellitus Hypothyroidism Nephrotic syndrome Stage 3b chronic kidney disease Hypertension Influenza A Family History Mother Diabetes Heart disease Dyslipidemia Social History Smoking Status: Current every day smoker Tobacco Type: Cigarettes Cigarettes Per Day: 1 pack; Second Hand Exposure: Yes; Do You Dip or Chew Tobacco: No; Hx Alcohol Use: Yes Alcohol type: hard liquor Alcohol Intake Frequency: Monthly or Less Hx Substance Use: Yes Prescribed Medications: Marijuana Last Used Substance: Unknown Substance Use Type Other:: medical prescribed Preferred Language: Ukrainian Communication Ability: Effective Legal Specialist Required: No Beliefs That Will Affect Care: None marital status: Current Living Situation: Spouse current occupational status: employed How many Children do You have: 5 Feels Safe at Home: Yes Assistive Devices: None Allergies Allergies Allergy/AdvReac Type Severity Reaction Status Date / Time No Known Allergies Allergy Verified 03/31/24 09:40 Home Meds Home Medications Medication Instructions Recorded Confirmed albuterol sulfate 90 mcg/actuation 2 puff inhalation Q6H PRN 01/03/23 03/27/24 aerosol inhaler Shortness Of Breath Or Wheezing amlodipine 10 mg tablet 10 mg PO QAM 12/20/23 03/27/24 fluticasone propionate 115 2 puff inhalation BID 12/20/23 03/27/24 mcg-salmeterol 21 mcg/actuation HFA inhaler metoprolol succinate 100 mg 100 mg PO QAM 12/20/23 03/27/24 tablet,extended release 24 hr bupropion HCl 300 mg 24 hr tablet, 300 mg PO DAILY 01/31/24 03/27/24 extended release dulaglutide 0.75 mg/0.5 mL mg subcut 02/14/24 03/27/24 subcutaneous pen injector (Trulicity) fluconazole 100 mg tablet 100 mg PO DAILY 02/14/24 03/27/24 Previous Rx's Medication Instructions Recorded empagliflozin 25 mg tablet 25 mg PO DAILY #30 tabs 05/17/23 (Jardiance) blood-glucose meter (Accu-Chek #1 ea 07/13/23 Guide Glucose Meter) flash glucose sensor (FreeStyle #6 ea 07/13/23 Tootie 2 Sensor kit) lancets (Accu-Chek Softclix #100 ea 07/13/23 Lancets) blood sugar diagnostic (Accu-Chek #100 ea 11/01/23 Guide test strips) losartan 50 mg tablet 50 mg PO QAM #30 tabs 12/26/23 hydralazine 100 mg tablet 100 mg PO BID #60 tabs 01/09/24 ergocalciferol (vitamin D2) 1,250 50,000 unit PO WEEKLY #12 caps 02/25/24 mcg (50,000 unit) capsule insulin glargine 100 unit/mL (3 15 unit (0.15 mL) subcut DAILY #15 03/19/24 mL) subcutaneous pen (Lantus mL Solostar U-100 Insulin) atorvastatin 80 mg tablet 40 mg (1/2 x 80 mg) PO BID #30 tabs 04/09/24 metoprolol succinate 50 mg See Rx Instructions .Route 04/09/24 tablet,extended release 24 hr .COMPLEX #30 tabs levothyroxine 150 mcg tablet See Rx Instructions .Route 04/11/24 .COMPLEX #30 tabs calcitriol 0.5 mcg capsule 0.5 mcg PO DAILY #30 caps 05/02/24 bumetanide 2 mg tablet 2 mg PO BID 30 days #60 tabs 06/03/24 Results & Data (ED) Vital Signs Vital Signs - 24 hr 07/02/24 18:57 07/02/24 19:29 07/02/24 19:30 Temperature 36.8 C Temperature Source Temporal Artery Scan Pulse Rate 91 H 89 Respiratory Rate 16 Blood Pressure 158/83 H Blood Pressure Mean 108 Pulse Oximetry 91 79 L Oxygen Delivery Method Room Air Room Air Oxygen Flow Rate Sepsis Recent Fever Within 48 Hours No Sepsis New/Unexplained Change in Mental Status No Sepsis Action Taken by Nursing No Action Required 07/02/24 19:31 07/02/24 19:32 07/02/24 21:00 Temperature Temperature Source Pulse Rate 92 H 84 Respiratory Rate 26 H 22 Blood Pressure 119/78 185/97 H Blood Pressure Mean 91 121 Pulse Oximetry 97 98 98 Oxygen Delivery Method Nasal Cannula Nasal Cannula Nasal Cannula Oxygen Flow Rate 2 2 2 Sepsis Recent Fever Within 48 Hours Sepsis New/Unexplained Change in Mental Status Sepsis Action Taken by [facility] Medications Current Medication List: was personally reviewed by me Laboratory Data Attestation: I reviewed the patient's lab results. 07/02/24 19:53 07/02/24 19:53 Lab Results 07/02/24 07/02/24 Range/Units 19:53 21:32 WBC 8.15 (4.8-10.8) K/ul RBC 3.68 L (4.70-6.10) M/uL Hgb 10.1 L (14.0-18.0) g/dl Hct 34.1 L (42.0-52.0) % MCV 92.7 (80.0-100.0) fL MCH 27.4 (25.0-34.0) pg MCHC 29.6 L (32.0-36.0) g/dL RDW Std Deviation 64.4 H (36.4-46.3) fL RDW Coeff of Domi 19.6 H (11.5-14.5) % Plt Count 338 (130-400) K/uL MPV 9.8 (9.4-12.4) fL Immature Gran % (Auto) 0.7 % Neut % (Auto) 75.8 % Lymph % (Auto) 14.6 % [place] % (Auto) 7.0 % Eos % (Auto) 1.3 % Baso % (Auto) 0.6 % Neut # (Auto) 6.17 (1.40-6.50) K/uL Lymph # (Auto) 1.19 L (1.20-3.40) K/uL [place] # (Auto) 0.57 (0.11-0.59) K/uL Eos # (Auto) 0.11 (0.00-0.50) K/uL Baso # (Auto) 0.05 (0.00-0.20) K/uL Immature Gran # (Auto) 0.06 (0.01-0.20) K/uL Absolute Nucleated RBC 0.04 (0.00-0.12) K/uL Nucleated RBC % (auto) 0.5 % PT Cancelled 11.1 INR Cancelled 1.0 APTT Cancelled 27 PTT Ratio Cancelled 1.0 Sodium 141 (136-145) mmol/L Potassium 4.4 (3.5-5.1) mmol/L Chloride 104 (98-107) mmol/L Carbon Dioxide 30 (21-32) mmol/L Anion Gap 7 (3-11) BUN 70 H (6-23) mg/dl Creatinine 4.37 H (0.6-1.4) mg/dl Est Cr Clr Drug Dosing 28.2 ml/min eGFR 16.42 BUN/Creatinine Ratio 16.0 (10-20) Glucose 233 H (70-99(Fasting)) mg/dl Calcium 8.4 L (8.6-10.3) mg/dl Magnesium 2.2 (1.7-2.4) mg/dl Total Bilirubin 0.4 (0.2-1.0) mg/dl AST 14 (13-39) U/L ALT 13 (7-52) U/L Alkaline Phosphatase 31 L (34-104) U/L Troponin I High Sens 11.9 (0-20) pg/ml B-Natriuretic Peptide 1116 H (0-100) pg/ml Total Protein 6.4 (6.0-8.3) gm/dl Albumin 3.9 (3.4-5.0) gm/dl Globulin 2.5 (2.5-4.0) gm/dl Albumin/Globulin Ratio 1.6 (0.9-2) TSH 1.276 (0.300-4.500) uIu/ml Administered Medications Discontinued Medications Bumetanide 2 mg/ Syringe 8 mls @ 4 mls/min IV ONE ONE Stop: 07/02/24 21:05 Last Admin: 07/02/24 21:44 Dose: 4 mls/min Documented By: LAF Imaging Data Radiologist's Impression: Chest X-Ray 07/02/24 19:02 EXAM: X-ray chest one-view portable CLINICAL HISTORY: Chest pain, shortness of breath PRIORS: 01/24/2024,12/20/2023 TECHNIQUE: Frontal view chest FINDINGS: The chest is well-expanded. Marked enlargement of the heart noted, unchanged. Eventration of the left hemidiaphragm. No pneumothorax. No airspace consolidation in the lungs. Trachea is patent. Osseous structures demonstrate no acute abnormality. No radiopaque foreign body. IMPRESSION: Enlarged cardiac silhouette, unchanged. Electronically signed by Hien Echeverria 07-02-2024 7:49 PM Discharge Plan Visit Data Chief Complaint: Chest Pain Stated Complaint: CHEST PAIN, FEELING DEPRESSED SOB ED Provider: Lizandro Judge Discharge Problem: SOB (shortness of breath), SOLOMON (dyspnea on exertion), Precordial chest pain, Fluid overload, CRF (chronic renal failure), Elevated brain natriuretic peptide (BNP) level Patient Disposition: Admitted As Inpatient Condition: Fair Forms Stand Alone Forms: My [facility] Prescriptions Prescriptions: No Action Jardiance 25 mg tablet 25 mg PO DAILY Qty: 30 3RF (DME) blood-glucose meter [Accu-Chek Guide Glucose Meter] Misc See Rx Instructions .Route Qty: 1 0RF Rx Instructions: use to calibrate CGM or use when CGM is not working (DME) FreeStyle Tootie 2 Sensor Kit See Rx Instructions .Route Qty: 6 3RF Rx Instructions: change sensor every 14 days (DME) lancets [Accu-Chek Softclix Lancets] Misc See Rx Instructions .Route Qty: 100 3RF Rx Instructions: use to calibrate CGM QD; or TID if CGM is not working ergocalciferol (vitamin D2) 1,250 mcg (50,000 unit) capsule 50,000 unit PO WEEKLY Qty: 12 0RF insulin glargine [Lantus Solostar U-100 Insulin] 100 unit/mL (3 mL) insulin pen 15 unit SUBCUT DAILY Qty: 15 3RF atorvastatin 80 mg tablet 40 mg PO BID Qty: 30 5RF metoprolol succinate 50 mg tablet extended release 24 hr See Rx Instructions .ROUTE .COMPLEX Qty: 30 2RF Dose Instruction: TAKE ONE TABLET AT BEDTIME Rx Instructions: TAKE ONE TABLET AT BEDTIME levothyroxine 150 mcg tablet See Rx Instructions .ROUTE .COMPLEX Qty: 30 5RF Dose Instruction: TAKE ONE TABLET EVERY DAY Rx Instructions: TAKE ONE TABLET EVERY DAY calcitriol 0.5 mcg capsule 0.5 mcg PO DAILY Qty: 30 3RF bumetanide 2 mg tablet 2 mg PO BID 30 Days Qty: 60 3RF Hold Instructions: Home Medication placed on hold at Doctor's office Rx Instructions: may use 2 mg as needed too albuterol sulfate 90 mcg/actuation HFA aerosol inhaler 2 puff inhalation Q6H PRN (Reason: Shortness Of Breath Or Wheezing) Rx Instructions: does not have one right now bupropion HCl 300 mg tablet extended release 24 hr 300 mg PO DAILY Trulicity 0.75 mg/0.5 mL pen injector subcut fluconazole 100 mg tablet 100 mg PO DAILY (DME) Accu-Chek Guide test strips Strip See Rx Instructions .Route Qty: 100 3RF Rx Instructions: use to calibrate CGM QD or TID if CGM is not working hydralazine 100 mg tablet 100 mg PO BID Qty: 60 5RF metoprolol succinate 100 mg tablet extended release 24 hr 100 mg PO QAM Rx Instructions: new script, pt states he hasnt started yet amlodipine 10 mg tablet 10 mg PO QAM fluticasone propion-salmeterol 115-21 mcg/actuation HFA aerosol inhaler 2 puff INHALATION BID losartan 50 mg Tablet 50 mg PO QAM Qty: 30 5RF Hold Instructions: Home Medication placed on hold at Doctor's office Referrals Referrals: Efren Young PA-C [Primary Care Provider] - Discharge Problem: Fluid overload Qualifiers: Hypervolemia type: unspecified Qualified Code(s): E87.70 - Fluid overload, unspecified CRF (chronic renal failure) Qualifiers: Chronic kidney disease stage: unspecified stage Qualified Code(s): N18.9 - Chronic kidney disease, unspecified
[2024-07-02 20:36] LABS: Albumin Globulin Ratio 1.6 (0.9-2); Albumin Level 3.9 gm/dl (3.4-5.0); Bilirubin,Total 0.4 mg/dl (0.2-1.0); Calcium 8.4 mg/dl (8.6-10.3); Creatinine Clr Calc Pharmacy 28.2 ml/min; Globulin 2.5 gm/dl (2.5-4.0); Magnesium 2.2 mg/dl (1.7-2.4); Potassium 4.4 mmol/L (3.5-5.1); Total Protein 6.4 gm/dl (6.0-8.3)
[2024-07-02 20:43] LABS: Troponin I High Sensitivity 11.9 pg/ml (0-20)
[2024-07-02 20:53] LABS: Thyroid Stimulating Hormone 1.276 uIu/ml (0.300-4.500)
[2024-07-02] MEDS: BUMETANIDE 2 MG in SYRINGE 0 ML IV ONE (21:44)
[2024-07-02 22:30] LABS: Partial Thromboplastin Time 27 Seconds (21-31); Prothrombin Time 11.1 Seconds (9.0-12.0)
[2024-07-03] MEDS ORDERED: ONDANSETRON INJ 2 MG/ML 2 ML VIAL IV PRN (02:08)
[2024-07-03] MEDS ORDERED: ACETAMINOPHEN 325 MG TAB PO PRN (02:08)
[2024-07-03 04:35] LABS: BUN Creatinine Ratio 16.2 (10-20); Calcium 8.3 mg/dl (8.6-10.3); Creatinine Clr Calc Pharmacy 28.3 ml/min; Potassium 4.4 mmol/L (3.5-5.1)
[2024-07-03] MEDS ORDERED: ALBUTEROL HFA 8 GM INHALER INH PRN (04:48)
[2024-07-03] MEDS ORDERED: CARBOHYDRATES FOR HYPOGLYCEMIA PO PRN (04:51)
[2024-07-03] MEDS ORDERED: GLUCOSE 10 TAB/TUBE PO PRN (04:51)
[2024-07-03] MEDS ORDERED: GLUCOSE 40% GEL 15 GM TUBE PO PRN (04:51)
[2024-07-03] MEDS ORDERED: GLUCAGON FOR INJ 1 MG VIAL SQ PRN (04:51)
[2024-07-03] MEDS ORDERED: DEXTROSE 50% 50 ML SYRINGE IV PRN (04:51)
--- NOTE | 2024-07-03 04:53 | History & Physical Report ---
Date of Service July 02, 2024 Assessment & Plan (1) Fluid overload: Plan: 33-year-old male who presents with edema as well as dyspnea on exertion. Patient evaluated on exam. Will need diuresis with caution given underlying renal disease Admit to medical telemetry Bumex 2 mg IV twice daily Monitor BMP q12 hours to assess for electrolyte derangements and worsening renal function in setting of diuresis Monitor, standing strict intake and output Check 2D echo (2) CRF (chronic renal failure): Plan: Elevated BUN and creatinine near baseline. Patient reports movement output. He does not fistula placement as well as show dialysis Monitor renal function Renal dosing appropriate Avoid nephrotoxic agents Will check BMP every 12 hours to assess for compromise with ongoing diuresis Continue calcitriol (3) Uncontrolled type 2 diabetes mellitus with hyperglycemia, with long-term current use of insulin: Plan: Stable Patient takes 15 units of insulin daily as well as empagliflozin Lantus 5 units with insulin sliding scale (4) Dyslipidemia: Plan: stable.Is on his atorvastatin twice daily Continue atorvastatin (5) Depression: Plan: Chronic. Stable. Continue Wellbutrin 300 mg p.o. daily Plan chronic medical Conditions: Hypertension: Elevated blood pressure Continue metoprolol 100 mg p.o. every morning and 50 mg p.o. nightly Continue hydralazine 100 mg p.o. twice daily Continue amlodipine 10 mg p.o. every morning hypothyroidism: Continue Synthroid 150 mcg p.o. daily Admission and Anticipated Discharge Date Admission Date: July 02, 2024 History of Present Illness Chief Complaint: dyspnea on exertion Primary Care Provider: Efren Young PA-C Deonte Manzo Is a 43-year-old male with history of CKD, diabetes, hypertension, hyperlipidemia and hypothyroidism presenting with intermittent right sided chest discomfort as well as dyspnea on exertion. Patient has pain under his right breast. Reports it is intermittent, comes only when he pushes on the area. Pain is nonexertional, nonradiating and nonpleuritic. Additionally, he reports worsening dyspnea on exertion as well as increased bilateral lower extremity and scrotal edema. Patient does not weigh himself that he feels he has gained and lost weight fluid recently. He reports walking to the store the other day which is 3 blocks away and needing to stop several times to catch his breath. This is out of the ordinary for him.. He denies cough, abdominal pain, nausea, vomiting, diarrhea Allergies Allergy/AdvReac Type Severity Reaction Status Date / Time No Known Allergies Allergy Verified 07/02/24 23:57 Home Medications Medication Instructions Recorded Confirmed Type albuterol sulfate 90 mcg/actuation 2 puff inhalation Q6H PRN 01/03/23 07/02/24 History aerosol inhaler Shortness Of Breath Or Wheezing empagliflozin 25 mg tablet 25 mg PO DAILY #30 tabs 05/17/23 07/03/24 Rx (Jardiance) blood-glucose meter (Accu-Chek #1 ea 07/13/23 03/27/24 Rx Guide Glucose Meter) flash glucose sensor (FreeStyle #6 ea 07/13/23 03/27/24 Rx Tootie 2 Sensor kit) lancets (Accu-Chek Softclix #100 ea 07/13/23 03/27/24 Rx Lancets) blood sugar diagnostic (Accu-Chek #100 ea 11/01/23 03/27/24 Rx Guide test strips) amlodipine 10 mg tablet 10 mg PO QAM 12/20/23 07/02/24 History metoprolol succinate 100 mg 100 mg PO QAM 12/20/23 07/03/24 History tablet,extended release 24 hr hydralazine 100 mg tablet 100 mg PO BID #60 tabs 01/09/24 07/03/24 Rx bupropion HCl 300 mg 24 hr tablet, 300 mg PO DAILY 01/31/24 07/03/24 History extended release insulin glargine 100 unit/mL (3 15 unit (0.15 mL) subcut DAILY #15 03/19/24 07/03/24 Rx mL) subcutaneous pen (Lantus mL Solostar U-100 Insulin) atorvastatin 80 mg tablet 40 mg (1/2 x 80 mg) PO BID #30 tabs 04/09/24 07/02/24 Rx bumetanide 2 mg tablet 2 mg PO BID 30 days #60 tabs 06/03/24 07/03/24 Rx bumetanide 2 mg tablet 2 mg PO DAILY PRN Edema 07/03/24 07/03/24 History calcitriol 0.5 mcg capsule 0.5 mcg PO .DAILY@NOON 07/03/24 07/03/24 History fenofibrate 160 mg tablet 160 mg PO .DAILY@NOON 07/03/24 07/03/24 History levothyroxine 150 mcg tablet 150 mcg PO DAILYBB 07/03/24 07/03/24 History metoprolol succinate 50 mg 50 mg PO HS 07/03/24 07/03/24 History tablet,extended release 24 hr prazosin 1 mg capsule 1 mg PO BID 07/03/24 07/03/24 History Past Med/Surg History Problem List Elevated brain natriuretic peptide (BNP) level (Acute) CRF (chronic renal failure) (Acute) Fluid overload (Acute) Precordial chest pain (Acute) SOLOMON (dyspnea on exertion) (Acute) SOB (shortness of breath) (Acute) Vitamin D deficiency Anemia due to chronic kidney disease Abdominal pain Change in bowel habits Chronic kidney disease, stage 4 (severe) (Acute) Diarrhea Acute kidney injury Uncontrolled type 2 diabetes mellitus with hyperglycemia, with long-term current use of insulin Callus under metatarsal head Background diabetic retinopathy associated with type 2 diabetes mellitus Diabetes type 2, controlled Diabetic nephropathy associated with type 2 diabetes mellitus Albuminuria Depression Obesity Dyslipidemia Medical History Fistula Chronic ulcer of right foot limited to breakdown of skin Acute kidney injury superimposed on CKD Hypoglycemia associated with type 2 diabetes mellitus Tobacco abuse Loss of protective sensation of skin of foot Diabetic peripheral neuropathy associated with type 2 diabetes mellitus Hypothyroidism Nephrotic syndrome Stage 3b chronic kidney disease Hypertension Influenza A Family History Mother Diabetes Heart disease Dyslipidemia Social History Smoking Status: Current every day smoker Tobacco Type: Cigarettes Cigarettes Per Day: 1 pack; Second Hand Exposure: Yes; Do You Dip or Chew Tobacco: No; Hx Alcohol Use: Yes Alcohol type: hard liquor Alcohol Intake Frequency: Monthly or Less Hx Substance Use: Yes Prescribed Medications: Marijuana Last Used Substance: Unknown Substance Use Type Other:: medical prescribed Preferred Language: Albanian Communication Ability: Effective Multimedia Technician Required: No Beliefs That Will Affect Care: None marital status: Current Living Situation: Spouse current occupational status: employed How many Children do You have: 5 Feels Safe at Home: Yes Safety Concerns: Feels Safe At This Time Assistive Devices: CPAP, Glasses and Oxygen - Continuous Review of Systems Review of Systems: All systems reviewed & are unremarkable except as noted in HPI & below Physical Exam Physical Exam: General: patient resting comfortably, NAD, non-toxic in appearance, AA&O x 4 Skin: warm, dry, intact, no rashes or lesions HEENT: NC/AT, PERRL, EOMI, anicteric sclera, conjunctiva without injection, external ear normal to inspection and nontender, nares patent, moist mucus membranes, dentition intact, no oropharyngeal lesions, neck supple, trachea midline, no LAD, no thyromegaly, no JVD Heart: +S1/S2, regular, no m/r/g, reproducible pain with palpation under the right breast over the rib. Lungs: equal air entry bilaterally, crackles in bilateral bases Abd: +BS, soft, NT/ND, no masses/organomegaly/ascites Ext: warm, 2+ pulses in UE/LE bilaterally, no clubbing/cyanosis, 2+ edema bilateral lower extremities Neuro: nonfocal, patient AA&O x 4, speech intact, no facial droop, moving all extremities on command with equal strength 5/5 Results & Data Results & Data Vital Signs (Past 12 Hours) Vital Signs Temp Pulse Pulse Resp BP BP Pulse Ox 07/03/24 03:58 07/03/24 03:49 84 18 98 07/03/24 03:32 84 18 167/103 H 98 07/03/24 02:24 82 18 177/117 H 97 07/03/24 01:12 83 20 167/103 H 97 07/02/24 23:24 80 18 177/141 H 99 07/02/24 23:23 80 07/02/24 23:12 79 20 98 07/02/24 21:00 84 22 185/97 H 98 07/02/24 19:32 92 H 26 H 119/78 98 07/02/24 19:31 97 07/02/24 19:30 79 L 07/02/24 19:29 89 07/02/24 18:57 36.8 C 91 H 16 158/83 H 91 O2 Del Method O2 Flow Rate 07/03/24 03:58 Nasal Cannula 2 07/03/24 03:49 Nasal Cannula 2 07/03/24 03:32 Room Air 07/03/24 02:24 Nasal Cannula 2 07/03/24 01:12 02/19/25 23:24 07/02/24 23:23 07/02/24 23:12 07/02/24 21:00 Nasal Cannula 2 07/02/24 19:32 Nasal Cannula 2 07/02/24 19:31 Nasal Cannula 2 07/02/24 19:30 Room Air 07/02/24 19:29 07/02/24 18:57 Room Air Laboratory Results Laboratory Results WBC 8.15 K/ul (4.8-10.8) 07/02/24 19:53 RBC 3.68 M/uL (4.70-6.10) L 07/02/24 19:53 Hgb 10.1 g/dl (14.0-18.0) L 07/02/24 19:53 Hct 34.1 % (42.0-52.0) L 07/02/24 19:53 MCV 92.7 fL (80.0-100.0) 07/02/24 19:53 MCH 27.4 pg (25.0-34.0) 07/02/24 19:53 MCHC 29.6 g/dL (32.0-36.0) L 07/02/24 19:53 RDW Std Deviation 64.4 fL (36.4-46.3) H 07/02/24 19:53 RDW Coeff of Domi 19.6 % (11.5-14.5) H 07/02/24 19:53 Plt Count 338 K/uL (130-400) 07/02/24 19:53 MPV 9.8 fL (9.4-12.4) 07/02/24 19:53 Immature Gran % (Auto) 0.7 % 07/02/24 19:53 Neut % (Auto) 75.8 % 07/02/24 19:53 Lymph % (Auto) 14.6 % 07/02/24 19:53 Buchanan % (Auto) 7.0 % 07/02/24 19:53 Eos % (Auto) 1.3 % 07/02/24 19:53 Baso % (Auto) 0.6 % 07/02/24 19:53 Neut # (Auto) 6.17 K/uL (1.40-6.50) 07/02/24 19:53 Lymph # (Auto) 1.19 K/uL (1.20-3.40) L 07/02/24 19:53 Buchanan # (Auto) 0.57 K/uL (0.11-0.59) 07/02/24 19:53 Eos # (Auto) 0.11 K/uL (0.00-0.50) 07/02/24 19:53 Baso # (Auto) 0.05 K/uL (0.00-0.20) 07/02/24 19:53 Immature Gran # (Auto) 0.06 K/uL (0.01-0.20) 07/02/24 19:53 Absolute Nucleated RBC 0.04 K/uL (0.00-0.12) 07/02/24:53 Nucleated RBC % (auto) 0.5 % 07/02/24:53 PT 11.1 Seconds (9.0-12.0) 07/02/24 21:32 INR 1.0 (0.9-1.1) 07/02/24 21:32 APTT 27 Seconds (21-31) 07/02/24 21:32 PTT Ratio 1.0 07/02/24 21:32 Sodium 142 mmol/L (136-145) 07/03/24 03:40 Potassium 4.4 mmol/L (3.5-5.1) 07/03/24 03:40 Chloride 106 mmol/L (98-107) 07/03/24 03:40 Carbon Dioxide 30 mmol/L (21-32) 07/03/24 03:40 Anion Gap 6 (3-11) 07/03/24 03:40 BUN 71 mg/dl (6-23) H 07/03/24 03:40 Creatinine 4.39 mg/dl (0.6-1.4) H 07/03/24 03:40 Est Cr Clr Drug Dosing 28.3 ml/min 07/03/24 03:40 eGFR 16.33 07/03/24 03:40 BUN/Creatinine Ratio 16.2 (10-20) 07/03/24 03:40 Glucose 167 mg/dl (70-99(Fasting)) H 07/03/24 03:40 Calcium 8.3 mg/dl (8.6-10.3) L 07/03/24 03:40 Magnesium 2.2 mg/dl (1.7-2.4) 07/02/24 19:53 Total Bilirubin 0.4 mg/dl (0.2-1.0) 07/02/24 19:53 AST 14 U/L (13-39) 07/02/24 19:53 ALT 13 U/L (7-52) 07/02/24 19:53 Alkaline Phosphatase 31 U/L (34-104) L 07/02/24 19:53 Troponin I High Sens 11.9 pg/ml (0-20) 07/02/24 19:53 B-Natriuretic Peptide 1116 pg/ml (0-100) H 07/02/24 19:53 Total Protein 6.4 gm/dl (6.0-8.3) 07/02/24 19:53 Albumin 3.9 gm/dl (3.4-5.0) 07/02/24 19:53 Globulin 2.5 gm/dl (2.5-4.0) 07/02/24 19:53 Albumin/Globulin Ratio 1.6 (0.9-2) 07/02/24 19:53 TSH 1.276 uIu/ml (0.300-4.500) 07/02/24 19:53 Impressions Chest X-Ray 07/02/24 19:02 EXAM: X-ray chest one-view portable CLINICAL HISTORY: Chest pain, shortness of breath PRIORS: 01/24/2024,12/20/2023 TECHNIQUE: Frontal view chest FINDINGS: The chest is well-expanded. Marked enlargement of the heart noted, unchanged. Eventration of the left hemidiaphragm. No pneumothorax. No airspace consolidation in the lungs. Trachea is patent. Osseous structures demonstrate no acute abnormality. No radiopaque foreign body. IMPRESSION: Enlarged cardiac silhouette, unchanged. Electronically signed by Hien Echeverria 07-02-2024 7:49 PM ECG Additional Comments: Patient with normal sinus rhythm at 86 bpm, MS = 166, QRS = 98, QTc = 464, some nonspecific T wave abnormalities but no acute ischemic changes and no change from prior EKG. PG Care Time/CCT Total # of Minutes Spent Total Time Spent with Patient: Total time spent is greater than 50% in coordination of care (as documented) at patient's floor/unit and/or counseling patient: Coding Level of Care Code 92835 INT INP/OBS CARE 3/75MIN Diagnoses Fluid overload E87.70 Hypervolemia type: unspecified CRF (chronic renal failure) N18.9 Chronic kidney disease stage: unspecified stage Uncontrolled type 2 diabetes mellitus with hyperglycemia, with long-term current use of insulin E11.65; Z79.4 Dyslipidemia E78.5 Depression F32.A (1) Fluid overload Hypervolemia type: unspecified Qualified Code(s): E87.70 - Fluid overload, unspecified (2) CRF (chronic renal failure) Chronic kidney disease stage: unspecified stage Qualified Code(s): N18.9 - Chronic kidney disease, unspecified
[2024-07-03 05:08] LABS: Hematocrit (blood only) 33.3 % (42.0-52.0); Hemoglobin 9.8 g/dl (14.0-18.0); Mean Corpuscular Hemoglobin 27.5 pg (25.0-34.0); Mean Corpuscular Hgb Conc 29.4 g/dL (32.0-36.0); Mean Corpuscular Volume 93.3 fL (80.0-100.0); Mean Platelet Volume 10.6 fL (9.4-12.4); Nucleated RBC # (auto) 0.03 K/uL (0.00-0.12); Nucleated RBC % (auto) 0.4 %; Platelet Count 372 K/uL (130-400); RDW Standard Deviation 64.6 fL (36.4-46.3); Red Blood Count 3.57 M/uL (4.70-6.10); White Blood Count 8.17 K/ul (4.8-10.8)
--- NOTE | 2024-07-03 06:49 | Hospitalist Progress Note ---
Date of Service July 03, 2024 Assessment & Plan (1) Hypertension: (2) Elevated brain natriuretic peptide (BNP) level: (3) CRF (chronic renal failure): (4) Fluid overload: (5) Depression: (6) Dyslipidemia: (7) Hypothyroidism: (8) Diabetic retinopathy: (9) Type 2 diabetes mellitus: Plan Deonte is a 43 Y O Male with PMH of Diabetes Mellitus II, Obesity with BMI of 37.6 , Dyslipidemia, Depression, CKD stage 4, Anemia and Hypertension due to Chronic Kidney Disease presented to ER with exertional dyspnea, chest discomfort and palpitation. (1) Fluid Overload -Bumex 2 mg IV twice daily. -Monitor BMP every 12h -Monitor standing strict intake and output -2D Echo ordered- reveals Normal EF, Severe Concentric Left Ventricular Hypertrophy, Moderately dilated Right Atrium and RVSP>60mmHG suggesting Pulmonary Hypertension (2). Elevated BNP -BNP(07/02): 1116 -Last ECHO(Apr 2023) revealed EF of 55 to 60% with moderate concentric left ventricular hypertrophy --2D Echo ordered- reveals Normal EF, Severe Concentric Left Ventricular Hypertrophy, Moderately dilated Right Atrium and RVSP>60mmHG- suggesting Pulmonary Hypertension (3) Exertional Dyspnea -Chest Xray(07/02) revealed marked enlargement of heart; Eventration of left hemidiaphragm, No pneumothorax, No airspace consolidation in lungs, no foreign body -Hgb(07/02) : 9.8 (4).Chronic Renal Failure -Elevated BUN and Creatinine near baseline -No fistula placement as well as Dialysis -Avoid Nephrotoxic agents -Check BMP every 12 hour to assess for compromise with ongoing diuresis -Continue Calcitriol (5).Uncontrolled Type II Diabetes Mellitus with Hyperglycemia, with manager long 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 Stop home meds - Insulin Glargine(Lantus) 5 Units BID (6) Dyslipidemia: - Lipid Profile(Jan 31 2024): Normal - On atorvastatin 40 Mg PO BID Continue atorvastatin 40 mg PO BID (7) Depression: -Chronic. Stable. Continue Wellbutrin 300 mg p.o. daily Chronic medical Conditions: (1) Hypertension: Elevated blood pressure Continue metoprolol 100 mg p.o. every morning and 50 mg p.o. nightly Continue hydralazine 100 mg p.o. twice daily Continue amlodipine 10 mg p.o. every morning (2)Hypothyroidism: Continue Synthroid 150 mcg p.o. daily Dispo: Med unit Code Status: Full code Admission and Anticipated Discharge Date Admission Date: July 02, 2024 Supervising Physician Co-Signing Physician Notes I personally examined the patient and verified roa points of history and exam, discussed case, and agree with decision making and plan documented by Dr. Camp and Yesi HAWLEY. Patient is a 43-year-old male with CKD 4, type 2 diabetes, hypertension presenting with acute exacerbation of HFpEF symptoms of worsening shortness of breath on exertion. Patient appears comfortable, nasal canula in place, lungs bilateral rales at bases, regular rate and rhythm, 2+ edema bilateral lower extremities, chronic venous stasis skin changes, no acute distress. On 2L O2, home baseline. Currently diuresing with bumetanide 2 mg IV, monitor weights and I/Os. Erythropoietin for associated anemia. Patient will benefit from mental health evaluation and possible counseling therapy as he is experiencing worsening depression as a result of his health conditions, he denies SI/HI. Reviewed the importance of glycemic control with patient, will benefit from continued support of lifestyle goals. Kwame Clemons was seen at the bedside this morning. Feeling well, not short of breath since he has been in the hospital. Currently on 2L nasal cannula. - Deonte reports a long and complex health history. He reports that he has been fully compliant with medications over the past few months. - SOLOMON has been present for 2 weeks, present with walking up a flight of stairs or walking longer distances outside. No SOB at rest or when walking across a room. He feels this is made worse because he is not physically active. Does not check weight at home but feels he is "retaining fluid." - Deonte says that he has oxygen to use at home, and uses it every night connected to his CPAP. He can use it as needed at home, but says he usually does not use it during the day. No palpitations. - Chest discomfort was also present for about 2 weeks, he describes pain with palpation over the right ribs, 5-7/10. Pain has resolved since he has been in [facility]. - He endorses ongoing GI symptoms for the past several months including persistent nausea relieved by eating, bloating, frequent diarrhea, and vomiting approximately once per day, usually in the morning. He saw a landscape artist a few months ago and was provided with a stool test kit, but has not followed up or completed the kit. - He reports that he feels his depression is "worse than it should be," but that he manages and has a positive attitude. - Current every day smoker, 1 ppd. - No urinary symptoms, reports urine is usually light yellow. Drinks mostly water. Review of Systems Constitutional: As per HPI Physical Exam Physical Exam: Constitutional: comfortable, in no acute distress HEENT: NCAT, no conjunctival injection CV: regular rate and rhythm, no LE edema Resp: no increased work of breathing, no wheezing, crackles in bilateral bases MSK: no gross deformities appreciated, no pain to palpation of lower extremities, palpable thrill in LUE fistula Skin: warm, dry, no rash appreciated Neuro: alert & oriented x4 Results & Data Results & Data Vital Signs (Past 12 Hours) Vital Signs Temp Pulse Pulse Resp BP BP Pulse Ox 07/03/24 06:34 81 18 139/92 96 07/03/24 03:58 07/03/24 03:49 84 18 98 07/03/24 03:32 84 18 167/103 H 98 07/03/24 02:24 82 18 177/117 H 97 07/03/24 01:12 83 20 167/103 H 97 07/02/24 23:24 80 18 177/141 H 99 07/02/24 23:23 80 07/02/24 23:12 79 20 98 07/02/24 21:00 84 22 185/97 H 98 07/02/24 19:32 92 H 26 H 119/78 98 07/02/24 19:31 97 07/02/24 19:30 79 L 07/02/24 19:29 89 07/02/24 18:57 36.8 C 91 H 16 158/83 H 91 O2 Del Method O2 Flow Rate 07/03/24 06:34 Nasal Cannula 3 07/03/24 03:58 Nasal Cannula 2 07/03/24 03:49 Nasal Cannula 2 07/03/24 03:32 Room Air 07/03/24 02:24 Nasal Cannula 2 07/03/24 01:12 07/02/24 23:24 07/02/24 23:23 07/02/24 23:12 07/02/24 21:00 Nasal Cannula 2 07/02/24 19:32 Nasal Cannula 2 07/02/24 19:31 Nasal Cannula 2 07/02/24 19:30 Room Air 07/02/24 19:29 07/02/24 18:57 Room Air Laboratory Data Sodium 142 mmol/L (136-145) 07/03/24 Potassium 4.4 mmol/L (3.5-5.1) 07/03/24 Chloride 106 mmol/L (98-107) 07/03/24 Carbon Dioxide 30 mmol/L (21-32) 07/03/24 Anion Gap 6 (3-11) 07/03/24 BUN 71 mg/dl (6-23) H 07/03/24 Creatinine 4.39 mg/dl (0.6-1.4) H 07/03/24 eGFR 16.33 07/03/24 Est GFR ( Amer) 20.5 ml/min 01/31/24 Est GFR (Non-Af Amer) 17.7 ml/min 01/31/24 BUN/Creatinine Ratio 16.2 (10-20) 07/03/24 Glucose 167 mg/dl (70-99(Fasting)) H 07/03/24 Hemoglobin A1c 8.9 % (4.5-5.6) H 01/31/24 Calcium 8.3 mg/dl (8.6-10.3) L 07/03/24 Phosphorus 4.4 mg/dl (2.5-4.9) 03/19/24 Total Bilirubin 0.4 mg/dl (0.2-1.0) 07/02/24 Direct Bilirubin 0.1 mg/dl (0-0.2) 05/05/23 AST 14 U/L (13-39) 07/02/24 ALT 13 U/L (7-52) 07/02/24 Alkaline Phosphatase 31 U/L (34-104) L 07/02/24 Total Protein 6.4 gm/dl (6.0-8.3) 07/02/24 Albumin 3.9 gm/dl (3.4-5.0) 07/02/24 Globulin 2.5 gm/dl (2.5-4.0) 07/02/24 Triglycerides 103 mg/dl (0-150) 01/31/24 Cholesterol 116 mg/dl (0-200) 01/31/24 LDL Cholesterol, Calc 57 mg/dl 01/31/24 LDL Cholesterol Direct 64 mg/dl 01/31/24 HDL Cholesterol 38 mg/dl 01/31/24 Cholesterol/HDL Ratio 3.1 (0-5) 01/31/24 Microalb/Creat Ratio 6027.0 mcg/mg (0-30) H 12/20/22 (1) Hypertension Hypertension type: unspecified Qualified Code(s): I10 - Essential (primary) hypertension (3) CRF (chronic renal failure) Chronic kidney disease stage: unspecified stage Qualified Code(s): N18.9 - Chronic kidney disease, unspecified (4) Fluid overload Hypervolemia type: unspecified Qualified Code(s): E87.70 - Fluid overload, unspecified
[2024-07-03] MEDS: LEVOTHYROXINE SODIUM 150 MCG TABLET PO SCH (07:14)
[2024-07-03] MEDS: amLODIPine BESYLATE 5 MG TAB PO SCH (08:56)
[2024-07-03] MEDS: ATORVASTATIN 40 MG TAB PO SCH (08:57)
[2024-07-03] MEDS: hydrALAZINE TAB 50 MG TAB PO SCH (08:58)
[2024-07-03] MEDS: METOPROLOL SUCC 50MG EXT REL TAB PO SCH ×2 (08:58→20:50)
[2024-07-03] MEDS: PRAZOSIN HCL 1 MG CAP PO SCH (08:59)
[2024-07-03] MEDS: LANTUS PER UNIT CHARGE SQ SCH (09:12)
[2024-07-03] MEDS: INSULIN ASPART PER UNIT CHARGE SC SCH (09:13)
--- NOTE | 2024-07-03 10:51 | Nephrology Consultation ---
Date of Consultation July 03, 2024 Assessment & Plan (1) Chronic kidney disease, stage 4 (severe): (2) Anemia due to chronic kidney disease: (3) Precordial chest pain: (4) Diabetic nephropathy associated with type 2 diabetes mellitus: Plan 43-year-old gentleman with stage IV CKD baseline creatinine around 4.5 mg/dl with NS , 11 gm of proteinuria, hypoalbuminemia and chronic lower extremity edema with history of poorly controlled hypertension, diabetes, obesity and s moking. Prior renal imaging otherwise unremarkable. Has L BC AVF. Admitted with right-sided chest pain which seem noncardiac in nature, troponin, EKG unremarkable. BNP was elevated, he was slightly volume overloaded but not significantly and weight has been relatively stable. Has been taking Bumex 2 mg twice a day Kidney function is relatively stable at baseline, electrolyte acceptable. Hemo globin low at 9.8, previously had iron deficiency and received Venofer. --Although troponin, EKG unremarkable and the chest pain seems noncardiac in nature, however he does have multiple risk factor for coronary artery disease, consider stress test for further evaluation. --resume Jardiance 10 mg daily. Will consider restarting on Losartan if kidney function stay relatively stable. --Epogen 20,000 units x 1 dose today. --Continue Bumex 2 mg IV twice a day for now, monitor intake and output, if significantly net negative, will change to oral starting tomorrow. It will be important for him to monitor weight at home daily when he gets discharged and if noticed significant weight gain he should take extra dose of Bumex. Thank you for allowing me to participate in your patient's care. It was a pleasure to see Deonte. History of Present Illness Reason for Consultation: Stage 4 CKD, Anemia, CP Attending Physician: Koki Rose DO History of Present Illness Mr. Deonte Manzo is a 43 male with a PMH of stage 4 CKD, NS, Type 2 Diabetes, HTN, and Dyslipidemia admitted to hospital with CP, volume overload. Nephrology consult was requested for management of above. Electronic medical records were reviewed in detail in patient's visit. Suman presented to ER with the c/o right-sided chest pain, shortness of breath on exertion and concern for volume overload. He has been on Bumex 2 mg twice a day at home and he reports taking those regularly and noticing appropriate response with decent urine output. He reports shortness of breath which is mainly exertional but no change from his baseline shortness of breath. Blood pressure has been decent. Chest x-ray on admission was notable for known cardiomegaly but no significant pulmonary vascular congestion. Lab was notable for anemia with hemoglobin 9.8. No leukocytosis. Kidney function was close to baseline, creatinine was 4.5, electrolyte was acceptable. BNP was elevated at 1100, troponin was normal. EKG with sinus rhythm, no changes compared to prior EKG. His weight was 118 kg which seems to be close to his baseline. He was given Bumex 2 mg IV x 1 dose and continued on 2 mg IV twice a day. Had 750 mL of urine output since admission. He reports improvement in chest pain and not necessarily short of breath. No fever or chills. Blood pressure was initially elevated which improved. Has stage 4 CKD, b/l cr has been around 4.5 mg/dl lately secondary to diabetic nephropathy and hypertensive nephrosclerosis with nephrotic syndrome and more than 11 g of proteinuria. Possibility for secondary FSGS remains with history of poorly controlled hypertension. He had 7 g of proteinuria on 24-hour urine, PLA2R was negative. SPEP showed IgG monoclonal band. Does not work. Smokes 1 pack per day. Does not drink. No known family history of CKD or ESKD. Had left brachiocephalic AV fistula placed on 02/29/2024. Has history of hypertension and diabetes both seems to be poorly controlled in general, on amlodipine 10 mg daily, losartan 100 mg, metoprolol 100 mg daily. Type 2 diabetes, poorly controlled, has been on insulin, Jardigabe Trjesse. 2D echo showed EF 50 to 55%, moderate concentric LVH. Was sitting in bed, seems comfortable. Denied any shortness of breath, chest pain improved. LE edema relatively stable. Allergies Allergy/AdvReac Type Severity Reaction Status Date / Time No Known Allergies Allergy Verified 07/02/24 23:57 Home Medications Medication Instructions Recorded Confirmed Type albuterol sulfate 90 mcg/actuation 2 puff inhalation Q6H PRN 01/03/23 07/02/24 History aerosol inhaler Shortness Of Breath Or Wheezing empagliflozin 25 mg tablet 25 mg PO DAILY #30 tabs 05/17/23 07/03/24 Rx (Jardiance) blood-glucose meter (Accu-Chek #1 ea 07/13/23 03/27/24 Rx Guide Glucose Meter) flash glucose sensor (FreeStyle #6 ea 07/13/23 03/27/24 Rx Tootie 2 Sensor kit) lancets (Accu-Chek Softclix #100 ea 07/13/23 03/27/24 Rx Lancets) blood sugar diagnostic (Accu-Chek #100 ea 11/01/23 03/27/24 Rx Guide test strips) amlodipine 10 mg tablet 10 mg PO QAM 12/20/23 07/02/24 History metoprolol succinate 100 mg 100 mg PO QAM 12/20/23 07/03/24 History tablet,extended release 24 hr hydralazine 100 mg tablet 100 mg PO BID #60 tabs 01/09/24 07/03/24 Rx bupropion HCl 300 mg 24 hr tablet, 300 mg PO DAILY 01/31/24 07/03/24 History extended release insulin glargine 100 unit/mL (3 15 unit (0.15 mL) subcut DAILY #15 03/19/24 07/03/24 Rx mL) subcutaneous pen (Lantus mL Solostar U-100 Insulin) atorvastatin 80 mg tablet 40 mg (1/2 x 80 mg) PO BID #30 tabs 04/09/24 07/02/24 Rx bumetanide 2 mg tablet 2 mg PO BID 30 days #60 tabs 06/03/24 07/03/24 Rx bumetanide 2 mg tablet 2 mg PO DAILY PRN Edema 07/03/24 07/03/24 History calcitriol 0.5 mcg capsule 0.5 mcg PO .DAILY@NOON 07/03/24 07/03/24 History fenofibrate 160 mg tablet 160 mg PO .DAILY@NOON 07/03/24 07/03/24 History levothyroxine 150 mcg tablet 150 mcg PO DAILYBB 07/03/24 07/03/24 History metoprolol succinate 50 mg 50 mg PO HS 07/03/24 07/03/24 History tablet,extended release 24 hr prazosin 1 mg capsule 1 mg PO BID 07/03/24 07/03/24 History Patient History Medical History Fistula Chronic ulcer of right foot limited to breakdown of skin Acute kidney injury superimposed on CKD Hypoglycemia associated with type 2 diabetes mellitus Tobacco abuse Loss of protective sensation of skin of foot Diabetic peripheral neuropathy associated with type 2 diabetes mellitus Hypothyroidism Nephrotic syndrome Stage 3b chronic kidney disease Hypertension Influenza A Family History Mother Diabetes Heart disease Dyslipidemia Social History Smoking Status: Current every day smoker Tobacco Type: Cigarettes Cigarettes Per Day: 1 pack; Second Hand Exposure: Yes; Do You Dip or Chew Tobacco: No; Hx Alcohol Use: Yes Alcohol type: hard liquor Alcohol Intake Frequency: Monthly or Less Hx Substance Use: Yes Prescribed Medications: Marijuana Last Used Substance: Unknown Substance Use Type Other:: medical prescribed Preferred Language: Indonesian Communication Ability: Effective 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 Physical Exam Constitutional: WD/WN, vitals as above no acute distress Eyes: + anicteric sclerae Neck: normal visual inspection Respiratory: no respiratory distress and no cough Auscultation: lungs clear to auscultation bilaterally; no crackles and no wheezes Cardiovascular: Rate/Rhythm: regular rate and regular rhythm Heart Sounds: normal S1 and normal S2 Gastrointestinal (Abdomen): Inspection/Auscultation: abdomen normal to inspection Musculoskeletal: Extremities: extremities normal to inspection Skin: + dry skin; no rashes Neurologic: no focal motor deficits Psychiatric: Orientation: alert and oriented x 3 Affect: euthymic affect Results & Data Vital Signs (Past 12 Hours) Vital Signs Pulse Pulse Resp BP BP Pulse Ox O2 Del Method 07/03/24 10:38 81 23 115/63 92 Nasal Cannula 07/03/24 10:00 82 23 07/03/24 09:00 85 14 178/100 H 92 Room Air 07/03/24 07:00 80 15 127/71 96 Nasal Cannula 07/03/24 06:56 81 07/03/24 06:34 81 18 139/92 96 Nasal Cannula 07/03/24 03:58 Nasal Cannula 07/03/24 03:49 84 18 98 Nasal Cannula 07/03/24 03:32 84 18 167/103 H 98 Room Air 07/03/24 02:24 82 18 177/117 H 97 Nasal Cannula 07/03/24 01:12 83 20 167/103 H 97 07/02/24 23:24 80 18 177/141 H 99 07/02/24 23:23 80 07/02/24 23:12 79 20 98 O2 Flow Rate 07/03/24 10:38 3 07/03/24 10:00 07/03/24 09:00 07/03/24 07:00 3 07/03/24 06:56 07/03/24 06:34 3 07/03/24 03:58 2 07/03/24 03:49 2 07/03/24 03:32 07/03/24 02:24 2 07/03/24 01:12 07/02/24 23:24 07/02/24 23:23 07/02/24 23:12 PG Care Time/CCT Total # of Minutes Spent Total Time Spent with Patient: Total time spent is greater than 50% in coordination of care (as documented) at patient's floor/unit and/or counseling patient: Coding Level of Care Code 19651 INT INP/OBS CARE 3/75MIN Diagnoses Chronic kidney disease, stage 4 (severe) N18.4 Anemia due to chronic kidney disease N18.9; D63.1 Precordial chest pain R07.2 Diabetic nephropathy associated with type 2 diabetes mellitus E11.21
[2024-07-03] MEDS: BUMETANIDE 2 MG in SYRINGE 0 ML IV SCH (11:20)
[2024-07-03] MEDS: EMPAGLIFLOZIN 10 MG TAB PO SCH ×2 (11:49→12:31)
[2024-07-03] MEDS: buPROPion XL 300 MG TABCR PO SCH (12:28)
[2024-07-03] MEDS: CALCITRIOL 0.25 MCG CAPSULE PO SCH (12:28)
[2024-07-03] MEDS: EPOETIN ALFA 20,000 UNITS/ML VIAL SQ STA (12:30)
--- NOTE | 2024-07-03 15:24 | XCELERA ---
[id number]
--- NOTE | 2024-07-03 15:50 | Electrocardiogram Report ---
Test Reason : Blood Pressure : */* mmHG Vent. Rate : 86 BPM Atrial Rate : 86 BPM P-R Int : 166 ms QRS Dur : 98 ms QT Int : 388 ms P-R-T Axes : 35 -4 105 degrees QTcB Int : 464 ms Normal sinus rhythm T wave abnormality, consider lateral ischemia Abnormal ECG When compared with ECG of 24-Jan-2024 23:43, No significant change was found Confirmed by Naga Bradford ([id number]) on 07/03/2024 3:50:08 PM Referred By: REFERRED SELF Confirmed By: Naga Bradford
[2024-07-04 07:19] LABS: Hematocrit (blood only) 32.6 % (42.0-52.0); Hemoglobin 9.5 g/dl (14.0-18.0); Mean Corpuscular Hemoglobin 27.4 pg (25.0-34.0); Mean Corpuscular Hgb Conc 29.1 g/dL (32.0-36.0); Mean Corpuscular Volume 93.9 fL (80.0-100.0); Mean Platelet Volume 10.2 fL (9.4-12.4); Nucleated RBC # (auto) 0.03 K/uL (0.00-0.12); Nucleated RBC % (auto) 0.5 %; Platelet Count 309 K/uL (130-400); RDW Coefficient of Variation 19.2 % (11.5-14.5); RDW Standard Deviation 64.5 fL (36.4-46.3); Red Blood Count 3.47 M/uL (4.70-6.10); White Blood Count 6.25 K/ul (4.8-10.8)
--- NOTE | 2024-07-04 07:35 | Hospitalist Progress Note ---
Date of Service July 04, 2024 Assessment & Plan (1) Hypertension: (2) Elevated brain natriuretic peptide (BNP) level: (3) CRF (chronic renal failure): (4) Fluid overload: (5) Depression: (6) Dyslipidemia: (7) Hypothyroidism: (8) Diabetic retinopathy: (9) Type 2 diabetes mellitus: (10) Anemia due to chronic kidney disease: Amelia Clemons is a 43 YO Male with PMH of Diabetes Mellitus II, Obesity with BMI of 37.6, Dyslipidemia, Depression, CKD stage 4, Anemia and Chronic Kidney Disease secondary to T2DM and Hypertension presented to ER with exertional dyspnea, chest discomfort and palpitations. 1. Fluid overload secondary to CKD stage IV - Echo on 07/03/2024 showed normal LVEF 60-65%, elevated right ventricular systolic pressure of >60mmHg, severe concentric left ventricular hypertrophy, therefore most likely not 2/2 exacerbation of heart failure - Patient w/ SOLOMON worsening over the past two weeks, weight gain of 2.5kg since March - BNP 1116 - Monitor BMP q12 hours to assess for electrolyte derangements and worsening renal function in setting of diuresis: potassium 4.4->5.2, phos 6.4 - On Bumex 2mg BID at home - Per nephrology, recommend switching Bumex to 2mg orally twice a day, monitor intake output and weight daily. If any significant weight gain and net positive on final Bumex, would increase the dose to 3 mg twice a day. 2. Chronic Renal Failure, CKD Stage IV - Elevated BUN and Creatinine Cr 4.39->4.44, near baseline - Fistula placed at [facility] 02/29/24, has not had dialysis - Avoid nephrotoxic agents - Calcium 8.3->8.0, continue Calcitriol - Will f/u with nephrology in CKD office in 3-4 weeks 3. Anemia secondary to CKD - Hgb has been downtrending since admission, 9.5 today - Low transferrin saturation 9% - Received 20,000 units Epoetin Kevin on 06/02 - Started on Venofer 4. Uncontrolled Type II Diabetes Mellitus with Hyperglycemia, with group home current use of Insulin - Fasting Glucose (07/03): 167 - HBA1C (Jan 2024): 8.9 - Continue Jardiance 10 mg daily - Takes 15 units of Insulin daily - Lantus 5 units with insulin sliding scale 5. Hypertension - BPs were elevated at start of admission, highest 185/97, normalized today - Continue metoprolol 100 mg p.o. every morning and 50 mg p.o. nightly - Continue hydralazine 100 mg p.o. twice daily - Continue amlodipine 10 mg p.o. every morning 6. Dyslipidemia - Stable, is on atorvastatin BID - Continue atorvastatin 7. Depression - Chronic, stable - Continue Wellbutrin 300 mg p.o. daily 8. Hypothyroidism - Continue Synthroid 150 mcg p.o. daily 9. Diabetic Retinopathy - Has undergone one eye surgery, 4 total planned - Next surgery scheduled for next 07/07/24 Code Status: Full code Dispo: Med/tele Diet: heart healthy, carb consistent (T2DM) Admission and Anticipated Discharge Date Admission Date: July 02, 2024 Supervising Physician Co-Signing Physician Notes ATTESTATION I also saw the patient and confirmed roa portions of the history and exam.I personally examined the patient and verified roa points of history and exam, discussed case, and agree with decision making and plan documented by Dr. Camp. EXAM Appears comfortable lungs bilateral rales at bases heart regular rate and rhythm 2+ edema bilateral lower extremities chronic venous stasis skin changes. DATA Labs HgB = 9.5 Sodium 139,potassium 5.2, BUN 69, Cr 4.44 Phos 6.4 Imaging Echocardiogram shows preserved LV function, elevated right sided pressures. IMPRESSION & PLAN CKD, Stage 4 Anemia due to CKD Changed to Bumex 2 mg p.o. twice daily Monitor I's and O's Continue Jardiance 10 mg daily Additional per resident documentation Kwame Deonte was seen at the bedside this morning. Feeling well today, using 2L O2 nasal cannula as needed. - No SOB. Right sided chest discomfort has continued to wax and wane, he reports he feels it is related to hunger and eating. - No palpitations. - Has been experiencing muscle cramps in the upper and lower extremities - Continues to have lower extremity edema with tightness sensation in the lower legs. - Diarrhea has persisted for the past two days of his hospitalization. - Appetite has been good. - Feels persistent fatigue and weakness. - Patient reports urine output has continued to be light yellow and without blood. - He does report that he has reduced cigarettes from around 1 ppd to 1/2 ppd recently, but quitting completely has been difficult given that everyone around him smokes. Review of Systems Review of Systems: As per HPI. Physical Exam Physical Exam: Constitutional: comfortable, in no acute distress HEENT: NCAT, no conjunctival injection CV: regular rate and rhythm, no LE edema Resp: no increased work of breathing, no wheezing, no crackles MSK: no gross deformities appreciated, no pain to palpation of lower extremities, palpable thrill in LUE fistula Skin: warm, dry, no rash appreciated Neuro: alert & oriented x4 Results & Data Results & Data Vital Signs (Past 12 Hours) Vital Signs Temp Pulse Pulse Resp BP Pulse Ox O2 Del Method 07/04/24 07:29 36.6 C 67 18 92 Nasal Cannula 07/04/24 06:54 65 07/04/24 03:42 36.6 C 66 20 126/80 96 Nasal Cannula 07/04/24 01:36 76 07/03/24 23:36 36.6 C 70 20 126/69 97 Nasal Cannula 07/03/24 22:04 Room Air 07/03/24 19:53 36.8 C 73 20 154/85 H 98 Nasal Cannula O2 Flow Rate 07/04/24 07:29 2 07/04/24 06:54 07/04/24 03:42 2 07/04/24 01:36 07/03/24 23:36 2 07/03/24 22:04 07/03/24 19:53 2 Laboratory Data Sodium 139 mmol/L (136-145) 07/04/24 Potassium 5.2 mmol/L (3.5-5.1) H 07/04/24 Chloride 103 mmol/L (98-107) 07/04/24 Carbon Dioxide 31 mmol/L (21-32) 07/04/24 Anion Gap 5 (3-11) 07/04/24 BUN 69 mg/dl (6-23) H 07/04/24 Creatinine 4.44 mg/dl (0.6-1.4) H 07/04/24 eGFR 16.11 07/04/24 Est GFR ( Amer) 20.5 ml/min 01/31/24 Est GFR (Non-Af Amer) 17.7 ml/min 01/31/24 BUN/Creatinine Ratio 15.5 (10-20) 07/04/24 Glucose 111 mg/dl (70-99(Fasting)) H 07/04/24 Hemoglobin A1c 8.9 % (4.5-5.6) H 01/31/24 Calcium 8.0 mg/dl (8.6-10.3) L 07/04/24 Phosphorus 6.4 mg/dl (2.5-4.9) H 07/04/24 Total Bilirubin 0.4 mg/dl (0.2-1.0) 07/02/24 Direct Bilirubin 0.1 mg/dl (0-0.2) 05/05/23 AST 14 U/L (13-39) 07/02/24 ALT 13 U/L (7-52) 07/02/24 Alkaline Phosphatase 31 U/L (34-104) L 07/02/24 Total Protein 6.4 gm/dl (6.0-8.3) 07/02/24 Albumin 3.4 gm/dl (3.4-5.0) 07/04/24 Globulin 2.5 gm/dl (2.5-4.0) 07/02/24 Triglycerides 103 mg/dl (0-150) 01/31/24 Cholesterol 116 mg/dl (0-200) 01/31/24 LDL Cholesterol, Calc 57 mg/dl 01/31/24 LDL Cholesterol Direct 64 mg/dl 01/31/24 HDL Cholesterol 38 mg/dl 01/31/24 Cholesterol/HDL Ratio 3.1 (0-5) 01/31/24 Microalb/Creat Ratio 6027.0 mcg/mg (0-30) H 12/20/22 (1) Hypertension Hypertension type: unspecified Qualified Code(s): I10 - Essential (primary) hypertension (3) CRF (chronic renal failure) Chronic kidney disease stage: unspecified stage Qualified Code(s): N18.9 - Chronic kidney disease, unspecified (4) Fluid overload Hypervolemia type: unspecified Qualified Code(s): E87.70 - Fluid overload, unspecified
[2024-07-04 07:38] LABS: Albumin Level 3.4 gm/dl (3.4-5.0); BUN Creatinine Ratio 15.5 (10-20); Phosphorus 6.4 mg/dl (2.5-4.9); Potassium 5.2 mmol/L (3.5-5.1)
[2024-07-04 07:58] LABS: Ferritin 67.6 ng/ml (8-388)
[2024-07-04] MEDS: IRON SUCROSE 200 MG in SODIUM CHLORIDE 0.9% 100 ML IV SCH (09:02)
[2024-07-04] MEDS: SEVELAMER CARBONATE 800 MG TAB PO SCH (11:27)
--- NOTE | 2024-07-04 12:37 | Nephrology Progress Note ---
Date of Service July 04, 2024 Assessment & Plan (1) Chronic kidney disease, stage 4 (severe): (2) Anemia due to chronic kidney disease: (3) Precordial chest pain: (4) Diabetic nephropathy associated with type 2 diabetes mellitus: Plan 43-year-old gentleman with stage IV CKD baseline creatinine around 4.5 mg/dl with NS , 11 gm of proteinuria, hypoalbuminemia and chronic lower extremity edema with history of poorly controlled hypertension, diabetes, obesity and smoking. Prior renal imaging otherwise unremarkable. Has L BC AVF. Admitted with right-sided chest pain which seem noncardiac in nature, troponin, EKG unremarkable. BNP was elevated, he was slightly volume overloaded but not significantly and weight has been relatively stable. Has been taking Bumex 2 mg twice a day. Kidney function is relatively stable at baseline, electrolyte acceptable. Hemoglobin low at 9.5, with iron deficiency. 2D Echo with normal EF, severe LVH and high RV pressure. --Recommend switching Bumex to 2 mg orally twice a day, monitor intake output and weight daily. If any significant weight gain and net positive on final Bumex, would increase the dose to 3 mg twice a day. --Continue Jardiance 10 mg daily --Epogen 20,000 units x 1 dose given yesterday. Started on Venofer. Will sign off and schedule f/u at CKD clinic in next 3 /4 weeks Admission and Anticipated Discharge Date Admission Date: July 02, 2024 Kwame Will was seen and evaluated this morning. He reports overall feeling well and feels his back to his baseline. Denies shortness of breath but reports the chest pain off and on, mainly on the right side. Reports decent urine output on IV diuretics although unmeasured. Weight stable. Stable lower extremity edema. Review of Systems Review of Systems: Detail review of system was done and pertinent positives and negatives are mentioned above. Physical Exam Constitutional: WD/WN, vitals as above no acute distress Respiratory: no respiratory distress Auscultation: lungs clear to auscultation bilaterally Cardiovascular: Rate/Rhythm: regular rate and regular rhythm Heart Sounds: normal S1 and normal S2 Extremities: + edema (2+) and + AV fistula (L BC AVF) Musculoskeletal: Extremities: extremities normal to inspection Skin: + dry skin; no rashes Neurologic: no focal motor deficits Psychiatric: Orientation: alert and oriented x 3 Affect: euthymic affect Results & Data Vital Signs (Past 12 Hours) Vital Signs Temp Pulse Pulse Pulse Resp BP Pulse Ox 07/04/24 12:03 36.6 C 76 17 134/76 95 07/04/24 07:48 36.7 C 67 18 128/82 97 07/04/24 07:29 36.6 C 67 18 92 07/04/24 06:54 65 07/04/24 03:42 36.6 C 66 20 126/80 96 07/04/24 01:36 76 O2 Del Method O2 Flow Rate 07/04/24 12:03 Room Air, Nasal Cannula 2 07/04/24 07:48 Nasal Cannula 2 07/04/24 07:29 Nasal Cannula 2 07/04/24 06:54 07/04/24 03:42 Nasal Cannula 2 07/04/24 01:36 PG Care Time/CCT Total # of Minutes Spent Total Time Spent with Patient: Total time spent is greater than 50% in coordination of care (as documented) at patient's floor/unit and/or counseling patient: Coding Level of Care Code 86270 SUB INP/OBS CARE 2/35MIN Diagnoses Chronic kidney disease, stage 4 (severe) N18.4 Anemia due to chronic kidney disease N18.9; D63.1 Precordial chest pain R07.2 Diabetic nephropathy associated with type 2 diabetes mellitus E11.21
[2024-07-05 07:10] LABS: Basophils # (auto) 0.04 K/uL (0.00-0.20); Basophils % (auto) 0.6 %; Eosinophils # (auto) 0.15 K/uL (0.00-0.50); Eosinophils % (auto) 2.1 %; Hematocrit (blood only) 34.6 % (42.0-52.0); Hemoglobin 10.1 g/dl (14.0-18.0); Immature Granulocytes # (auto) 0.03 K/uL (0.01-0.20); Immature Granulocytes % (auto) 0.4 %; Lymphocytes # (auto) 1.17 K/uL (1.20-3.40); Lymphocytes % (auto) 16.2 %; Mean Corpuscular Hemoglobin 27.5 pg (25.0-34.0); Mean Corpuscular Hgb Conc 29.2 g/dL (32.0-36.0); Mean Corpuscular Volume 94.3 fL (80.0-100.0); Mean Platelet Volume 9.8 fL (9.4-12.4); Monocytes # (auto) 0.58 K/uL (0.11-0.59); Neutrophils # (auto) 5.27 K/uL (1.40-6.50); Neutrophils % (auto) 72.7 %; Nucleated RBC # (auto) 0.07 K/uL (0.00-0.12); Platelet Count 288 K/uL (130-400); RDW Coefficient of Variation 18.8 % (11.5-14.5); Red Blood Count 3.67 M/uL (4.70-6.10); White Blood Count 7.24 K/ul (4.8-10.8)
[2024-07-05 07:40] LABS: Albumin Level 3.8 gm/dl (3.4-5.0); BUN Creatinine Ratio 16.2 (10-20); Calcium 8.2 mg/dl (8.6-10.3); Creatinine Clr Calc Pharmacy 26.8 ml/min; Phosphorus 6.3 mg/dl (2.5-4.9); Potassium 5.2 mmol/L (3.5-5.1)
--- NOTE | 2024-07-05 08:38 | Hospitalist Progress Note ---
Date of Service July 05, 2024 Assessment & Plan (1) Hypertension: (2) Elevated brain natriuretic peptide (BNP) level: (3) CRF (chronic renal failure): (4) Fluid overload: (5) Depression: (6) Dyslipidemia: (7) Hypothyroidism: (8) Diabetic retinopathy: (9) Type 2 diabetes mellitus: (10) Anemia due to chronic kidney disease: Amelia Clemons is a 43 YO Male with PMH of Diabetes Mellitus II, Obesity with BMI of 37.6, Dyslipidemia, Depression, CKD stage 4, Anemia and Chronic Kidney Disease secondary to T2DM and Hypertension presented to ER with exertional dyspnea, chest discomfort and palpitations. 1. Fluid overload secondary to CKD stage IV - Echo on 07/03/2024 showed normal LVEF 60-65%, elevated right ventricular systolic pressure of >60mmHg, severe concentric left ventricular hypertrophy, therefore most likely not 2/2 exacerbation of heart failure - Patient w/ SOLOMON worsening over the past two weeks, weight gain of 2.5kg since March - BNP 1116 - Monitor BMP q12 hours to assess for electrolyte derangements and worsening renal function in setting of diuresis: potassium 4.4->5.2>5.2, phos 6.4 . Monitor electrolytes tomorrow - On Bumex 2mg BID at home -Switched from Bumex from IV to PO -Currently Bumex 2mg PO BID -Hopefully can be discharged tomorrow with F/U with nephrology 2. Chronic Renal Failure, CKD Stage IV - Elevated BUN and Creatinine Cr 4.39->4.44>4.64, near baseline - Fistula placed at [facility] 02/29/24, has not had dialysis - Avoid nephrotoxic agents - Calcium 8.3->8.0, continue Calcitriol - Will f/u with nephrology in CKD office in 3-4 weeks 3. Anemia secondary to CKD - Hgb 9.5>10.1 - Low transferrin saturation 9% - Received 20,000 units Epoetin Kevin on 06/02 - On Venofer 4. Uncontrolled Type II Diabetes Mellitus with Hyperglycemia, with care home current use of Insulin - Fasting Glucose (07/03): 167 - HBA1C (Jan 2024): 8.9 - Continue Jardiance 10 mg daily - Takes 15 units of Insulin daily - Lantus 5 units with insulin sliding scale 5. Hypertension - BPs were elevated at start of admission, highest 185/97, normalized now - Continue metoprolol 100 mg p.o. every morning and 50 mg p.o. nightly - Continue hydralazine 100 mg p.o. twice daily - Continue amlodipine 10 mg p.o. every morning 6. Dyslipidemia - Stable, is on atorvastatin BID - Continue atorvastatin 7. Depression - Chronic, stable - Continue Wellbutrin 300 mg p.o. daily 8. Hypothyroidism - Continue Synthroid 150 mcg p.o. daily 9. Diabetic Retinopathy - Has undergone one eye surgery, 4 total planned - Next surgery scheduled for next 07/07/24 Code Status: Full code Dispo: Med/tele Diet: heart healthy, carb consistent (T2DM) Admission and Anticipated Discharge Date Admission Date: July 02, 2024 Supervising Physician Co-Signing Physician Notes ATTESTATION I also saw the patient and confirmed roa portions of the history and exam.I personally examined the patient and verified roa points of history and exam, discussed case, and agree with decision making and plan documented by Dr. Camp. He is sleeping but awakens to voice. He notes nausea when he wakes up in the morning or at any point if he has not eaten for period of time. The nausea will improve with eating. Unsure how long this is going on, but in talking to him, this has been preceding the most recent admission. Discussed that it could be a sign of hyperacidity/reflux. I's and O's still difficult to discern as he continues to void in the toilet. He had some right sided chest pain upon admission which was nonexertional and reproducible upon palpation of the chest wall. This has not recurred. EXAM 138/81, 71, 19, 96% on nasal cannula 2 L/min (he reports same oxygen flow at home) Appears comfortable lungs bilateral rales at bases heart regular rate and rhythm DATA Labs HgB = 10.1 Sodium 139, potassium 5.2, BUN 75, Cr 4.64 Imaging Echocardiogram shows preserved LV function, elevated right sided pressures. IMPRESSION & PLAN CKD, Stage 4 Anemia due to CKD Borderline hyperkalemia Nausea, question GERD add famotidine 20 mg twice daily, first dose now ( renally adjusted from 40 mg) continue Bumex 2 mg p.o. twice daily recheck BMP in a.m.; if serum potassium acceptable, okay for discharge tomorrow Additional per resident documentation Kwame Will was seen and evaluated this morning. He reports overall feeling well and feels his back to his baseline. He stated he felt nauseous when he woke up. Denies shortness of breath but reports the chest pain off and on, mainly on the right side. Weight stable. Stable lower extremity edema. Review of Systems Constitutional: As per HPI Physical Exam Constitutional: WD/WN, vitals as above no acute distress Respiratory: no respiratory distress (Rales + in bilateral lower lungs) Cardiovascular: Rate/Rhythm: regular rate and regular rhythm Heart Sounds: normal S1 and normal S2 Extremities: + edema (2+) and + AV fistula (L BC AVF) Musculoskeletal: Extremities: extremities normal to inspection Skin: + dry skin; no rashes Neurologic: no focal motor deficits Psychiatric: Orientation: alert and oriented x 3 Affect: euthymic affect Results & Data Results & Data Vital Signs (Past 12 Hours) Vital Signs Temp Pulse Pulse Pulse Resp BP Pulse Ox 07/05/24 08:17 36.6 C 68 19 132/82 94 07/05/24 07:12 67 07/05/24 03:40 78 20 94 07/05/24 03:04 36.4 C L 68 18 129/81 94 07/04/24 23:54 36.5 C 73 18 129/78 94 07/04/24 23:40 74 21 93 07/04/24 21:45 77 O2 Del Method O2 Flow Rate 07/05/24 08:17 Room Air 07/05/24 07:12 07/05/24 03:40 2 07/05/24 03:04 CPAP 2 07/04/24 23:54 CPAP 2 07/04/24 23:40 2 07/04/24 21:45 (1) Hypertension Hypertension type: unspecified Qualified Code(s): I10 - Essential (primary) hypertension (3) CRF (chronic renal failure) Chronic kidney disease stage: unspecified stage Qualified Code(s): N18.9 - Chronic kidney disease, unspecified (4) Fluid overload Hypervolemia type: unspecified Qualified Code(s): E87.70 - Fluid overload, unspecified
[2024-07-05] MEDS ORDERED: FAMOTIDINE 40 MG TABLET PO ONE (14:26)
[2024-07-05] MEDS: FAMOTIDINE 20 MG TAB PO STA (15:33)
[2024-07-05] MEDS: BUMETANIDE 1 MG TAB PO SCH (20:56)
[2024-07-06 06:22] LABS: Basophils # (auto) 0.06 K/uL (0.00-0.20); Basophils % (auto) 0.8 %; Eosinophils # (auto) 0.17 K/uL (0.00-0.50); Eosinophils % (auto) 2.2 %; Hematocrit (blood only) 33.2 % (42.0-52.0); Hemoglobin 9.7 g/dl (14.0-18.0); Immature Granulocytes # (auto) 0.06 K/uL (0.01-0.20); Immature Granulocytes % (auto) 0.8 %; Lymphocytes # (auto) 1.41 K/uL (1.20-3.40); Mean Corpuscular Hemoglobin 27.6 pg (25.0-34.0); Mean Corpuscular Hgb Conc 29.2 g/dL (32.0-36.0); Mean Corpuscular Volume 94.3 fL (80.0-100.0); Mean Platelet Volume 9.3 fL (9.4-12.4); Monocytes # (auto) 0.79 K/uL (0.11-0.59); Monocytes % (auto) 10.1 %; Neutrophils # (auto) 5.35 K/uL (1.40-6.50); Neutrophils % (auto) 68.1 %; Nucleated RBC # (auto) 0.07 K/uL (0.00-0.12); Nucleated RBC % (auto) 0.9 %; Platelet Count 303 K/uL (130-400); RDW Coefficient of Variation 19.3 % (11.5-14.5); RDW Standard Deviation 64.4 fL (36.4-46.3); Red Blood Count 3.52 M/uL (4.70-6.10); White Blood Count 7.84 K/ul (4.8-10.8)
[2024-07-06 07:00] LABS: Albumin Globulin Ratio 1.4 (0.9-2); Albumin Level 3.6 gm/dl (3.4-5.0); BUN Creatinine Ratio 16.6 (10-20); Bilirubin,Total 0.3 mg/dl (0.2-1.0); Calcium 8.7 mg/dl (8.6-10.3); Creatinine Clr Calc Pharmacy 24.9 ml/min; Globulin 2.5 gm/dl (2.5-4.0); Potassium 5.1 mmol/L (3.5-5.1); Total Protein 6.1 gm/dl (6.0-8.3)
--- NOTE | 2024-07-06 07:17 | Hospitalist Progress Note ---
Date of Service July 06, 2024 Assessment & Plan (1) Hypertension: (2) Elevated brain natriuretic peptide (BNP) level: (3) CRF (chronic renal failure): (4) Fluid overload: (5) Depression: (6) Dyslipidemia: (7) Hypothyroidism: (8) Diabetic retinopathy: (9) Type 2 diabetes mellitus: (10) Anemia due to chronic kidney disease: Amelia Clemons is a 43 YO Male with PMH of Diabetes Mellitus II, Obesity with BMI of 37.6, Dyslipidemia, Depression, CKD stage 4, Anemia and Chronic Kidney Disease secondary to T2DM and Hypertension presented to ER with exertional dyspnea, chest discomfort and palpitations. 1. Fluid overload secondary to CKD stage IV - Echo on 07/03/2024 showed normal LVEF 60-65%, elevated right ventricular systolic pressure of >60mmHg, severe concentric left ventricular hypertrophy, therefore most likely not 2/2 exacerbation of heart failure - Patient w/ SOLOMON worsening over the past two weeks, weight gain of 2.5kg since March - BNP 1116 (07/02) - Potassium-5.1; Creatinine- 4.64>5 - On Bumex 2mg BID at home -Currently Bumex 2mg PO BID -Urine Input Output: Net positive balance of 274 ml -Discharge today with Followup with PCP next week and [employer] in 3/4 weeks 2. Chronic Renal Failure, CKD Stage IV - Elevated BUN and Creatinine Cr 4.64>5; BUN:Elevated to 83 - Fistula placed at [facility] 02/29/24, has not had dialysis - Avoid nephrotoxic agents - Calcium 87, continue Calcitriol - Will f/u with nephrology in CKD office in 3-4 weeks 3. Anemia secondary to CKD - Hgb 9.5>10.1>9.7 - Low transferrin saturation 9% - Received 20,000 units Epoetin Kevin on 06/02 - On Venofer 200 mg IV daily 4. Uncontrolled Type II Diabetes Mellitus with Hyperglycemia, with custodial current use of Insulin - Fasting Glucose (07/03): 167 - HBA1C (Jan 2024): 8.9 - Continue Jardiance 10 mg daily - Under Insulin Glargine 15 Units Subcut Daily at home - Current: Insulin Glargine 5 units SQ BID and Insulin Aspart 5. Hypertension - BPs were elevated at start of admission, highest 185/97, normalized now - Continue metoprolol 100 mg p.o. every morning and 50 mg p.o. nightly - Continue hydralazine 100 mg p.o. twice daily - Continue amlodipine 10 mg p.o. every morning 6. Dyslipidemia - Stable, is on atorvastatin BID - Continue atorvastatin 7. Depression - Chronic, stable - Continue Wellbutrin 300 mg p.o. daily 8. Hypothyroidism - Continue Synthroid 150 mcg p.o. daily 9. Diabetic Retinopathy - Has undergone one eye surgery, 4 total planned - Next surgery scheduled for next 07/07/24 Admission and Anticipated Discharge Date Admission Date: July 02, 2024 Kwame Clemons is a 43 YO Male with PMH of Diabetes Mellitus II, Obesity with BMI of 37.6, Dyslipidemia, Depression, CKD stage 4, Anemia and Chronic Kidney Disease secondary to T2DM and Hypertension presented to ER with exertional dyspnea, chest discomfort and palpitations. Overnight events: He mentioned he didn't sleep well ,because hospital bed was uncomfortable. No any events overnight. Ongoing symptoms: Denies difficulty in breathing, and chest pain. No nausea rn. Under 2 l of O2 New concerns: no any Review of Systems Review of Systems: As Per HPI Physical Exam Constitutional: WD/WN, vitals as above no acute distress Respiratory: no respiratory distress (Rales + in bilateral lower lungs) Cardiovascular: Rate/Rhythm: regular rate and regular rhythm Heart Sounds: normal S1 and normal S2 Extremities: + edema (2+) and + AV fistula (L BC AVF) Musculoskeletal: Extremities: extremities normal to inspection Skin: + dry skin; no rashes Neurologic: no focal motor deficits Psychiatric: Orientation: alert and oriented x 3 Affect: euthymic affect Results & Data Results & Data Vital Signs (Past 12 Hours) Vital Signs Temp Pulse Pulse Resp BP Pulse Ox O2 Del Method 07/06/24 06:33 71 07/06/24 04:05 36.3 C L 74 18 148/94 H 97 Nasal Cannula 07/05/24 22:49 77 24 94 07/05/24 22:31 37.0 C 76 18 94 CPAP 07/05/24 21:40 77 07/05/24 21:40 Room Air, CPAP 07/05/24 19:46 36.7 C 73 18 134/82 92 Room Air O2 Flow Rate 07/06/24 06:33 07/06/24 04:05 2 07/05/24 22:49 2 07/05/24 22:31 2 07/05/24 21:40 07/05/24 21:40 07/05/24 19:46 (1) Hypertension Hypertension type: unspecified Qualified Code(s): I10 - Essential (primary) hypertension (3) CRF (chronic renal failure) Chronic kidney disease stage: unspecified stage Qualified Code(s): N18.9 - Chronic kidney disease, unspecified (4) Fluid overload Hypervolemia type: unspecified Qualified Code(s): E87.70 - Fluid overload, unspecified
[2024-07-06 07:46] VITALS: RESP 20
[2024-07-06] MEDS: FAMOTIDINE 20 MG TAB PO SCH (09:20)
[2024-07-06 12:30] VITALS: BP 129/77; TEMP 98.2; O2SAT 99
[2024-07-06 14:36] VITALS: PULSE 70
--- NOTE | 2024-07-06 15:24 | Discharge Summary ---
Date of Service July 06, 2024 Admission HPI Per Admitting Provider Deonte Manzo Is a 43-year-old male with history of CKD, diabetes, hypertension, hyperlipidemia and hypothyroidism presenting with intermittent right sided chest discomfort as well as dyspnea on exertion. Patient has pain under his right breast. Reports it is intermittent, comes only when he pushes on the area. Pain is nonexertional, nonradiating and nonpleuritic. Additionally, he reports worsening dyspnea on exertion as well as increased bilateral lower extremity and scrotal edema. Patient does not weigh himself that he feels he has gained and lost weight fluid recently. He reports walking to the store the other day which is 3 blocks away and needing to stop several times to catch his breath. This is out of the ordinary for him.. He denies cough, abdominal pain, nausea, vomiting, diarrhea Admission Exam Per Admitting Provider GENERAL: alert and oriented in no acute distress on stretcher Head: normocephalic and atraumatic EYES: No injection, discharge or icterus. EOMI. NECK: Trachea midline. ENT: Mucous membranes pink and moist. LUNGS: Airway patent. No retractions. Breath sounds clear HEART: Regular rate and rhythm. No chest wall tenderness ABDOMEN: Soft and non-tender, without guarding or rebound. : With male ER crown and bridge dental lab technician present in the room as well as the patient's , patient with mild to moderate swelling of the bilateral testicles mild tenderness. No obvious lesions. No perineal tenderness or crepitus. No significant wounds appreciable. SKIN: Acyanotic, warm, dry, without rashes EXTREMITIES: No significant tenderness with 2+ bilateral lower extremity edema. NEUROLOGICAL: No focal deficits. No aphasia. No facial droop or slurred speech. Normal strength and tone in the extremities. Sensation to gross touch normal. Ambulatory. Principal Diagnosis 1.Fluid Overload secondary to CKD stage IV 2. Chronic Renal Failure, CKD stage IV 3 Anemia secondary to CKD Discharge Exam Constitutional WD/WN, vitals as above no acute distress Respiratory no respiratory distress (Rales + in bilateral lower lungs) Cardiovascular Rate/Rhythm: regular rate and regular rhythm Heart Sounds: normal S1 and normal S2 Extremities: + edema (2+) and + AV fistula (L BC AVF) Musculoskeletal Extremities: extremities normal to inspection Skin + dry skin; no rashes Neurologic no focal motor deficits Psychiatric Orientation: alert and oriented x 3 Affect: euthymic affect Discharge Data Allergies Allergy/AdvReac Type Severity Reaction Status Date / Time No Known Allergies Allergy Verified 07/02/24 23:57 Consultations 07/02/24 22:53 ED Decision to Admit Stat 07/03/24 08:30 Consult Nephrology Routine Hospital Course (1) Type 2 diabetes mellitus: (2) Diabetic retinopathy: (3) Hypertension: (4) Elevated brain natriuretic peptide (BNP) level: (5) CRF (chronic renal failure): (6) Anemia due to chronic kidney disease: (7) Fluid overload: (8) Precordial chest pain: (9) SOLOMON (dyspnea on exertion): (10) SOB (shortness of breath): (11) Abdominal pain: (12) Vitamin D deficiency: (13) Change in bowel habits: (14) Chronic kidney disease, stage 4 (severe): (15) Diarrhea: (16) Acute kidney injury: (17) Uncontrolled type 2 diabetes mellitus with hyperglycemia, with long-term current use of insulin: (18) Dyslipidemia: (19) Obesity: (20) Depression: (21) Albuminuria: Amelia Clemons is a 43 YO Male with PMH of Diabetes Mellitus II, Obesity with BMI of 37.6, Dyslipidemia, Depression, CKD stage 4, Anemia and Chronic Kidney Disease secondary to T2DM and Hypertension presented to ER with exertional dyspnea, chest discomfort and palpitations. 1. Fluid overload secondary to CKD stage IV - Echo on 07/03/2024 showed normal LVEF 60-65%, elevated right ventricular systolic pressure of >60mmHg, severe concentric left ventricular hypertrophy, therefore most likely not 2/2 exacerbation of heart failure - Patient w/ SOLOMON worsening over the past two weeks, weight gain of 2.5kg since March - BNP 1116 (07/02) - Potassium-5.1; Creatinine- 4.64>5 - On Bumex 2mg BID at home -Currently Bumex 2mg PO BID -Urine Input Output: Net positive balance of 274 ml -Discharge today with Followup with PCP next week and [facility] on 07/17 2. Chronic Renal Failure, CKD Stage IV - Elevated BUN and Creatinine Cr 4.64>5; BUN:Elevated to 83 - Fistula placed at [facility] 02/29/24, has not had dialysis - Avoid nephrotoxic agents - Calcium 87, continue Calcitriol - Will f/u with nephrology in CKD office in 3-4 weeks 3. Anemia secondary to CKD - Hgb 9.5>10.1>9.7 - Low transferrin saturation 9% - Received 20,000 units Epoetin Kevin on 06/02 - On Venofer 200 mg IV daily 4. Uncontrolled Type II Diabetes Mellitus with Hyperglycemia, with terminal clerk current use of Insulin - Fasting Glucose (07/03): 167 - HBA1C (Jan 2024): 8.9 - Continue Jardiance 10 mg daily - Under Insulin Glargine 15 Units Subcut Daily at home - Current: Insulin Glargine 5 units SQ BID and Insulin Aspart 5. Hypertension - BPs were elevated at start of admission, highest 185/97, normalized now - Continue metoprolol 100 mg p.o. every morning and 50 mg p.o. nightly - Continue hydralazine 100 mg p.o. twice daily - Continue amlodipine 10 mg p.o. every morning 6. Dyslipidemia - Stable, is on atorvastatin BID - Continue atorvastatin 7. Depression - Chronic, stable - Continue Wellbutrin 300 mg p.o. daily 8. Hypothyroidism - Continue Synthroid 150 mcg p.o. daily 9. Diabetic Retinopathy - Has undergone one eye surgery, 4 total planned - Next surgery scheduled for next 07/07/24 Total Time Total Time Spent Total Time Spent (In Minutes): I spent 20 minutes seeing the patient and discussing follow-up, I spent 10 minutes reviewing labs and documenting. (FJB) Discharge Plan Discharge Items Patient Disposition: Home - Self-Care Reason For Visit: SOLOMON, CHEST DISCOMFORT Discharge Diagnosis: 1.Fluid Overload secondary to CKD stage IV 2. Chronic Renal Failure, CKD stage IV 3 Anemia secondary to CKD Condition on Discharge: Fair Activity: Per Instructions section Non-emergency contact: Primary Care Provider and [facility] Call non-emergency contact if: you have any medication questions and your symptoms worsen Follow-up/Referrals: Efren Young PA-C [Primary Care Provider] - (PLEASE CALL YOUR PRIMARY CARE PROVIDER TO SCHEDULE A HOSPITAL DISCHARGE FOLLOW-UP APPOINTMENT WITHIN 7-10 DAYS) Diet: Dialysis Renal Ambulatory Orders: Chemistry/Renal Profile (Routine) Timeframe: 2 Days Location: Determined by Patient Ordered By: Pepe Blackwell Addtl Attending Provider Instructions: You presented to hospital with Difficulty in breathing, pain in right chest and exertional dyspnea. You had fluid overload secondary to CKD stage IV. You were treated with IV diuretics and switched to Oral Diuretics. Your electrolytes are deranged in the baseline due to kidney disease. We suggest you to follow your PCP and repeat Complete Metabolic Panel next week. A discharge summary will be sent to your primary care physician to ensure continuity of care. Please bring this discharge summary with you to your next office appointment so that your provider can review it at that time. Follow-up appointments: You have an appointment with your PCP on Sunday. Need to check your Complete Metabolic panel(CMP) If you are unable to make this appointment, or have any other questions, their office can be reached at [phone] You need to follow with [facility] in next 3 to 4 weeks. Make sure to schedule with them. Keep all your follow-up appointments as already scheduled. If you cannot make an appointment, notify your provider. Medications: Your medication list has been reviewed and reconciled upon discharge to ensure accuracy and continuity of care. An updated list of all your medications is included with your hospital discharge paperwork. Please review this list closely, and make note of any changes. - We sent a new medication called Famotidine to your pharmacy. Take Famotidine 20mg BID for 1 month. All other medication are same as you were taking on home. -We have reduce dose of Jardiance from 25mg daily to 10 mg daily because of kidney disease. If you have any issues filling these prescriptions, please call [phone] and ask to leave a message for Dr. Wendy Camp Take your medications as instructed; do not skip a dose of your medicines. Make sure all of your doctors know every medicine you are taking (including [id number] medicines, vitamins, and supplements). Call your primary care provider before taking any new medicines (including overthe- counter medicines, vitamins, and supplements), because some of these may interact with your current medications, or may make your symptoms worse. Tell your primary care provider if you cannot afford your medications. CONTACT YOUR PRIMARY CARE PROVIDER if you experience any of the following: Shortness of breath Dizziness Confusion Difficulty following your treatment plan, or difficulty taking medications CALL [phone] OR GO TO THE EMERGENCY DEPARTMENT if you experience any of the following: Sudden, severe abdominal pain or nausea/vomiting Severe chest pain, or chest pain that radiates (moves) to your jaw or arm Sudden, severe shortness of breath or difficulty breathing Thank you for allowing us to participate in your care. . Pending Studies at Discharge: No Stand-Alone Forms: My [facility], Smoking Cessation Medications and DC Order Prescriptions: New famotidine 20 mg Tablet 20 mg PO BID 30 Days Qty: 60 0RF Jardiance 10 mg Tablet 10 mg PO DAILY 30 Days Qty: 30 1RF Continued (DME) blood-glucose meter [Accu-Chek Guide Glucose Meter] Misc See Rx Instructions .Route Qty: 1 0RF Rx Instructions: use to calibrate CGM or use when CGM is not working (DME) FreeStyle Tootie 2 Sensor Kit See Rx Instructions .Route Qty: 6 3RF Rx Instructions: change sensor every 14 days (DME) lancets [Accu-Chek Softclix Lancets] Misc See Rx Instructions .Route Qty: 100 3RF Rx Instructions: use to calibrate CGM QD; or TID if CGM is not working insulin glargine [Lantus Solostar U-100 Insulin] 100 unit/mL (3 mL) insulin pen 15 unit SUBCUT DAILY Qty: 15 3RF atorvastatin 80 mg tablet 40 mg PO BID Qty: 30 5RF bumetanide 2 mg tablet 2 mg PO BID 30 Days Qty: 60 3RF Hold Instructions: Home Medication placed on hold at Doctor's office Rx Instructions: may also take 2 mg as needed albuterol sulfate 90 mcg/actuation HFA aerosol inhaler 2 puff inhalation Q6H PRN (Reason: Shortness Of Breath Or Wheezing) Rx Instructions: does not have one right now bupropion HCl 300 mg tablet extended release 24 hr 300 mg PO DAILY Rx Instructions: take daily at noon (DME) Accu-Chek Guide test strips Strip See Rx Instructions .Route Qty: 100 3RF Rx Instructions: use to calibrate CGM QD or TID if CGM is not working hydralazine 100 mg tablet 100 mg PO BID Qty: 60 5RF bumetanide 2 mg Tablet 2 mg PO DAILY PRN (Reason: Edema) levothyroxine 150 mcg tablet 150 mcg PO DAILYBB metoprolol succinate 50 mg tablet extended release 24 hr 50 mg PO HS prazosin 1 mg capsule 1 mg PO BID fenofibrate 160 mg tablet 160 mg PO .DAILY@NOON calcitriol 0.5 mcg capsule 0.5 mcg PO .DAILY@NOON metoprolol succinate 100 mg tablet extended release 24 hr 100 mg PO QAM amlodipine 10 mg tablet 10 mg PO QAM Discontinued Jardiance 25 mg tablet 25 mg PO DAILY Qty: 30 3RF Discharge Orders: Discharge Order (Routine); Ordered 07/06/24 Ordered By: Wendy Camp Admission Data Admit Date/Time: 07/02/24 23:41 Attending Provider: Pepe Blackwell Admit Provider: Sue Rushing Primary Care Provider: Efren Young. Other Providers: Sue Rushing; Maria Teresa Andres Other Interventions: Discharge Summary Assessment (RN) Last Done: 07/06/24 14:35 Supervising Physician Co-Signing Physician Notes ATTESTATION I also saw the patient and confirmed roa portions of the history and exam.I personally examined the patient and verified roa points of history and exam, discussed case, and agree with decision making and plan documented by Dr. Camp. He notes that the humidity that yesterday eliminated the somewhat discomfort he had previously. He is pleased with this. I's and O's still difficult to discern as he continues to void in the toilet; suspect he is in a negative fluid balance, just unable to quantify. Discussed with nephrology. Mr. Manzo understands that he will need dialysis in the not too distant future. Discussed that he will need a repeat renal profile in 2-3 days, and an order was placed for this. Discussed that he will need follow-up with nephrology, and I have discussed this with nephrology as well. EXAM 129/77, 74, 20 Appears comfortable lungs bilateral rales at bases heart regular rate and rhythm DATA Labs HgB = 9.7 Sodium 140, potassium 5.1, BUN 83, Cr 5.0 Imaging Echocardiogram shows preserved LV function, elevated right sided pressures. IMPRESSION & PLAN CKD, Stage 4 Anemia due to CKD Borderline hyperkalemia GERD Continue famotidine 20 mg twice daily, first dose now (renally adjusted from 40 mg) continue Bumex 2 mg p.o. twice daily Jardiance 10 mg daily added this hospitalization recheck BMP in 2-3 days nephrology follow-up July 17 at the [place] office; sooner if lab work or symptoms warrant Additional per resident documentation Resident Activity Tracking Resident Involvement: Resident Care Provided Care Provided: Adult Hospital Medicine
--- NOTE | 2024-07-08 12:03 | Coding Query ---
CONGESTIVE HEART FAILURE To Promote full compliance with coding requirements relating to patient care, physician participation is requested in all cases of cheese wrapper uncertainty. Please assist us with the following questions. A diagnosis of Congestive Heart Failure is documented in the patient's medical record. To accurately code this diagnosis and to compare patient severity, we ask that you specify the type of heart failure by placing an X within the parenthesis (x). 07/03 Progress note documented pt presented wtih acute on chronic diastolic heart failure (BNP 1116).Thank you! Lokesh WANG [facility] SYSTOLIC HEART FAILURE ( ) Acute ( ) Chronic ( ) Acute on Chronic ( ) Rheumatic ( ) Unknown DIASTOLIC HEART FAILURE ( ) Acute ( ) Chronic ( X) Acute on Chronic ( ) Rheumatic ( ) Unknown COMBINED SYSTOLIC AND DIASTOLIC HEART FAILURE ( ) Acute ( ) Chronic ( ) Acute on Chronic ( ) Rheumatic ( ) Unknown Was the CHF Present On Admission? Please check the appropriate box: ( X) Present on Admission ( ) Not Present On Admission ( ) Clinically undetermined MTDD
== END 2024-07-06 15:52 | disposition home or self-care (01) | DRG 291 ==
LOC: ED 18:55 → SUATTDRO 23:41 → EDINP 23:41 → 2N 07-03 02:09